=== PATIENT | female | born 1945 | race Caucasian/White ===

== ENCOUNTER → 2018-01-10 14:35 | Outpatient (CLI) | payer MEDICARE, OTHER, SELFPAY ==
--- NOTE | 2018-01-10 | DI.RAD.S_ITS ---
PROCEDURE: XR LUMBAR SPINE 2-3V INDICATIONS: RIGHT HIP PAIN/BACK PAIN TECHNIQUE: 3 views of the lumbar spine were acquired. COMPARISON: [facility], , L-SPINE 2-3 VIEWS, 10/08/2013, 9:57. FINDINGS: Bones: 5 [id number] vertebrae are present. There is normal bony alignment. No vertebral body compression fractures. No suspicious bony lesions. Degenerative disc disease and facet osteoarthritis is moderate at L1-2, and moderately severe at L5 S1. Partial lumbar transition anatomy of S1 is noted. Soft tissues: Overlying bowel gas pattern is normal. No suspicious soft tissue calcifications. IMPRESSION: No change from prior study from 2013 given the slight differences in technique with moderately severe degenerative disc disease and facet osteoarthritis at L5-S1 and moderate such degeneration at L1-L2. Dictated by: Geoff Kemp M.D. on 01/10/2018 at 15:22 Approved by: Geoff Kemp M.D. on 01/10/2018 at 15:24
--- NOTE | 2018-01-10 | DI.RAD.S_ITS ---
PROCEDURE: XR HIP W PEL IF DONE RT 2V INDICATIONS: RIGHT HIP PAIN/BACK PAIN - ONGOING TECHNIQUE: AP pelvis with lateral view(s) of the right hip. COMPARISON: [facility], CR, XR PELVIS W LATERAL HIP RT, 03/16/2015, 11:19. [facility], MR, L-SPINE WITHOUT CONTRAST, 11/13/2015, 12:04. [facility], CR, XR LUMBAR SPINE 2-3V, 01/10/2018, 14:30. FINDINGS: Bones: No fractures or dislocation, but there is mild left hip joint osteoarthritis and a right total hip arthroplasty showing no sign of disruption or loosening. s. Pelvic ring appears intact. No suspicious bony lesions. Soft tissues: The visualized bowel gas pattern is normal. No suspicious soft tissue calcifications. IMPRESSION: There is a stable appearing right total hip arthroplasty, without evidence of device loosening or disruption. The adjacent pelvic structures show no trauma. Mild left hip joint osteoarthritis is incidentally noted. Dictated by: Geoff Kemp M.D. on 01/10/2018 at 15:25 Approved by: Geoff Kemp M.D. on 01/10/2018 at 15:26
== END ==
PROVIDERS: PCP Physician Assistant; Visit Provider Physician Assistant
DX: M51.36 Other intervertebral disc degeneration, lumbar region (principal); M47.816 Spondylosis without myelopathy or radiculopathy, lumbar region; M47.817 Spondylosis without myelopathy or radiculopathy, lumbosacral region; Z96.641 Presence of right artificial hip joint; M25.551 Pain in right hip; M16.12 Unilateral primary osteoarthritis, left hip
CPT/HCPCS: 72100; 73502

== ENCOUNTER → 2018-01-30 14:06 | Outpatient (CLI) | payer MEDICARE, OTHER, SELFPAY ==
--- NOTE | 2018-01-30 | DI.MRI.S_ITS ---
PROCEDURE: MR LUMBAR SPINE WO CON INDICATIONS: LOW BACK PAIN. RIGHT HIP AND LEG PAIN TECHNIQUE: Noncontrast sagittal T1 spin echo and T2 fast echo, sagittal STIR, axial T1 and T2 fast spin echo through the lumbar spine. In cases with scoliosis, additional coronal T2 fast spin echo may be performed. COMPARISON: [facility], MR, L-SPINE WITHOUT CONTRAST, 11/13/2015, 12:04. [facility], MR, L-SPINE WITHOUT CONTRAST, 10/16/2013, 13:09. Loc[facility], CR, XR LUMBAR SPINE 2-3V, 01/10/2018, 14:30. FINDINGS: Image quality: Excellent. Alignment and Curvature: There is normal bony alignment. Bone Marrow: Marrow is of normal overall signal. No acute vertebral body compression fractures. Spinal Cord: Conus medullaris terminates at the L1-L2 level. Visualized cord demonstrates normal signal and size. Paraspinous Soft Tissues: No paravertebral masses. L1-L2: Hqic-mn-[id number] loss of disc height and disc desiccation. There is mild posterior disc bulge. The central canal is patent. No foraminal stenosis. Mild progression of disc degeneration compared with the last exam on 11/13/2015. L2-L3: Preserved disc height and mild disc desiccation. There is minimal posterior disc bulge. Mild bilateral facet arthropathy and moderate hypertrophy of ligament flavum. The central canal is patent. No foraminal stenosis. No significant change from the last exam on 11/13/2015. L3-L4: Preserved disc height and mild disc desiccation. There is mild posterior disc bulge. Mild bilateral facet arthropathy and moderate hypertrophy of ligament flavum. The central canal is patent. No foraminal stenosis. No significant change from the last exam on 11/13/2015. L4-L5: Preserved disc height and mild disc desiccation. There is mild posterior disc bulge. Moderate bilateral facet arthropathy and hypertrophy of ligament flavum. The central canal is mildly narrowed. Mild left foraminal stenosis. Patent right neuroforamen. No significant change from the last exam on 11/13/2015. L5-S1: Moderate loss of disc height and disc desiccation. There is mild posterior disc bulge. Mild bilateral facet arthropathy. The central canal is patent. Mild foraminal stenosis on the left. Patent right neuroforamen. No significant change from the last exam on 11/13/2015. IMPRESSION: 1. Multilevel degenerative disc disease and facet arthropathy as described. 2. Mild central canal stenosis at L4-L5, unchanged from the last exam. 3. Mild foraminal stenosis at L4-L5 and L5-S1 on the left, unchanged from the last exam. Dictated by: Evy Bolivar M.D. on 01/30/2018 at 15:01 Approved by: Evy Bolivar M.D. on 01/30/2018 at 15:31
== END ==
PROVIDERS: PCP Physician Assistant; Visit Provider Physician Assistant
DX: M51.16 Intervertebral disc disorders with radiculopathy, lumbar region (principal); M48.061 Spinal stenosis, lumbar region without neurogenic claudication; M54.5 Low back pain; M25.551 Pain in right hip; M79.604 Pain in right leg
CPT/HCPCS: 72148

== ENCOUNTER → 2018-02-22 10:23 | Outpatient (CLI) | payer MEDICARE, OTHER, SELFPAY ==
--- NOTE | 2018-02-22 | DI.RAD.S_ITS ---
PROCEDURE: XR HIP W PEL IF DONE RT 2V INDICATIONS: Pain in right hip TECHNIQUE: AP pelvis with lateral view(s) of the right hip(s). COMPARISON: [facility], , XR HIP W PEL IF DONE RT 2V, 01/10/2018, 14:30. FINDINGS: Bones: No fractures or dislocations. Pelvic ring appears intact. No suspicious bony lesions. Right hip arthroplasty hardware is seen. No findings of hardware failure or hardware loosening are seen. Soft tissues: The visualized bowel gas pattern is normal. No suspicious soft tissue calcifications. IMPRESSION: Normal postoperative examination. Dictated by: Terry Yang M.D. on 02/22/2018 at 9:56 Approved by: Terry Yang M.D. on 02/22/2018 at 9:57
== END ==
PROVIDERS: PCP Physician Assistant; Visit Provider Physician Assistant
DX: M25.551 Pain in right hip (principal)
CPT/HCPCS: 73502

== ENCOUNTER → 2018-05-18 08:16 | Outpatient (CLI) | payer MEDICARE, OTHER, SELFPAY ==
--- NOTE | 2018-05-18 | DI.MG.S_ITS ---
BILATERAL DIGITAL SCREENING MAMMOGRAM 3D/2D WITH CAD: 05/18/2018 CLINICAL: Routine screening. Family history of breast cancer. Comparison is made to exams dated: 05/17/2017 mammogram, 05/16/2016 mammogram, and 05/14/2015 mammogram - [facility]. The tissue of both breasts is heterogeneously dense. This may lower the sensitivity of mammography. Current study was also evaluated with a Computer Aided Detection (CAD) system. No significant masses, calcifications, or other findings are seen in either breast. There has been no significant interval change. IMPRESSION: NEGATIVE There is no mammographic evidence of malignancy. A 1 year screening mammogram is recommended. This exam was interpreted at Station ID: [id number]. NOTE: For mammograms, a report in lay terms will be sent to the patient. Approximately 15% of breast malignancies will not be visualized mammographically. In the management of a palpable breast mass, a negative mammogram must not discourage biopsy of a clinically suspicious lesion. Electronically Signed By: Nusrat castle/destinee:05/18/2018 09:53:40 letter sent: Normal Exam ACR BI-RADS Category 1: Negative [id number]
== END ==
PROVIDERS: PCP Physician Assistant; Visit Provider Physician Assistant
DX: Z12.31 Encounter for screening mammogram for malignant neoplasm of breast (principal); Z80.3 Family history of malignant neoplasm of breast
CPT/HCPCS: 77063; 77067

== ENCOUNTER → 2018-07-28 11:43 | Outpatient (CLI) | payer MEDICARE, OTHER, SELFPAY ==
[2018-07-28 12:18] LABS: Add Manual Diff / Slide Review NO; Basophils Absolute Auto 0 /uL (0-100); Basophils Percent Auto 0.7 % (0-2); Eosinophils Absolute Auto 100 /uL (0-450); Eosinophils Percent Auto 2.3 % (2-4); Hemoglobin 12.7 g/dL (12.0-16.0); Lymphocytes Absolute Auto 1700 /uL (1100-4500); Lymphocytes Percent Auto 26.9 % (25-40); Mean Corpuscular HGB Conc 33.3 % (30-36); Monocytes Absolute Auto 600 /uL (0-900); Monocytes Percent Auto 9.8 % (3-14); Neutrophils Absolute Auto 3800 /uL (1500-7000); Neutrophils Percent Auto 60.3 % (50-75); Platelet Count 196 X10^3/uL (150-400); Red Blood Cell Count 4.22 X10^6/uL (4.0-5.2); Red Cell Distribution Width 14.3 % (11.6-14.8); White Blood Cell Count 6.2 X10^3/uL (4.5-11.0)
[2018-07-28 12:27] LABS: Prothrombin Time 11.8 SECONDS (10.1-12.7)
[2018-07-28 12:33] LABS: Alanine Aminotransferase 28 IU/L (9-52); Albumin 4.1 g/dL (3.5-5.0); Albumin Globulin Ratio 1.7 (1.0-2.8); Alkaline Phosphatase 44 U/L (38-126); Aspartate Aminotransferase 23 IU/L (14-36); Bilirubin Total 0.3 mg/dL (0.2-1.3); Blood Urea Nitrogen 15 mg/dL (7-17); Calcium 8.8 mg/dL (8.4-10.2); Carbon Dioxide 29 mmol/L (22-32); Chloride 99 mmol/L (98-107); Cholesterol 115 mg/dL (140-199); Estimated Glomerular Filt Rate > 60.0 mL/min (>60); Globulin 2.4 g/dL (1.7-4.1); Glucose 81 mg/dL (80-110); HDL Cholesterol 47 mg/dL (40-60); HEMOLYSIS < 15 (0-50); LDL Cholesterol Calculated 48 mg/dL (<100); Potassium 4.4 mmol/L (3.4-5.1); Sodium 136 mmol/L (137-145); Total Protein 6.5 g/dL (6.3-8.2); Triglycerides 99 mg/dL (35-150)
== END ==
PROVIDERS: PCP Physician Assistant; Visit Provider Physician Assistant
DX: R04.0 Epistaxis (principal); E78.5 Hyperlipidemia, unspecified
CPT/HCPCS: 36415; 80053; 80061; 85025; 85610

== ENCOUNTER → 2019-01-04 08:30 | Outpatient (CLI) | payer MEDICARE, OTHER, SELFPAY ==
--- NOTE | 2019-01-04 | DI.MG.S_ITS ---
BILATERAL DIGITAL DIAGNOSTIC MAMMOGRAM 3D/2D: 01/04/2019 CLINICAL: Lump in the left breast. Comparison is made to exams dated: 05/18/2018 mammogram, 05/17/2017 mammogram, 05/16/2016 mammogram, 05/14/2015 mammogram, and 05/05/2014 mammogram - [facility]. The tissue of both breasts is heterogeneously dense. This may lower the sensitivity of mammography. No abnormality identified mammographicaly at the site of palpable abnormality in the left breast upper outer quadrant at middle depth. No other significant masses, calcifications, or other findings are seen in either breast. IMPRESSION: INCOMPLETE: NEEDS ADDITIONAL IMAGING EVALUATION No abnormality identified mammographicaly at the site of palpable abnormality in the left breast upper outer quadrant at middle depth. Targeted ultrasound evaluation is recommended and will be subsequently preformed. This exam was interpreted at Station ID: [id number]. NOTE: For mammograms, a report in lay terms will be sent to the patient. Approximately 15% of breast malignancies will not be visualized mammographically. In the management of a palpable breast mass, a negative mammogram must not discourage biopsy of a clinically suspicious lesion. Electronically Signed By: Watson Oneill M.D. slc/:01/04/2019 09:20:03 ACR BI-RADS Category 0: Incomplete 3340F
--- NOTE | 2019-01-04 | DI.US.S_ITS ---
LIMITED ULTRASOUND OF LEFT BREAST: 01/04/2019 CLINICAL: Palpable left breast lump. Comparison is made to exams dated: 01/04/2019 mammogram, 05/18/2018 mammogram, 05/17/2017 mammogram, 05/16/2016 mammogram, 05/14/2015 mammogram, and 05/05/2014 mammogram - [facility]. Color flow ultrasound of the left breast 2 o'clock region was performed. Tariq scale images of the real-time examination were reviewed. No abnormality in the left breast at 2 o'clock middle depth 8 cm from the nipple to correlate with the palpable abnormality. No abnormalities were seen sonographically in the left breast. IMPRESSION: NEGATIVE There is no sonographic evidence of malignancy. No ultrasound correlate to the palpable abnormality in the left breast 2:00 region. Recommend continued clinical survellance for change. Otherwise return to annual mammogram screening schedule is recommended. This exam was interpreted at Station ID: [id number]. Electronically Signed By: Watson Oneill M.D. slc/:01/04/2019 23:52:14 letter sent: Clinical Evaluation Ultrasound BI-RADS: 1 Negative
== END ==
PROVIDERS: PCP Physician Assistant; Visit Provider Physician Assistant
DX: R92.8 Other abnormal and inconclusive findings on diagnostic imaging of breast (principal); N63.20 Unspecified lump in the left breast, unspecified quadrant
CPT/HCPCS: 76642; 77066; G0279

== ENCOUNTER → 2019-04-04 13:06 | Outpatient (CLI) | payer MEDICARE, OTHER, SELFPAY | PROVIDERS: PCP Physician Assistant; Visit Provider Physician Assistant | DX: M85.832 Other specified disorders of bone density and structure, left forearm (principal); Z78.0 Asymptomatic menopausal state; Z87.891 Personal history of nicotine dependence; Z90.722 Acquired absence of ovaries, bilateral | CPT/HCPCS: 77080; 77081 ==

== ENCOUNTER → 2019-07-02 07:22 | Outpatient (CLI) | payer MEDICARE, OTHER, SELFPAY ==
[2019-07-02 08:22] LABS: Add Manual Diff / Slide Review NO; Basophils Absolute Auto 0 /uL (0-100); Basophils Percent Auto 0.6 % (0-2); Eosinophils Absolute Auto 200 /uL (0-450); Eosinophils Percent Auto 3.2 % (2-4); Hematocrit 39.1 % (36-46); Lymphocytes Absolute Auto 2200 /uL (1100-4500); Mean Corpuscular HGB Conc 33.3 % (30-36); Mean Corpuscular Volume 90.2 fL (80-100); Monocytes Absolute Auto 500 /uL (0-900); Monocytes Percent Auto 9.7 % (3-14); Neutrophils Absolute Auto 2700 /uL (1500-7000); Neutrophils Percent Auto 47.5 % (50-75); Platelet Count 183 X10^3/uL (150-400); Red Blood Cell Count 4.33 X10^6/uL (4.0-5.2); Red Cell Distribution Width 14.3 % (11.6-14.8); White Blood Cell Count 5.6 X10^3/uL (4.5-11.0)
[2019-07-02 08:38] LABS: Alanine Aminotransferase 19 IU/L (<35); Albumin 4.2 g/dL (3.5-5.0); Albumin Globulin Ratio 1.5 (1.0-2.8); Alkaline Phosphatase 48 U/L (38-126); Aspartate Aminotransferase 29 IU/L (14-36); BUN Creatinine Ratio 27.1 (6-22); Bilirubin Total 0.3 mg/dL (0.2-1.3); Blood Urea Nitrogen 19 mg/dL (7-17); Calcium 9.5 mg/dL (8.4-10.2); Carbon Dioxide 32 mmol/L (22-32); Chloride 100 mmol/L (98-107); Cholesterol 172 mg/dL (140-199); Estimated Glomerular Filt Rate > 60.0 mL/min (>60); Globulin 2.8 g/dL (1.7-4.1); Glucose 103 mg/dL (80-110); HDL Cholesterol 52 mg/dL (40-60); HEMOLYSIS < 15 (0-50); LDL Cholesterol Calculated 97 mg/dL (<100); Potassium 3.9 mmol/L (3.4-5.1); Sodium 140 mmol/L (137-145); Triglycerides 113 mg/dL (35-150)
[2019-07-02 09:32] LABS: Free T4, Direct Thyroxine 0.58 ng/dL (0.78-2.19)
== END ==
PROVIDERS: PCP Physician Assistant; Referring Provider Physician Assistant; Visit Provider Physician Assistant
DX: E78.5 Hyperlipidemia, unspecified (principal); E03.9 Hypothyroidism, unspecified
CPT/HCPCS: 36415; 80053; 80061; 84439; 84443; 85025

== ENCOUNTER 2019-08-12 20:40 | Emergency (ER) | payer MEDICARE, OTHER, SELFPAY ==
[2019-08-12 20:56] VITALS: BP 180/85; PULSE 84; RESP 18; TEMP 36.9; O2SAT 97; BMI 26.2
--- NOTE | 2019-08-12 21:02 | ED_ITS ---
HPI - General Adult General Chief complaint: Eye Problems Stated complaint: LITTLE PIECE OF PLASTIC ON RIGHT EYE Time Seen by Provider: 08/12/19 21:01 Source: patient Mode of arrival: Ambulatory Limitations: no limitations History of Present Illness HPI narrative: 74-year-old female here for evaluation of which she thinks is a foreign body in her right eye. Patient has had cataract surgery in the past but does not were contact lenses. She was using a 1 time use refresh tear bullet afterwards she had irritation of felt like there was something in her eye. She washed her eye profusely at home before arrival. States she still feels like there is something in her eye. When she looked at the refresh Tear container there was a small piece of plastic missing from it and she thinks that is in her eye. Related Data Home Medications Medication Instructions Recorded Confirmed HYDROCODONE/ACETAMINOPHEN ([place] 1 tab PO PRN #0 05/31/11 10-325 Tablet) [FISH OIL] 1,000 mg PO Q DAY #0 05/31/11 [VITAMIN D ] 2,000 iu PO QDAY #0 05/31/11 ASPIRIN (#ASPIRIN E.C.) 81 mg PO Q DAY #0 06/17/11 CA PANTOTHENATE/FOLIC ACID/VIT 1 tab PO QDAY #0 06/17/11 (MULTIVITAMIN) FOLIC ACID (#FOLIC ACID) 800 mcg PO Q DAY #0 06/17/11 Niacin (#NIACIN) 500 mg PO Q DAY #0 06/17/11 Previous Rx's Medication Instructions Recorded erythromycin 0.5 inch EYE-RIGHT TID 3 Days #3.5 08/12/19 gram Allergies Allergy/AdvReac Type Severity Reaction Status Date / Time adhesive Allergy Mild RASH; Verified 08/12/19 21:06 PAPER TAPE OK Cephalosporins Allergy Mild RASH Verified 08/12/19 21:06 erythromycin base Allergy Mild RASH Verified 08/12/19 21:06 tetracycline Allergy Mild RASH Verified 08/12/19 21:06 ciprofloxacin AdvReac Intermediate C DIFF Verified 08/12/19 21:06 ANTI INFLAMMATORY Allergy Mild GI BLEED Uncoded 08/12/19 21:06 Review of Systems Constitutional Constitutional: Denies fever(s) Eyes Comments: Right eye pain, foreign body sensation right eye, right eye irritation, left eye unremarkable ENT Ears, Nose, Mouth, and Throat: Denies vertigo Integumentary/Breasts Skin/Breast: Denies rash Neurologic Neurologic: Denies vertigo Hematologic/Lymphatic Hematologic/Lymphatic: Denies easy bleeding and Denies easy bruising Patient History Medical History Glaucoma (Acute) Social History Smoking Status: Never smoker Smoking Status: Never smoker alcohol intake frequency: 0-2 drinks per day Substance Use Type: does not use Exam Initial Vital Signs Initial Vital Signs: Vital Signs Temperature 98.5 F 08/12/19 20:56 Pulse Rate 84 08/12/19 20:56 Respiratory Rate 18 08/12/19 20:56 Blood Pressure 180/85 H 08/12/19 20:56 Pulse Oximetry 97 08/12/19 20:56 Const General: cooperative and comfortable Limitations: mental status not altered HENMT Face and sinus: normal facial exam Eyes Alignment and Position: alignment normal Periorbital: periorbital findings normal Eyelids: eyelids normal Conjunctivae: conjunctivae normal Sclera: sclerae normal Cornea: corneas abnormal on the right fluorescein used and abrasion linear and fluorescein used Pupils: PERRL EOM: EOM intact bilaterally Resp Effort & Inspection: normal respiratory effort Skin Lesions: no lesions Rashes: no rashes Neuro General: alert and awake Course Orders Ordered: Discontinued Medications Erythromycin (Erythromycin Ophth Oint) 1 applic EYE-RIGHT NOW ONE Stop: 08/12/19 21:16 Last Admin: 08/12/19 21:26 Dose: 1 applic Documented by: FLAKITO Fluorescein Sodium (Ful-Joceline) 1 mg EYE-BOTH NOW ONE Stop: 08/12/19 21:02 Last Admin: 08/12/19 21:07 Dose: 1 mg Documented by: FLAKITO Proparacaine HCl (Parcaine 0.5% Ophth Ailyn) 1 drops EYE-LEFT NOW ONE Stop: 08/12/19 21:02 Last Admin: 08/12/19 21:07 Dose: 1 drops Documented by: FLAKITO Vital Signs Vital signs: Vital Signs - 8 hr 08/12/19 20:56 08/12/19 21:48 08/12/19 22:00 Temperature 98.5 F Pulse Rate 84 73 69 Respiratory Rate 18 18 Blood Pressure 180/85 H Blood Pressure [Left Arm] 180/85 H 143/63 H Pulse Oximetry 97 94 96 Medical Decision Making MDM Narrative Medical decision making narrative: No foreign body noted with inversion of the upper and lower eyelid. Visual acuity noted from nursing notes. Physical exam is consistent with a corneal abrasion in the right eye. Patient was given erythromycin ointment. She does have a documented allergy to erythromycin however she stated that was many years ago and it was ?GI issues ?after she took erythromycin by mouth. After discussion with her regarding this we did opt to try erythromycin ointment. She was given that here in the emergency department without any adverse reaction. Will send home with a prescription for this. She was given return precautions and follow-up instructions. She expressed understanding and agreement. Discharge Plan Departure Patient Disposition: Home Clinical Impression: Corneal abrasion Qualifiers: Encounter type: initial encounter Laterality: right Qualified Code(s): S05.01XA - Injury of conjunctiva and corneal abrasion without foreign body, right eye, initial encounter Discharge Date/Time: 08/12/19 22:07 Instructions: DI for Corneal Abrasion Activity Restrictions/Additional Instructions: Use the antibiotic ointment like we discussed. Contact your primary provider for a follow-up. Return to the emergency department for any new or worsening symptoms Prescriptions: New erythromycin 5 mg/gram (0.5 %) ointment 0.5 inch EYE-RIGHT TID 3 Days Qty: 3.5 RF: 0 No Action HYDROCODONE/ACETAMINOPHEN ([place] 10-325 Tablet) 1 tab PO PRN Qty: 0 RF: 0 [VITAMIN D ] 2,000 iu PO QDAY Qty: 0 RF: 0 [FISH OIL] 1,000 mg PO Q DAY Qty: 0 RF: 0 CA PANTOTHENATE/FOLIC ACID/VIT (MULTIVITAMIN) 1 tab PO QDAY Qty: 0 RF: 0 Niacin (#NIACIN) 500 mg PO Q DAY Qty: 0 RF: 0 FOLIC ACID (#FOLIC ACID) 800 mcg PO Q DAY Qty: 0 RF: 0 ASPIRIN (#ASPIRIN E.C.) 81 mg PO Q DAY Qty: 0 RF: 0 Referrals: Deepika Felix PA-C [Primary Care Provider] -
[2019-08-12] MEDS: PROPARACAINE 0.5% OPHTH SOL 1 DROPS EYE-LEFT (21:07)
[2019-08-12] MEDS: FLUORESCEIN 1 MG STRIP EYE-BOTH (21:07)
[2019-08-12] MEDS: ERYTHROMYCIN OPHTH 1 GM OINT 1 APPLIC EYE-RIGHT (21:26)
[2019-08-12 21:48] VITALS: BP 180/85; PULSE 73; O2SAT 94
[2019-08-12 22:00] VITALS: BP 143/63; PULSE 69; RESP 18; O2SAT 96
== END 2019-08-12 22:07 | disposition home or self-care (01) ==
PROVIDERS: Emergency Provider Emergency Medicine; PCP Physician Assistant
DX: S05.01XA Injury of conjunctiva and corneal abrasion without foreign body, right eye, initial encounter (principal)
CPT/HCPCS: 99283

== ENCOUNTER → 2019-10-08 10:29 | Outpatient (CLI) | payer MEDICARE, OTHER, SELFPAY ==
[2019-10-08 13:20] LABS: Free T3, Triiodothyronine Free 2.83 pg/mL (2.77-5.27)
[2019-10-08 13:34] LABS: TSH w/ Reflex to FT4 2.48 uIU/mL (0.47-4.68)
== END ==
PROVIDERS: PCP Physician Assistant; Referring Provider Physician Assistant; Visit Provider Physician Assistant
DX: E03.9 Hypothyroidism, unspecified (principal)
CPT/HCPCS: 36415; 84443; 84481

== ENCOUNTER → 2019-11-18 19:42 | Outpatient (ROUT) | payer MEDICARE, OTHER, SELFPAY ==
[2019-11-18 19:52] LABS: Add Manual Diff / Slide Review NO; Basophils Absolute Auto 100 /uL (0-100); Basophils Percent Auto 0.7 % (0-2); Eosinophils Absolute Auto 200 /uL (0-450); Eosinophils Percent Auto 2.1 % (2-4); Hematocrit 37.5 % (36-46); Hemoglobin 12.4 g/dL (12.0-16.0); Lymphocytes Absolute Auto 1700 /uL (1100-4500); Lymphocytes Percent Auto 23.5 % (25-40); Mean Corpuscular HGB Conc 33.1 % (30-36); Mean Corpuscular Hemoglobin 30.1 PG (26-34); Mean Corpuscular Volume 90.9 fL (80-100); Monocytes Absolute Auto 700 /uL (0-900); Monocytes Percent Auto 10.1 % (3-14); Neutrophils Absolute Auto 4700 /uL (1500-7000); Neutrophils Percent Auto 63.6 % (50-75); Platelet Count 203 X10^3/uL (150-400); Red Blood Cell Count 4.12 X10^6/uL (4.0-5.2); Red Cell Distribution Width 14.5 % (11.6-14.8); White Blood Cell Count 7.4 X10^3/uL (4.5-11.0)
[2019-11-18 19:54] LABS: Alanine Aminotransferase 17 IU/L (<35); Albumin 3.8 g/dL (3.5-5.0); Albumin Globulin Ratio 1.7 (1.0-2.8); Alkaline Phosphatase 62 U/L (38-126); Aspartate Aminotransferase 29 IU/L (14-36); BUN Creatinine Ratio 34.5 (6-22); Bilirubin Total 0.3 mg/dL (0.2-1.3); Blood Urea Nitrogen 19 mg/dL (7-17); Calcium 9.3 mg/dL (8.4-10.2); Carbon Dioxide 30 mmol/L (22-32); Chloride 100 mmol/L (98-107); Estimated Glomerular Filt Rate > 60.0 mL/min (>60); Globulin 2.3 g/dL (1.7-4.1); Glucose 89 mg/dL (80-110); HEMOLYSIS < 15 (0-50); Potassium 4.1 mmol/L (3.4-5.1); Sodium 134 mmol/L (137-145); Total Protein 6.1 g/dL (6.3-8.2)
[2019-11-18 20:03] LABS: NT-proBNP (BNP-Adult 18+) 130 pg/mL (<125)
[2019-11-18 20:25] LABS: TSH w/ Reflex to FT4 1.52 uIU/mL (0.47-4.68)
== END ==
PROVIDERS: PCP Physician Assistant; Visit Provider Physician Assistant
DX: R06.00 Dyspnea, unspecified (principal)
CPT/HCPCS: 80053; 83880; 84443; 85025

== ENCOUNTER → 2019-11-21 10:17 | Outpatient (CLI) | payer MEDICARE, OTHER, SELFPAY ==
--- NOTE | 2019-11-21 10:22 | DI.RAD.S_ITS ---
PROCEDURE: XR CHEST 2V INDICATIONS: BRATHING ISSUE/CHEST PAIN TECHNIQUE: 2 views of the chest were acquired. COMPARISON: None. FINDINGS: Surgical changes and devices: None. Lungs and pleura: Lungs are clear. No pleural effusions or pneumothorax. Mediastinum: Mediastinal contours are normal. Heart size is normal. Bones and chest wall: No suspicious bony abnormalities. Soft tissues appear unremarkable. IMPRESSION: No acute cardiopulmonary findings. Dictated by: Nusrat Morrow M.D. on 11/21/2019 at 12:39 Approved by: Nusrat Morrow M.D. on 11/21/2019 at 12:40
== END ==
PROVIDERS: PCP Physician Assistant; Referring Provider Physician Assistant; Visit Provider Physician Assistant
DX: R06.00 Dyspnea, unspecified (principal); R07.9 Chest pain, unspecified
CPT/HCPCS: 71046

== ENCOUNTER → 2019-11-24 08:58 | Outpatient (CLI) | payer MEDICARE, OTHER, SELFPAY ==
[2019-11-25 08:46] LABS: COVID19 Sendout Not Detected (Not Detect)
== END ==
PROVIDERS: PCP Physician Assistant; Visit Provider Physician Assistant
DX: Z01.812 Encounter for preprocedural laboratory examination (principal)
CPT/HCPCS: 87635

== ENCOUNTER → 2019-11-27 07:39 | Outpatient (CLI) | payer MEDICARE, OTHER, SELFPAY ==
--- NOTE | 2019-11-27 18:54 | DI.NM.S_ITS ---
DATE OF SERVICE: 11/27/2019 PROCEDURE PERFORMED: Pharmacologic vasodilator stress and rest myocardial perfusion study with gating to assess ejection fraction and regional wall motion. Performed as a one-day study. ORDERING PROVIDER: Deepika Felix PA-C. INDICATIONS: The patient is a 74-year-old female with exertional dyspnea and chest tightness. CARDIAC STRESS: Per protocol, 0.4 mg of regadenoson was infused, augmented by low-level walking. With this, the patient had a normal hemodynamic response. She described some leg heaviness, but no chest discomfort. Her resting ECG shows sinus rhythm with fairly normal ST segments. The stress ECGs are somewhat corrupted by motion artifact, but there are some mild, nonspecific ST-segment changes, but nothing diagnostic for ischemia. She had rare PACs, but no complex ectopy. Per protocol, she was injected with 26.1 millicuries of technetium-99m Myoview and was imaged 20 minutes later using a gated SPECT acquisition protocol. Earlier in the day, while at rest, she was injected with 12.0 millicuries of technetium-99m Myoview and was imaged 30 minutes later, again using a gated SPECT acquisition protocol. FINDINGS: 1. Raw data: There is fairly good myocardial tracer uptake with mild breast shadows. Lung/heart ratio was normal at 0.26 with a normal TID ratio of 0.85. 2. Quantitated gated SPECT: Post-stress ejection fraction is estimated at 96%, likely an overestimate because of relatively small left ventricular volumes. Wall motion is normal. Resting ejection fraction is 95%, again likely an overestimate with a resting end-diastolic volume of 58 mL. 3. Myocardial perfusion imaging: Post-stress supine images show a normal myocardial perfusion pattern without any concerning perfusion defects, supported by normal perfusion imaging in the prone position. The resting images show an identical perfusion pattern without any clear areas of improvement. IMPRESSION: 1. Normal myocardial perfusion study. 2. No evidence of myocardial ischemia or previous myocardial infarction. 3. Normal left ventricular systolic function with relatively small left ventricular volumes. 4. No angina or significant ECG changes of ischemia with pharmacologic vasodilator stress. Jose ManuelAnn - Job doc#: [id number]/job#: [id number] dd: 11/27/2019 16:37:00 dt: 11/27/2019 17:01:00 DICTATING MD/COPIES TO: Crescencio Beltran MD; Crescencio Beltran MD; Deepika Felix PA-C COPIES MNE: MAURISIO; ;
== END ==
PROVIDERS: PCP Physician Assistant; Referring Provider Physician Assistant; Visit Provider Physician Assistant
DX: R06.00 Dyspnea, unspecified (principal); R07.89 Other chest pain
CPT/HCPCS: 78452; 93017; A9502; J2785

== ENCOUNTER → 2019-12-09 10:41 | Outpatient (CLI) | payer MEDICARE, OTHER, SELFPAY ==
[2019-12-10 09:51] LABS: COVID19 Sendout Not Detected (Not Detect)
== END ==
PROVIDERS: PCP Physician Assistant; Visit Provider Student in an Organized Health Care Education/Training Program
DX: Z01.812 Encounter for preprocedural laboratory examination (principal)
CPT/HCPCS: 87635

== ENCOUNTER → 2019-12-12 12:58 | Outpatient (CLI) | payer MEDICARE, OTHER, SELFPAY ==
--- NOTE | 2019-12-17 08:23 | PM.PFT.1 ---
Pulmonary Function Test Referral & Results Date Patient Seen: 12/12/19 Requesting provider: Deepika Felix Indication: Dyspnea Results: The spirometry demonstrates an FVC of 2.31 L which is 85% of predicted. The FEV1 was measured at 1.41 L which is 69% of predicted. The FEV1/FVC ratio was 61 which is 80% of predicted. Following the administration of bronchodilator there was no significant change. Lung volumes show an SVC of 2.30 L which is 86% of predicted. The diffusing capacity was measured at 14.08 which is 63% of predicted. No hemoglobin value was provided, so no correction for potential anemia could be made, if appropriate. The maximum voluntary ventilation was severely reduced Interpretation: This study demonstrates moderate obstructive lung disease based on reduction FEV1 and FEV1/FVC ratio without evidence of significant benefit following bronchodilator There is minimal reduction in lung volumes suggesting minimal restrictive lung disease There is a moderate reduction in diffusing capacity suggesting disease at the capillary alveolar level as well Clinical correlation suggested
== END ==
PROVIDERS: PCP Physician Assistant; Referring Provider Physician Assistant; Visit Provider Physician Assistant
DX: R06.02 Shortness of breath (principal); J98.8 Other specified respiratory disorders; Z87.891 Personal history of nicotine dependence
CPT/HCPCS: 94060; 94726; 94729

== ENCOUNTER → 2020-01-06 11:06 | Outpatient (CLI) | payer MEDICARE, OTHER, SELFPAY ==
--- NOTE | 2020-01-06 | DI.MG.S_ITS ---
BILATERAL DIGITAL SCREENING MAMMOGRAM 3D/2D WITH CAD: 01/06/2020 CLINICAL: Routine screening. Family history of breast cancer. Comparison is made to exams dated: 01/04/2019 mammogram, 05/18/2018 mammogram, 05/17/2017 mammogram, and 05/16/2016 mammogram - [facility]. The tissue of both breasts is heterogeneously dense. This may lower the sensitivity of mammography. Current study was also evaluated with a Computer Aided Detection (CAD) system. No significant masses, calcifications, or other findings are seen in either breast. There has been no significant interval change. IMPRESSION: NEGATIVE There is no mammographic evidence of malignancy. A 1 year screening mammogram is recommended. This exam was interpreted at Station ID: [id number]. NOTE: For mammograms, a report in lay terms will be sent to the patient. Approximately 15% of breast malignancies will not be visualized mammographically. In the management of a palpable breast mass, a negative mammogram must not discourage biopsy of a clinically suspicious lesion. Electronically Signed By: Jorge pratt/destinee:01/06/2020 14:06:55 letter sent: Normal Exam ACR BI-RADS Category 1: Negative [id number]
== END ==
PROVIDERS: PCP Physician Assistant; Referring Provider Physician Assistant; Visit Provider Physician Assistant
DX: Z12.31 Encounter for screening mammogram for malignant neoplasm of breast (principal); Z80.3 Family history of malignant neoplasm of breast
CPT/HCPCS: 77063; 77067

== ENCOUNTER → 2020-02-25 10:04 | Outpatient (CLI) | payer MEDICARE, OTHER, SELFPAY ==
--- NOTE | 2020-02-25 | DI.RAD.S_ITS ---
PROCEDURE: XR ELBOW RT 2V INDICATIONS: Right elbow pain. TECHNIQUE: 3 views of the elbow were acquired. COMPARISON: None. FINDINGS: Bones: Lucency in the medial epicondyle. There is a corticated ossicle adjacent to the medial epicondyle suggesting epicondylitis. No dislocations. No suspicious bony lesions. Soft tissues: No elbow joint effusion. No suspicious soft tissue calcifications. IMPRESSION: 1. Possible nondisplaced fracture in the medial epicondyle of uncertain chronicity. Please correlate with history of trauma. 2. There is a corticated ossicle adjacent to the medial epicondyle, suggesting epicondylitis. Dictated by: Evy Bolivar M.D. on 02/25/2020 at 13:25 Approved by: Evy Bolivar M.D. on 02/25/2020 at 13:30
== END ==
PROVIDERS: PCP Physician Assistant; Referring Provider Physician Assistant; Visit Provider Physician Assistant
DX: M25.521 Pain in right elbow (principal)
CPT/HCPCS: 73070

== ENCOUNTER → 2020-05-08 09:27 | Outpatient (CLI) | payer MEDICARE, OTHER, SELFPAY ==
[2020-05-08 10:51] LABS: COVID19 -Nasal RAPID Negative (Negative)
== END ==
PROVIDERS: PCP Physician Assistant; Visit Provider Surgery
DX: Z01.812 Encounter for preprocedural laboratory examination (principal); Z20.828 Contact with and (suspected) exposure to other viral communicable diseases
CPT/HCPCS: 87635; C9803

== ENCOUNTER 2020-05-11 07:25 | Day surgery (SDC) | payer MEDICARE, OTHER, SELFPAY ==
[2020-05-11 07:54] VITALS: BP 131/77; PULSE 76; RESP 16; TEMP 36.6; O2SAT 97; BMI 25.6
[2020-05-11] MEDS: LACTATED RINGERS 1,000 ML 200 ML IV (07:54)
--- NOTE | 2020-05-11 08:31 | P.HP_ITS ---
History of Present Illness History of Present Illness Date Patient Seen: 05/11/20 Time Patient Seen: 08:32 Chief complaint: SCREENING COLONOSCOPY Narrative: The patient presents for colorectal sreening. Have had multiple prior colonoscopy he has most recently 5 years ago notable for benign polyps. No personal or family history of colon cancer. On further history denies any recent gastrointestinal symptoms. No nausea, vomiting, abdominal pain, loss of appetite, unexplained weight loss, change in bowel habits, diarrhea, constipation, melena, hematochezia, or bright red blood per rectum. Patient History Medical History Diverticulosis GERD (gastroesophageal reflux disease) Glaucoma Hyperlipidemia Surgical History H/O colectomy Family & Social History Social History: household members spouse Tobacco & Substance use: Smoking Status Never smoker alcohol intake current alcohol intake frequency a few times a week Substance Use Type does not use Meds Home Medications and Allergies Home Medications Medication Instructions Recorded Confirmed Type HYDROCODONE/ACETAMINOPHEN ([place] 1 tab PO PRN #0 05/31/11 05/11/20 History 10-325 Tablet) ASPIRIN (#ASPIRIN E.C.) 81 mg PO Q DAY #0 06/17/11 05/11/20 History CA PANTOTHENATE/FOLIC ACID/VIT 1 tab PO QDAY #0 06/17/11 05/11/20 History (MULTIVITAMIN) bimatoprost [[place]] 1 drp EYE-BOTH BEDTIME 05/11/20 05/11/20 History cyclosporine [Restasis] 1 drp EYE-BOTH BID 05/11/20 05/11/20 History duloxetine 30 mg PO BID 05/11/20 05/11/20 History famotidine 40 mg PO BEDTIME 05/11/20 05/11/20 History gabapentin 200 mg PO BEDTIME 05/11/20 05/11/20 History levothyroxine 25 mcg PO DAILY 05/11/20 05/11/20 History olopatadine 1 drp EYE-BOTH BEDTIME 05/11/20 05/11/20 History pravastatin 20 mg PO BEDTIME 05/11/20 05/11/20 History Allergies Allergy/AdvReac Type Severity Reaction Status Date / Time adhesive Allergy Mild RASH; Verified 05/11/20 07:41 PAPER TAPE OK erythromycin base Allergy Mild RASH Verified 05/11/20 07:41 tetracycline Allergy Mild RASH Verified 05/11/20 07:41 ciprofloxacin AdvReac Intermediate C DIFF Verified 05/11/20 07:41 ANTI INFLAMMATORY Allergy Mild GI BLEED Uncoded 12/09/19 16:10 Review of Systems Review of Systems Narrative: A 10 point review of systems is negative except as noted in the HPI Exam Vital Signs (past 8 hours): - 05/11/20 07:54 Temperature 97.8 F Pulse Rate 76 Respiratory Rate 16 Blood Pressure 131/77 Pulse Oximetry 97 Oxygen Delivery Method Room Air Narrative Exam Narrative: General-no acute distress, well nourished adult woman HEENT-moist mucous membranes, no scleral icterus Neck-supple, no lymphadenopathy Chest- non labored respirations, clear to auscultation bilaterally Cardiac-regular rate no peripheral edema Abdomen-soft, nontender, non distended Extremities-warm, well perfused Neurological-alert and oriented, no focal deficits Assessment & Plan Assessment & Plan narrative: The patient requires colorectal screening and colonoscopy is recommended. Technical details were discussed. Risks, benefits, alternatives explained. Risks including but not limited to myocardial infarction, aspiration, bleeding, pain, missed lesion, incomplete examination, need for further radiographic studies, colonic perforation, and need for major abdominal surgery were discussed. All questions were answered to their satisfaction, and they are in agreement with this plan.
[2020-05-11] MEDS: MIDAZOLAM 5 MG/5 ML VIAL IV (08:45)
[2020-05-11] MEDS: fentaNYL 250 MCG/5 ML INJ IV (08:45)
--- NOTE | 2020-05-11 09:09 | PM.OP.ENDO ---
Operative Date/Time/Diagnoses Date of procedure: 05/11/20 Time of procedure: 09:09 Pre-op diagnosis: personal history of colonic polyps Post-op diagnosis: same Procedure & Clinicians Study performed: colonoscopy Same procedure as scheduled: Yes Indications: personal history of colonic polyps Surgeon: Killian Denny Procedure Notes Procedure in detail: Medications: Conscious sedation using 5mg IV midazolam and 150mcg IV of fentanyl The history and physical was performed/updated and the patient is ASA class is 2. The procedure was discussed in detail with the patient. Potential risks complications including infection, bleeding, missed diagnosis, perforation, need for surgery, and were explained. Their questions were answered and informed consent was obtained. Patient was brought to the procedure room and placed standard monitoring equipment. The patient's vital signs were monitored continuously throughout the entire procedure. Prior to starting time-out was performed. The patient was placed in the left lateral recumbent position. Procedural sedation was administered. Examination began with a thorough inspection of the perianal area there was no evidence of fissures, fistulae, external hemorrhoids or cutaneous malignancy. The colonoscopy scope was then placed into the anal canal and was advanced to the cecum, which was identified by the ileocecal valve, the appendiceal orifice and the confluence of the taenia. The scope was then slowly withdrawn examining colon thoroughly in all directions, irrigating it of any residual stool. No masses or polyps Sigmoid colectomy anastomosis observed without abnormality Spence diverticulosis Grade 1 internal hemorrhoids The patient tolerated the procedure well. They will be discharged once criteria are met. The prep was of good/excellent quality. The withdrawl time was 7 minutes. The sedation time was 28 minutes. Specimen(s): none sent Complications: none Impression: Diverticulosis Post-procedure Recommendations: Colonscopy in 10 years Disposition: same day surgery
[2020-05-11 09:11] VITALS: BP 126/56; PULSE 74; RESP 17; TEMP 36.2; O2SAT 98
[2020-05-11 09:16] VITALS: BP 133/67; PULSE 75; RESP 19; O2SAT 99
[2020-05-11 09:23] VITALS: BP 134/67; PULSE 68; RESP 16; O2SAT 100
[2020-05-11 09:28] VITALS: BP 124/99; PULSE 73; RESP 15; TEMP 36.5; O2SAT 99
--- NOTE | 2020-05-11 09:45 | SUR.PHASEII ---
Pt up and ambulating gait steady, dressed on her own and now out via wc in stable condition to curbside by Jenise tech
== END 2020-05-11 09:45 | disposition home or self-care (01) ==
PROVIDERS: PCP Physician Assistant; Referring Provider Physician Assistant; Visit Provider Surgery
PROC: 0DJD8ZZ Inspection of Lower Intestinal Tract, Via Natural or Artificial Opening Endoscopic (ICD-10-PCS; CPT 45378; principal; 2020-05-11 08:30)
DX: Z12.11 Encounter for screening for malignant neoplasm of colon (principal); Z86.010 Personal history of colon polyps; K21.9 Gastro-esophageal reflux disease without esophagitis; E78.5 Hyperlipidemia, unspecified; K57.30 Diverticulosis of large intestine without perforation or abscess without bleeding; K64.0 First degree hemorrhoids
CPT/HCPCS: G0105; 99152; 99153; J2250; J3010

== ENCOUNTER → 2021-01-02 07:51 | Outpatient (CLI) | payer MEDICARE, OTHER, SELFPAY ==
[2021-01-02 09:16] LABS: Add Manual Diff / Slide Review NO; Basophils Absolute Auto 0 /uL (0-100); Basophils Percent Auto 0.8 % (0-2); Eosinophils Absolute Auto 200 /uL (0-450); Hematocrit 39.3 % (36-46); Lymphocytes Absolute Auto 1700 /uL (1100-4500); Lymphocytes Percent Auto 31.4 % (25-40); Mean Corpuscular Hemoglobin 30.9 PG (26-34); Mean Corpuscular Volume 93.5 fL (80-100); Monocytes Absolute Auto 600 /uL (0-900); Monocytes Percent Auto 10.6 % (3-14); Neutrophils Absolute Auto 2900 /uL (1500-7000); Neutrophils Percent Auto 54.2 % (50-75); Platelet Count 211 X10^3/uL (150-400); Red Blood Cell Count 4.21 X10^6/uL (4.0-5.2); Red Cell Distribution Width 13.8 % (11.6-14.8); White Blood Cell Count 5.3 X10^3/uL (4.5-11.0)
[2021-01-02 09:27] LABS: Alanine Aminotransferase 15 IU/L (<35); Albumin 3.9 g/dL (3.5-5.0); Albumin Globulin Ratio 1.6 (1.0-2.8); Alkaline Phosphatase 51 U/L (38-126); Aspartate Aminotransferase 28 IU/L (14-36); BUN Creatinine Ratio 20.6 (6-22); Bilirubin Total 0.3 mg/dL (0.2-1.3); Blood Urea Nitrogen 13 mg/dL (7-17); Calcium 9.2 mg/dL (8.4-10.2); Carbon Dioxide 31 mmol/L (22-32); Chloride 101 mmol/L (98-107); Cholesterol 190 mg/dL (140-199); Estimated Glomerular Filt Rate > 60.0 mL/min (>60); Globulin 2.5 g/dL (1.7-4.1); Glucose 106 mg/dL (80-110); HDL Cholesterol 65 mg/dL (40-60); HEMOLYSIS < 15 (0-50); LDL Cholesterol Calculated 106 mg/dL (<100); Sodium 138 mmol/L (137-145); Total Protein 6.4 g/dL (6.3-8.2); Triglycerides 93 mg/dL (35-150)
[2021-01-02 10:51] LABS: Free T4, Direct Thyroxine 0.92 ng/dL (0.78-2.19)
== END ==
PROVIDERS: PCP Physician Assistant; Referring Provider Physician Assistant; Visit Provider Physician Assistant
DX: E03.9 Hypothyroidism, unspecified (principal); E78.2 Mixed hyperlipidemia
CPT/HCPCS: 36415; 80053; 80061; 84439; 84443; 85025

== ENCOUNTER → 2021-01-07 08:00 | Outpatient (CLI) | payer MEDICARE, OTHER, SELFPAY ==
--- NOTE | 2021-01-07 | DI.MG.S_ITS ---
BILATERAL DIGITAL SCREENING MAMMOGRAM 3D/2D WITH CAD: 01/07/2021 CLINICAL: Routine screening. Family history of breast cancer. Comparison is made to exams dated: 01/06/2020 mammogram, 01/04/2019 mammogram, and 05/18/2018 mammogram - [facility]. The tissue of both breasts is heterogeneously dense. This may lower the sensitivity of mammography. Current study was also evaluated with a Computer Aided Detection (CAD) system. No significant masses, calcifications, or other findings are seen in either breast. There has been no significant interval change. IMPRESSION: NEGATIVE There is no mammographic evidence of malignancy. A 1 year screening mammogram is recommended. This exam was interpreted at Station ID: [id number]. NOTE: For mammograms, a report in lay terms will be sent to the patient. Approximately 15% of breast malignancies will not be visualized mammographically. In the management of a palpable breast mass, a negative mammogram must not discourage biopsy of a clinically suspicious lesion. Electronically Signed By: Toma ahn/destinee:01/07/2021 10:00:57 letter sent: Normal Exam ACR BI-RADS Category 1: Negative [id number]
== END ==
PROVIDERS: PCP Physician Assistant; Referring Provider Physician Assistant; Visit Provider Physician Assistant
DX: Z12.31 Encounter for screening mammogram for malignant neoplasm of breast (principal); Z80.3 Family history of malignant neoplasm of breast
CPT/HCPCS: 77063; 77067

== ENCOUNTER → 2021-01-12 10:46 | Outpatient (CLI) | payer MEDICARE, OTHER, SELFPAY ==
--- NOTE | 2021-01-12 | DI.RAD.S_ITS ---
PROCEDURE: XR HAND LT MIN 3V INDICATIONS: Pain in right hand/Pain in left hand TECHNIQUE: 3 views of the hand(s) acquired. COMPARISON: None. FINDINGS: Bones: No fractures or dislocations. Carpal bones are normally aligned. No suspicious bony lesions. Generalized decrease in osseous mineralization noted. Mild 3rd through 5th distal interphalangeal joint space narrowing without marginal osteophytes. Soft tissues: No suspicious soft tissue calcifications. IMPRESSION: Mild 3rd through 5th distal DIP joint space narrowing Osteopenia Approved by: Abe Mendez M.D. on 01/12/2021 at 11:12
--- NOTE | 2021-01-12 | DI.RAD.S_ITS ---
PROCEDURE: XR HAND RT MIN 3V INDICATIONS: Pain in right hand/Pain in left hand TECHNIQUE: 3 views of the hand(s) acquired. COMPARISON: None. FINDINGS: Bones: No fractures or dislocations. Carpal bones are normally aligned. No suspicious bony lesions. Mild polyarticular joint space narrowing with periarticular osteophytosis. Juxta-articular lucencies involve the lunate, the 2nd MCP joint as well as multiple interphalangeal joints. Soft tissues: No suspicious soft tissue calcifications. IMPRESSION: Mild diffuse joint degeneration and multiple juxta-articular lucencies which may represent small erosions. Inflammatory arthropathy cannot be excluded. Dictated by: Nader Gutierrez [facility] Interpreted: Apolinar Rene MD on 01/12/2021 at 11:04 Transcribed by: RUBEN on 01/12/2021 at 11:05 Approved by: Geoff Kemp M.D. on 01/13/2021 at 13:35
== END ==
PROVIDERS: PCP Physician Assistant; Referring Provider Physician Assistant; Visit Provider Physician Assistant
DX: M79.641 Pain in right hand (principal); M79.642 Pain in left hand; M19.041 Primary osteoarthritis, right hand; M85.842 Other specified disorders of bone density and structure, left hand
CPT/HCPCS: 73130

== ENCOUNTER → 2021-01-15 08:03 | Outpatient (CLI) | payer MEDICARE, OTHER, SELFPAY ==
--- NOTE | 2021-01-15 | DI.CT.S_ITS ---
PROCEDURE: CT HEAD/BRAIN WO CON INDICATIONS: REPEATED FALLS; LOWER BACK PAIN TECHNIQUE: Noncontrast 4.5 mm thick angled axial sections acquired from the foramen magnum to the vertex, with coronal and sagittal reformats. For radiation dose reduction, the following was used: automated exposure control, adjustment of mA and/or kV according to patient size. COMPARISON: [facility], MR, MR LUMBAR SPINE WO CON, 01/15/2021, 8:22. FINDINGS: Image quality: Excellent. CSF spaces: Basal cisterns are patent. No extra-axial fluid collections. The ventricles are symmetric in size and shape. Brain: No intracranial bleeds or masses. There is cerebral volume loss for age, with resultant ventricular and sulcal prominence. There are periventricular and deep white matter chronic small vessel ischemic changes. There is intracranial internal carotid artery atherosclerosis. Skull and face: Calvarium and visualized facial bones appear intact, without suspicious lesions. Sinuses: Visualized sinuses and mastoids are clear. IMPRESSION: Unremarkable intracranial study for age, without findings of intracranial hemorrhage. No masses or mass effect can be seen to the limits of noncontrast head CT. Note is made of age-appropriate brain parenchymal volume loss and chronic small vessel ischemic changes. Dictated by: Terry Yang M.D. on 01/15/2021 at 9:08 Approved by: Terry Yang M.D. on 01/15/2021 at 9:09
--- NOTE | 2021-01-15 | DI.MRI.S_ITS ---
PROCEDURE: MR LUMBAR SPINE WO CON INDICATIONS: REPEATED FALLS; LOWER BACK PAIN TECHNIQUE: Noncontrast sagittal T1 spin echo and T2 fast echo, sagittal STIR, axial T1 and T2 fast spin echo through the lumbar spine. In cases with scoliosis, additional coronal T2 fast spin echo may be performed. COMPARISON: [facility], CR, XR LUMBAR SPINE 2-3V, 01/10/2018, 14:30. [facility], MR, L-SPINE WITHOUT CONTRAST, 11/13/2015, 12:04. [facility], MR, L-SPINE WITHOUT CONTRAST, 10/16/2013, 13:09. [facility], MR, MR LUMBAR SPINE WO CON, 01/30/2018, 14:19. [facility], CT, CT HEAD/BRAIN WO CON, 01/15/2021, 8:43. FINDINGS: Image quality: Diagnostic, with note made of motion artifact. Alignment and Curvature: There is minimal retrolisthesis again seen at L1-L2 and L5-S1. Mild levoconvex scoliotic curvature is noted. Bone Marrow: Marrow is of normal overall signal. No acute vertebral body compression fractures. Spinal Cord: Conus medullaris terminates at the L1 level. Visualized cord demonstrates normal signal and size. Paraspinous Soft Tissues: No paravertebral masses. T12-L1: Normal appearance. L1-L2: Moderate loss of disc height is seen. Loss of disc signal is seen. Partially bridging anterior osteophytes are seen. Mild generalized disc bulge is seen. No significant neural foraminal or central canal narrowing can be seen. Stable from the prior study. L2-L3: No significant abnormality is seen. L3-L4: The disc height is well-preserved. Loss of disc signal is seen at this level. Mild generalized disc bulge is seen. Mild to moderate facet hypertrophy is seen. Associated hypertrophy of the ligamentum flavum can be seen. There is mild left-sided and no right-sided neural foraminal narrowing seen. Mild central canal narrowing is seen. When comparison is made with the prior images, these findings are similar. L4-L5: The disc height is well-preserved. Loss of disc signal is seen at this level. Mild to moderate disc bulge is seen, which is eccentric to the right. Moderate to prominent facet hypertrophy is seen. Associated hypertrophy of the ligamentum flavum can be seen. Mild bilateral neural foraminal narrowing is seen. At least moderate central canal narrowing is seen at this level. Compared to 2018, these degenerative changes have progressed. L5-S1: Moderate loss of disc height is seen. Loss of disc signal is seen. Moderate disc bulge is seen, which is eccentric to the left. There is mild right-sided and [id number] left-sided facet hypertrophy seen. There is mild right-sided and at least moderate left-sided neural foraminal narrowing. Mild central canal narrowing is seen. When comparison is made with the prior images, these findings are similar. Incidental note is made of a presumed perineural cyst (Tarlov's cyst) at the S3 level. IMPRESSION: Multiple levels of lumbar spine degenerative change are seen, which are overall worst at the L5-S1 level. Compared to 2018, mild progression can be seen at the L4-L5 level. Dictated by: Terry Yang M.D. on 01/15/2021 at 8:58 Approved by: Terry Yang M.D. on 01/15/2021 at 9:04
== END ==
PROVIDERS: PCP Physician Assistant; Referring Provider Physician Assistant; Visit Provider Physician Assistant
DX: R29.6 Repeated falls (principal); M54.5 Low back pain; M47.817 Spondylosis without myelopathy or radiculopathy, lumbosacral region; M47.816 Spondylosis without myelopathy or radiculopathy, lumbar region
CPT/HCPCS: 70450; 72148

== ENCOUNTER → 2021-02-12 13:34 | Outpatient (CLI) | payer MEDICARE, OTHER, SELFPAY ==
--- NOTE | 2021-02-12 13:36 | DI.MRI.S_ITS ---
PROCEDURE: MR CERVICAL SPINE WO CON INDICATIONS: Spondylosis without myelopathy or radiculopathy TECHNIQUE: Noncontrast sagittal T1 spin echo and T2 fast spin echo, sagittal STIR, foraminal oblique sagittal T2 fast spin echo, and axial gradient echo or T2 fast spin echo through the cervical spine. COMPARISON: None. FINDINGS: Image quality: Excellent. Alignment and Curvature: There is straightening of the cervical spine. Bone Marrow: No abnormal marrow signal. Spinal Cord: Visualized spinal cord has normal size and signal. No cerebellar tonsillar herniation. Paraspinous Soft Tissues: No paravertebral masses. Prevertebral soft tissues are normal in thickness. C2-C3: No significant disc bulge. The foramina and central canal are patent. C3-C4: No significant disc bulge. The foramina and central canal are patent. C4-C5: The disc is desiccated with a diffuse bulge and disc osteophytes. Uncovertebral hypertrophy is present causing severe right and moderate left foraminal stenosis. The central canal has moderate stenosis. C5-C6: The disc is desiccated with a diffuse bulge and disc osteophytes. Uncovertebral hypertrophy is present causing severe bilateral foraminal stenosis. The central canal has severe stenosis. C6-C7: The disc is desiccated with a diffuse disc bulge and disc osteophytes. Uncovertebral hypertrophy is present causing severe bilateral foraminal stenosis. C7-T1: No significant disc bulge. The foramina and central canal are patent. IMPRESSION: 1. Degenerative disc disease at C4-5, C5-6, and C6-7 with diffuse disc bulges, disc osteophytes, and uncovertebral hypertrophy. 2. Multilevel severe foraminal stenosis as above. 3. Moderate central canal stenosis at C4-5 and severe central canal stenosis at C5-6. 4. No abnormal cord signal. Dictated by: Jb Rene M.D. on 02/12/2021 at 14:08 Approved by: Jb Rene M.D. on 02/12/2021 at 14:18
== END ==
PROVIDERS: PCP Physician Assistant; Referring Provider Physician Assistant; Visit Provider Physician Assistant
DX: M47.812 Spondylosis without myelopathy or radiculopathy, cervical region (principal); M50.020 Cervical disc disorder with myelopathy, mid-cervical region, unspecified level; M50.120 Mid-cervical disc disorder, unspecified level; M48.02 Spinal stenosis, cervical region
CPT/HCPCS: 72141

== ENCOUNTER → 2021-02-26 10:09 | Outpatient (CLI) | payer MEDICARE, OTHER, SELFPAY ==
--- NOTE | 2021-02-26 | DI.RAD.S_ITS ---
PROCEDURE: XR RIBS BI MIN 4V W CXR1V INDICATIONS: Repeated falls TECHNIQUE: 2 views of the bilateral ribs were acquired, along with a single view chest. COMPARISON: None. FINDINGS: Surgical changes and devices: None. Bones and chest wall: No fractures or dislocations. No suspicious bony lesions. Overlying soft tissues appear unremarkable. Lungs and pleura: No pleural effusions or pneumothorax. Lungs appear clear. Mediastinum: Mediastinal contours appear normal. Heart size is normal. IMPRESSION: No acute process. No acute fracture. No osseous lesion. If symptoms and/or clinical suspicion for pathology persist, further assessment with repeat, or advanced imaging (e.g., CT or bone scan) may be helpful for further assessment. Dictated by: Caty Parmar M.D. on 02/26/2021 at 11:49 Approved by: Caty Parmar M.D. on 02/26/2021 at 14:10
== END ==
PROVIDERS: PCP Physician Assistant; Referring Provider Physician Assistant; Visit Provider Physician Assistant
DX: R29.6 Repeated falls (principal)
CPT/HCPCS: 71111

== ENCOUNTER 2021-04-01 07:30 | Outpatient (RCR) | payer MEDICARE, OTHER, SELFPAY ==
--- NOTE | 2021-01-25 17:00 | PT.OIE ---
Current Diagnoses Muscle weakness (generalized) (01/25/21) Repeated falls (01/25/21) Dizziness and giddiness (01/25/21) Past Medical History (Last Reviewed 05/11/20 @ 08:33 by Killian Denny MD) Diverticulosis GERD (gastroesophageal reflux disease) Glaucoma H/O colectomy Hyperlipidemia Past Surgical History (Last Reviewed 05/11/20 @ 08:33 by Killian Denny MD) H/O colectomy Visit Care Team Role Provider Type Deepika Felix PA-C Attending Provider Non-Staff Primary Care Provider Referring Provider Specialty: Internal Medicine Address: [address] [place] [address] Email: [email or web address] Physical Therapy Initial Evaluation PT-OP-A Visit Information Start: 01/22/21 14:39 Freq: Status: Active Protocol: Document 01/25/21 09:07 LRN (Rec: 01/25/21 11:16 LRN [id number]) Out-Patient Physical Therapy Visit Information Visit Information Visit Type Initial Evaluation Visit Start Time 09:07 Visit Stop Time 09:56 Total Visit Minutes 49 Visit Number 1 Evaluation Information Evaluation Date 01/25/21 Precautions Precautions Falling (backwards and to side ) a couple times per month, neck & back pain (Neck pain since 1973 and LB for the past 30 yrs), thyroid disorder, R KVNG 04/01, L Partial knee replacement 02/03, R TKA 06/09. PT-OP-B Current Condition Start: 01/22/21 14:39 Freq: Status: Active Protocol: Document 01/25/21 09:07 LRN (Rec: 01/25/21 11:16 LRN [id number]) Current Condition History of Current Condition Onset Date 2.5 yrs ago. Current Complaints Frequent falls over last 2.5 yrs History of Current Condition Started falling occasionally, now is falling more frequent, a couple times a month. If looks up at any length of time she gets dizzy. Notices increased falls on uneven sidewalks due to catching of toes, and on garden incline, causing her to fall backward or onto her side. Other incidents of falling occur when stepping down curbs, stepping up on a step stool ( missing a step) and when ascending stairs (fell backwards, catching self on railing). Most times her falls are backwards or to the side. She reports her worst fall was backwards and her hearing a crack when her head hit, but denies LOC or nasusa. A more recent fall was in late October when she fell onto her L side, landing on her hip and side of face, with brusing on the entire L side. She states she was able to get up right away and continued on her way with no dysfunction noted. Prior Treatments and Tests CT scan 01/15/21: Unremarkable intracranial study for age, without finding of intracranial hemorrhage. MRI of low back showed multiple levels of lumbar spine degerative change, overall worse at L5-S1. 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 Future Testing and Treatments Planned Appt with neurologist in March if needed. Treatment Goals Patient/Caregiver Goals Pt goal is to step down curbs without losing balance, walk without having to look at feet , and be able to stand and look up without feeling dizzy. Prior Functional Status Baseline Function- ADL's Independent Baseline Function- Mobility Independent Baseline Function- Recreation/Hobbies Gardening, reading. Baseline Function- Other Neck pain for 47 yrs and LB for at least 30 yrs. Numb just below buttocks in an area spanning ~3 under gluteal line. Current Functional Impairments (Reported) Functional Limitations- ADL's Not able to look up without dizziness. Falls backwards when on uneven ground or inclines falls more frequently onto back or sides . Functional Limitations- Recreation/ Holding a book and reading >10 Hobbies minutes causes neck pain. Personal Factors Other Personal Factors That May Effect Wanting to continue to garden, Therapy/Recovery and is planning on painting the ceiling in a room of her house. PT-OP-C Subjective Start: 01/22/21 14:39 Freq: Status: Active Protocol: Document 01/25/21 09:07 LRN (Rec: 01/25/21 11:16 LRN [id number]) Patient Questionnaires Dizziness Handicap Inventory DHI Score 30 DHI Functional Impairment 20 to 39% Impaired (Score 20- 39) OP-PT Pain Assessment Pain Assessment Grid Paper Pain Assessment Grid Completed Yes Location Low back Pain Location Details Sacral level Intensity 4 Scale Used Numeric (0 - 10) Description Aching,Burning Description- Other Buttock is numb and sometimes catch pain Neck Pain Location Details Across base of cervical spine Intensity 4 Scale Used Numeric (0 - 10) Description Aching,Burning,Sharp Description- Other Sharp if turns too far. PT-OP-D Balance Start: 01/22/21 14:39 Freq: Status: Active Protocol: Document 01/25/21 09:07 LRN (Rec: 01/25/21 11:16 LRN [id number]) OP-PT Balance Assessment Sitting Balance Static Sitting Balance Ability Normal Dynamic Sitting Balance Ability Normal Balance Tests Carranza Balance Test Carranza Balance Test Score 50 Carranza Impairment Rating 1 to 19% Impaired (Score 45-55 ) Functional Reach Functional Reach Test 14 Functional Reach Impairment Rating 0% Impaired (Score 10) Single Limb Standing Single Limb- Right 3 secs Single Limb- Left 5 secs Tandem Tandem Standing R foot behind: 30+ secs. L foot behind: 16 secs. Castañeda Fall Scale Copyright Permission PT-OP-E Functional Tests Start: 01/22/21 14:39 Freq: Status: Active Protocol: Document 01/25/21 09:07 LRN (Rec: 01/25/21 11:16 LRN [id number]) Functional Tests Timed Up and Go (TUG) Score 13 TUG Impairment Rating 20 to <40% Impaired (Score 12- 13) PT-OP-K Range of Motion Start: 01/22/21 14:39 Freq: Status: Active Protocol: Document 01/25/21 09:07 LRN (Rec: 01/25/21 11:16 LRN [id number]) Cervical Spine Range of Motion Cervical Spine Active Degrees Testing Position Sitting Flexion 50 Extension 20 Rotation Left 50 Rotation Right 62 Lateral Flexion Left 15 Lateral Flexion Right 15 ROM Limitations Soft Tissue Tightness,Pain Comments Dizzy on return from extension PT-OP-Q Treatments Start: 01/22/21 14:39 Freq: Status: Active Protocol: Document 01/25/21 09:07 LRN (Rec: 01/25/21 11:16 LRN [id number]) Neuro Re-Education Treatment Balance Activities SLS Details SLS w/instructions to do standing @ sink or in corner Surface Level Self-Care/Home Management Treatment Education Other Education Educated and discussed result of evaluation. Discussed goals with extra time taken to determine functional goals, and discussed plan of care, including an assessment by a vestibular physical therapist specialist. Pt was agreeable to goals and plan of care. Activities Self-Care/Home Management Activities I/S pt in safe positioning for practice of SLS in front of something to hold or in corner . PT-OP-T Assessment and Plan Start: 01/22/21 14:39 Freq: Status: Active Protocol: Document 01/25/21 09:07 LRN (Rec: 01/25/21 11:16 LRN [id number]) Physical Therapy Assessment Rehab Potential Rehabilitation Potential Good Evaluation Complexity Number of Personal Factors/Comorbidities 3 or More Number of Body Systems Impaired 4 or More Clinical Presentation at Evaluation Evolving Impairments Impairments Balance,Coordination,Gait,Pain ,ROM Goals Four Impairment Dizziness onset when looking up or on return to neutral. Short Term Goal (STG) Pt will be able to stand and look up or return to neutral without feeling dizzy. STG Duration 03/15/21 Detention Goal (LTG) Improve Dizziness Questionnaire score to no more than 19 to demonstrate improved function. LTG Duration 04/25/21 Three Impairment Pt looks at feet/ground for safe ambulation. Short Term Goal (STG) Improve SLS without looking at feet to 10 secs biliaterally STG Duration 03/15/21 Detention Goal (LTG) Pt will be able to walk 20' without looking at her feet with minimal pathway sway and no loss of balance. LTG Duration 04/25/21 Two Impairment Decreased single leg standing balance Short Term Goal (STG) Improve ankle strength. STG Duration 03/15/21 Detention Goal (LTG) Pt will be able to step down curbs without losing balance or falling. LTG Duration 04/25/21 One Impairment Lacks appropriate self care HEP. Short Term Goal (STG) Pt will be educated in a home program of ex's to address general dizziness (neck mobility and eye ex's). STG Duration 02/05/21 Assurance Specialist Goal (LTG) Pt will be educated and independent with a self care HEP of balance and strengthening ex's. LTG Duration 04/25/21 Assessment Summary Assessment Pt presents with decreased single leg stance balance and probable vestibular dysfunction. Today she appeared to have trouble focusing her eyes on an object with darting of her eyes side to side. She became dizzy after looking up, occuring when she returned her head to neutral. The pt may benefit from a concussion assessment based on her extensive fall history. Further assessment is needed for her neck an back and gait for dysfunction. The pt will benefit from skilled physical therapy for a vestibular check, neck and back ROM, LE strengthening, and balance/coordination exercises. Treatment will focus on achieving the above stated goals. Physical Therapy Plan Frequency and Duration Frequency of Treatment 2x/Week Plan of Care Start Date 01/25/21 Plan of Care End Date 04/25/21 Therapeutic Interventions Therapeutic Interventions Balance Training,Gait Training ,Home Exercise Program, Neuromuscular Re-education, Patient/Caregiver Education, Self-Care/Home Management, Therapeutic Activities, Therapeutic Exercises Modalities Cold Pack/Ice Massage,Electric Stimulation,Hot Packs, Ultrasound Next Visit Focus/Plan Next Note Type Treatment Note Next Visit Plan Next 1-2 visits for vestibular assessment and likely VOR exercises and possibly canalith repositioning exercises; assess for gait dysfunction, start pt on self prison ex's and initiate when appropriate standing balance ex's and cervical ROM ex's. Ther ex for ankle strengthening, aerobic conditioning. Assess for LE mobility restrictions and address as needed. Assess L/S for gluteal numbness ( possible S3) and LE weakness. Modalities or exercise, as needed before mobilization of neck/back.
--- NOTE | 2021-01-25 17:10 | PT.OPPOC ---
Physical, Occupational & Speech Therapy At [facility] Current Diagnoses Muscle weakness (generalized) (01/25/21) Repeated falls (01/25/21) Dizziness and giddiness (01/25/21) Visit Care Team Role Provider Type Deepika Felix PA-C Attending Provider Non-Staff Primary Care Provider Referring Provider Specialty: Internal Medicine Address: [address] [place] [address], [facility] Email: [email or web address] Plan Of Care PT-OP-T Assessment and Plan Start: 01/22/21 14:39 Freq: Status: Active Protocol: Document 01/25/21 09:07 LRN (Rec: 01/25/21 11:16 LRN [id number]) Physical Therapy Assessment Rehab Potential Rehabilitation Potential Good Evaluation Complexity Number of Personal Factors/Comorbidities 3 or More Number of Body Systems Impaired 4 or More Clinical Presentation at Evaluation Evolving Impairments Impairments Balance,Coordination,Gait,Pain ,ROM Goals Four Impairment Dizziness onset when looking up or on return to neutral. Short Term Goal (STG) Pt will be able to stand and look up or return to neutral without feeling dizzy. 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 LTG Duration 04/25/21 Three Impairment Pt looks at feet/ground for safe ambulation. Short Term Goal (STG) Improve SLS without looking at feet to 10 secs biliaterally STG Duration 03/15/21 Group Home Goal (LTG) Pt will be able to walk 20' without looking at her feet with minimal pathway sway and no loss of balance. LTG Duration 04/25/21 Two Impairment Decreased single leg standing balance Short Term Goal (STG) Improve ankle strength. STG Duration 03/15/21 Cigarette Making Machine Operator Goal (LTG) Pt will be able to step down curbs without losing balance or falling. LTG Duration 04/25/21 One Impairment Lacks appropriate self care HEP. Short Term Goal (STG) Pt will be educated in a home program of ex's to address general dizziness (neck mobility and eye ex's). STG Duration 02/05/21 Group Home Goal (LTG) Pt will be educated and independent with a self care HEP of balance and strengthening ex's. LTG Duration 04/25/21 Assessment Summary Assessment Pt presents with decreased single leg stance balance and probable vestibular dysfunction. Today she appeared to have trouble focusing her eyes on an object with darting of her eyes side to side. She became dizzy after looking up, occuring when she returned her head to neutral. The pt may benefit from a concussion assessment based on her extensive fall history. Further assessment is needed for her neck an back and gait for dysfunction. The pt will benefit from skilled physical therapy for a vestibular check, neck and back ROM, LE strengthening, and balance/coordination exercises. Treatment will focus on achieving the above stated goals. Physical Therapy Plan Frequency and Duration Frequency of Treatment 2x/Week Plan of Care Start Date 01/25/21 Plan of Care End Date 04/25/21 Therapeutic Interventions Therapeutic Interventions Balance Training,Gait Training ,Home Exercise Program, Neuromuscular Re-education, Patient/Caregiver Education, Self-Care/Home Management, Therapeutic Activities, Therapeutic Exercises Modalities Cold Pack/Ice Massage,Electric Stimulation,Hot Packs, Ultrasound Next Visit Focus/Plan Next Note Type Treatment Note Next Visit Plan Next 1-2 visits for vestibular assessment and likely VOR exercises and possibly canalith repositioning exercises; assess for gait dysfunction, start pt on self jail ex's and initiate when appropriate standing balance ex's and cervical ROM ex's. Ther ex for ankle strengthening, aerobic conditioning. Assess for LE mobility restrictions and address as needed. Assess L/S for gluteal numbness ( possible S3) and LE weakness. Modalities or exercise, as needed before mobilization of neck/back. Plan of Care Dates Plan of Care Start Date 01/25/21 Plan of Care End Date 04/25/21 Electronically Signed by: Nusrat Winter, PT 01/26/211941 Please Sign and Return: I have reviewed this Plan of Care and certify that the skilled therapy services above are required to meet the patient?s needs. Physician Signature Date Printed Name and Credentials Clinical Instructor Signature Printed Name and Credentials
--- NOTE | 2021-01-25 17:10 | PT.OIE ---
Current Diagnoses Muscle weakness (generalized) (01/25/21) Repeated falls (01/25/21) Dizziness and giddiness (01/25/21) Past Medical History (Last Reviewed 05/11/20 @ 08:33 by Killian Denny MD) Diverticulosis GERD (gastroesophageal reflux disease) Glaucoma H/O colectomy Hyperlipidemia Past Surgical History (Last Reviewed 05/11/20 @ 08:33 by Killian Denny MD) H/O colectomy Visit Care Team Role Provider Type Deepika Felix PA-C Attending Provider Non-Staff Primary Care Provider Referring Provider Specialty: Internal Medicine Address: [address] [place] [address] Email: [email or web address] Initial Evaluation PT-OP-A Visit Information Start: 01/22/21 14:39 Freq: Status: Active Protocol: Document 01/25/21 09:07 LRN (Rec: 01/25/21 11:16 LRN [id number]) Out-Patient Physical Therapy Visit Information Visit Information Visit Type Initial Evaluation Visit Start Time 09:07 Visit Stop Time 09:56 Total Visit Minutes 49 Visit Number 1 Evaluation Information Evaluation Date 01/25/21 Precautions Precautions Falling (backwards and to side ) a couple times per month, neck & back pain (Neck pain since 1973 and LB for the past 30 yrs), thyroid disorder, R KVNG 04/01, L Partial knee replacement 02/03, R TKA 06/09. PT-OP-B Current Condition Start: 01/22/21 14:39 Freq: Status: Active Protocol: Document 01/25/21 09:07 LRN (Rec: 01/25/21 11:16 LRN [id number]) Current Condition History of Current Condition Onset Date 2.5 yrs ago. Current Complaints Frequent falls over last 2.5 yrs History of Current Condition Started falling occasionally, now is falling more frequent, a couple times a month. If looks up at any length of time she gets dizzy. Notices increased falls on uneven sidewalks due to catching of toes, and on garden incline, causing her to fall backward or onto her side. Other incidents of falling occur when stepping down curbs, stepping up on a step stool ( missing a step) and when ascending stairs (fell backwards, catching self on railing). Most times her falls are backwards or to the side. She reports her worst fall was backwards and her hearing a crack when her head hit, but denies LOC or nasusa. A more recent fall was in late October when she fell onto her L side, landing on her hip and side of face, with brusing on the entire L side. She states she was able to get up right away and continued on her way with no dysfunction noted. Prior Treatments and Tests CT scan 01/15/21: Unremarkable intracranial study for age, without finding of intracranial hemorrhage. MRI of low back showed multiple levels of lumbar spine degerative change, overall worse at L5-S1. 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 Future Testing and Treatments Planned Appt with neurologist in March if needed. Treatment Goals Patient/Caregiver Goals Pt goal is to step down curbs without losing balance, walk without having to look at feet , and be able to stand and look up without feeling dizzy. Prior Functional Status Baseline Function- ADL's Independent Baseline Function- Mobility Independent Baseline Function- Recreation/Hobbies Gardening, reading. Baseline Function- Other Neck pain for 47 yrs and LB for at least 30 yrs. Numb just below buttocks in an area spanning ~3 under gluteal line. Current Functional Impairments (Reported) Functional Limitations- ADL's Not able to look up without dizziness. Falls backwards when on uneven ground or inclines falls more frequently onto back or sides . Functional Limitations- Recreation/ Holding a book and reading >10 Hobbies minutes causes neck pain. Personal Factors Other Personal Factors That May Effect Wanting to continue to garden, Therapy/Recovery and is planning on painting the ceiling in a room of her house. PT-OP-C Subjective Start: 01/22/21 14:39 Freq: Status: Active Protocol: Document 01/25/21 09:07 LRN (Rec: 01/25/21 11:16 LRN [id number]) Patient Questionnaires ABC- Activity Specific Balance Confidence Scale ABC Score 67.5 ABC Functional Impairment 20 to <40% Impaired (Score 61- 80) Dizziness Handicap Inventory DHI Score 30 DHI Functional Impairment 20 to 39% Impaired (Score 20- 39) OP-PT Pain Assessment Pain Assessment Grid Paper Pain Assessment Grid Completed Yes Location Low back Pain Location Details Sacral level Intensity 4 Scale Used Numeric (0 - 10) Description Aching,Burning Description- Other Buttock is numb and sometimes catch pain Neck Pain Location Details Across base of cervical spine Intensity 4 Scale Used Numeric (0 - 10) Description Aching,Burning,Sharp Description- Other Sharp if turns too far. PT-OP-D Balance Start: 01/22/21 14:39 Freq: Status: Active Protocol: Document 01/25/21 09:07 LRN (Rec: 01/25/21 11:16 LRN [id number]) OP-PT Balance Assessment Sitting Balance Static Sitting Balance Ability Normal Dynamic Sitting Balance Ability Normal Balance Tests Carranza Balance Test Carranza Balance Test Score 50 Carranza Impairment Rating 1 to 19% Impaired (Score 45-55 ) Functional Reach Functional Reach Test 14 Functional Reach Impairment Rating 0% Impaired (Score 10) Single Limb Standing Single Limb- Right 3 secs Single Limb- Left 5 secs Tandem Tandem Standing R foot behind: 30+ secs. L foot behind: 16 secs. Castañeda Fall Scale Copyright Permission PT-OP-E Functional Tests Start: 01/22/21 14:39 Freq: Status: Active Protocol: Document 01/25/21 09:07 LRN (Rec: 01/25/21 11:16 LRN [id number]) Functional Tests Timed Up and Go (TUG) Score 13 TUG Impairment Rating 20 to <40% Impaired (Score 12- 13) PT-OP-K Range of Motion Start: 01/22/21 14:39 Freq: Status: Active Protocol: Document 01/25/21 09:07 LRN (Rec: 01/25/21 11:16 LRN [id number]) Cervical Spine Range of Motion Cervical Spine Active Degrees Testing Position Sitting Flexion 50 Extension 20 Rotation Left 50 Rotation Right 62 Lateral Flexion Left 15 Lateral Flexion Right 15 ROM Limitations Soft Tissue Tightness,Pain Comments Dizzy on return from extension PT-OP-Q Treatments Start: 01/22/21 14:39 Freq: Status: Active Protocol: Document 01/25/21 09:07 LRN (Rec: 01/25/21 11:16 LRN [id number]) Neuro Re-Education Treatment Balance Activities SLS Details SLS w/instructions to do standing @ sink or in corner Surface Level Self-Care/Home Management Treatment Education Other Education Educated and discussed result of evaluation. Discussed goals with extra time taken to determine functional goals, and discussed plan of care, including an assessment by a vestibular physical therapist specialist. Pt was agreeable to goals and plan of care. Activities Self-Care/Home Management Activities I/S pt in safe positioning for practice of SLS in front of something to hold or in corner . PT-OP-T Assessment and Plan Start: 01/22/21 14:39 Freq: Status: Active Protocol: Document 01/25/21 09:07 LRN (Rec: 01/25/21 11:16 LRN [id number]) Physical Therapy Assessment Rehab Potential Rehabilitation Potential Good Evaluation Complexity Number of Personal Factors/Comorbidities 3 or More Number of Body Systems Impaired 4 or More Clinical Presentation at Evaluation Evolving Impairments Impairments Balance,Coordination,Gait,Pain ,ROM Goals Four Impairment Dizziness onset when looking up or on return to neutral. Short Term Goal (STG) Pt will be able to stand and look up or return to neutral without feeling dizzy. STG Duration 03/15/21 Fdc Goal (LTG) Improve Dizziness Questionnaire score to no more than 19 to demonstrate improved function. LTG Duration 04/25/21 Three Impairment Pt looks at feet/ground for safe ambulation. Short Term Goal (STG) Improve SLS without looking at feet to 10 secs biliaterally STG Duration 03/15/21 Fdc Goal (LTG) Pt will be able to walk 20' without looking at her feet with minimal pathway sway and no loss of balance. LTG Duration 04/25/21 Two Impairment Decreased single leg standing balance Short Term Goal (STG) Improve ankle strength. STG Duration 03/15/21 Insole Buffer Goal (LTG) Pt will be able to step down curbs without losing balance or falling. LTG Duration 04/25/21 One Impairment Lacks appropriate self care HEP. Short Term Goal (STG) Pt will be educated in a home program of ex's to address general dizziness (neck mobility and eye ex's). STG Duration 02/05/21 Insole Buffer Goal (LTG) Pt will be educated and independent with a self care HEP of balance and strengthening ex's. LTG Duration 04/25/21 Assessment Summary Assessment Pt presents with decreased single leg stance balance and probable vestibular dysfunction. Today she appeared to have trouble focusing her eyes on an object with darting of her eyes side to side. She became dizzy after looking up, occuring when she returned her head to neutral. The pt may benefit from a concussion assessment based on her extensive fall history. Further assessment is needed for her neck an back and gait for dysfunction. The pt will benefit from skilled physical therapy for a vestibular check, neck and back ROM, LE strengthening, and balance/coordination exercises. Treatment will focus on achieving the above stated goals. Physical Therapy Plan Frequency and Duration Frequency of Treatment 2x/Week Plan of Care Start Date 01/25/21 Plan of Care End Date 04/25/21 Therapeutic Interventions Therapeutic Interventions Balance Training,Gait Training ,Home Exercise Program, Neuromuscular Re-education, Patient/Caregiver Education, Self-Care/Home Management, Therapeutic Activities, Therapeutic Exercises Modalities Cold Pack/Ice Massage,Electric Stimulation,Hot Packs, Ultrasound Next Visit Focus/Plan Next Note Type Treatment Note Next Visit Plan Next 1-2 visits for vestibular assessment and likely VOR exercises and possibly canalith repositioning exercises; assess for gait dysfunction, start pt on self snf ex's and initiate when appropriate standing balance ex's and cervical ROM ex's. Ther ex for ankle strengthening, aerobic conditioning. Assess for LE mobility restrictions and address as needed. Assess L/S for gluteal numbness ( possible S3) and LE weakness. Modalities or exercise, as needed before mobilization of neck/back.
--- NOTE | 2021-01-29 15:24 | PT.OPPOC ---
Physical, Occupational & Speech Therapy At [facility] Current Diagnoses Muscle weakness (generalized) (01/29/21) Repeated falls (01/29/21) Dizziness and giddiness (01/29/21) Visit Care Team Role Provider Type Deepika Felix PA-C Attending Provider Non-Staff Primary Care Provider Referring Provider Specialty: Internal Medicine Address: [address] [place] [address], [facility] Email: [email or web address] Plan Of Care PT-OP-T Assessment and Plan Start: 01/22/21 14:39 Freq: Status: Active Protocol: Document 01/29/21 13:44 MB (Rec: 01/29/21 14:29 MB [id number]) Physical Therapy Assessment Rehab Potential Rehabilitation Potential Good Evaluation Complexity Number of Personal Factors/Comorbidities 3 or More Number of Body Systems Impaired 4 or More Clinical Presentation at Evaluation Evolving Impairments Impairments Balance,Coordination,Gait,Pain ,ROM Other Concerns Fall Risk Yes Goals Four Journeyman Plumber Goal (LTG) Pt will perform WNLs on FGA to decrease fall risk by 03/31/21 . LTG Duration 03/31/21 Three Journeyman Plumber Goal (LTG) Pt will deny falls to decrease risk of further injury for 8 weeks by 03/31/21. LTG Duration 03/31/21 One Journeyman Plumber Goal (LTG) Pt will perform progressive HEP with I including VOR, balance, cervical, postural, strengthening and relaxation exercises to improve symptoms and balance by 03/31/21. LTG Duration 03/31/21 Assessment Summary Assessment Pt presents with a very stiff cervical spine with limited B rotation and flexion and extension with conversation, transfers and gait. She reports a long history of neck pain and headaches, neck and head injury and progressive imbalance and falls. PT is concerned about cervical change that can be a major contributor to falls and symptoms and recommend diagnostics given that she is going for a neurosurgery work- up. Orthostatic assessment is positive for orthostatic hypotension with BP and HR in LUE: supine 155/93, 72; standing 137/80, 82; standing 1': 143/93, 81. Pt is very symptomatic upon standing. PT provides extensive education about cervicogenic dizziness and orthostasis today and recommendations and that PT will send this note to Deepika Felix. She will benefit from ongoing PT for manual work, postural and balance ed, VOR testing and exercise if needed and ongoing education. Physical Therapy Plan Frequency and Duration Frequency of Treatment 2x/Week Duration of Treatment 8 weeks Plan of Care Start Date 01/29/21 Plan of Care End Date 03/31/21 Therapeutic Interventions Therapeutic Interventions Balance Training,Canalithic Repositioning,Gait Training, Home Exercise Program,Manual Therapy,Neuromuscular Re- education,Patient/Caregiver Education,Self-Care/Home Management,Soft Tissue Mobilization,Therapeutic Activities,Therapeutic Exercises,Vestibular Rehabilitation Modalities Cold Pack/Ice Massage,Hot Packs Other Referrals/Consults Referrals/Consults Recommended Recommend cervical MRI to be order by Deepika Felix before referral to Dr. Spence d/t pt' s cervical stiffness, history of fall and hitting head, and neck injury, imbalance. Next Visit Focus/Plan Next Note Type Treatment Note Next Visit Plan Manual assessment and treatment of cervical spine, racquet ball massage, check VOR as needed, FGA, postural exercise progression Plan of Care Dates Plan of Care Start Date 01/29/21 Plan of Care End Date 03/31/21 Electronically Signed by: Anna Carpenter PT 01/29/21 [id number] Please Sign and Return: I have reviewed this Plan of Care and certify that the skilled therapy services above are required to meet the patient?s needs. Physician Signature Date Printed Name and Credentials Clinical Instructor Signature Printed Name and Credentials
--- NOTE | 2021-01-29 15:24 | PT.OTN ---
Current Diagnoses Muscle weakness (generalized) (01/29/21) Repeated falls (01/29/21) Dizziness and giddiness (01/29/21) Physical Therapy Treatment Note PT-OP-A Visit Information Start: 01/22/21 14:39 Freq: Status: Active Protocol: Document 01/29/21 13:44 MB (Rec: 01/29/21 14:29 MB [id number]) Out-Patient Physical Therapy Visit Information Visit Information Visit Type Treatment Note Visit Note Medicare, 07/17 before KX Visit Start Time 13:44 Visit Stop Time 14:29 Total Visit Minutes 45 Visit Number 2 Precautions Precautions Falling (backwards and to side ) a couple times per month, neck & back pain (Neck pain since 1973 and LB for the past 30 yrs), thyroid disorder, R KVNG 04/01, L Partial knee replacement 02/03, R TKA 06/09. PT-OP-B Current Condition Start: 01/22/21 14:39 Freq: Status: Active Protocol: Document 01/25/21 09:07 LRN (Rec: 01/25/21 11:16 LRN [id number]) Current Condition History of Current Condition Onset Date 2.5 yrs ago. Current Complaints Frequent falls over last 2.5 yrs History of Current Condition Started falling occasionally, now is falling more frequent, a couple times a month. If looks up at any length of time she gets dizzy. Notices increased falls on uneven sidewalks due to catching of toes, and on garden incline, causing her to fall backward or onto her side. Other incidents of falling occur when stepping down curbs, stepping up on a step stool ( missing a step) and when ascending stairs (fell backwards, catching self on railing). Most times her falls are backwards or to the side. She reports her worst fall was backwards and her hearing a crack when her head hit, but denies LOC or nasusa. A more recent fall was in late October when she fell onto her L side, landing on her hip and side of face, with brusing on the entire L side. She states she was able to get up right away and continued on her way with no dysfunction noted. Prior Treatments and Tests CT scan 01/15/21: Unremarkable intracranial study for age, without finding of intracranial hemorrhage. MRI of low back showed multiple levels of lumbar spine degerative change, overall worse at L5-S1. 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 Future Testing and Treatments Planned Appt with neurologist in March if needed. Treatment Goals Patient/Caregiver Goals Pt goal is to step down curbs without losing balance, walk without having to look at feet , and be able to stand and look up without feeling dizzy. Prior Functional Status Baseline Function- ADL's Independent Baseline Function- Mobility Independent Baseline Function- Recreation/Hobbies Gardening, reading. Baseline Function- Other Neck pain for 48 yrs and LB for at least 30 yrs. Numb just below buttocks in an area spanning ~3 under gluteal line. Current Functional Impairments (Reported) Functional Limitations- ADL's Not able to look up without dizziness. Falls backwards when on uneven ground or inclines falls more frequently onto back or sides . Functional Limitations- Recreation/ Holding a book and reading >10 Hobbies minutes causes neck pain. Personal Factors Other Personal Factors That May Effect Wanting to continue to garden, Therapy/Recovery and is planning on painting the ceiling in a room of her house. PT-OP-C Subjective Start: 01/22/21 14:39 Freq: Status: Active Protocol: Document 01/29/21 13:44 MB (Rec: 01/29/21 14:29 MB [id number]) OP-PT Subjective Patient Comments Patient Comments Pt reports a fall and hit her head a year ago. A couple of months ago, she fell twice in the same area. Pt reports she feels dizziness when she is bent down and then goes to stand up. That doesn't happen all the time. Occ when she walks the dog, she gets dizzy when the dog spins around. Pt had a bad neck injury in the in 1973 where she could not move her legs. A surgeon in the past told her that she needed surgery on her neck d/t cord compression. Pt reports she gets a lot of headaches and that she can barely back up a car d/t neck limitations. She has had a lot of therapy on her neck and back. PT-OP-D Balance Start: 01/22/21 14:39 Freq: Status: Active Protocol: Document 01/25/21 09:07 LRN (Rec: 01/25/21 11:16 LRN [id number]) OP-PT Balance Assessment Sitting Balance Static Sitting Balance Ability Normal Dynamic Sitting Balance Ability Normal Balance Tests Carranza Balance Test Carranza Balance Test Score 50 Carranza Impairment Rating 1 to 19% Impaired (Score 45-55 ) Functional Reach Functional Reach Test 14 Functional Reach Impairment Rating 0% Impaired (Score 10) Single Limb Standing Single Limb- Right 3 secs Single Limb- Left 5 secs Tandem Tandem Standing R foot behind: 30+ secs. L foot behind: 16 secs. Castañeda Fall Scale Copyright Permission PT-OP-E Functional Tests Start: 01/22/21 14:39 Freq: Status: Active Protocol: Document 01/25/21 09:07 LRN (Rec: 01/25/21 11:16 LRN [id number]) Functional Tests Timed Up and Go (TUG) Score 13 TUG Impairment Rating 20 to <40% Impaired (Score 12- 13) PT-OP-K Range of Motion Start: 01/22/21 14:39 Freq: Status: Active Protocol: Document 01/25/21 09:07 LRN (Rec: 01/25/21 11:16 LRN [id number]) Cervical Spine Range of Motion Cervical Spine Active Degrees Testing Position Sitting Flexion 50 Extension 20 Rotation Left 50 Rotation Right 62 Lateral Flexion Left 15 Lateral Flexion Right 15 ROM Limitations Soft Tissue Tightness,Pain Comments Dizzy on return from extension PT-OP-Q Treatments Start: 01/22/21 14:39 Freq: Status: Active Protocol: Document 01/29/21 13:44 MB (Rec: 01/29/21 15:23 MB [id number]) Self-Care/Home Management Treatment Education Patient Education Fall Risk,Posture,Safety Other Education Answered pt questions about what head diagnostics would have shown in the past re: mild TBI/concussion. Ed pt and provided handouts about cervicogenic dizziness and components including neck pain and stiffness, imbalance, dizziness, headaches. Ed pt in proper sleeping positioning with towel roll support for neck. Ed pt in orthostatic hypotension and provided education handouts about what she can do to help herself, to cut back on many cups of caffeinated coffee a day and two cups of alcohol and to increase non-caffeinated fluid intake, to talk with provider or pharmacist about magnesium given neck tension and headaches and history of concussion, ed about PT favoring cervical spine as being a big reason for her falling and recommendation for cervical MRI and that PT will send this note to Deepika Felix PT-OP-T Assessment and Plan Start: 01/22/21 14:39 Freq: Status: Active Protocol: Document 01/29/21 13:44 MB (Rec: 01/29/21 14:29 MB [id number]) Physical Therapy Assessment Rehab Potential Rehabilitation Potential Good Evaluation Complexity Number of Personal Factors/Comorbidities 3 or More Number of Body Systems Impaired 4 or More Clinical Presentation at Evaluation Evolving Impairments Impairments Balance,Coordination,Gait,Pain ,ROM Other Concerns Fall Risk Yes Goals [employer] Developer Goal (LTG) Pt will perform WNLs on FGA to decrease fall risk by 03/31/21 . LTG Duration 03/31/21 Three Prison Goal (LTG) Pt will deny falls to decrease risk of further injury for 8 weeks by 03/31/21. LTG Duration 03/31/21 One [employer] Goal (LTG) Pt will perform progressive HEP with I including VOR, balance, cervical, postural, strengthening and relaxation exercises to improve symptoms and balance by 03/31/21. LTG Duration 03/31/21 Assessment Summary Assessment Pt presents with a very stiff cervical spine with limited B rotation and flexion and extension with conversation, transfers and gait. She reports a long history of neck pain and headaches, neck and head injury and progressive imbalance and falls. PT is concerned about cervical change that can be a major contributor to falls and symptoms and recommend diagnostics given that she is going for a neurosurgery work- up. Orthostatic assessment is positive for orthostatic hypotension with BP and HR in LUE: supine 155/93, 72; standing 137/80, 82; standing 1': 143/93, 81. Pt is very symptomatic upon standing. PT provides extensive education about cervicogenic dizziness and orthostasis today and recommendations and that PT will send this note to Deepika Felix. She will benefit from ongoing PT for manual work, postural and balance ed, VOR testing and exercise if needed and ongoing education. Physical Therapy Plan Frequency and Duration Frequency of Treatment 2x/Week Duration of Treatment 8 weeks Plan of Care Start Date 01/29/21 Plan of Care End Date 03/31/21 Therapeutic Interventions Therapeutic Interventions Balance Training,Canalithic Repositioning,Gait Training, Home Exercise Program,Manual Therapy,Neuromuscular Re- education,Patient/Caregiver Education,Self-Care/Home Management,Soft Tissue Mobilization,Therapeutic Activities,Therapeutic Exercises,Vestibular Rehabilitation Modalities Cold Pack/Ice Massage,Hot Packs Other Referrals/Consults Referrals/Consults Recommended Recommend cervical MRI to be order by Deepika Felix before referral to Dr. Spence d/t pt' s cervical stiffness, history of fall and hitting head, and neck injury, imbalance. Next Visit Focus/Plan Next Note Type Treatment Note Next Visit Plan Manual assessment and treatment of cervical spine, racquet ball massage, check VOR as needed, FGA, postural exercise progression
--- NOTE | 2021-02-03 10:31 | PT.OTN ---
Current Diagnoses Muscle weakness (generalized) (02/03/21) Repeated falls (02/03/21) Dizziness and giddiness (02/03/21) Physical Therapy Treatment Note PT-OP-A Visit Information Start: 01/22/21 14:39 Freq: Status: Active Protocol: Document 02/03/21 09:44 MB (Rec: 02/03/21 10:30 MB [id number]) Out-Patient Physical Therapy Visit Information Visit Information Visit Type Treatment Note Visit Note Medicare, 08/14 before KX Visit Start Time 09:44 Visit Stop Time 10:29 Total Visit Minutes 45 Visit Number 3 Precautions Precautions Falling (backwards and to side ) a couple times per month, neck & back pain (Neck pain since 1973 and LB for the past 30 yrs), thyroid disorder, R KVNG 04/01, L Partial knee replacement 02/03, R TKA 06/09. PT-OP-B Current Condition Start: 01/22/21 14:39 Freq: Status: Active Protocol: Document 01/25/21 09:07 LRN (Rec: 01/25/21 11:16 LRN [id number]) Current Condition History of Current Condition Onset Date 2.5 yrs ago. Current Complaints Frequent falls over last 2.5 yrs History of Current Condition Started falling occasionally, now is falling more frequent, a couple times a month. If looks up at any length of time she gets dizzy. Notices increased falls on uneven sidewalks due to catching of toes, and on garden incline, causing her to fall backward or onto her side. Other incidents of falling occur when stepping down curbs, stepping up on a step stool ( missing a step) and when ascending stairs (fell backwards, catching self on railing). Most times her falls are backwards or to the side. She reports her worst fall was backwards and her hearing a crack when her head hit, but denies LOC or nasusa. A more recent fall was in late October when she fell onto her L side, landing on her hip and side of face, with brusing on the entire L side. She states she was able to get up right away and continued on her way with no dysfunction noted. Prior Treatments and Tests CT scan 01/15/21: Unremarkable intracranial study for age, without finding of intracranial hemorrhage. MRI of low back showed multiple levels of lumbar spine degerative change, overall worse at L5-S1. 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 Future Testing and Treatments Planned Appt with neurologist in March if needed. Treatment Goals Patient/Caregiver Goals Pt goal is to step down curbs without losing balance, walk without having to look at feet , and be able to stand and look up without feeling dizzy. Prior Functional Status Baseline Function- ADL's Independent Baseline Function- Mobility Independent Baseline Function- Recreation/Hobbies Gardening, reading. Baseline Function- Other Neck pain for 47 yrs and LB for at least 30 yrs. Numb just below buttocks in an area spanning ~3 under gluteal line. Current Functional Impairments (Reported) Functional Limitations- ADL's Not able to look up without dizziness. Falls backwards when on uneven ground or inclines falls more frequently onto back or sides . Functional Limitations- Recreation/ Holding a book and reading >10 Hobbies minutes causes neck pain. Personal Factors Other Personal Factors That May Effect Wanting to continue to garden, Therapy/Recovery and is planning on painting the ceiling in a room of her house. PT-OP-C Subjective Start: 01/22/21 14:39 Freq: Status: Active Protocol: Document 02/03/21 09:44 MB (Rec: 02/03/21 10:30 MB [id number]) OP-PT Subjective Patient Comments Patient Comments Pt reports she had a cervical MRI 2014 and it showed C4, C5, C6 pressing against the spinal cord. She saw Dr. Spence who said that she had issues from the thoracic spine that needed to be treated with PT. PT-OP-D Balance Start: 01/22/21 14:39 Freq: Status: Active Protocol: Document 01/25/21 09:07 LRN (Rec: 01/25/21 11:16 LRN [id number]) OP-PT Balance Assessment Sitting Balance Static Sitting Balance Ability Normal Dynamic Sitting Balance Ability Normal Balance Tests Carranza Balance Test Carranza Balance Test Score 50 Carranza Impairment Rating 1 to 19% Impaired (Score 45-55 ) Functional Reach Functional Reach Test 14 Functional Reach Impairment Rating 0% Impaired (Score 10) Single Limb Standing Single Limb- Right 3 secs Single Limb- Left 5 secs Tandem Tandem Standing R foot behind: 30+ secs. L foot behind: 16 secs. Castañeda Fall Scale Copyright Permission PT-OP-E Functional Tests Start: 01/22/21 14:39 Freq: Status: Active Protocol: Document 01/25/21 09:07 LRN (Rec: 01/25/21 11:16 LRN [id number]) Functional Tests Timed Up and Go (TUG) Score 13 TUG Impairment Rating 20 to <40% Impaired (Score 12- 13) PT-OP-K Range of Motion Start: 01/22/21 14:39 Freq: Status: Active Protocol: Document 01/25/21 09:07 LRN (Rec: 01/25/21 11:16 LRN [id number]) Cervical Spine Range of Motion Cervical Spine Active Degrees Testing Position Sitting Flexion 50 Extension 20 Rotation Left 50 Rotation Right 62 Lateral Flexion Left 15 Lateral Flexion Right 15 ROM Limitations Soft Tissue Tightness,Pain Comments Dizzy on return from extension PT-OP-Q Treatments Start: 01/22/21 14:39 Freq: Status: Active Protocol: Document 02/03/21 09:44 MB (Rec: 02/03/21 10:30 MB [id number]) Manual Therapy Treatment Other Other Manual Treatments Pt agrees to Counterstrain to assess and treat fascial tension and she presents with tension in the following fasical systems: right trigeminal, facial and vagus nerve and spinal medullary vein. PT treats stacks in these systems and pt responds well. SCM is very tight, greater on the right and positional release. PT-OP-T Assessment and Plan Start: 01/22/21 14:39 Freq: Status: Active Protocol: Document 02/03/21 09:44 MB (Rec: 02/03/21 10:30 MB [id number]) Physical Therapy Assessment Rehab Potential Rehabilitation Potential Good Evaluation Complexity Number of Personal Factors/Comorbidities 3 or More Number of Body Systems Impaired 4 or More Clinical Presentation at Evaluation Evolving Impairments Impairments Balance,Coordination,Gait,Pain ,ROM Other Concerns Fall Risk Yes Goals [employer] Goal (LTG) Pt will perform WNLs on FGA to decrease fall risk by 03/31/21 . LTG Duration 03/31/21 Three Staff Developer Goal (LTG) Pt will deny falls to decrease risk of further injury for 8 weeks by 03/31/21. LTG Duration 03/31/21 One Retirement Goal (LTG) Pt will perform progressive HEP with I including VOR, balance, cervical, postural, strengthening and relaxation exercises to improve symptoms and balance by 03/31/21. LTG Duration 03/31/21 Assessment Summary Assessment Counterstrain today to assess and treat fascial tension and pt responds well to treatment. Her spine is very stiff and right greater than left SCM is very tight and this may contribute to dizziness as well as anatomical cervical changes. Con't per plan. Physical Therapy Plan Frequency and Duration Frequency of Treatment 2x/Week Duration of Treatment 8 weeks Plan of Care Start Date 01/29/21 Plan of Care End Date 03/31/21 Therapeutic Interventions Therapeutic Interventions Balance Training,Canalithic Repositioning,Gait Training, Home Exercise Program,Manual Therapy,Neuromuscular Re- education,Patient/Caregiver Education,Self-Care/Home Management,Soft Tissue Mobilization,Therapeutic Activities,Therapeutic Exercises,Vestibular Rehabilitation Modalities Cold Pack/Ice Massage,Hot Packs Other Referrals/Consults Referrals/Consults Recommended Recommend cervical MRI to be order by Deepika Felix before referral to Dr. Spence d/t pt' s cervical stiffness, history of fall and hitting head, and neck injury, imbalance. Next Visit Focus/Plan Next Note Type Treatment Note Next Visit Plan Counterstrain, racquet ball massage, check VOR as needed, FGA, postural exercise progression
--- NOTE | 2021-02-11 13:47 | PT.OTN ---
Current Diagnoses Muscle weakness (generalized) (02/11/21) Repeated falls (02/11/21) Dizziness and giddiness (02/11/21) Physical Therapy Treatment Note PT-OP-A Visit Information Start: 01/22/21 14:39 Freq: Status: Active Protocol: Document 02/11/21 13:01 MB (Rec: 02/11/21 13:45 MB [id number]) Out-Patient Physical Therapy Visit Information Visit Information Visit Type Treatment Note Visit Note Medicare, 09/14 before KX Visit Start Time 13:01 Visit Stop Time 13:45 Total Visit Minutes 44 Visit Number 4 Precautions Precautions Falling (backwards and to side ) a couple times per month, neck & back pain (Neck pain since 1973 and LB for the past 30 yrs), thyroid disorder, R KVNG 04/01, L Partial knee replacement 02/03, R TKA 06/09. PT-OP-B Current Condition Start: 01/22/21 14:39 Freq: Status: Active Protocol: Document 01/25/21 09:07 LRN (Rec: 01/25/21 11:16 LRN [id number]) Current Condition History of Current Condition Onset Date 2.5 yrs ago. Current Complaints Frequent falls over last 2.5 yrs History of Current Condition Started falling occasionally, now is falling more frequent, a couple times a month. If looks up at any length of time she gets dizzy. Notices increased falls on uneven sidewalks due to catching of toes, and on garden incline, causing her to fall backward or onto her side. Other incidents of falling occur when stepping down curbs, stepping up on a step stool ( missing a step) and when ascending stairs (fell backwards, catching self on railing). Most times her falls are backwards or to the side. She reports her worst fall was backwards and her hearing a crack when her head hit, but denies LOC or nasusa. A more recent fall was in late October when she fell onto her L side, landing on her hip and side of face, with brusing on the entire L side. She states she was able to get up right away and continued on her way with no dysfunction noted. Prior Treatments and Tests CT scan 01/15/21: Unremarkable intracranial study for age, without finding of intracranial hemorrhage. MRI of low back showed multiple levels of lumbar spine degerative change, overall worse at L5-S1. 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 Future Testing and Treatments Planned Appt with neurologist in March if needed. Treatment Goals Patient/Caregiver Goals Pt goal is to step down curbs without losing balance, walk without having to look at feet , and be able to stand and look up without feeling dizzy. Prior Functional Status Baseline Function- ADL's Independent Baseline Function- Mobility Independent Baseline Function- Recreation/Hobbies Gardening, reading. Baseline Function- Other Neck pain for 47 yrs and LB for at least 30 yrs. Numb just below buttocks in an area spanning ~3 under gluteal line. Current Functional Impairments (Reported) Functional Limitations- ADL's Not able to look up without dizziness. Falls backwards when on uneven ground or inclines falls more frequently onto back or sides . Functional Limitations- Recreation/ Holding a book and reading >10 Hobbies minutes causes neck pain. Personal Factors Other Personal Factors That May Effect Wanting to continue to garden, Therapy/Recovery and is planning on painting the ceiling in a room of her house. PT-OP-C Subjective Start: 01/22/21 14:39 Freq: Status: Active Protocol: Document 02/11/21 13:01 MB (Rec: 02/11/21 13:45 MB [id number]) OP-PT Subjective Patient Comments Patient Comments Pt brings in questions about vestibular problem after watching a video. She has a cervical MRI tomorrow. PT-OP-D Balance Start: 01/22/21 14:39 Freq: Status: Active Protocol: Document 01/25/21 09:07 LRN (Rec: 01/25/21 11:16 LRN [id number]) OP-PT Balance Assessment Sitting Balance Static Sitting Balance Ability Normal Dynamic Sitting Balance Ability Normal Balance Tests Carranza Balance Test Carranza Balance Test Score 50 Carranza Impairment Rating 1 to 19% Impaired (Score 45-55 ) Functional Reach Functional Reach Test 14 Functional Reach Impairment Rating 0% Impaired (Score 10) Single Limb Standing Single Limb- Right 3 secs Single Limb- Left 5 secs Tandem Tandem Standing R foot behind: 30+ secs. L foot behind: 16 secs. Castañeda Fall Scale Copyright Permission PT-OP-E Functional Tests Start: 01/22/21 14:39 Freq: Status: Active Protocol: Document 01/25/21 09:07 LRN (Rec: 01/25/21 11:16 LRN [id number]) Functional Tests Timed Up and Go (TUG) Score 13 TUG Impairment Rating 20 to <40% Impaired (Score 12- 13) PT-OP-K Range of Motion Start: 01/22/21 14:39 Freq: Status: Active Protocol: Document 01/25/21 09:07 LRN (Rec: 01/25/21 11:16 LRN [id number]) Cervical Spine Range of Motion Cervical Spine Active Degrees Testing Position Sitting Flexion 50 Extension 20 Rotation Left 50 Rotation Right 62 Lateral Flexion Left 15 Lateral Flexion Right 15 ROM Limitations Soft Tissue Tightness,Pain Comments Dizzy on return from extension PT-OP-Q Treatments Start: 01/22/21 14:39 Freq: Status: Active Protocol: Document 02/11/21 13:01 MB (Rec: 02/11/21 13:45 MB [id number]) Neuro Re-Education Treatment Vestibular Rehabilitation DVA testing and exercise Comments DVA testing with large eye chart in hallway: Pt cannot read E well on chart and stop at line 7 with head still . With vertical head turns, pt gently resists movement. With horizontal head turns, pt can read to line 5 Personal eye chart with sitting: pt does not tend to keep a constant speed with horizontal head turns and tends to stop. Tried metronome at 142 which was mildly helpful. Vertical head nods are more tricky and pt tends to nod her trunk and cues to stop and rest. Cues for keeping neck loose d/ t changes, headache and cervicogenic dizziness Performed with standing behind the chair PT-OP-T Assessment and Plan Start: 01/22/21 14:39 Freq: Status: Active Protocol: Document 02/11/21 13:01 MB (Rec: 02/11/21 13:45 MB [id number]) Physical Therapy Assessment Rehab Potential Rehabilitation Potential Good Evaluation Complexity Number of Personal Factors/Comorbidities 3 or More Number of Body Systems Impaired 4 or More Clinical Presentation at Evaluation Evolving Impairments Impairments Balance,Coordination,Gait,Pain ,ROM Other Concerns Fall Risk Yes Goals Four Forging Roll Operator Goal (LTG) Pt will perform WNLs on FGA to decrease fall risk by 03/31/21 . LTG Duration 03/31/21 Three Half-Way Goal (LTG) Pt will deny falls to decrease risk of further injury for 8 weeks by 03/31/21. LTG Duration 03/31/21 One Half-Way Goal (LTG) Pt will perform progressive HEP with I including VOR, balance, cervical, postural, strengthening and relaxation exercises to improve symptoms and balance by 03/31/21. LTG Duration 03/31/21 Assessment Summary Assessment Initiated VOR testing and exercise today and pt to perform standing with feet apart at home at this time. Will con't to benefit from progression and balance testing next treatment date. Physical Therapy Plan Frequency and Duration Frequency of Treatment 2x/Week Duration of Treatment 8 weeks Plan of Care Start Date 01/29/21 Plan of Care End Date 03/31/21 Therapeutic Interventions Therapeutic Interventions Balance Training,Canalithic Repositioning,Gait Training, Home Exercise Program,Manual Therapy,Neuromuscular Re- education,Patient/Caregiver Education,Self-Care/Home Management,Soft Tissue Mobilization,Therapeutic Activities,Therapeutic Exercises,Vestibular Rehabilitation Modalities Cold Pack/Ice Massage,Hot Packs Next Visit Focus/Plan Next Note Type Treatment Note Next Visit Plan FGA Counterstrain, racquet ball massage, postural exercise progression
--- NOTE | 2021-02-16 13:42 | PT.OTN ---
Current Diagnoses Muscle weakness (generalized) (02/16/21) Repeated falls (02/16/21) Dizziness and giddiness (02/16/21) Physical Therapy Treatment Note PT-OP-A Visit Information Start: 01/22/21 14:39 Freq: Status: Active Protocol: Document 02/16/21 12:59 MB (Rec: 02/16/21 13:42 MB [id number]) Out-Patient Physical Therapy Visit Information Visit Information Visit Type Treatment Note Visit Note Medicare, 10/14 before KX Visit Start Time 12:59 Visit Stop Time 13:44 Total Visit Minutes 45 Visit Number 5 Precautions Precautions Cervical MRI 02/12/21: IMPRESSION: 1. Degenerative disc disease at C4-5, C5-6, and C6-7 with diffuse disc bulges, disc osteophytes, and uncovertebral hypertrophy. 2. Multilevel severe foraminal stenosis as above. 3. Moderate central canal stenosis at C4-5 and severe central canal stenosis at C5-6 . 4. No abnormal cord signal. PT-OP-B Current Condition Start: 01/22/21 14:39 Freq: Status: Active Protocol: Document 01/25/21 09:07 LRN (Rec: 01/25/21 11:16 LRN [id number]) Current Condition History of Current Condition Onset Date 2.5 yrs ago. Current Complaints Frequent falls over last 2.5 yrs History of Current Condition Started falling occasionally, now is falling more frequent, a couple times a month. If looks up at any length of time she gets dizzy. Notices increased falls on uneven sidewalks due to catching of toes, and on garden incline, causing her to fall backward or onto her side. Other incidents of falling occur when stepping down curbs, stepping up on a step stool ( missing a step) and when ascending stairs (fell backwards, catching self on railing). Most times her falls are backwards or to the side. She reports her worst fall was backwards and her hearing a crack when her head hit, but denies LOC or nasusa. A more recent fall was in late October when she fell onto her L side, landing on her hip and side of face, with brusing on the entire L side. She states she was able to get up right away and continued on her way with no dysfunction noted. Prior Treatments and Tests CT scan 01/15/21: Unremarkable intracranial study for age, without finding of intracranial hemorrhage. MRI of low back showed multiple levels of lumbar spine degerative change, overall worse at L5-S1. 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 Future Testing and Treatments Planned Appt with neurologist in March if needed. Treatment Goals Patient/Caregiver Goals Pt goal is to step down curbs without losing balance, walk without having to look at feet , and be able to stand and look up without feeling dizzy. Prior Functional Status Baseline Function- ADL's Independent Baseline Function- Mobility Independent Baseline Function- Recreation/Hobbies Gardening, reading. Baseline Function- Other Neck pain for 47 yrs and LB for at least 30 yrs. Numb just below buttocks in an area spanning ~3 under gluteal line. Current Functional Impairments (Reported) Functional Limitations- ADL's Not able to look up without dizziness. Falls backwards when on uneven ground or inclines falls more frequently onto back or sides . Functional Limitations- Recreation/ Holding a book and reading >10 Hobbies minutes causes neck pain. Personal Factors Other Personal Factors That May Effect Wanting to continue to garden, Therapy/Recovery and is planning on painting the ceiling in a room of her house. PT-OP-C Subjective Start: 01/22/21 14:39 Freq: Status: Active Protocol: Document 02/16/21 12:59 MB (Rec: 02/16/21 13:42 MB [id number]) OP-PT Subjective Patient Comments Patient Comments Pt states that she had a another fall. She was playing nancy with her 18 month old grand-daughter in the house and landed first on her left arm that was tucked up towards her. She has pain in her shoulder blade and has trouble putting on her bra, etc. She had a bad headache after the VOR exercises and PT ed her to stop them. Pt states that she felt car sick when weaving through [employer] over the weekend. PT-OP-D Balance Start: 01/22/21 14:39 Freq: Status: Active Protocol: Document 01/25/21 09:07 LRN (Rec: 01/25/21 11:16 LRN [id number]) OP-PT Balance Assessment Sitting Balance Static Sitting Balance Ability Normal Dynamic Sitting Balance Ability Normal Balance Tests Carranza Balance Test Carranza Balance Test Score 50 Carranza Impairment Rating 1 to 19% Impaired (Score 45-55 ) Functional Reach Functional Reach Test 14 Functional Reach Impairment Rating 0% Impaired (Score 10) Single Limb Standing Single Limb- Right 3 secs Single Limb- Left 5 secs Tandem Tandem Standing R foot behind: 30+ secs. L foot behind: 16 secs. Castañeda Fall Scale Copyright Permission PT-OP-E Functional Tests Start: 01/22/21 14:39 Freq: Status: Active Protocol: Document 01/25/21 09:07 LRN (Rec: 01/25/21 11:16 LRN [id number]) Functional Tests Timed Up and Go (TUG) Score 13 TUG Impairment Rating 20 to <40% Impaired (Score 12- 13) PT-OP-K Range of Motion Start: 01/22/21 14:39 Freq: Status: Active Protocol: Document 01/25/21 09:07 LRN (Rec: 01/25/21 11:16 LRN [id number]) Cervical Spine Range of Motion Cervical Spine Active Degrees Testing Position Sitting Flexion 50 Extension 20 Rotation Left 50 Rotation Right 62 Lateral Flexion Left 15 Lateral Flexion Right 15 ROM Limitations Soft Tissue Tightness,Pain Comments Dizzy on return from extension PT-OP-Q Treatments Start: 01/22/21 14:39 Freq: Status: Active Protocol: Document 02/16/21 12:59 MB (Rec: 02/16/21 13:42 MB [id number]) Manual Therapy Treatment Other Other Manual Treatments Pt agrees to Counterstrain to assess and treat fascial tension. She presents with tension in the following fascial systems: dura, spinal medullary vein, ALL. PT treats stacks in these systems and pt responds well. PT-OP-T Assessment and Plan Start: 01/22/21 14:39 Freq: Status: Active Protocol: Document 02/16/21 12:59 MB (Rec: 02/16/21 13:42 MB [id number]) Physical Therapy Assessment Rehab Potential Rehabilitation Potential Good Evaluation Complexity Number of Personal Factors/Comorbidities 3 or More Number of Body Systems Impaired 4 or More Clinical Presentation at Evaluation Evolving Impairments Impairments Balance,Coordination,Gait,Pain ,ROM Other Concerns Fall Risk Yes Goals Four Manager Case Goal (LTG) Pt will perform WNLs on FGA to decrease fall risk by 03/31/21 . LTG Duration 03/31/21 Three Manager Case Goal (LTG) Pt will deny falls to decrease risk of further injury for 8 weeks by 03/31/21. LTG Duration 03/31/21 One Manager Case Goal (LTG) Pt will perform progressive HEP with I including VOR, balance, cervical, postural, strengthening and relaxation exercises to improve symptoms and balance by 03/31/21. LTG Duration 03/31/21 Assessment Summary Assessment PT screens pt after fall today . AROM in standing today: flexion right 150 deg, left 90 deg and pt reports pain at left shoulder blade; B abduction 150 deg, pt reports that left IR is painful and limits this. She cannot fasten a bra behind her back. PT encourages her to talk with MARLA Felix about this when she sees her at the end of the week. PT reviewed cervical MRI results from last week. Counterstrain today for gentle fascial release and PT will con't this as appropriate as pt responds well and cervical, shoulder and thoracic fascia moves better after treatment. Physical Therapy Plan Frequency and Duration Frequency of Treatment 2x/Week Duration of Treatment 8 weeks Plan of Care Start Date 01/29/21 Plan of Care End Date 03/31/21 Therapeutic Interventions Therapeutic Interventions Balance Training,Canalithic Repositioning,Gait Training, Home Exercise Program,Manual Therapy,Neuromuscular Re- education,Patient/Caregiver Education,Self-Care/Home Management,Soft Tissue Mobilization,Therapeutic Activities,Therapeutic Exercises,Vestibular Rehabilitation Modalities Cold Pack/Ice Massage,Hot Packs Next Visit Focus/Plan Next Note Type Treatment Note Next Visit Plan FGA Gentle thoracic, pect and breathing exercises in hook lying Counterstrain, racquet ball massage, postural exercise progression
--- NOTE | 2021-02-19 10:30 | PT.OTN ---
Current Diagnoses Muscle weakness (generalized) (02/19/21) Repeated falls (02/19/21) Dizziness and giddiness (02/19/21) Physical Therapy Treatment Note PT-OP-A Visit Information Start: 01/22/21 14:39 Freq: Status: Active Protocol: Document 02/19/21 09:47 MB (Rec: 02/19/21 10:30 MB [id number]) Out-Patient Physical Therapy Visit Information Visit Information Visit Type Treatment Note Visit Note Medicare, 11/14 before KX Visit Start Time 09:47 Visit Stop Time 10:27 Total Visit Minutes 40 Visit Number 6 Precautions Precautions Cervical MRI 02/12/21: IMPRESSION: 1. Degenerative disc disease at C4-5, C5-6, and C6-7 with diffuse disc bulges, disc osteophytes, and uncovertebral hypertrophy. 2. Multilevel severe foraminal stenosis as above. 3. Moderate central canal stenosis at C4-5 and severe central canal stenosis at C5-6 . 4. No abnormal cord signal. PT-OP-B Current Condition Start: 01/22/21 14:39 Freq: Status: Active Protocol: Document 01/25/21 09:07 LRN (Rec: 01/25/21 11:16 LRN [id number]) Current Condition History of Current Condition Onset Date 2.5 yrs ago. Current Complaints Frequent falls over last 2.5 yrs History of Current Condition Started falling occasionally, now is falling more frequent, a couple times a month. If looks up at any length of time she gets dizzy. Notices increased falls on uneven sidewalks due to catching of toes, and on garden incline, causing her to fall backward or onto her side. Other incidents of falling occur when stepping down curbs, stepping up on a step stool ( missing a step) and when ascending stairs (fell backwards, catching self on railing). Most times her falls are backwards or to the side. She reports her worst fall was backwards and her hearing a crack when her head hit, but denies LOC or nasusa. A more recent fall was in late October when she fell onto her L side, landing on her hip and side of face, with brusing on the entire L side. She states she was able to get up right away and continued on her way with no dysfunction noted. Prior Treatments and Tests CT scan 01/15/21: Unremarkable intracranial study for age, without finding of intracranial hemorrhage. MRI of low back showed multiple levels of lumbar spine degerative change, overall worse at L5-S1. 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 Future Testing and Treatments Planned Appt with neurologist in March if needed. Treatment Goals Patient/Caregiver Goals Pt goal is to step down curbs without losing balance, walk without having to look at feet , and be able to stand and look up without feeling dizzy. Prior Functional Status Baseline Function- ADL's Independent Baseline Function- Mobility Independent Baseline Function- Recreation/Hobbies Gardening, reading. Baseline Function- Other Neck pain for 47 yrs and LB for at least 30 yrs. Numb just below buttocks in an area spanning ~3 under gluteal line. Current Functional Impairments (Reported) Functional Limitations- ADL's Not able to look up without dizziness. Falls backwards when on uneven ground or inclines falls more frequently onto back or sides . Functional Limitations- Recreation/ Holding a book and reading >10 Hobbies minutes causes neck pain. Personal Factors Other Personal Factors That May Effect Wanting to continue to garden, Therapy/Recovery and is planning on painting the ceiling in a room of her house. PT-OP-C Subjective Start: 01/22/21 14:39 Freq: Status: Active Protocol: Document 02/19/21 09:47 MB (Rec: 02/19/21 10:30 MB [id number]) OP-PT Subjective Patient Comments Patient Comments Pt con't with left shoulder blade pain after the fall. When she coughs, she has to hold herself. Sneezing, coughing, hiccupping, lying down in bed and rolling over in the bed hurts her. She sees Eladia Felix today. PT-OP-D Balance Start: 01/22/21 14:39 Freq: Status: Active Protocol: Document 01/25/21 09:07 LRN (Rec: 01/25/21 11:16 LRN [id number]) OP-PT Balance Assessment Sitting Balance Static Sitting Balance Ability Normal Dynamic Sitting Balance Ability Normal Balance Tests Carranza Balance Test Carranza Balance Test Score 50 Carranza Impairment Rating 1 to 19% Impaired (Score 45-55 ) Functional Reach Functional Reach Test 14 Functional Reach Impairment Rating 0% Impaired (Score 10) Single Limb Standing Single Limb- Right 3 secs Single Limb- Left 5 secs Tandem Tandem Standing R foot behind: 30+ secs. L foot behind: 16 secs. Castañeda Fall Scale Copyright Permission PT-OP-E Functional Tests Start: 01/22/21 14:39 Freq: Status: Active Protocol: Document 01/25/21 09:07 LRN (Rec: 01/25/21 11:16 LRN [id number]) Functional Tests Timed Up and Go (TUG) Score 13 TUG Impairment Rating 20 to <40% Impaired (Score 12- 13) PT-OP-K Range of Motion Start: 01/22/21 14:39 Freq: Status: Active Protocol: Document 01/25/21 09:07 LRN (Rec: 01/25/21 11:16 LRN [id number]) Cervical Spine Range of Motion Cervical Spine Active Degrees Testing Position Sitting Flexion 50 Extension 20 Rotation Left 50 Rotation Right 62 Lateral Flexion Left 15 Lateral Flexion Right 15 ROM Limitations Soft Tissue Tightness,Pain Comments Dizzy on return from extension PT-OP-Q Treatments Start: 01/22/21 14:39 Freq: Status: Active Protocol: Document 02/19/21 09:47 MB (Rec: 02/19/21 10:30 MB [id number]) Therapeutic Exercises Supine Exercises Pect stretch Side bilateral Comments Head and neck supported, did unilateral first and then right arm Sidelying Exercises QL stretch Sidelying Exercise Name Pt lying on right side Side left Comments Ed for gentle breathing today- -arm overhead and top leg straight Standing Exercises Thoracic mobility over ball Equipment Used [employer] ball behind back Comments Thoracic mobility Manual Therapy Treatment Other Other Manual Treatments Counterstrain to decrease left rib tension and treated lymphatic venous for lateral rib tension and this does loosen up the area PT-OP-T Assessment and Plan Start: 01/22/21 14:39 Freq: Status: Active Protocol: Document 02/19/21 09:47 MB (Rec: 02/19/21 10:30 MB [id number]) Physical Therapy Assessment Rehab Potential Rehabilitation Potential Good Evaluation Complexity Number of Personal Factors/Comorbidities 3 or More Number of Body Systems Impaired 4 or More Clinical Presentation at Evaluation Evolving Impairments Impairments Balance,Coordination,Gait,Pain ,ROM Other Concerns Fall Risk Yes Goals [employer] Retirement Goal (LTG) Pt will perform WNLs on FGA to decrease fall risk by 03/31/21 . LTG Duration 03/31/21 Three [facility] Spiritual Care Coordinator Goal (LTG) Pt will deny falls to decrease risk of further injury for 8 weeks by 03/31/21. LTG Duration 03/31/21 One [facility] Spiritual Care Coordinator Goal (LTG) Pt will perform progressive HEP with I including VOR, balance, cervical, postural, strengthening and relaxation exercises to improve symptoms and balance by 03/31/21. LTG Duration 03/31/21 Assessment Summary Assessment Pt con't with very stiff movement and gait that is more pronounced after fall. She points to left pect and states she saw a little bruise show up. She had pain from anterior sternocostal area that goes back to the left shoulder blade. She will bring this up to WATSON Felix today. PT is limited d/t this injury and new pain. Pt is concerned about a rib/intercostal injury as well as pect injury. Three exercises were performed slowly and took time today to see if helpful for pt. Also ed pt to con't to work on breathing at home to help with rib movement. Physical Therapy Plan Frequency and Duration Frequency of Treatment 2x/Week Duration of Treatment 8 weeks Plan of Care Start Date 01/29/21 Plan of Care End Date 03/31/21 Therapeutic Interventions Therapeutic Interventions Balance Training,Canalithic Repositioning,Gait Training, Home Exercise Program,Manual Therapy,Neuromuscular Re- education,Patient/Caregiver Education,Self-Care/Home Management,Soft Tissue Mobilization,Therapeutic Activities,Therapeutic Exercises,Vestibular Rehabilitation Modalities Cold Pack/Ice Massage,Hot Packs Next Visit Focus/Plan Next Note Type Treatment Note Next Visit Plan FGA Sitting thoracic rotation and breathing, cervical rotation with end-range nods Counterstrain, racquet ball massage, postural exercise progression
--- NOTE | 2021-02-23 13:31 | PT.OTN ---
Current Diagnoses Muscle weakness (generalized) (02/23/21) Repeated falls (02/23/21) Dizziness and giddiness (02/23/21) Physical Therapy Treatment Note PT-OP-A Visit Information Start: 01/22/21 14:39 Freq: Status: Active Protocol: Document 02/23/21 13:00 MB (Rec: 02/23/21 13:31 MB [id number]) Out-Patient Physical Therapy Visit Information Visit Information Visit Type Treatment Note Visit Note Medicare, 12/14 before KX Visit Start Time 13:00 Visit Stop Time 13:23 Total Visit Minutes 23 Visit Number 7 Precautions Precautions Cervical MRI 02/12/21: IMPRESSION: 1. Degenerative disc disease at C4-5, C5-6, and C6-7 with diffuse disc bulges, disc osteophytes, and uncovertebral hypertrophy. 2. Multilevel severe foraminal stenosis as above. 3. Moderate central canal stenosis at C4-5 and severe central canal stenosis at C5-6 . 4. No abnormal cord signal. PT-OP-B Current Condition Start: 01/22/21 14:39 Freq: Status: Active Protocol: Document 01/25/21 09:07 LRN (Rec: 01/25/21 11:16 LRN [id number]) Current Condition History of Current Condition Onset Date 2.5 yrs ago. Current Complaints Frequent falls over last 2.5 yrs History of Current Condition Started falling occasionally, now is falling more frequent, a couple times a month. If looks up at any length of time she gets dizzy. Notices increased falls on uneven sidewalks due to catching of toes, and on garden incline, causing her to fall backward or onto her side. Other incidents of falling occur when stepping down curbs, stepping up on a step stool ( missing a step) and when ascending stairs (fell backwards, catching self on railing). Most times her falls are backwards or to the side. She reports her worst fall was backwards and her hearing a crack when her head hit, but denies LOC or nasusa. A more recent fall was in late October when she fell onto her L side, landing on her hip and side of face, with brusing on the entire L side. She states she was able to get up right away and continued on her way with no dysfunction noted. Prior Treatments and Tests CT scan 01/15/21: Unremarkable intracranial study for age, without finding of intracranial hemorrhage. MRI of low back showed multiple levels of lumbar spine degerative change, overall worse at L5-S1. 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 Future Testing and Treatments Planned Appt with neurologist in March if needed. Treatment Goals Patient/Caregiver Goals Pt goal is to step down curbs without losing balance, walk without having to look at feet , and be able to stand and look up without feeling dizzy. Prior Functional Status Baseline Function- ADL's Independent Baseline Function- Mobility Independent Baseline Function- Recreation/Hobbies Gardening, reading. Baseline Function- Other Neck pain for 47 yrs and LB for at least 30 yrs. Numb just below buttocks in an area spanning ~3 under gluteal line. Current Functional Impairments (Reported) Functional Limitations- ADL's Not able to look up without dizziness. Falls backwards when on uneven ground or inclines falls more frequently onto back or sides . Functional Limitations- Recreation/ Holding a book and reading >10 Hobbies minutes causes neck pain. Personal Factors Other Personal Factors That May Effect Wanting to continue to garden, Therapy/Recovery and is planning on painting the ceiling in a room of her house. PT-OP-C Subjective Start: 01/22/21 14:39 Freq: Status: Active Protocol: Document 02/23/21 13:00 MB (Rec: 02/23/21 13:31 MB [id number]) OP-PT Subjective Patient Comments Patient Comments Pt saw WATSON Felix who examined her and told her that she does not think that her ribs are fractured but are bruised. She offered a x-ray and pt declined since they would not do anything different. PT-OP-D Balance Start: 01/22/21 14:39 Freq: Status: Active Protocol: Document 01/25/21 09:07 LRN (Rec: 01/25/21 11:16 LRN [id number]) OP-PT Balance Assessment Sitting Balance Static Sitting Balance Ability Normal Dynamic Sitting Balance Ability Normal Balance Tests Carranza Balance Test Carranza Balance Test Score 50 Carranza Impairment Rating 1 to 19% Impaired (Score 45-55 ) Functional Reach Functional Reach Test 14 Functional Reach Impairment Rating 0% Impaired (Score 10) Single Limb Standing Single Limb- Right 3 secs Single Limb- Left 5 secs Tandem Tandem Standing R foot behind: 30+ secs. L foot behind: 16 secs. Castañeda Fall Scale Copyright Permission PT-OP-E Functional Tests Start: 01/22/21 14:39 Freq: Status: Active Protocol: Document 01/25/21 09:07 LRN (Rec: 01/25/21 11:16 LRN [id number]) Functional Tests Timed Up and Go (TUG) Score 13 TUG Impairment Rating 20 to <40% Impaired (Score 12- 13) PT-OP-K Range of Motion Start: 01/22/21 14:39 Freq: Status: Active Protocol: Document 01/25/21 09:07 LRN (Rec: 01/25/21 11:16 LRN [id number]) Cervical Spine Range of Motion Cervical Spine Active Degrees Testing Position Sitting Flexion 50 Extension 20 Rotation Left 50 Rotation Right 62 Lateral Flexion Left 15 Lateral Flexion Right 15 ROM Limitations Soft Tissue Tightness,Pain Comments Dizzy on return from extension PT-OP-Q Treatments Start: 01/22/21 14:39 Freq: Status: Active Protocol: Document 02/23/21 13:00 MB (Rec: 02/23/21 13:31 MB [id number]) Therapeutic Exercises Supine Exercises Pect stretch Comments Re-ed pt in this today, verbalization and demo Sidelying Exercises QL stretch Comments Re-ed pt in this today with verbalizations Sitting Exercises Cervical rotation with end-range head nods Comments Performed today both sides Thoracic rotation in sitting Comments Cues for gentle movements and end-range breathing Self-Care/Home Management Treatment Education Other Education Ed pt in importance of working on gentle and deep breathing given pain and trouble breathing Ed pt in how rib injury is limiting PT and how PT cannot really progress with rib treatment without knowing if she has a fracture and benefits of getting a x-ray and following up with doctor about this Ed pt in benefits of break from PT to see how she improves or does not improve, ed in importance of new gentle breathing exercises. PT-OP-T Assessment and Plan Start: 01/22/21 14:39 Freq: Status: Active Protocol: Document 02/23/21 13:00 MB (Rec: 02/23/21 13:31 MB [id number]) Physical Therapy Assessment Rehab Potential Rehabilitation Potential Good Evaluation Complexity Number of Personal Factors/Comorbidities 3 or More Number of Body Systems Impaired 4 or More Clinical Presentation at Evaluation Evolving Impairments Impairments Balance,Coordination,Gait,Pain ,ROM Other Concerns Fall Risk Yes Goals Four [facility]dc Goal (LTG) Pt will perform WNLs on FGA to decrease fall risk by 03/31/21 . LTG Duration 03/31/21 Three Fdc Goal (LTG) Pt will deny falls to decrease risk of further injury for 8 weeks by 03/31/21. LTG Duration 03/31/21 One Analog Device Designer Goal (LTG) Pt will perform progressive HEP with I including VOR, balance, cervical, postural, strengthening and relaxation exercises to improve symptoms and balance by 03/31/21. LTG Duration 03/31/21 Assessment Summary Assessment Pt reports a bruise appeared over her left breast after fall and PT sees small bruise today. PT has pain around ribs4-6 from anterior to posterior. She con't to report scapular pain. BP and HR in sittin/85, 81. O2 sats and HR pulse ox left 3rd digit : 82 BPM, 97%. PT teaches pt about gentle breathing exercises to perform. PT also ed pt that PT would like for pt to have a x-ray given the ongoing left scapular pain and pain with breathing that was bad over the weekend and that limits PT. PT can do gentle work on the ribs if she indeed does not have a fracture but if it is a fracture, pain and PT limitations will con't . PT cancels pt's next three PT appointments in hopes that pt will get x-ray, perform breathing exercises and feel better. Physical Therapy Plan Frequency and Duration Frequency of Treatment 2x/Week Duration of Treatment 8 weeks Plan of Care Start Date 01/29/21 Plan of Care End Date 03/31/21 Therapeutic Interventions Therapeutic Interventions Balance Training,Canalithic Repositioning,Gait Training, Home Exercise Program,Manual Therapy,Neuromuscular Re- education,Patient/Caregiver Education,Self-Care/Home Management,Soft Tissue Mobilization,Therapeutic Activities,Therapeutic Exercises,Vestibular Rehabilitation Modalities Cold Pack/Ice Massage,Hot Packs Next Visit Focus/Plan Next Note Type Treatment Note Next Visit Plan FGA Counterstrain, postural exercise progression
--- NOTE | 2021-02-26 15:23 | PT-OP ANOTE ---
Pt had rib x-ray and it was normal.
--- NOTE | 2021-03-09 08:14 | PT.OTN ---
Current Diagnoses Muscle weakness (generalized) (03/09/21) Repeated falls (03/09/21) Dizziness and giddiness (03/09/21) Physical Therapy Treatment Note PT-OP-A Visit Information Start: 01/22/21 14:39 Freq: Status: Active Protocol: Document 03/09/21 07:32 MB (Rec: 03/09/21 08:13 MB [id number]) Out-Patient Physical Therapy Visit Information Visit Information Visit Type Treatment Note Visit Note Medicare, 01/14 before KX Visit Start Time 07:32 Visit Stop Time 08:11 Total Visit Minutes 39 Visit Number 8 Precautions Precautions Cervical MRI 02/12/21: IMPRESSION: 1. Degenerative disc disease at C4-5, C5-6, and C6-7 with diffuse disc bulges, disc osteophytes, and uncovertebral hypertrophy. 2. Multilevel severe foraminal stenosis as above. 3. Moderate central canal stenosis at C4-5 and severe central canal stenosis at C5-6 . 4. No abnormal cord signal. 02/26/21: Rib and chest x-ray: negative PT-OP-B Current Condition Start: 01/22/21 14:39 Freq: Status: Active Protocol: Document 01/25/21 09:07 LRN (Rec: 01/25/21 11:16 LRN [id number]) Current Condition History of Current Condition Onset Date 2.5 yrs ago. Current Complaints Frequent falls over last 2.5 yrs History of Current Condition Started falling occasionally, now is falling more frequent, a couple times a month. If looks up at any length of time she gets dizzy. Notices increased falls on uneven sidewalks due to catching of toes, and on garden incline, causing her to fall backward or onto her side. Other incidents of falling occur when stepping down curbs, stepping up on a step stool ( missing a step) and when ascending stairs (fell backwards, catching self on railing). Most times her falls are backwards or to the side. She reports her worst fall was backwards and her hearing a crack when her head hit, but denies LOC or nasusa. A more recent fall was in late October when she fell onto her L side, landing on her hip and side of face, with brusing on the entire L side. She states she was able to get up right away and continued on her way with no dysfunction noted. Prior Treatments and Tests CT scan 01/15/21: Unremarkable intracranial study for age, without finding of intracranial hemorrhage. MRI of low back showed multiple levels of lumbar spine degerative change, overall worse at L5-S1. 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 Future Testing and Treatments Planned Appt with neurologist in March if needed. Treatment Goals Patient/Caregiver Goals Pt goal is to step down curbs without losing balance, walk without having to look at feet , and be able to stand and look up without feeling dizzy. Prior Functional Status Baseline Function- ADL's Independent Baseline Function- Mobility Independent Baseline Function- Recreation/Hobbies Gardening, reading. Baseline Function- Other Neck pain for 48 yrs and LB for at least 30 yrs. Numb just below buttocks in an area spanning ~3 under gluteal line. Current Functional Impairments (Reported) Functional Limitations- ADL's Not able to look up without dizziness. Falls backwards when on uneven ground or inclines falls more frequently onto back or sides . Functional Limitations- Recreation/ Holding a book and reading >10 Hobbies minutes causes neck pain. Personal Factors Other Personal Factors That May Effect Wanting to continue to garden, Therapy/Recovery and is planning on painting the ceiling in a room of her house. PT-OP-C Subjective Start: 01/22/21 14:39 Freq: Status: Active Protocol: Document 03/09/21 07:32 MB (Rec: 03/09/21 08:13 MB [id number]) OP-PT Subjective Patient Comments Patient Comments Pt states that her ribs and chest are feeling a lot better . There are still some tender spots, especially on her left scapula. [place] balm is helpful for her neck. PT-OP-D Balance Start: 01/22/21 14:39 Freq: Status: Active Protocol: Document 01/25/21 09:07 LRN (Rec: 01/25/21 11:16 LRN [id number]) OP-PT Balance Assessment Sitting Balance Static Sitting Balance Ability Normal Dynamic Sitting Balance Ability Normal Balance Tests Carranza Balance Test Carranza Balance Test Score 50 Carranza Impairment Rating 1 to 19% Impaired (Score 45-55 ) Functional Reach Functional Reach Test 14 Functional Reach Impairment Rating 0% Impaired (Score 10) Single Limb Standing Single Limb- Right 3 secs Single Limb- Left 5 secs Tandem Tandem Standing R foot behind: 30+ secs. L foot behind: 16 secs. Castañeda Fall Scale Copyright Permission PT-OP-E Functional Tests Start: 01/22/21 14:39 Freq: Status: Active Protocol: Document 01/25/21 09:07 LRN (Rec: 01/25/21 11:16 LRN [id number]) Functional Tests Timed Up and Go (TUG) Score 13 TUG Impairment Rating 20 to <40% Impaired (Score 12- 13) PT-OP-K Range of Motion Start: 01/22/21 14:39 Freq: Status: Active Protocol: Document 01/25/21 09:07 LRN (Rec: 01/25/21 11:16 LRN [id number]) Cervical Spine Range of Motion Cervical Spine Active Degrees Testing Position Sitting Flexion 50 Extension 20 Rotation Left 50 Rotation Right 62 Lateral Flexion Left 15 Lateral Flexion Right 15 ROM Limitations Soft Tissue Tightness,Pain Comments Dizzy on return from extension PT-OP-Q Treatments Start: 01/22/21 14:39 Freq: Status: Active Protocol: Document 03/09/21 07:32 MB (Rec: 03/09/21 08:13 MB [id number]) Cardio Equipment Upper Body Ergometer (UBE) Duration (Minutes) 10 Other 1' forward and 1' backward Manual Therapy Treatment Other Other Manual Treatments Pt agrees to Counterstrain to assess and treat fascial tension and pt presents with tension in the following fascial systems: costocartilage and neuro. PT treats stacks in cartilage, costocartilage and scan improves PT-OP-T Assessment and Plan Start: 01/22/21 14:39 Freq: Status: Active Protocol: Document 03/09/21 07:32 MB (Rec: 03/09/21 08:13 MB [id number]) Physical Therapy Assessment Rehab Potential Rehabilitation Potential Good Evaluation Complexity Number of Personal Factors/Comorbidities 3 or More Number of Body Systems Impaired 4 or More Clinical Presentation at Evaluation Evolving Impairments Impairments Balance,Coordination,Gait,Pain ,ROM Other Concerns Fall Risk Yes Goals Four Billet Shearer Goal (LTG) Pt will perform WNLs on FGA to decrease fall risk by 03/31/21 . LTG Duration 03/31/21 Three Billet Shearer Goal (LTG) Pt will deny falls to decrease risk of further injury for 8 weeks by 03/31/21. LTG Duration 03/31/21 One Billet Shearer Goal (LTG) Pt will perform progressive HEP with I including VOR, balance, cervical, postural, strengthening and relaxation exercises to improve symptoms and balance by 03/31/21. LTG Duration 03/31/21 Assessment Summary Assessment X-ray was clear and pt is feeling better. Initiated arm bike today and further Counterstrain and pt tolerates well. Physical Therapy Plan Frequency and Duration Frequency of Treatment 2x/Week Duration of Treatment 8 weeks Plan of Care Start Date 01/29/21 Plan of Care End Date 03/31/21 Therapeutic Interventions Therapeutic Interventions Balance Training,Canalithic Repositioning,Gait Training, Home Exercise Program,Manual Therapy,Neuromuscular Re- education,Patient/Caregiver Education,Self-Care/Home Management,Soft Tissue Mobilization,Therapeutic Activities,Therapeutic Exercises,Vestibular Rehabilitation Modalities Cold Pack/Ice Massage,Hot Packs Next Visit Focus/Plan Next Note Type Treatment Note Next Visit Plan Similar: FGA Counterstrain, postural exercise progression
--- NOTE | 2021-03-11 08:11 | PT.OTN ---
Current Diagnoses Muscle weakness (generalized) (03/11/21) Repeated falls (03/11/21) Dizziness and giddiness (03/11/21) Physical Therapy Treatment Note PT-OP-A Visit Information Start: 01/22/21 14:39 Freq: Status: Active Protocol: Document 03/11/21 07:30 MB (Rec: 03/11/21 08:10 MB [id number]) Out-Patient Physical Therapy Visit Information Visit Information Visit Type Treatment Note Visit Note Medicare, 02/14 before KX Visit Start Time 07:30 Visit Stop Time 08:09 Total Visit Minutes 39 Visit Number 9 Precautions Precautions Cervical MRI 02/12/21: IMPRESSION: 1. Degenerative disc disease at C4-5, C5-6, and C6-7 with diffuse disc bulges, disc osteophytes, and uncovertebral hypertrophy. 2. Multilevel severe foraminal stenosis as above. 3. Moderate central canal stenosis at C4-5 and severe central canal stenosis at C5-6 . 4. No abnormal cord signal. 02/26/21: Rib and chest x-ray: negative PT-OP-B Current Condition Start: 01/22/21 14:39 Freq: Status: Active Protocol: Document 01/25/21 09:07 LRN (Rec: 01/25/21 11:16 LRN [id number]) Current Condition History of Current Condition Onset Date 2.5 yrs ago. Current Complaints Frequent falls over last 2.5 yrs History of Current Condition Started falling occasionally, now is falling more frequent, a couple times a month. If looks up at any length of time she gets dizzy. Notices increased falls on uneven sidewalks due to catching of toes, and on garden incline, causing her to fall backward or onto her side. Other incidents of falling occur when stepping down curbs, stepping up on a step stool ( missing a step) and when ascending stairs (fell backwards, catching self on railing). Most times her falls are backwards or to the side. She reports her worst fall was backwards and her hearing a crack when her head hit, but denies LOC or nasusa. A more recent fall was in late October when she fell onto her L side, landing on her hip and side of face, with brusing on the entire L side. She states she was able to get up right away and continued on her way with no dysfunction noted. Prior Treatments and Tests CT scan 01/15/21: Unremarkable intracranial study for age, without finding of intracranial hemorrhage. MRI of low back showed multiple levels of lumbar spine degerative change, overall worse at L5-S1. 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 Future Testing and Treatments Planned Appt with neurologist in March if needed. Treatment Goals Patient/Caregiver Goals Pt goal is to step down curbs without losing balance, walk without having to look at feet , and be able to stand and look up without feeling dizzy. Prior Functional Status Baseline Function- ADL's Independent Baseline Function- Mobility Independent Baseline Function- Recreation/Hobbies Gardening, reading. Baseline Function- Other Neck pain for 47 yrs and LB for at least 30 yrs. Numb just below buttocks in an area spanning ~3 under gluteal line. Current Functional Impairments (Reported) Functional Limitations- ADL's Not able to look up without dizziness. Falls backwards when on uneven ground or inclines falls more frequently onto back or sides . Functional Limitations- Recreation/ Holding a book and reading >10 Hobbies minutes causes neck pain. Personal Factors Other Personal Factors That May Effect Wanting to continue to garden, Therapy/Recovery and is planning on painting the ceiling in a room of her house. PT-OP-C Subjective Start: 01/22/21 14:39 Freq: Status: Active Protocol: Document 03/11/21 07:30 MB (Rec: 03/11/21 08:10 MB [id number]) OP-PT Subjective Patient Comments Patient Comments Pt states that she likes the [employer] [place]. It is the only thing that has worked on her neck. She was bending over a lot yesterday and that bothered her thoracic spine. She put on a lumbar belt and that helped. Pt looked into stem cell therapy and there is a clinic in [place]. PT-OP-D Balance Start: 01/22/21 14:39 Freq: Status: Active Protocol: Document 01/25/21 09:07 LRN (Rec: 01/25/21 11:16 LRN [id number]) OP-PT Balance Assessment Sitting Balance Static Sitting Balance Ability Normal Dynamic Sitting Balance Ability Normal Balance Tests Carranza Balance Test Carranza Balance Test Score 50 Carranza Impairment Rating 1 to 19% Impaired (Score 45-55 ) Functional Reach Functional Reach Test 14 Functional Reach Impairment Rating 0% Impaired (Score 10) Single Limb Standing Single Limb- Right 3 secs Single Limb- Left 5 secs Tandem Tandem Standing R foot behind: 30+ secs. L foot behind: 16 secs. Castañeda Fall Scale Copyright Permission PT-OP-E Functional Tests Start: 01/22/21 14:39 Freq: Status: Active Protocol: Document 01/25/21 09:07 LRN (Rec: 01/25/21 11:16 LRN [id number]) Functional Tests Timed Up and Go (TUG) Score 13 TUG Impairment Rating 20 to <40% Impaired (Score 12- 13) PT-OP-K Range of Motion Start: 01/22/21 14:39 Freq: Status: Active Protocol: Document 01/25/21 09:07 LRN (Rec: 01/25/21 11:16 LRN [id number]) Cervical Spine Range of Motion Cervical Spine Active Degrees Testing Position Sitting Flexion 50 Extension 20 Rotation Left 50 Rotation Right 62 Lateral Flexion Left 15 Lateral Flexion Right 15 ROM Limitations Soft Tissue Tightness,Pain Comments Dizzy on return from extension PT-OP-Q Treatments Start: 01/22/21 14:39 Freq: Status: Active Protocol: Document 03/11/21 07:30 MB (Rec: 03/11/21 08:10 MB [id number]) Cardio Equipment Upper Body Ergometer (UBE) Duration (Minutes) 10 Other 1' forward and 1' backward Therapeutic Exercises Supine Exercises Pool noodle exercises Side bilateral Equipment Used Purple pool noodle Comments Ts, reciprocal flexion shoulders, pect stretch, half xs (10 reps AROM ex) Standing Exercises Reverse fly Side bilateral Resistance Level 2 band Comments Pt cannot perform this or scapular retraction well without shoulder elevati PT-OP-T Assessment and Plan Start: 01/22/21 14:39 Freq: Status: Active Protocol: Document 03/11/21 07:30 MB (Rec: 03/11/21 08:10 MB [id number]) Physical Therapy Assessment Rehab Potential Rehabilitation Potential Good Evaluation Complexity Number of Personal Factors/Comorbidities 3 or More Number of Body Systems Impaired 4 or More Clinical Presentation at Evaluation Evolving Impairments Impairments Balance,Coordination,Gait,Pain ,ROM Other Concerns Fall Risk Yes Goals Four Percussion Welding Machine Operator Goal (LTG) Pt will perform WNLs on FGA to decrease fall risk by 03/31/21 . LTG Duration 03/31/21 Three Percussion Welding Machine Operator Goal (LTG) Pt will deny falls to decrease risk of further injury for 8 weeks by 03/31/21. LTG Duration 03/31/21 One Percussion Welding Machine Operator Goal (LTG) Pt will perform progressive HEP with I including VOR, balance, cervical, postural, strengthening and relaxation exercises to improve symptoms and balance by 03/31/21. LTG Duration 03/31/21 Assessment Summary Assessment Pt responds well to pool noodle exercises today and will start progression of this if she does well at home. Progress note next treatment, eventually check balance. Physical Therapy Plan Frequency and Duration Frequency of Treatment 2x/Week Duration of Treatment 8 weeks Plan of Care Start Date 01/29/21 Plan of Care End Date 03/31/21 Therapeutic Interventions Therapeutic Interventions Balance Training,Canalithic Repositioning,Gait Training, Home Exercise Program,Manual Therapy,Neuromuscular Re- education,Patient/Caregiver Education,Self-Care/Home Management,Soft Tissue Mobilization,Therapeutic Activities,Therapeutic Exercises,Vestibular Rehabilitation Modalities Cold Pack/Ice Massage,Hot Packs Next Visit Focus/Plan Next Note Type Progress Note Next Visit Plan In future treatments, FGA and further exercise progression over pool noodle
--- NOTE | 2021-03-16 10:48 | PT.OTN ---
Current Diagnoses Muscle weakness (generalized) (03/16/21) Repeated falls (03/16/21) Dizziness and giddiness (03/16/21) Physical Therapy Treatment Note PT-OP-A Visit Information Start: 01/22/21 14:39 Freq: Status: Active Protocol: Document 03/16/21 07:32 MB (Rec: 03/16/21 08:16 MB [id number]) Out-Patient Physical Therapy Visit Information Visit Information Visit Type Treatment Note Visit Note Medicare, 03/16 before KX Visit Start Time 07:32 Visit Stop Time 08:15 Total Visit Minutes 43 Visit Number 10 Precautions Precautions Cervical MRI 02/12/21: IMPRESSION: 1. Degenerative disc disease at C4-5, C5-6, and C6-7 with diffuse disc bulges, disc osteophytes, and uncovertebral hypertrophy. 2. Multilevel severe foraminal stenosis as above. 3. Moderate central canal stenosis at C4-5 and severe central canal stenosis at C5-6 . 4. No abnormal cord signal. 02/26/21: Rib and chest x-ray: negative PT-OP-B Current Condition Start: 01/22/21 14:39 Freq: Status: Active Protocol: Document 01/25/21 09:07 LRN (Rec: 01/25/21 11:16 LRN [id number]) Current Condition History of Current Condition Onset Date 2.5 yrs ago. Current Complaints Frequent falls over last 2.5 yrs History of Current Condition Started falling occasionally, now is falling more frequent, a couple times a month. If looks up at any length of time she gets dizzy. Notices increased falls on uneven sidewalks due to catching of toes, and on garden incline, causing her to fall backward or onto her side. Other incidents of falling occur when stepping down curbs, stepping up on a step stool ( missing a step) and when ascending stairs (fell backwards, catching self on railing). Most times her falls are backwards or to the side. She reports her worst fall was backwards and her hearing a crack when her head hit, but denies LOC or nasusa. A more recent fall was in late October when she fell onto her L side, landing on her hip and side of face, with brusing on the entire L side. She states she was able to get up right away and continued on her way with no dysfunction noted. Prior Treatments and Tests CT scan 01/15/21: Unremarkable intracranial study for age, without finding of intracranial hemorrhage. MRI of low back showed multiple levels of lumbar spine degerative change, overall worse at L5-S1. 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 Future Testing and Treatments Planned Appt with neurologist in March if needed. Treatment Goals Patient/Caregiver Goals Pt goal is to step down curbs without losing balance, walk without having to look at feet , and be able to stand and look up without feeling dizzy. Prior Functional Status Baseline Function- ADL's Independent Baseline Function- Mobility Independent Baseline Function- Recreation/Hobbies Gardening, reading. Baseline Function- Other Neck pain for 47 yrs and LB for at least 30 yrs. Numb just below buttocks in an area spanning ~3 under gluteal line. Current Functional Impairments (Reported) Functional Limitations- ADL's Not able to look up without dizziness. Falls backwards when on uneven ground or inclines falls more frequently onto back or sides . Functional Limitations- Recreation/ Holding a book and reading >10 Hobbies minutes causes neck pain. Personal Factors Other Personal Factors That May Effect Wanting to continue to garden, Therapy/Recovery and is planning on painting the ceiling in a room of her house. PT-OP-C Subjective Start: 01/22/21 14:39 Freq: Status: Active Protocol: Document 03/16/21 07:32 MB (Rec: 03/16/21 08:16 MB [id number]) OP-PT Subjective Patient Comments Patient Comments Pt states that they packed four days of activities into two days. It was her 's birthday and her kids and grandkids came over and they drove to [place]. PT-OP-D Balance Start: 01/22/21 14:39 Freq: Status: Active Protocol: Document 01/25/21 09:07 LRN (Rec: 01/25/21 11:16 LRN [id number]) OP-PT Balance Assessment Sitting Balance Static Sitting Balance Ability Normal Dynamic Sitting Balance Ability Normal Balance Tests Carranza Balance Test Carranza Balance Test Score 50 Carranza Impairment Rating 1 to 19% Impaired (Score 45-55 ) Functional Reach Functional Reach Test 14 Functional Reach Impairment Rating 0% Impaired (Score 10) Single Limb Standing Single Limb- Right 3 secs Single Limb- Left 5 secs Tandem Tandem Standing R foot behind: 30+ secs. L foot behind: 16 secs. Castañeda Fall Scale Copyright Permission PT-OP-E Functional Tests Start: 01/22/21 14:39 Freq: Status: Active Protocol: Document 01/25/21 09:07 LRN (Rec: 01/25/21 11:16 LRN [id number]) Functional Tests Timed Up and Go (TUG) Score 13 TUG Impairment Rating 20 to <40% Impaired (Score 12- 13) PT-OP-K Range of Motion Start: 01/22/21 14:39 Freq: Status: Active Protocol: Document 01/25/21 09:07 LRN (Rec: 01/25/21 11:16 LRN [id number]) Cervical Spine Range of Motion Cervical Spine Active Degrees Testing Position Sitting Flexion 50 Extension 20 Rotation Left 50 Rotation Right 62 Lateral Flexion Left 15 Lateral Flexion Right 15 ROM Limitations Soft Tissue Tightness,Pain Comments Dizzy on return from extension PT-OP-Q Treatments Start: 01/22/21 14:39 Freq: Status: Active Protocol: Document 03/16/21 07:32 MB (Rec: 03/16/21 08:16 MB [id number]) Cardio Equipment Upper Body Ergometer (UBE) Duration (Minutes) 14 Other 1' forward and 1' backward Therapeutic Exercises Other Exercises HEP review Comments Verbally reviewed exercises during progress note Neuro Re-Education Treatment Balance Activities FGA and exercises Comments FGA score is 17/30 and pt is very cautious with all activities, especially head turns and gait with eyes closed Added FGA exercises for home exercises: finger slide along wall: quick walking, backward walking, eyes closed walking, vertical head nods, horizontal head turns and tandem, perform circuits PT-OP-T Assessment and Plan Start: 01/22/21 14:39 Freq: Status: Active Protocol: Document 03/16/21 07:32 MB (Rec: 03/16/21 08:16 MB [id number]) Physical Therapy Assessment Rehab Potential Rehabilitation Potential Good Evaluation Complexity Number of Personal Factors/Comorbidities 3 or More Number of Body Systems Impaired 4 or More Clinical Presentation at Evaluation Evolving Impairments Impairments Balance,Coordination,Gait,Pain ,ROM Other Concerns Fall Risk Yes Goals Four Senior Living Goal (LTG) Pt will perform WNLs on FGA to decrease fall risk by 04/01/21 . LTG Duration 04/01/21 Three Sales Lead Goal (LTG) Pt will deny falls to decrease risk of further injury for 8 weeks by 04/01/21. 03/16/21: Pt had the one fall about a month ago when chasing her grand-daughter and injured her left ribs. Her ribs are feeling better. Her neck and head are still painful. LTG Duration 04/01/21 One Sales Lead Goal (LTG) Pt will perform progressive HEP with I including VOR, balance, cervical, postural, strengthening and relaxation exercises to improve symptoms and balance by 04/01/21. 03/16/21: Pt is performing thoracic rotation in sitting, cervical rotation and nods, pect stretch. She stopped VOR exercises d/t increased headaches. LTG Duration 04/01/21 Assessment Summary Assessment Pt is performing progressive exercises and added balance exercise to HEP today. She has had a fall during PT course when chasing her grand- daughter in the house and injurying her left ribs with pain to intrascapular area. X- ray was negative and she is feeling better. Her neck and MANLEY pain have not really improved with PT and PT is working on posture, balance and pain management techniques . She will benefit from 3 more weeks of PT to fully meet goals and develop program. She has not yet gotten an appointment with surgeon. She cervical changes are a barrier to PT. Physical Therapy Plan Frequency and Duration Frequency of Treatment 2x/Week Duration of Treatment 3 weeks Plan of Care Start Date 03/16/21 Plan of Care End Date 04/01/21 Therapeutic Interventions Therapeutic Interventions Balance Training,Canalithic Repositioning,Gait Training, Home Exercise Program,Manual Therapy,Neuromuscular Re- education,Patient/Caregiver Education,Self-Care/Home Management,Soft Tissue Mobilization,Therapeutic Activities,Therapeutic Exercises,Vestibular Rehabilitation Modalities Cold Pack/Ice Massage,Hot Packs Next Visit Focus/Plan Next Note Type Treatment Note Next Visit Plan Further exercise progression over pool noodle, strengthening in standing, [place] breathing
--- NOTE | 2021-03-16 10:49 | PT.OPPOC ---
Physical, Occupational & Speech Therapy At [facility] Current Diagnoses Muscle weakness (generalized) (03/16/21) Repeated falls (03/16/21) Dizziness and giddiness (03/16/21) Visit Care Team Role Provider Type Deepika Felix PA-C Attending Provider Non-Staff Primary Care Provider Referring Provider Specialty: Internal Medicine Address: [address] [place] [address], [facility] Email: [email or web address] Your App Plan Of Care PT-OP-T Assessment and Plan Start: 01/22/21 14:39 Freq: Status: Active Protocol: Document 03/16/21 07:32 MB (Rec: 03/16/21 08:16 MB [id number]) Physical Therapy Assessment Rehab Potential Rehabilitation Potential Good Evaluation Complexity Number of Personal Factors/Comorbidities 3 or More Number of Body Systems Impaired 4 or More Clinical Presentation at Evaluation Evolving Impairments Impairments Balance,Coordination,Gait,Pain ,ROM Other Concerns Fall Risk Yes Goals Four Play Back Operator Goal (LTG) Pt will perform WNLs on FGA to decrease fall risk by 04/01/21 . LTG Duration 04/01/21 [facility] Goal (LTG) Pt will deny falls to decrease risk of further injury for 8 weeks by 04/01/21. 03/16/21: Pt had the one fall about a month ago when chasing her grand-daughter and injured her left ribs. Her ribs are feeling better. Her neck and head are still painful. LTG Duration 04/01/21 [facility] Goal (LTG) Pt will perform progressive HEP with I including VOR, balance, cervical, postural, strengthening and relaxation exercises to improve symptoms and balance by 04/01/21. 03/16/21: Pt is performing thoracic rotation in sitting, cervical rotation and nods, pect stretch. She stopped VOR exercises d/t increased headaches. LTG Duration 04/01/21 Assessment Summary Assessment Pt is performing progressive exercises and added balance exercise to HEP today. She has had a fall during PT course when chasing her grand- daughter in the house and injurying her left ribs with pain to intrascapular area. X- ray was negative and she is feeling better. Her neck and MANLEY pain have not really improved with PT and PT is working on posture, balance and pain management techniques . She will benefit from 3 more weeks of PT to fully meet goals and develop program. She has not yet gotten an appointment with surgeon. She cervical changes are a barrier to PT. Physical Therapy Plan Frequency and Duration Frequency of Treatment 2x/Week Duration of Treatment 3 weeks Plan of Care Start Date 03/16/21 Plan of Care End Date 04/01/21 Therapeutic Interventions Therapeutic Interventions Balance Training,Canalithic Repositioning,Gait Training, Home Exercise Program,Manual Therapy,Neuromuscular Re- education,Patient/Caregiver Education,Self-Care/Home Management,Soft Tissue Mobilization,Therapeutic Activities,Therapeutic Exercises,Vestibular Rehabilitation Modalities Cold Pack/Ice Massage,Hot Packs Next Visit Focus/Plan Next Note Type Treatment Note Next Visit Plan Further exercise progression over pool noodle, strengthening in standing, Buteyko breathing Plan of Care Dates Plan of Care Start Date 03/16/21 Plan of Care End Date 04/01/21 Electronically Signed by: Anna Carpenter, PT 03/16/21 [id number] Please Sign and Return: I have reviewed this Plan of Care and certify that the skilled therapy services above are required to meet the patient?s needs. Physician Signature Date Printed Name and Credentials Clinical Instructor Signature Printed Name and Credentials
--- NOTE | 2021-03-18 08:17 | PT.OTN ---
Current Diagnoses Muscle weakness (generalized) (03/18/21) Repeated falls (03/18/21) Dizziness and giddiness (03/18/21) Physical Therapy Treatment Note PT-OP-A Visit Information Start: 01/22/21 14:39 Freq: Status: Active Protocol: Document 03/18/21 07:30 MB (Rec: 03/18/21 08:17 MB [id number]) Out-Patient Physical Therapy Visit Information Visit Information Visit Type Treatment Note Visit Note Medicare, 04/16 before KX Visit Start Time 07:30 Visit Stop Time 08:40 Total Visit Minutes 40 Visit Number 11 Precautions Precautions Cervical MRI 02/12/21: IMPRESSION: 1. Degenerative disc disease at C4-5, C5-6, and C6-7 with diffuse disc bulges, disc osteophytes, and uncovertebral hypertrophy. 2. Multilevel severe foraminal stenosis as above. 3. Moderate central canal stenosis at C4-5 and severe central canal stenosis at C5-6 . 4. No abnormal cord signal. 02/26/21: Rib and chest x-ray: negative PT-OP-B Current Condition Start: 01/22/21 14:39 Freq: Status: Active Protocol: Document 01/25/21 09:07 LRN (Rec: 01/25/21 11:16 LRN [id number]) Current Condition History of Current Condition Onset Date 2.5 yrs ago. Current Complaints Frequent falls over last 2.5 yrs History of Current Condition Started falling occasionally, now is falling more frequent, a couple times a month. If looks up at any length of time she gets dizzy. Notices increased falls on uneven sidewalks due to catching of toes, and on garden incline, causing her to fall backward or onto her side. Other incidents of falling occur when stepping down curbs, stepping up on a step stool ( missing a step) and when ascending stairs (fell backwards, catching self on railing). Most times her falls are backwards or to the side. She reports her worst fall was backwards and her hearing a crack when her head hit, but denies LOC or nasusa. A more recent fall was in late October when she fell onto her L side, landing on her hip and side of face, with brusing on the entire L side. She states she was able to get up right away and continued on her way with no dysfunction noted. Prior Treatments and Tests CT scan 01/15/21: Unremarkable intracranial study for age, without finding of intracranial hemorrhage. MRI of low back showed multiple levels of lumbar spine degerative change, overall worse at L5-S1. 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 Future Testing and Treatments Planned Appt with neurologist in March if needed. Treatment Goals Patient/Caregiver Goals Pt goal is to step down curbs without losing balance, walk without having to look at feet , and be able to stand and look up without feeling dizzy. Prior Functional Status Baseline Function- ADL's Independent Baseline Function- Mobility Independent Baseline Function- Recreation/Hobbies Gardening, reading. Baseline Function- Other Neck pain for 48 yrs and LB for at least 30 yrs. Numb just below buttocks in an area spanning ~3 under gluteal line. Current Functional Impairments (Reported) Functional Limitations- ADL's Not able to look up without dizziness. Falls backwards when on uneven ground or inclines falls more frequently onto back or sides . Functional Limitations- Recreation/ Holding a book and reading >10 Hobbies minutes causes neck pain. Personal Factors Other Personal Factors That May Effect Wanting to continue to garden, Therapy/Recovery and is planning on painting the ceiling in a room of her house. PT-OP-C Subjective Start: 01/22/21 14:39 Freq: Status: Active Protocol: Document 03/18/21 07:30 MB (Rec: 03/18/21 08:17 MB [id number]) OP-PT Subjective Patient Comments Patient Comments Pt has a headache after cutting plants back yesterday. She was doing it inside at the counter. PT-OP-D Balance Start: 01/22/21 14:39 Freq: Status: Active Protocol: Document 01/25/21 09:07 LRN (Rec: 01/25/21 11:16 LRN [id number]) OP-PT Balance Assessment Sitting Balance Static Sitting Balance Ability Normal Dynamic Sitting Balance Ability Normal Balance Tests Carranza Balance Test Carranza Balance Test Score 50 Carranza Impairment Rating 1 to 19% Impaired (Score 45-55 ) Functional Reach Functional Reach Test 14 Functional Reach Impairment Rating 0% Impaired (Score 10) Single Limb Standing Single Limb- Right 3 secs Single Limb- Left 5 secs Tandem Tandem Standing R foot behind: 30+ secs. L foot behind: 16 secs. Castañeda Fall Scale Copyright Permission PT-OP-E Functional Tests Start: 01/22/21 14:39 Freq: Status: Active Protocol: Document 01/25/21 09:07 LRN (Rec: 01/25/21 11:16 LRN [id number]) Functional Tests Timed Up and Go (TUG) Score 13 TUG Impairment Rating 20 to <40% Impaired (Score 12- 13) PT-OP-K Range of Motion Start: 01/22/21 14:39 Freq: Status: Active Protocol: Document 01/25/21 09:07 LRN (Rec: 01/25/21 11:16 LRN [id number]) Cervical Spine Range of Motion Cervical Spine Active Degrees Testing Position Sitting Flexion 50 Extension 20 Rotation Left 50 Rotation Right 62 Lateral Flexion Left 15 Lateral Flexion Right 15 ROM Limitations Soft Tissue Tightness,Pain Comments Dizzy on return from extension PT-OP-Q Treatments Start: 01/22/21 14:39 Freq: Status: Active Protocol: Document 03/18/21 07:30 MB (Rec: 03/18/21 08:17 MB [id number]) Cardio Equipment Upper Body Ergometer (UBE) Duration (Minutes) 10 Other 1' forward and 1' backward Therapeutic Exercises Supine Exercises Buteyko breathing Supine Exercise Name Theory and initiated exercises today, see assessment for comments PT-OP-T Assessment and Plan Start: 01/22/21 14:39 Freq: Status: Active Protocol: Document 03/18/21 07:30 MB (Rec: 03/18/21 08:17 MB [id number]) Physical Therapy Assessment Rehab Potential Rehabilitation Potential Good Evaluation Complexity Number of Personal Factors/Comorbidities 3 or More Number of Body Systems Impaired 4 or More Clinical Presentation at Evaluation Evolving Impairments Impairments Balance,Coordination,Gait,Pain ,ROM Other Concerns Fall Risk Yes Goals [facility] Goal (LTG) Pt will perform WNLs on FGA to decrease fall risk by 04/01/21 . LTG Duration 04/01/21 [facility] Goal (LTG) Pt will deny falls to decrease risk of further injury for 8 weeks by 04/01/21. 03/16/21: Pt had the one fall about a month ago when chasing her grand-daughter and injured her left ribs. Her ribs are feeling better. Her neck and head are still painful. LTG Duration 04/01/21 One Transmission Repairer Goal (LTG) Pt will perform progressive HEP with I including VOR, balance, cervical, postural, strengthening and relaxation exercises to improve symptoms and balance by 04/01/21. 03/16/21: Pt is performing thoracic rotation in sitting, cervical rotation and nods, pect stretch. She stopped VOR exercises d/t increased headaches. LTG Duration 04/01/21 Assessment Summary Assessment Buteyko technique theory and practice today, exercise 1. HR and O2 sats left index finger before exercise, pt is supine with head and neck supported, legs up and paper tape on mouth: 69 BPM, 95-97%. 1st rep : CP is 17 sec and vitals stay similar; 2nd rep: sats similar and HR decreases to 65 BPM--pt has trouble moving diaphragm and tends to gasp in inhale; 3rd rep: PT cues to not breathe through chest and to gentle move diaphragm, PT counts 15 sec and then asks pt to inhale. She does con't with thoracic stiffness. HR increases to 77 BPM after several more minutes of nasal breathing without CP and sats are 96%. Before 4th rep, HR 67 -71 BPM. 4th rep: 13 sec and HR 8 BPM and sats 98%. HR is 64-65 BPM when resting between CP trials. 5th rep: 12 sec and HR 70 BPM and sats 98%. Physical Therapy Plan Frequency and Duration Frequency of Treatment 2x/Week Duration of Treatment 3 weeks Plan of Care Start Date 03/16/21 Plan of Care End Date 04/01/21 Therapeutic Interventions Therapeutic Interventions Balance Training,Canalithic Repositioning,Gait Training, Home Exercise Program,Manual Therapy,Neuromuscular Re- education,Patient/Caregiver Education,Self-Care/Home Management,Soft Tissue Mobilization,Therapeutic Activities,Therapeutic Exercises,Vestibular Rehabilitation Modalities Cold Pack/Ice Massage,Hot Packs Next Visit Focus/Plan Next Note Type Treatment Note Next Visit Plan Further exercise progression over pool noodle, Buteyko breathing
--- NOTE | 2021-03-23 07:31 | PT-OP ANOTE ---
Pt arrives to appointment and tells PT that she has intestinal distress and cannot sit through appointment. Will cancel PT appointment.
--- NOTE | 2021-03-25 08:13 | PT.OTN ---
Current Diagnoses Muscle weakness (generalized) (03/25/21) Repeated falls (03/25/21) Dizziness and giddiness (03/25/21) Physical Therapy Treatment Note PT-OP-A Visit Information Start: 01/22/21 14:39 Freq: Status: Active Protocol: Document 03/25/21 07:30 MB (Rec: 03/25/21 08:13 MB [id number]) Out-Patient Physical Therapy Visit Information Visit Information Visit Type Treatment Note Visit Note Medicare, 05/16 before KX Visit Start Time 07:30 Visit Stop Time 08:12 Total Visit Minutes 42 Visit Number 12 Precautions Precautions Cervical MRI 02/12/21: IMPRESSION: 1. Degenerative disc disease at C4-5, C5-6, and C6-7 with diffuse disc bulges, disc osteophytes, and uncovertebral hypertrophy. 2. Multilevel severe foraminal stenosis as above. 3. Moderate central canal stenosis at C4-5 and severe central canal stenosis at C5-6 . 4. No abnormal cord signal. 02/26/21: Rib and chest x-ray: negative PT-OP-B Current Condition Start: 01/22/21 14:39 Freq: Status: Active Protocol: Document 01/25/21 09:07 LRN (Rec: 01/25/21 11:16 LRN [id number]) Current Condition History of Current Condition Onset Date 2.5 yrs ago. Current Complaints Frequent falls over last 2.5 yrs History of Current Condition Started falling occasionally, now is falling more frequent, a couple times a month. If looks up at any length of time she gets dizzy. Notices increased falls on uneven sidewalks due to catching of toes, and on garden incline, causing her to fall backward or onto her side. Other incidents of falling occur when stepping down curbs, stepping up on a step stool ( missing a step) and when ascending stairs (fell backwards, catching self on railing). Most times her falls are backwards or to the side. She reports her worst fall was backwards and her hearing a crack when her head hit, but denies LOC or nasusa. A more recent fall was in late October when she fell onto her L side, landing on her hip and side of face, with brusing on the entire L side. She states she was able to get up right away and continued on her way with no dysfunction noted. Prior Treatments and Tests CT scan 01/15/21: Unremarkable intracranial study for age, without finding of intracranial hemorrhage. MRI of low back showed multiple levels of lumbar spine degerative change, overall worse at L5-S1. 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 Future Testing and Treatments Planned Appt with neurologist in March if needed. Treatment Goals Patient/Caregiver Goals Pt goal is to step down curbs without losing balance, walk without having to look at feet , and be able to stand and look up without feeling dizzy. Prior Functional Status Baseline Function- ADL's Independent Baseline Function- Mobility Independent Baseline Function- Recreation/Hobbies Gardening, reading. Baseline Function- Other Neck pain for 47 yrs and LB for at least 30 yrs. Numb just below buttocks in an area spanning ~3 under gluteal line. Current Functional Impairments (Reported) Functional Limitations- ADL's Not able to look up without dizziness. Falls backwards when on uneven ground or inclines falls more frequently onto back or sides . Functional Limitations- Recreation/ Holding a book and reading >10 Hobbies minutes causes neck pain. Personal Factors Other Personal Factors That May Effect Wanting to continue to garden, Therapy/Recovery and is planning on painting the ceiling in a room of her house. PT-OP-C Subjective Start: 01/22/21 14:39 Freq: Status: Active Protocol: Document 03/25/21 07:30 MB (Rec: 03/25/21 08:13 MB [id number]) OP-PT Subjective Patient Comments Patient Comments Pt states that she is feeling better. She had a bout of diarrhea. She does not yet have an appointment with neurosurgeon. Pt is performing Buteyko breathing at home and this is helping her fall asleep. PT-OP-D Balance Start: 01/22/21 14:39 Freq: Status: Active Protocol: Document 01/25/21 09:07 LRN (Rec: 01/25/21 11:16 LRN [id number]) OP-PT Balance Assessment Sitting Balance Static Sitting Balance Ability Normal Dynamic Sitting Balance Ability Normal Balance Tests Carranza Balance Test Carranza Balance Test Score 50 Carranza Impairment Rating 1 to 19% Impaired (Score 45-55 ) Functional Reach Functional Reach Test 14 Functional Reach Impairment Rating 0% Impaired (Score 10) Single Limb Standing Single Limb- Right 3 secs Single Limb- Left 5 secs Tandem Tandem Standing R foot behind: 30+ secs. L foot behind: 16 secs. Castañeda Fall Scale Copyright Permission PT-OP-E Functional Tests Start: 01/22/21 14:39 Freq: Status: Active Protocol: Document 01/25/21 09:07 LRN (Rec: 01/25/21 11:16 LRN [id number]) Functional Tests Timed Up and Go (TUG) Score 13 TUG Impairment Rating 20 to <40% Impaired (Score 12- 13) PT-OP-K Range of Motion Start: 01/22/21 14:39 Freq: Status: Active Protocol: Document 01/25/21 09:07 LRN (Rec: 01/25/21 11:16 LRN [id number]) Cervical Spine Range of Motion Cervical Spine Active Degrees Testing Position Sitting Flexion 50 Extension 20 Rotation Left 50 Rotation Right 62 Lateral Flexion Left 15 Lateral Flexion Right 15 ROM Limitations Soft Tissue Tightness,Pain Comments Dizzy on return from extension PT-OP-Q Treatments Start: 01/22/21 14:39 Freq: Status: Active Protocol: Document 03/25/21 07:30 MB (Rec: 03/25/21 08:13 MB [id number]) Cardio Equipment Upper Body Ergometer (UBE) Duration (Minutes) 10 Other 1' forward and 1' backward Therapeutic Exercises Standing Exercises Racquet ball massage Side bilateral Comments Intrascapular muscle STM and and infraspinatus Neuro Re-Education Treatment Balance Activities Balance in // bars Comments Pt standing on blue cushion: Romberg I, CGA with Romberg EC with LOB x2. LOB with tandem B on blue cushion Tandem on floor: at least 1' each foot behind and good ankle strategy, does reach for // bars PT-OP-T Assessment and Plan Start: 01/22/21 14:39 Freq: Status: Active Protocol: Document 03/25/21 07:30 MB (Rec: 03/25/21 08:13 MB [id number]) Physical Therapy Assessment Rehab Potential Rehabilitation Potential Good Evaluation Complexity Number of Personal Factors/Comorbidities 3 or More Number of Body Systems Impaired 4 or More Clinical Presentation at Evaluation Evolving Impairments Impairments Balance,Coordination,Gait,Pain ,ROM Other Concerns Fall Risk Yes Goals Four [employer] Host Goal (LTG) Pt will perform WNLs on FGA to decrease fall risk by 04/01/21 . LTG Duration 04/01/21 Three [employer] Host Goal (LTG) Pt will deny falls to decrease risk of further injury for 8 weeks by 04/01/21. 03/16/21: Pt had the one fall about a month ago when chasing her grand-daughter and injured her left ribs. Her ribs are feeling better. Her neck and head are still painful. LTG Duration 04/01/21 [facility] Goal (LTG) Pt will perform progressive HEP with I including VOR, balance, cervical, postural, strengthening and relaxation exercises to improve symptoms and balance by 04/01/21. 03/16/21: Pt is performing thoracic rotation in sitting, cervical rotation and nods, pect stretch. She stopped VOR exercises d/t increased headaches. LTG Duration 04/01/21 Assessment Summary Assessment Initiated static balance exercises today and self- racquet ball massage and pt responds well today. Cannot provide handouts d/t no power this date. Con't efforts. Physical Therapy Plan Frequency and Duration Frequency of Treatment 2x/Week Duration of Treatment 3 weeks Plan of Care Start Date 03/16/21 Plan of Care End Date 04/01/21 Therapeutic Interventions Therapeutic Interventions Balance Training,Canalithic Repositioning,Gait Training, Home Exercise Program,Manual Therapy,Neuromuscular Re- education,Patient/Caregiver Education,Self-Care/Home Management,Soft Tissue Mobilization,Therapeutic Activities,Therapeutic Exercises,Vestibular Rehabilitation Modalities Cold Pack/Ice Massage,Hot Packs Next Visit Focus/Plan Next Note Type Treatment Note Next Visit Plan Give pt picture of tandem, racquet ball massage Further exercise progression over pool noodle
--- NOTE | 2021-03-30 08:11 | PT.OTN ---
Current Diagnoses Muscle weakness (generalized) (03/30/21) Repeated falls (03/30/21) Dizziness and giddiness (03/30/21) Physical Therapy Treatment Note PT-OP-A Visit Information Start: 01/22/21 14:39 Freq: Status: Active Protocol: Document 03/30/21 07:29 MB (Rec: 03/30/21 08:10 MB [id number]) Out-Patient Physical Therapy Visit Information Visit Information Visit Type Treatment Note Visit Note Medicare, before KX Visit Start Time 07:29 Visit Stop Time 08:10 Total Visit Minutes 41 Visit Number 13 Precautions Precautions Cervical MRI 02/12/21: IMPRESSION: 1. Degenerative disc disease at C4-5, C5-6, and C6-7 with diffuse disc bulges, disc osteophytes, and uncovertebral hypertrophy. 2. Multilevel severe foraminal stenosis as above. 3. Moderate central canal stenosis at C4-5 and severe central canal stenosis at C5-6 . 4. No abnormal cord signal. 02/26/21: Rib and chest x-ray: negative PT-OP-B Current Condition Start: 01/22/21 14:39 Freq: Status: Active Protocol: Document 01/25/21 09:07 LRN (Rec: 01/25/21 11:16 LRN [id number]) Current Condition History of Current Condition Onset Date 2.5 yrs ago. Current Complaints Frequent falls over last 2.5 yrs History of Current Condition Started falling occasionally, now is falling more frequent, a couple times a month. If looks up at any length of time she gets dizzy. Notices increased falls on uneven sidewalks due to catching of toes, and on garden incline, causing her to fall backward or onto her side. Other incidents of falling occur when stepping down curbs, stepping up on a step stool ( missing a step) and when ascending stairs (fell backwards, catching self on railing). Most times her falls are backwards or to the side. She reports her worst fall was backwards and her hearing a crack when her head hit, but denies LOC or nasusa. A more recent fall was in late October when she fell onto her L side, landing on her hip and side of face, with brusing on the entire L side. She states she was able to get up right away and continued on her way with no dysfunction noted. Prior Treatments and Tests CT scan 01/15/21: Unremarkable intracranial study for age, without finding of intracranial hemorrhage. MRI of low back showed multiple levels of lumbar spine degerative change, overall worse at L5-S1. 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 Future Testing and Treatments Planned Appt with neurologist in March if needed. Treatment Goals Patient/Caregiver Goals Pt goal is to step down curbs without losing balance, walk without having to look at feet , and be able to stand and look up without feeling dizzy. Prior Functional Status Baseline Function- ADL's Independent Baseline Function- Mobility Independent Baseline Function- Recreation/Hobbies Gardening, reading. Baseline Function- Other Neck pain for 48 yrs and LB for at least 30 yrs. Numb just below buttocks in an area spanning ~3 under gluteal line. Current Functional Impairments (Reported) Functional Limitations- ADL's Not able to look up without dizziness. Falls backwards when on uneven ground or inclines falls more frequently onto back or sides . Functional Limitations- Recreation/ Holding a book and reading >10 Hobbies minutes causes neck pain. Personal Factors Other Personal Factors That May Effect Wanting to continue to garden, Therapy/Recovery and is planning on painting the ceiling in a room of her house. PT-OP-C Subjective Start: 01/22/21 14:39 Freq: Status: Active Protocol: Document 03/30/21 07:29 MB (Rec: 03/30/21 08:10 MB [id number]) OP-PT Subjective Patient Comments Patient Comments Pt states she is doing okay. No new changes. Pt is going to make an appointment with the stem cell doctor in [place]. PT-OP-D Balance Start: 01/22/21 14:39 Freq: Status: Active Protocol: Document 01/25/21 09:07 LRN (Rec: 01/25/21 11:16 LRN [id number]) OP-PT Balance Assessment Sitting Balance Static Sitting Balance Ability Normal Dynamic Sitting Balance Ability Normal Balance Tests Carranza Balance Test Carranza Balance Test Score 50 Carranza Impairment Rating 1 to 19% Impaired (Score 45-55 ) Functional Reach Functional Reach Test 14 Functional Reach Impairment Rating 0% Impaired (Score 10) Single Limb Standing Single Limb- Right 3 secs Single Limb- Left 5 secs Tandem Tandem Standing R foot behind: 30+ secs. L foot behind: 16 secs. Castañeda Fall Scale Copyright Permission PT-OP-E Functional Tests Start: 01/22/21 14:39 Freq: Status: Active Protocol: Document 01/25/21 09:07 LRN (Rec: 01/25/21 11:16 LRN [id number]) Functional Tests Timed Up and Go (TUG) Score 13 TUG Impairment Rating 20 to <40% Impaired (Score 12- 13) PT-OP-K Range of Motion Start: 01/22/21 14:39 Freq: Status: Active Protocol: Document 01/25/21 09:07 LRN (Rec: 01/25/21 11:16 LRN [id number]) Cervical Spine Range of Motion Cervical Spine Active Degrees Testing Position Sitting Flexion 50 Extension 20 Rotation Left 50 Rotation Right 62 Lateral Flexion Left 15 Lateral Flexion Right 15 ROM Limitations Soft Tissue Tightness,Pain Comments Dizzy on return from extension PT-OP-Q Treatments Start: 01/22/21 14:39 Freq: Status: Active Protocol: Document 03/30/21 07:29 MB (Rec: 03/30/21 08:10 MB [id number]) Cardio Equipment Upper Body Ergometer (UBE) Duration (Minutes) 10 Other 1' forward and 1' backward Therapeutic Exercises Supine Exercises Buteyko breathing Comments Pt verbalizes understanding and is performing at home Pool noodle exercises Supine Exercise Name Pect stretch, flexion, 1/2 xs, Ts Side bilateral Equipment Used Level 2 band Comments ER and Horizontal abduction with level 2 band Sidelying Exercises QL stretch Comments Pt is performing at home before bedtime Sitting Exercises Cervical rotation with end-range head nods Comments Pt is performing gently and not overdoing it Thoracic rotation in sitting Comments Pt is performing at home Standing Exercises Racquet ball massage Comments Reviewed today and provided handouts Thoracic mobility over ball Comments Pt is performing at home Other Exercises HEP review Comments Performed this today Neuro Re-Education Treatment Balance Activities Balance in // bars Comments Partial to full tandem and pt has trouble with full tandem both feet, multiple trials, ed to perform in corner at home PT-OP-T Assessment and Plan Start: 01/22/21 14:39 Freq: Status: Active Protocol: Document 03/30/21 07:29 MB (Rec: 03/30/21 08:10 MB [id number]) Physical Therapy Assessment Rehab Potential Rehabilitation Potential Good Evaluation Complexity Number of Personal Factors/Comorbidities 3 or More Number of Body Systems Impaired 4 or More Clinical Presentation at Evaluation Evolving Impairments Impairments Balance,Coordination,Gait,Pain ,ROM Other Concerns Fall Risk Yes Goals Four Clam Digger Goal (LTG) Pt will perform WNLs on FGA to decrease fall risk by 04/01/21 . LTG Duration 04/01/21 Three Longterm Goal (LTG) Pt will deny falls to decrease risk of further injury for 8 weeks by 04/01/21. 03/16/21: Pt had the one fall about a month ago when chasing her grand-daughter and injured her left ribs. Her ribs are feeling better. Her neck and head are still painful. LTG Duration 04/01/21 One Clam Digger Goal (LTG) Pt will perform progressive HEP with I including VOR, balance, cervical, postural, strengthening and relaxation exercises to improve symptoms and balance by 04/01/21. 03/16/21: Pt is performing thoracic rotation in sitting, cervical rotation and nods, pect stretch. She stopped VOR exercises d/t increased headaches. LTG Duration 04/01/21 Assessment Summary Assessment Progressed strengthening exercises today over pool noodle. Reviewed HEP and made some revisions. Anticipate d/c next treatment date. Physical Therapy Plan Frequency and Duration Frequency of Treatment 2x/Week Duration of Treatment 3 weeks Plan of Care Start Date 03/16/21 Plan of Care End Date 04/01/21 Therapeutic Interventions Therapeutic Interventions Balance Training,Canalithic Repositioning,Gait Training, Home Exercise Program,Manual Therapy,Neuromuscular Re- education,Patient/Caregiver Education,Self-Care/Home Management,Soft Tissue Mobilization,Therapeutic Activities,Therapeutic Exercises,Vestibular Rehabilitation Modalities Cold Pack/Ice Massage,Hot Packs Next Visit Focus/Plan Next Note Type Discharge Summary
--- NOTE | 2021-04-01 09:14 | PT.OTN ---
Current Diagnoses Muscle weakness (generalized) (04/01/21) Repeated falls (04/01/21) Dizziness and giddiness (04/01/21) Physical Therapy Treatment Note PT-OP-A Visit Information Start: 01/22/21 14:39 Freq: Status: Active Protocol: Document 04/01/21 07:30 MB (Rec: 04/01/21 08:11 MB [id number]) Out-Patient Physical Therapy Visit Information Visit Information Visit Type Treatment Note Visit Note Medicare, before KX Visit Start Time 07:30 Visit Stop Time 08:10 Total Visit Minutes 40 Visit Number 14 Precautions Precautions Cervical MRI 02/12/21: IMPRESSION: 1. Degenerative disc disease at C4-5, C5-6, and C6-7 with diffuse disc bulges, disc osteophytes, and uncovertebral hypertrophy. 2. Multilevel severe foraminal stenosis as above. 3. Moderate central canal stenosis at C4-5 and severe central canal stenosis at C5-6 . 4. No abnormal cord signal. 02/26/21: Rib and chest x-ray: negative PT-OP-B Current Condition Start: 01/22/21 14:39 Freq: Status: Active Protocol: Document 01/25/21 09:07 LRN (Rec: 01/25/21 11:16 LRN [id number]) Current Condition History of Current Condition Onset Date 2.5 yrs ago. Current Complaints Frequent falls over last 2.5 yrs History of Current Condition Started falling occasionally, now is falling more frequent, a couple times a month. If looks up at any length of time she gets dizzy. Notices increased falls on uneven sidewalks due to catching of toes, and on garden incline, causing her to fall backward or onto her side. Other incidents of falling occur when stepping down curbs, stepping up on a step stool ( missing a step) and when ascending stairs (fell backwards, catching self on railing). Most times her falls are backwards or to the side. She reports her worst fall was backwards and her hearing a crack when her head hit, but denies LOC or nasusa. A more recent fall was in late October when she fell onto her L side, landing on her hip and side of face, with brusing on the entire L side. She states she was able to get up right away and continued on her way with no dysfunction noted. Prior Treatments and Tests CT scan 01/15/21: Unremarkable intracranial study for age, without finding of intracranial hemorrhage. MRI of low back showed multiple levels of lumbar spine degerative change, overall worse at L5-S1. 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 Future Testing and Treatments Planned Appt with neurologist in March if needed. Treatment Goals Patient/Caregiver Goals Pt goal is to step down curbs without losing balance, walk without having to look at feet , and be able to stand and look up without feeling dizzy. Prior Functional Status Baseline Function- ADL's Independent Baseline Function- Mobility Independent Baseline Function- Recreation/Hobbies Gardening, reading. Baseline Function- Other Neck pain for 47 yrs and LB for at least 30 yrs. Numb just below buttocks in an area spanning ~3 under gluteal line. Current Functional Impairments (Reported) Functional Limitations- ADL's Not able to look up without dizziness. Falls backwards when on uneven ground or inclines falls more frequently onto back or sides . Functional Limitations- Recreation/ Holding a book and reading >10 Hobbies minutes causes neck pain. Personal Factors Other Personal Factors That May Effect Wanting to continue to garden, Therapy/Recovery and is planning on painting the ceiling in a room of her house. PT-OP-C Subjective Start: 01/22/21 14:39 Freq: Status: Active Protocol: Document 04/01/21 07:30 MB (Rec: 04/01/21 08:11 MB [id number]) OP-PT Subjective Patient Comments Patient Comments Pt states that she has more ROM in her neck since starting PT. The headaches are the same. PT-OP-D Balance Start: 01/22/21 14:39 Freq: Status: Active Protocol: Document 01/25/21 09:07 LRN (Rec: 01/25/21 11:16 LRN [id number]) OP-PT Balance Assessment Sitting Balance Static Sitting Balance Ability Normal Dynamic Sitting Balance Ability Normal Balance Tests Carranza Balance Test Carranza Balance Test Score 50 Carranza Impairment Rating 1 to 19% Impaired (Score 45-55 ) Functional Reach Functional Reach Test 14 Functional Reach Impairment Rating 0% Impaired (Score 10) Single Limb Standing Single Limb- Right 3 secs Single Limb- Left 5 secs Tandem Tandem Standing R foot behind: 30+ secs. L foot behind: 16 secs. Castañeda Fall Scale Copyright Permission PT-OP-E Functional Tests Start: 01/22/21 14:39 Freq: Status: Active Protocol: Document 01/25/21 09:07 LRN (Rec: 01/25/21 11:16 LRN [id number]) Functional Tests Timed Up and Go (TUG) Score 13 TUG Impairment Rating 20 to <40% Impaired (Score 12- 13) PT-OP-K Range of Motion Start: 01/22/21 14:39 Freq: Status: Active Protocol: Document 01/25/21 09:07 LRN (Rec: 01/25/21 11:16 LRN [id number]) Cervical Spine Range of Motion Cervical Spine Active Degrees Testing Position Sitting Flexion 50 Extension 20 Rotation Left 50 Rotation Right 62 Lateral Flexion Left 15 Lateral Flexion Right 15 ROM Limitations Soft Tissue Tightness,Pain Comments Dizzy on return from extension PT-OP-Q Treatments Start: 01/22/21 14:39 Freq: Status: Active Protocol: Document 04/01/21 07:30 MB (Rec: 04/01/21 08:11 MB [id number]) Cardio Equipment Upper Body Ergometer (UBE) Duration (Minutes) 12 Other 1' forward and 1' backward Neuro Re-Education Treatment Balance Activities FGA and exercises Comments FGA score is 21/30 and pt presents with most trouble with tandem walking, walking head turns, and she does use rail for steps Reviewed all her dynamic balance exercises Self-Care/Home Management Treatment Education Other Education Ed pt in proper sleeping hygiene and provided handout, also provided handout about headache care and provided handout and pt to talk with provider about magnesium PT-OP-T Assessment and Plan Start: 01/22/21 14:39 Freq: Status: Active Protocol: Document 04/01/21 07:30 MB (Rec: 04/01/21 08:11 MB [id number]) Physical Therapy Assessment Rehab Potential Rehabilitation Potential Good Evaluation Complexity Number of Personal Factors/Comorbidities 3 or More Number of Body Systems Impaired 4 or More Clinical Presentation at Evaluation Evolving Impairments Impairments Balance,Coordination,Gait,Pain ,ROM Other Concerns Fall Risk Yes Goals Four Custodial Goal (LTG) Pt will perform WNLs on FGA to decrease fall risk by 04/01/21 . 04/01/21: FGA score is 21/30 and pt has most trouble with head turns, tandem walking, and she has improvement with backwards and eyes closed walking LTG Duration Partially met Three Racking Machine Operator Goal (LTG) Pt will deny falls to decrease risk of further injury for 8 weeks by 04/01/21. 04/01/21: Pt has had no new falls 03/16/21: Pt had the one fall about a month ago when chasing her grand-daughter and injured her left ribs. Her ribs are feeling better. Her neck and head are still painful. LTG Duration Met One Racking Machine Operator Goal (LTG) Pt will perform progressive HEP with I including VOR, balance, cervical, postural, strengthening and relaxation exercises to improve symptoms and balance by 04/01/21. 04/01/21: Pt is doing balance exercises, Buteyko breathing, racquet ball massage. Pt is performing thoracic rotation in sitting, cervical rotation and nods, pect stretch. She stopped VOR exercises d/t increased headaches. LTG Duration Met Assessment Summary Assessment Pt has met no falls and HEP goals since starting PT. She progressed towards balance goal. Pt reports improvement in neck ROM and that headaches are the same. She has maximized OPPT potential at this time and is awaiting neurosurgeon and stem cell specialist consults. Will d/c PT and pt to con't with HEP. Physical Therapy Plan Frequency and Duration Frequency of Treatment 2x/Week Duration of Treatment 3 weeks Plan of Care Start Date 03/16/21 Plan of Care End Date 04/01/21 Therapeutic Interventions Therapeutic Interventions Balance Training,Canalithic Repositioning,Gait Training, Home Exercise Program,Manual Therapy,Neuromuscular Re- education,Patient/Caregiver Education,Self-Care/Home Management,Soft Tissue Mobilization,Therapeutic Activities,Therapeutic Exercises,Vestibular Rehabilitation Modalities Cold Pack/Ice Massage,Hot Packs
== END 2021-04-07 14:37 ==
LOC: PHYS 07:30
PROVIDERS: PCP Physician Assistant; Referring Provider Physician Assistant; Visit Provider Physician Assistant
DX: R29.6 Repeated falls (principal); M62.81 Muscle weakness (generalized); R42 Dizziness and giddiness
CPT/HCPCS: 97110; 97112; 97140; 97162; 97535

== ENCOUNTER → 2021-04-16 09:37 | Outpatient (CLI) | payer MEDICARE, OTHER, SELFPAY | PROVIDERS: PCP Physician Assistant; Referring Provider Physician Assistant; Visit Provider Physician Assistant | DX: M81.0 Age-related osteoporosis without current pathological fracture (principal); Z78.0 Asymptomatic menopausal state; E07.9 Disorder of thyroid, unspecified; Z90.722 Acquired absence of ovaries, bilateral; Z87.891 Personal history of nicotine dependence | CPT/HCPCS: 77080; 77081 ==

== ENCOUNTER → 2021-05-24 14:00 | Outpatient (CLI) | payer MEDICARE, OTHER, SELFPAY ==
--- NOTE | 2021-05-24 14:39 | DI.RAD.S_ITS ---
PROCEDURE: XR CHEST 2V INDICATIONS: fever, cough, hx of PNA TECHNIQUE: 2 views of the chest were acquired. COMPARISON: [facility], CR, XR CHEST 2V, 11/21/2019, 9:37. FINDINGS: Surgical changes and devices: None. Lungs and pleura: Lungs are clear. No pleural effusions or pneumothorax. Mediastinum: Mediastinal contours are normal. Heart size is normal. Bones and chest wall: No suspicious bony abnormalities. Soft tissues appear unremarkable. IMPRESSION: No acute cardiopulmonary disease process. Dictated by: Tamar Horton MD, PhD on 05/24/2021 at 15:05 Approved by: Tamar Horton MD, PhD on 05/24/2021 at 15:06
[2021-05-24 14:45] LABS: COVID19 -Nasal RAPID Negative (Negative)
== END ==
PROVIDERS: PCP Physician Assistant; Referring Provider Physician Assistant; Visit Provider Physician Assistant
DX: Z20.822 Contact with and (suspected) exposure to COVID-19 (principal); R50.9 Fever, unspecified
CPT/HCPCS: 71046; 87635

== ENCOUNTER → 2022-01-26 10:22 | Outpatient (CLI) | payer MEDICARE, OTHER, SELFPAY ==
--- NOTE | 2022-01-26 | DI.RAD.S_ITS ---
PROCEDURE: XR CHEST 2V INDICATIONS: EXCESSIVE SWEATING TECHNIQUE: 2 views of the chest were acquired. COMPARISON: [facility], , XR CHEST 2V, 05/24/2021, 15:49. [facility], CR, XR CHEST 2V, 11/21/2019, 9:37. FINDINGS: Surgical changes and devices: None. Lungs and pleura: Lungs are clear. No pleural effusions or pneumothorax. Mediastinum: Mediastinal contours are normal. Heart size is normal. Bones and chest wall: No suspicious bony abnormalities. Soft tissues appear unremarkable. IMPRESSION: No acute cardiopulmonary abnormality. Dictated by: Watson Oneill M.D. on 01/26/2022 at 11:20 Approved by: Watson Oneill M.D. on 01/26/2022 at 11:20
== END ==
PROVIDERS: PCP Physician Assistant; Referring Provider Physician Assistant; Visit Provider Physician Assistant
DX: R61 Generalized hyperhidrosis (principal)
CPT/HCPCS: 71046

== ENCOUNTER → 2022-02-02 08:34 | Outpatient (CLI) | payer MEDICARE, OTHER, SELFPAY ==
--- NOTE | 2022-02-02 08:36 | DI.MG.S_ITS ---
BILATERAL DIGITAL SCREENING MAMMOGRAM 3D/2D WITH CAD: 02/02/2022 CLINICAL: Routine screening. Comparison is made to exams dated: 01/07/2021 mammogram, 01/06/2020 mammogram, 01/04/2019 mammogram, 05/18/2018 mammogram, and 05/17/2017 mammogram - [facility]. Both breasts are heterogeneously dense, which may obscure small masses (category c / 51-75% glandular tissue). Current study was also evaluated with a Computer Aided Detection (CAD) system. No significant masses, calcifications, or other findings are seen in either breast. There has been no significant interval change. IMPRESSION: NEGATIVE There is no mammographic evidence of malignancy. A 1 year screening mammogram is recommended. Based on the Tyrer Cuzick model (a risk assessment model) the patient's lifetime risk is 13.2% and her 10 year risk is 13.2%. According to the ACR, ACS, and NCCN guidelines, an annual breast MRI exam along with mammogram is recommended if the patient's lifetime risk is 20% or greater. This exam was interpreted at Station ID: [id number]. NOTE: For mammograms, a report in lay terms will be sent to the patient. Approximately 15% of breast malignancies will not be visualized mammographically. In the management of a palpable breast mass, a negative mammogram must not discourage biopsy of a clinically suspicious lesion. Electronically Signed By: Watson del angel/destinee:02/02/2022 09:11:45 letter sent: Normal Exam ACR BI-RADS Category 1: Negative [id number]
== END ==
PROVIDERS: PCP Physician Assistant; Referring Provider Physician Assistant; Visit Provider Physician Assistant
DX: Z12.31 Encounter for screening mammogram for malignant neoplasm of breast (principal)
CPT/HCPCS: 77063; 77067

== ENCOUNTER → 2022-06-08 12:24 | Outpatient (CLI) | payer MEDICARE, OTHER, SELFPAY ==
--- NOTE | 2022-06-08 12:27 | DI.RAD.S_ITS ---
PROCEDURE: XR CHEST 2V INDICATIONS: COUGH TECHNIQUE: 2 views of the chest were acquired. COMPARISON: [facility], CR, XR CHEST 2V, 01/26/2022, 10:27. [facility], CR, XR CHEST 2V, 05/24/2021, 15:49. FINDINGS: Surgical changes and devices: None. Lungs and pleura: Lungs are clear. No pleural effusions or pneumothorax. Mediastinum: Mediastinal and hilar contours appear similar to before. Cardiac silhouette is at the upper limit of normal in size. Bones and chest wall: No suspicious bony abnormalities. Soft tissues appear unremarkable. IMPRESSION: No acute cardiopulmonary abnormality. Dictated by: Chaparro Coyle M.D. on 06/08/2022 at 17:08 Approved by: Chaparro Coyle M.D. on 06/08/2022 at 17:10
== END ==
PROVIDERS: PCP Physician Assistant; Referring Provider Physician Assistant; Visit Provider Physician Assistant
DX: R05.9 Cough, unspecified (principal)
CPT/HCPCS: 71046

== ENCOUNTER 2022-10-11 16:49 | Inpatient (IN) | payer MEDICARE, OTHER, SELFPAY ==
[2022-10-11] VITALS (19 sets, daily range): BP systolic 137–192; BP diastolic 61–88; PULSE 79–84; RESP 18–26; TEMP 36.6; O2SAT 91–98; BMI 25.2; BMI 27.1
[2022-10-11 17:36] LABS: Add Manual Diff / Slide Review NO; Basophils Absolute Auto 0 /uL (0-100); Basophils Percent Auto 0.4 % (0-2); Eosinophils Absolute Auto 100 /uL (0-450); Eosinophils Percent Auto 1.5 % (2-4); Hematocrit 34.3 % (36-46); Hemoglobin 11.7 g/dL (12.0-16.0); Lymphocytes Absolute Auto 1200 /uL (1100-4500); Lymphocytes Percent Auto 14.1 % (25-40); Mean Corpuscular Hemoglobin 30.2 PG (26-34); Mean Corpuscular Volume 88.8 fL (80-100); Monocytes Absolute Auto 1000 /uL (0-900); Monocytes Percent Auto 11.8 % (3-14); Neutrophils Absolute Auto 6100 /uL (1500-7000); Neutrophils Percent Auto 72.2 % (50-75); Platelet Count 241 X10^3/uL (150-400); Red Blood Cell Count 3.86 X10^6/uL (4.0-5.2); White Blood Cell Count 8.5 X10^3/uL (4.5-11.0)
[2022-10-11] MEDS: ONDANSETRON 4 MG/2 ML INJ IV (17:40)
[2022-10-11] MEDS: MORPHINE 4 MG/ML INJ IV (17:40)
[2022-10-11 17:49] LABS: Alanine Aminotransferase 17 IU/L (<35); Albumin 4.2 g/dL (3.5-5.0); Albumin Globulin Ratio 1.4 (1.0-2.8); Alkaline Phosphatase 68 U/L (38-126); Aspartate Aminotransferase 23 IU/L (14-36); Bilirubin Total 0.4 mg/dL (0.2-1.3); Blood Urea Nitrogen 17 mg/dL (7-17); Calcium 8.9 mg/dL (8.4-10.2); Carbon Dioxide 30 mmol/L (22-32); Chloride 93 mmol/L (98-107); Estimated Glomerular Filt Rate > 60 mL/min (>60); Glucose 95 mg/dL (80-110); HEMOLYSIS < 15 (0-50); Lipase 56 U/L (23-300); Potassium 3.9 mmol/L (3.4-5.1); Sodium 130 mmol/L (137-145); Total Protein 7.2 g/dL (6.3-8.2)
[2022-10-11 17:53] LABS: Bacteria Urine None Seen; RBC Urine 0-1/HPF (0-5/HPF); Squamous Epithelial Cell Urine 0-1 /HPF (0-5/HPF); WBC Urine 0-1/HPF (0-5/HPF)
[2022-10-11 17:54] LABS: Culture Indicated Urine Cult Not Indicated
--- NOTE | 2022-10-11 17:55 | DI.CT.S_ITS ---
PROCEDURE: CT ABDOMEN PELVIS W CON INDICATIONS: Concern for strangulated umbilical hernia versus bowel obstr TECHNIQUE: After the administration of oral and intravenous contrast, axial sections were acquired from the lung bases to the pubic symphysis. Coronal and sagittal reformats were performed. For radiation dose reduction, the following was used: automated exposure control, adjustment of mA and/or kV according to patient size. COMPARISON:[facility], CT, ABDOMEN/PELVIS WITH CONTRAST, 04/23/2010, 16:31. FINDINGS: Image quality: Excellent. Lung bases: Lung bases are clear. Heart size is normal. Solid organs: Liver: The liver has no mass or intrahepatic biliary ductal dilatation. The portal vein and hepatic veins are patent. Biliary: The gallbladder has no gallstones, pericholecystic fluid, gallbladder wall thickening, or surrounding inflammatory change. Pancreas: The pancreas has no mass or ductal dilatation. There is no surrounding inflammation. Spleen: Normal size. There are no masses. Adrenals: No hypertrophy or nodules. Kidneys: No obstructive calculus or hydronephrosis. No solid mass. No cystic mass. Peritoneum and bowel: The distal esophagus and stomach are normal. The small bowel has a normal caliber and appearance. The terminal ileum is normal. The large bowel has a normal caliber and appearance. The appendix is normal. No free fluid or air. Nodes and vessels: No retroperitoneal or mesenteric adenopathy by size criteria. The aorta has atherosclerosis with no aneurysmal dilatation. Miscellaneous: The anterior abdominal wall series 2, image 48 has a 3.0 x 1.2 x 3.7 cm abscess posterior to the level of the umbilicus. PELVIS: Genitourinary: The bladder has no wall thickening or mass. No bladder calcifications. Bones: No suspicious bony lesions. No vertebral body compression fractures. Degenerative disc disease at L4-5. IMPRESSION: 3.0 x 1.2 cm abscess within the abdominal wall posterior to the umbilicus likely related to prior incision. Please correlate with history. Dictated by: Jb Rene M.D. on 10/11/2022 at 18:23 Approved by: Jb Rene M.D. on 10/11/2022 at 18:29
[2022-10-11 18:42] LABS: Lactate (Lactic Acid) 0.6 mmol/L (0.7-2.1)
--- NOTE | 2022-10-11 19:48 | ED.GENADULT ---
HPI - General Adult General Chief complaint: Abdominal Pain Stated complaint: sent by PCP azeb. strangulated bowel Time Seen by Provider: 10/11/22 17:12 Source: patient Mode of arrival: Ambulatory History of Present Illness HPI narrative: 77-year-old female nonsmoker with history of GERD, hypothyroid, hyperlipidemia presents at the request of her primary care office for evaluation of abdominal pain and decreased bowel movements, there is reported concern of possible bowel obstruction. She is been nauseated but denies any vomiting. She does admit to feeling feverish, generally weak with poor appetite. She denies dysuria, frequency or urgency. She is still passing gas without issue. She states on Monday she woke up and there was tenderness around her belly button and she is developed overlying redness, warmth and tenderness of the skin. Her pain is worse when she moves and improves with rest. Her last abdominal surgery was over 10 years ago, she had an umbilical hernia repair that was followed by a revision with the use of mesh. She has been NPO since noon Related Data Home Medications Medication Instructions Recorded Confirmed HYDROCODONE/ACETAMINOPHEN (Purchase 1 tab PO PRN ##0 05/31/11 05/11/20 10-325 Tablet) ASPIRIN (#ASPIRIN E.C.) 81 mg PO Q DAY ##0 06/17/11 05/11/20 CA PANTOTHENATE/FOLIC ACID/VIT 1 tab PO QDAY ##0 06/17/11 05/11/20 (MULTIVITAMIN) bimatoprost 0.01 % eye drops 1 drp EYE-BOTH BEDTIME 05/11/20 05/11/20 (Lumigan) cyclosporine 0.05 % eye drops in a 1 drp EYE-BOTH BID 05/11/20 05/11/20 dropperette (Restasis) duloxetine 30 mg capsule,delayed 30 mg PO BID 05/11/20 05/11/20 release famotidine 40 mg tablet 40 mg PO BEDTIME 05/11/20 05/11/20 gabapentin 100 mg capsule 200 mg PO BEDTIME 05/11/20 05/11/20 levothyroxine 25 mcg tablet 25 mcg PO DAILY 05/11/20 05/11/20 olopatadine 0.1 % eye drops 1 drp EYE-BOTH BEDTIME 05/11/20 05/11/20 pravastatin 20 mg tablet 20 mg PO BEDTIME 05/11/20 05/11/20 Previous Rx's Medication Instructions Recorded azithromycin 250 mg tablet See Rx Instructions PO .COMPLEX #6 05/24/21 tabs Allergies Allergy/AdvReac Type Severity Reaction Status Date / Time adhesive Allergy Mild RASH; Verified 05/11/20 07:41 PAPER TAPE OK erythromycin base Allergy Mild RASH Verified 05/11/20 07:41 tetracycline Allergy Mild RASH Verified 05/11/20 07:41 ciprofloxacin AdvReac Intermediate C DIFF Verified 05/11/20 07:41 ANTI INFLAMMATORY Allergy Mild GI BLEED Uncoded 12/09/19 16:10 Review of Systems Review of Systems Narrative: GENERAL: See HPI HEENT: Denies sinus pain, ear pain, sore throat, difficulty swallowing, dizziness. RESPIRATORY: Denies dyspnea, cough, wheezing, hemoptysis, sputum. CARDIOVASCULAR: Denies chest pain, palpitations, orthopnea, edema, GASTROINTESTINAL: See HPI : Denies dysuria, frequency, incontinence, hematuria, urinary retention. MUSCULOSKELETAL: denies weakness, joint pain, or bony pain SKIN: See HPI NEUROLOGIC: Denies weakness, headache, numbness, change in speech, confusion, seizures, incoordination. PSYCHIATRIC: No concerning psychosocial issues. 12 point review of systems is negative except for those stated above Patient History Medical History Diverticulosis GERD (gastroesophageal reflux disease) Glaucoma Hyperlipidemia Surgical History H/O colectomy Social History household members: spouse Smoking Status: Never smoker alcohol intake: current Smoking Status: Never smoker alcohol intake frequency: 0-2 drinks per day Substance Use Type: does not use Exam Narrative Exam Narrative: GENERAL: [77] year old patient appears stated age. Well-developed patient, in mild distress. HEAD: Atraumatic. Normocephalic. EYES: Pupils equal round and reactive. Extraocular motions intact. No scleral icterus. No injection or drainage. ENT: Nose without bleeding, purulent drainage. Throat without erythema, tonsillar hypertrophy or exudate. Airway patent. NECK: Trachea midline. Non tender CARDIOVASCULAR: Regular rate and rhythm without murmurs, gallops, or rubs. RESPIRATORY: Clear to auscultation. Breath sounds equal bilaterally. No wheezes, rales, or rhonchi. GASTROINTESTINAL: Abdomen soft, periumbilical tenderness, erythema and warmth with what appears to be cellulitis extending 6-7 cm across, there is no induration or fluctuance though there is significant underlying tenderness. Bowel sounds are present though decreased EXTREMITIES: No edema or joint tenderness. BACK: Nontender without deformity or crepitance. No flank tenderness. NEURO: AOx3. SKIN: No rash or erythema of visible areas Initial Vital Signs Initial Vital Signs: Vital Signs Temperature 98 F 10/11/22 16:52 Pulse Rate 82 10/11/22 16:52 Respiratory Rate 18 10/11/22 16:52 Blood Pressure 192/88 H 10/11/22 16:52 Pulse Oximetry 98 10/11/22 16:52 Oxygen Delivery Method Room Air 10/11/22 16:52 Course Orders Ordered: ED Orders 10/11/22 17:00 Urine Microscopic Stat 10/11/22 17:26 Complete Blood Count AUTO DIFF Stat Comprehensive Metabolic Panel Stat Lactate (Lactic Acid) Stat Lipase Stat 10/11/22 17:55 CT abdomen pelvis w con Stat Ondansetron HCl (Ondansetron 4 Mg Odt) 4 mg PO NOW PRN PRN Reason: Nausea And Vomiting Ondansetron HCl (Ondansetron 4 Mg/2 Ml Inj) 4 mg IV NOW PRN PRN Reason: Nausea And Vomiting Last Admin: 10/11/22 17:40 Dose: 4 mg Documented By: ANA PAULA Discontinued Medications Piperacillin Sod/Tazobactam (Sod 4.5 gm/ Sodium Chloride) 100 mls @ 200 mls/hr IV NOW ONE Stop: 10/11/22 20:06 Morphine Sulfate (Morphine 4 Mg/Ml Inj) 4 mg IV NOW ONE Stop: 10/11/22 17:32 Last Admin: 10/11/22 17:40 Dose: 4 mg Documented By: ANA PAULA Consultations Consultation #1: Discussed with Dr. Lyn (general surgery). After discussion of history and physical, labs and imaging she recommends admission to the hospitalist service, antibiotic coverage with Zosyn, NPO after midnight. Consultation #2: hospitalist (Dr. Garza) happy to accept on his service. Vital Signs Vital signs: Vital Signs - 8 hr 10/11/22 16:52 10/11/22 17:27 10/11/22 17:28 Temperature 98 F Pulse Rate 82 80 80 Respiratory Rate 18 Blood Pressure 192/88 H Pulse Oximetry 98 91 97 Oxygen Delivery Method Room Air 10/11/22 17:28 10/11/22 17:30 10/11/22 17:30 Temperature Pulse Rate 82 Respiratory Rate Blood Pressure 189/87 H 182/86 H Pulse Oximetry 98 Oxygen Delivery Method 10/11/22 17:46 10/11/22 17:46 10/11/22 17:50 Temperature Pulse Rate 80 82 Respiratory Rate 25 H 25 H Blood Pressure 179/84 H Pulse Oximetry 97 97 Oxygen Delivery Method 10/11/22 17:50 10/11/22 17:55 10/11/22 17:55 Temperature Pulse Rate 83 Respiratory Rate 21 Blood Pressure 162/76 H 162/78 H Pulse Oximetry 96 Oxygen Delivery Method 10/11/22 18:11 10/11/22 18:30 10/11/22 19:16 Temperature Pulse Rate 84 80 Respiratory Rate 24 24 Blood Pressure Pulse Oximetry 94 94 Oxygen Delivery Method 10/11/22 19:18 10/11/22 19:18 Temperature Pulse Rate 81 Respiratory Rate 24 Blood Pressure 137/61 Pulse Oximetry 95 Oxygen Delivery Method Medical Decision Making Lab Data 10/11/22 17:26 10/11/22 17:26 Labs: Lab Results 10/11/22 10/11/22 10/11/22 Range/Units 17:00 17:26 17:26 WBC 8.5 (4.5-11.0) X10^3/uL RBC 3.86 L (4.0-5.2) X10^6/uL Hgb 11.7 L (12.0-16.0) g/dL Hct 34.3 L (36-46) % MCV 88.8 (80-100) fL MCH 30.2 (26-34) PG MCHC 34.0 (30-36) % RDW 14.0 (11.6-14.8) % Plt Count 241 (150-400) X10^3/uL Neut % (Auto) 72.2 (50-75) % Lymph % (Auto) 14.1 L (25-40) % [place] % (Auto) 11.8 (3-14) % Eos % (Auto) 1.5 L (2-4) % Baso % (Auto) 0.4 (0-2) % Neut # (Auto) 6100 (6674-9563) /uL Lymph # (Auto) 1200 (8482-6876) /uL [place] # (Auto) 1000 H (0-900) /uL Eos # (Auto) 100 (0-450) /uL Baso # (Auto) 0 (0-100) /uL Sodium 130 L (137-145) mmol/L Potassium 3.9 (3.4-5.1) mmol/L Chloride 93 L (98-107) mmol/L Carbon Dioxide 30 (22-32) mmol/L BUN 17 (7-17) mg/dL Creatinine 0.50 L (0.52-1.04) mg/dL Estimated GFR > 60 (>60) mL/min BUN/Creatinine Ratio 34.0 H (6-22) Glucose 95 (80-110) mg/dL Lactate (0.7-2.1) mmol/L Calcium 8.9 (8.4-10.2) mg/dL Total Bilirubin 0.4 (0.2-1.3) mg/dL AST 23 (14-36) IU/L ALT 17 (<35) IU/L Alkaline Phosphatase 68 (38-126) U/L Total Protein 7.2 (6.3-8.2) g/dL Albumin 4.2 (3.5-5.0) g/dL Globulin 3.0 (1.7-4.1) g/dL Albumin/Globulin Ratio 1.4 (1.0-2.8) Lipase 56 (23-300) U/L Urine RBC 0-1/hpf (0-5/HPF) Urine WBC 0-1/hpf (0-5/HPF) Ur Squamous Epith Cells 0-1 /hpf (0-5/HPF) Urine Bacteria None seen (None) Ur Culture Indicated? Cult not indicated 10/11/22 Range/Units 17:26 WBC (4.5-11.0) X10^3/uL RBC (4.0-5.2) X10^6/uL Hgb (12.0-16.0) g/dL Hct (36-46) % MCV (80-100) fL MCH (26-34) PG MCHC (30-36) % RDW (11.6-14.8) % Plt Count (150-400) X10^3/uL Neut % (Auto) (50-75) % Lymph % (Auto) (25-40) % [place] % (Auto) (3-14) % Eos % (Auto) (2-4) % Baso % (Auto) (0-2) % Neut # (Auto) (0518-9095) /uL Lymph # (Auto) (1302-5404) /uL [place] # (Auto) (0-900) /uL Eos # (Auto) (0-450) /uL Baso # (Auto) (0-100) /uL Sodium (137-145) mmol/L Potassium (3.4-5.1) mmol/L Chloride (98-107) mmol/L Carbon Dioxide (22-32) mmol/L BUN (7-17) mg/dL Creatinine (0.52-1.04) mg/dL Estimated GFR (>60) mL/min BUN/Creatinine Ratio (6-22) Glucose (80-110) mg/dL Lactate 0.6 L (0.7-2.1) mmol/L Calcium (8.4-10.2) mg/dL Total Bilirubin (0.2-1.3) mg/dL AST (14-36) IU/L ALT (<35) IU/L Alkaline Phosphatase (38-126) U/L Total Protein (6.3-8.2) g/dL Albumin (3.5-5.0) g/dL Globulin (1.7-4.1) g/dL Albumin/Globulin Ratio (1.0-2.8) Lipase (23-300) U/L Urine RBC (0-5/HPF) Urine WBC (0-5/HPF) Ur Squamous Epith Cells (0-5/HPF) Urine Bacteria (None) Ur Culture Indicated? Urine Dip Bedside Urine Glucose Negative Bedside Urine Bilirubin - Negative Bedside Urine Ketone - Negative Urine Specific [place] 1.010 Bedside Urine Occult Blood +++ Bedside Urine pH 6.0 Bedside Urine Protein - Negative Bedside Urine Urobilinogen - Negative Bedside Urine Nitrite - Negative Bedside Urine Leukocytes - Negative Esterase Point of care testing: Urine Dip Bedside Urine Glucose Negative Bedside Urine Bilirubin - Negative Bedside Urine Ketone - Negative Urine Specific [place] 1.010 Bedside Urine Occult Blood +++ Bedside Urine pH 6.0 Bedside Urine Protein - Negative Bedside Urine Urobilinogen - Negative Bedside Urine Nitrite - Negative Bedside Urine Leukocytes - Negative Esterase MDM Narrative Medical decision making narrative: [77] year old patient presents with abdominal pain, redness and tenderness of periumbilical skin Multiple etiologies for patient's symptoms considered including, but not limited to: [SBO vs. infectious process vs. other] Prior Charts reviewed in our EMR Primary Historian: patient Labs reviewed and interpreted by myself: Imaging reviewed: CT of abdomen and pelvis with IV contrast demonstrates 3 cm abscess adjacent to the incision, no evidence of obstruction Consultations: Dr. Lyn and Dr. Garza, see details above Patient with a few days of abdominal pain and overlying skin redness, warmth and tenderness has imaging demonstrating 3 cm abscess adjacent to prior incision. Patient requires hospitalization for treatment and further evaluation. Patient and both understand and agree with the diagnosis and plan Discharge Plan Departure Patient Disposition: Admitted As Inpatient Clinical Impression: Abdominal abscess, Abdominal wall cellulitis Admit Date/Time: 10/11/22 20:11 Admit Provider: Juanjose Garza
[2022-10-11] MEDS: PIPERACILLIN/TAZO 4.5 GM in SODIUM CHLORIDE 0.9% 100 ML IV (20:20)
--- NOTE | 2022-10-11 20:47 | P.HP_ITS ---
History of Present Illness History of Present Illness Date Patient Seen: 10/11/22 Time Patient Seen: 20:30 Chief complaint: sent by PCP azeb. strangulated bowel Narrative: Ms. Richard is a 77W with PMH hypothyroidism who presents to the hospital with abdominal pain. She notes she for the past few months notes some discomfort from her pants in her abdomen. On monday she noted noted redness and discomfort on her abdomen. She felt some nausea. Her pain worsened over the next few days. She has noted not having a bowel movement over the last couple days. She had abdominal hernia repair with mesh done many years ago. No vomiting, no diarrhea. No measured fevers. In the ED workup was done, vitals notable for afebrile, heart rate 80s, respiratory rate 18, blood pressure 190s/80s, sats 98% room air. Labs reviewed and notable for WBC 8.5, hgb 11.7, plts 241. Na 130, co2 30, creatinine 0.50. LFTs normal. UA negative. Lactate 0.6. CT abdomen reviewed and notable for 3cm fluid collection in abdominal wall. General surgery was consulted by the ED and recommend antibiotics and NPO at midnight. She was admitted for further treatment. [facility] Medical History Diverticulosis GERD (gastroesophageal reflux disease) Glaucoma Hyperlipidemia Surgical History H/O colectomy Social History household members: spouse Smoking Status: Never smoker alcohol intake: current Meds Home Medications and Allergies Home Medications Medication Instructions Recorded Confirmed Type HYDROCODONE/ACETAMINOPHEN ([place] 1 tab PO PRN ##0 05/31/11 05/11/20 History 10-325 Tablet) ASPIRIN (#ASPIRIN E.C.) 81 mg PO Q DAY ##0 06/17/11 05/11/20 History CA PANTOTHENATE/FOLIC ACID/VIT 1 tab PO QDAY ##0 06/17/11 05/11/20 History (MULTIVITAMIN) bimatoprost 0.01 % eye drops 1 drp EYE-BOTH BEDTIME 05/11/20 05/11/20 History (Lumigan) cyclosporine 0.05 % eye drops in a 1 drp EYE-BOTH BID 05/11/20 05/11/20 History dropperette (Restasis) duloxetine 30 mg capsule,delayed 30 mg PO BID 05/11/20 05/11/20 History release famotidine 40 mg tablet 40 mg PO BEDTIME 05/11/20 05/11/20 History gabapentin 100 mg capsule 200 mg PO BEDTIME 05/11/20 05/11/20 History levothyroxine 25 mcg tablet 25 mcg PO DAILY 05/11/20 05/11/20 History olopatadine 0.1 % eye drops 1 drp EYE-BOTH BEDTIME 05/11/20 05/11/20 History pravastatin 20 mg tablet 20 mg PO BEDTIME 05/11/20 05/11/20 History azithromycin 250 mg tablet See Rx Instructions PO .COMPLEX #6 05/24/21 05/24/21 Rx tabs Allergies Allergy/AdvReac Type Severity Reaction Status Date / Time adhesive Allergy Mild RASH; Verified 05/11/20 07:41 PAPER TAPE OK erythromycin base Allergy Mild RASH Verified 05/11/20 07:41 tetracycline Allergy Mild RASH Verified 05/11/20 07:41 ciprofloxacin AdvReac Intermediate C DIFF Verified 05/11/20 07:41 ANTI INFLAMMATORY Allergy Mild GI BLEED Uncoded 12/09/19 16:10 Review of Systems Review of Systems Narrative: 14 systems reviewed and negative aside from what is noted in HPI Exam Vital Signs (past 8 hours): - 10/11/22 16:52 10/11/22 17:27 10/11/22 17:28 Temperature 98 F Pulse Rate 82 80 80 Respiratory Rate 18 Blood Pressure 192/88 H Pulse Oximetry 98 91 97 Oxygen Delivery Method Room Air 10/11/22 17:28 10/11/22 17:30 10/11/22 17:30 Temperature Pulse Rate 82 Respiratory Rate Blood Pressure 189/87 H 182/86 H Pulse Oximetry 98 Oxygen Delivery Method 10/11/22 17:46 10/11/22 17:46 10/11/22 17:50 Temperature Pulse Rate 80 82 Respiratory Rate 25 H 25 H Blood Pressure 179/84 H Pulse Oximetry 97 97 Oxygen Delivery Method 10/11/22 17:50 10/11/22 17:55 10/11/22 17:55 Temperature Pulse Rate 83 Respiratory Rate 21 Blood Pressure 162/76 H 162/78 H Pulse Oximetry 96 Oxygen Delivery Method 10/11/22 18:11 10/11/22 18:30 10/11/22 19:16 Temperature Pulse Rate 84 80 Respiratory Rate 24 24 Blood Pressure Pulse Oximetry 94 94 Oxygen Delivery Method 10/11/22 19:18 10/11/22 19:18 Temperature Pulse Rate 81 Respiratory Rate 24 Blood Pressure 137/61 Pulse Oximetry 95 Oxygen Delivery Method Oxygen Delivery Method Room Air Narrative Exam Narrative: GEN: no acute distress HEENT: moist mucous membranes, PERRL NECK: trachea midline, no JVD PULM: clear bilaterally, no wheezes, rhonchi, rales CV: regular rate and rhythm, no murmurs ABD: soft, slightly distended, vertical incision noted, erythema surrounding umbilicus extending 10cm, tender to palpation normal bowel sounds, no rebound or guarding EXT: warm and well perfused, with no edema NEURO: awake, alert, oriented, with no focal deficits Objective Labs 10/11/22 17:26 10/11/22 17:26 Labs: Laboratory Results - last 24 hr 10/11/22 10/11/22 10/11/22 17:00 17:26 17:26 WBC 8.5 RBC 3.86 L Hgb 11.7 L Hct 34.3 L MCV 88.8 MCH 30.2 MCHC 34.0 RDW 14.0 Plt Count 241 Neut % (Auto) 72.2 Lymph % (Auto) 14.1 L [place] % (Auto) 11.8 Eos % (Auto) 1.5 L Baso % (Auto) 0.4 Neut # (Auto) 6100 Lymph # (Auto) 1200 [place] # (Auto) 1000 H Eos # (Auto) 100 Baso # (Auto) 0 Sodium 130 L Potassium 3.9 Chloride 93 L Carbon Dioxide 30 BUN 17 Creatinine 0.50 L Estimated GFR > 60 BUN/Creatinine Ratio 34.0 H Glucose 95 Lactate Calcium 8.9 Total Bilirubin 0.4 AST 23 ALT 17 Alkaline Phosphatase 68 Total Protein 7.2 Albumin 4.2 Globulin 3.0 Albumin/Globulin Ratio 1.4 Lipase 56 Urine RBC 0-1/hpf Urine WBC 0-1/hpf Ur Squamous Epith Cells 0-1 /hpf Urine Bacteria None seen Ur Culture Indicated? Cult not indicated 10/11/22 17:26 WBC RBC Hgb Hct MCV MCH MCHC RDW Plt Count Neut % (Auto) Lymph % (Auto) [place] % (Auto) Eos % (Auto) Baso % (Auto) Neut # (Auto) Lymph # (Auto) [place] # (Auto) Eos # (Auto) Baso # (Auto) Sodium Potassium Chloride Carbon Dioxide BUN Creatinine Estimated GFR BUN/Creatinine Ratio Glucose Lactate 0.6 L Calcium Total Bilirubin AST ALT Alkaline Phosphatase Total Protein Albumin Globulin Albumin/Globulin Ratio Lipase Urine RBC Urine WBC Ur Squamous Epith Cells Urine Bacteria Ur Culture Indicated? Assessment & Plan Assessment & Plan narrative: 1. Abdominal cellulitis and probable abscess -noted to have erythema on abdomen with CT showing 3.7cm abdominal wall fluid collection concerning for abscess -ordered for blood cultures, but already received zosyn -ordered vancomycin, zosyn for now -ordered for oral and IV pain medications -NPO at midnight -consult general surgery 2. Hypothyroidism -continue synthroid I have discussed plan and obtained history from patient and family at bedside. I have discussed plan of care with ED physician and bedside nurse. I have reviewed labs, imaging, and previous medical records [facility] - Meds 'Current medications' to include all prescriptions, [id number] products, herbals, cannabis/cannabidiol products, and vitamin/mineral/dietary (nutritional) supplements. I have utilized all available resources to obtain, update, or review the patie nt?s current medications. [If Yes, STOP here]: Yes
[2022-10-11 21:24] LABS: COVID19 -Nasal RAPID Negative (Negative)
[2022-10-11] MEDS: OXYCODONE IR 5 MG TABLET PO (22:14)
[2022-10-11] MEDS: ACETAMINOPHEN 325 MG TABLET 650 MG PO (22:15)
[2022-10-11] MEDS: SODIUM CHLORIDE 0.9% 1,000 ML 100 ML IV (22:15)
[2022-10-11] MEDS: VANCOMYCIN 1,250 MG/250 ML PIGGYBACK 250 MG IV (22:16)
[2022-10-12] VITALS (8 sets, daily range): BP systolic 108–161; BP diastolic 43–67; PULSE 78–82; RESP 16–18; TEMP 36.7–37.2; O2SAT 91–97
[2022-10-12] MEDS: OXYCODONE IR 5 MG TABLET PO ×2 (01:52→07:50)
[2022-10-12] MEDS: PIPERACILLIN/TAZO 3.375 GM in SODIUM CHLORIDE 0.9% 100 ML IV ×3 (04:05→21:30)
[2022-10-12 05:32] LABS: Add Manual Diff / Slide Review NO; Basophils Absolute Auto 0 /uL (0-100); Basophils Percent Auto 0.4 % (0-2); Eosinophils Absolute Auto 200 /uL (0-450); Eosinophils Percent Auto 2.5 % (2-4); Hematocrit 31.7 % (36-46); Hemoglobin 10.6 g/dL (12.0-16.0); Lymphocytes Absolute Auto 1100 /uL (1100-4500); Lymphocytes Percent Auto 16.5 % (25-40); Mean Corpuscular HGB Conc 33.4 % (30-36); Mean Corpuscular Hemoglobin 30.2 PG (26-34); Mean Corpuscular Volume 90.3 fL (80-100); Monocytes Absolute Auto 900 /uL (0-900); Monocytes Percent Auto 12.7 % (3-14); Neutrophils Absolute Auto 4700 /uL (1500-7000); Neutrophils Percent Auto 67.9 % (50-75); Platelet Count 220 X10^3/uL (150-400); Red Blood Cell Count 3.51 X10^6/uL (4.0-5.2); Red Cell Distribution Width 14.2 % (11.6-14.8)
[2022-10-12 05:43] LABS: BUN Creatinine Ratio 27.3 (6-22); Blood Urea Nitrogen 15 mg/dL (7-17); Calcium 8.2 mg/dL (8.4-10.2); Carbon Dioxide 34 mmol/L (22-32); Chloride 100 mmol/L (98-107); Estimated Glomerular Filt Rate > 60 mL/min (>60); Glucose 83 mg/dL (80-110); HEMOLYSIS < 15 (0-50); Potassium 3.8 mmol/L (3.4-5.1); Sodium 135 mmol/L (137-145)
--- NOTE | 2022-10-12 07:29 | P.PN_ITS ---
Subjective Subjective Interval history: Patient having pain in lower belly over site of cellulitis. Gen surg evaluated and recommended continuing IV abx alone and no need for surgery at this time. Exam Vital Signs (past 8 hours): - 10/12/22 00:00 10/12/22 01:59 10/12/22 06:00 Temperature 98.2 F 98.9 F Pulse Rate 78 78 Respiratory Rate 16 16 Blood Pressure 108/47 L 138/60 Pulse Oximetry 91 96 97 Oxygen Flow Rate 0 0 0 Oxygen Delivery Method Room Air Oxygen Flow Rate 0 Narrative Exam Narrative: GEN: no acute distress HEENT: moist mucous membranes, PERRL NECK: trachea midline, no JVD PULM: clear bilaterally, no wheezes, rhonchi, rales CV: regular rate and rhythm, no murmurs ABD: soft, slightly distended, vertical incision noted, erythema surrounding umbilicus extending 10cm to upper pelvis, tender to palpation normal bowel sounds, no rebound or guarding EXT: warm and well perfused, with no edema NEURO: awake, alert, oriented, with no focal deficits Objective Labs 10/12/22 05:00 10/12/22 05:00 Labs: Laboratory Results - last 24 hr 10/11/22 10/11/22 10/11/22 17:00 17:26 17:26 WBC 8.5 RBC 3.86 L Hgb 11.7 L Hct 34.3 L MCV 88.8 MCH 30.2 MCHC 34.0 RDW 14.0 Plt Count 241 Neut % (Auto) 72.2 Lymph % (Auto) 14.1 L [place] % (Auto) 11.8 Eos % (Auto) 1.5 L Baso % (Auto) 0.4 Neut # (Auto) 6100 Lymph # (Auto) 1200 [place] # (Auto) 1000 H Eos # (Auto) 100 Baso # (Auto) 0 Sodium 130 L Potassium 3.9 Chloride 93 L Carbon Dioxide 30 BUN 17 Creatinine 0.50 L Estimated GFR > 60 BUN/Creatinine Ratio 34.0 H Glucose 95 Lactate Calcium 8.9 Total Bilirubin 0.4 AST 23 ALT 17 Alkaline Phosphatase 68 Total Protein 7.2 Albumin 4.2 Globulin 3.0 Albumin/Globulin Ratio 1.4 Lipase 56 Urine RBC 0-1/hpf Urine WBC 0-1/hpf Ur Squamous Epith Cells 0-1 /hpf Urine Bacteria None seen Ur Culture Indicated? Cult not indicated SARS-CoV-2 (PCR) 10/11/22 10/11/22 10/12/22 17:26 20:51 05:00 WBC 7.0 RBC 3.51 L Hgb 10.6 L Hct 31.7 L MCV 90.3 MCH 30.2 MCHC 33.4 RDW 14.2 Plt Count 220 Neut % (Auto) 67.9 Lymph % (Auto) 16.5 L [place] % (Auto) 12.7 Eos % (Auto) 2.5 Baso % (Auto) 0.4 Neut # (Auto) 4700 Lymph # (Auto) 1100 [place] # (Auto) 900 Eos # (Auto) 200 Baso # (Auto) 0 Sodium Potassium Chloride Carbon Dioxide BUN Creatinine Estimated GFR BUN/Creatinine Ratio Glucose Lactate 0.6 L Calcium Total Bilirubin AST ALT Alkaline Phosphatase Total Protein Albumin Globulin Albumin/Globulin Ratio Lipase Urine RBC Urine WBC Ur Squamous Epith Cells Urine Bacteria Ur Culture Indicated? SARS-CoV-2 (PCR) Negative 10/12/22 05:00 WBC RBC Hgb Hct MCV MCH MCHC RDW Plt Count Neut % (Auto) Lymph % (Auto) [place] % (Auto) Eos % (Auto) Baso % (Auto) Neut # (Auto) Lymph # (Auto) [place] # (Auto) Eos # (Auto) Baso # (Auto) Sodium 135 L Potassium 3.8 Chloride 100 Carbon Dioxide 34 H BUN 15 Creatinine 0.55 Estimated GFR > 60 BUN/Creatinine Ratio 27.3 H Glucose 83 Lactate Calcium 8.2 L Total Bilirubin AST ALT Alkaline Phosphatase Total Protein Albumin Globulin Albumin/Globulin Ratio Lipase Urine RBC Urine WBC Ur Squamous Epith Cells Urine Bacteria Ur Culture Indicated? SARS-CoV-2 (PCR) [facility] Medical History Diverticulosis GERD (gastroesophageal reflux disease) Glaucoma Hyperlipidemia Surgical History H/O colectomy Social History household members: spouse Smoking Status: Never smoker alcohol intake: current Assessment & Plan Assessment & Plan narrative: 1. Abdominal cellulitis and probable abscess -noted to have erythema on abdomen with CT showing 3.7cm abdominal wall fluid collection concerning for abscess, pt has history of hernia repair with mesh below site of infection -blood cultures pending, but already received zosyn -continue vancomycin, zosyn -ordered for oral and IV pain medications -Dr. Lyn, gen surg met with patient and recommends holding off on I&D and continuing IV abx, as may need revision of mesh if surgery needed -NPO at midnight in case surg needed 2. Hypothyroidism -continue synthroid Code status is full code. COVID negative. DVT prophylaxis with SCDs. Proxy is Ricardo. Dispo: Pending improvement in cellulitis. Quality VTE Deep Vein Thrombosis/Pulmonary Embolism Present on Admission: No
--- NOTE | 2022-10-12 08:27 | CM.DANOTE ---
DCP: Case received, EMR reviewed and met with patient. Introduces self and role. Was able to obtain information to complete DCP assessment. DCP assessment completed with information currently available. Patient is a 77 year old female who admitted yesterday evening to the care of the hospitalist team. PCP: Dr. Ross Payer: confirmed: Medicare/[employer]. Patient came to the hospital via private vehicle secondary to having abdominal pain, and decreased bowel movements. Notes indicated, concerns for possible bowel obstruction. Patient was complaining of nausea, no vomiting. Patient was also complaining of tenderness around her belly button. Patient's last abdominal surgery was about 10 years ago. Patient was diagnosed with abdominal cellulitis and probable abscess. Patient had noted some erythema on her abdomen. Blood cultures have been ordered, she is currently on IV ABO. Patient will be having a surgery consult. Met with patient in her room. She was laying in bed on her left side. She is alert and oriented, not feeling well, still some abdominal discomfort. Confirmed that patient resides here in [place] with spouse, Ricardo. She is independent at her baseline. P: DCP to continue to follow. Plan is home when deemed medically stable. Vianca Stephenson RN/Drawbridge Operator Discharge Planning/Care Management CM Discharge Assessment Start: 10/12/22 08:24 Freq: Status: Active Protocol: Document 10/12/22 08:24 (Rec: 10/12/22 08:26 [id number]) Discharge Planning Assessment Assigned [employer]er Vianca Stephenson RN/Drawbridge Operator Advance Directives? Yes Advance Directives on File No History Provided By Patient,Medical Record Prior Living Arrangements House Household Members spouse Type of transporation used prior to Drives own vehicle admit Independent with ADL's Yes Is patient alert and oriented? Yes Caregiver for Another No Barriers to Discharge No Discharge Plan Home Referrals Initiated None needed Whiteboard Updated in Patient Room with Yes name and ext. # of Wheel Of [employer] Dealer Review Status In Process Next Review Type Continued Stay Review
[2022-10-12] MEDS: VANCOMYCIN 1,000 MG/200 ML PIGGYBACK 200 MG IV (10:02)
[2022-10-12] MEDS: SODIUM CHLORIDE 0.9% 1,000 ML 100 ML IV (10:11)
--- NOTE | 2022-10-12 10:38 | P.CONS_ITS ---
History of Present Illness Consult details Date Patient Seen: 10/12/22 Time Patient Seen: 10:38 Chief complaint: sent by PCP poss. strangulated bowel Reason for consult: abdominal wall infection Requesting provider: Anuel Rader Narrative: Admitted via ED for abdominal wall infection over an area for previous (>10 yrs) hernia repair with mesh. Symptom of something irritating for >2 days. No trauma or injury. yesterday started with pain in the mid abdominal wall, sharp and with motion. No fever, no leuokocytosis. CT scan of abdomen confirms a thing (3cm greatest length) fluid collection c/w abscess, no mesh visualized. Bowel abutting posterior aspect of fluid but w/o contrast in the area, no evidence of communication to my read. Meds Home Medications and Allergies Home Medications Medication Instructions Recorded Confirmed Type ASPIRIN (#ASPIRIN E.C.) 81 mg PO Q DAY ##0 06/17/11 10/12/22 History bimatoprost 0.01 % eye drops 1 drp EYE-BOTH BEDTIME 05/11/20 10/12/22 History (Lumigan) cyclosporine 0.05 % eye drops in a 1 drp EYE-BOTH BID 05/11/20 10/12/22 History dropperette (Restasis) duloxetine 30 mg capsule,delayed 30 mg PO BID 05/11/20 10/12/22 History release levothyroxine 25 mcg tablet 25 mcg PO DAILY 05/11/20 10/12/22 History olopatadine 0.1 % eye drops 1 drp EYE-BOTH BEDTIME 05/11/20 10/12/22 History pravastatin 20 mg tablet 20 mg PO BEDTIME 05/11/20 10/12/22 History Allergies Allergy/AdvReac Type Severity Reaction Status Date / Time adhesive Allergy Mild RASH; Verified 05/11/20 07:41 PAPER TAPE OK erythromycin base Allergy Mild RASH Verified 05/11/20 07:41 tetracycline Allergy Mild RASH Verified 05/11/20 07:41 ciprofloxacin AdvReac Intermediate C DIFF Verified 05/11/20 07:41 ANTI INFLAMMATORY Allergy Mild GI BLEED Uncoded 12/09/19 16:10 Review of Systems Review of Systems ROS: Yes All systems reviewed with the patient and are negative except as otherwise documented Exam Vital Signs (past 8 hours): - 10/12/22 06:00 10/12/22 08:41 Temperature 98.9 F 99.0 F Pulse Rate 78 79 Respiratory Rate 16 17 Blood Pressure 138/60 117/43 L Pulse Oximetry 97 96 Oxygen Flow Rate 0 0 Oxygen Delivery Method Room Air Oxygen Flow Rate 0 Const General: cooperative and in distress Nutritional Appearance: average body habitus [facility] Head: normocephalic and atraumatic Ears: hearing grossly normal bilaterally Face and sinus: normal facial exam Eyes General: appearance normal, both eyes and all related structures Neck Neck: trachea midline Resp Effort & Inspection: normal respiratory effort and able to speak in complete sentences Cardio Rate: tachycardic Rhythm: regular rhythm GI Other: abdominal wall tenderness with receding erythema. no fluctuant area for dr hawkins. O/w normal bowel function Skin General: turgor normal Neuro General: patient alert, patient awake and patient oriented x3 Cognition: normal cognition Psych Mental Status: mental status grossly normal Judgment: judgment good Objective Labs 10/12/22 05:00 10/12/22 05:00 Labs: Laboratory Results - last 24 hr 10/11/22 10/11/22 10/11/22 17:00 17:26 17:26 WBC 8.5 RBC 3.86 L Hgb 11.7 L Hct 34.3 L MCV 88.8 MCH 30.2 MCHC 34.0 RDW 14.0 Plt Count 241 Neut % (Auto) 72.2 Lymph % (Auto) 14.1 L Morrill % (Auto) 11.8 Eos % (Auto) 1.5 L Baso % (Auto) 0.4 Neut # (Auto) 6100 Lymph # (Auto) 1200 Morrill # (Auto) 1000 H Eos # (Auto) 100 Baso # (Auto) 0 Sodium 130 L Potassium 3.9 Chloride 93 L Carbon Dioxide 30 BUN 17 Creatinine 0.50 L Estimated GFR > 60 BUN/Creatinine Ratio 34.0 H Glucose 95 Lactate Calcium 8.9 Total Bilirubin 0.4 AST 23 ALT 17 Alkaline Phosphatase 68 Total Protein 7.2 Albumin 4.2 Globulin 3.0 Albumin/Globulin Ratio 1.4 Lipase 56 Urine RBC 0-1/hpf Urine WBC 0-1/hpf Ur Squamous Epith Cells 0-1 /hpf Urine Bacteria None seen Ur Culture Indicated? Cult not indicated SARS-CoV-2 (PCR) 10/11/22 10/11/22 10/12/22 17:26 20:51 05:00 WBC 7.0 RBC 3.51 L Hgb 10.6 L Hct 31.7 L MCV 90.3 MCH 30.2 MCHC 33.4 RDW 14.2 Plt Count 220 Neut % (Auto) 67.9 Lymph % (Auto) 16.5 L Morrill % (Auto) 12.7 Eos % (Auto) 2.5 Baso % (Auto) 0.4 Neut # (Auto) 4700 Lymph # (Auto) 1100 Morrill # (Auto) 900 Eos # (Auto) 200 Baso # (Auto) 0 Sodium Potassium Chloride Carbon Dioxide BUN Creatinine Estimated GFR BUN/Creatinine Ratio Glucose Lactate 0.6 L Calcium Total Bilirubin AST ALT Alkaline Phosphatase Total Protein Albumin Globulin Albumin/Globulin Ratio Lipase Urine RBC Urine WBC Ur Squamous Epith Cells Urine Bacteria Ur Culture Indicated? SARS-CoV-2 (PCR) Negative 10/12/22 05:00 WBC RBC Hgb Hct MCV MCH MCHC RDW Plt Count Neut % (Auto) Lymph % (Auto) Morrill % (Auto) Eos % (Auto) Baso % (Auto) Neut # (Auto) Lymph # (Auto) Morrill # (Auto) Eos # (Auto) Baso # (Auto) Sodium 135 L Potassium 3.8 Chloride 100 Carbon Dioxide 34 H BUN 15 Creatinine 0.55 Estimated GFR > 60 BUN/Creatinine Ratio 27.3 H Glucose 83 Lactate Calcium 8.2 L Total Bilirubin AST ALT Alkaline Phosphatase Total Protein Albumin Globulin Albumin/Globulin Ratio Lipase Urine RBC Urine WBC Ur Squamous Epith Cells Urine Bacteria Ur Culture Indicated? SARS-CoV-2 (PCR) PFSH Medical History Diverticulosis GERD (gastroesophageal reflux disease) Glaucoma Hyperlipidemia Surgical History H/O colectomy Social History household members: spouse Tobacco & Substance Use Smoking Status: Never smoker alcohol intake: current Assessment & Plan Assessment & Plan narrative: abdominal wall infection over a site of old hernia repair with mesh. Should respond to antibiotics. Discussed with the patient that the presence of mesh is problematic in that if it fails to respond or recurs then she needs removal of mesh. Also mentioned the possibility that the infection is a harolding event of a bowel fistula forming. She understands. The goal is (since no fever of leukocytosis) that the pain improves and she can be released on po antibiotics with follow up. COVID-19 COVID-19 status: Negative Time Spent With Patient Time with patient: 30 to 49 minutes with 50% spent counseling/coordinating care
[2022-10-12] MEDS: OXYCODONE IR 10 MG TABLET PO ×3 (12:36→21:29)
[2022-10-12] MEDS: ACETAMINOPHEN 325 MG TABLET 650 MG PO (21:28)
[2022-10-13] VITALS (8 sets, daily range): BP systolic 137–182; BP diastolic 46–80; PULSE 60–88; RESP 16–20; TEMP 35.4–36.3; O2SAT 94–97
[2022-10-13] MEDS: VANCOMYCIN 1,000 MG/200 ML PIGGYBACK 200 MG IV (02:03)
[2022-10-13] MEDS: OXYCODONE IR 10 MG TABLET PO ×4 (03:32→21:16)
[2022-10-13] MEDS: ACETAMINOPHEN 325 MG TABLET 650 MG PO ×4 (03:32→21:15)
[2022-10-13] MEDS: PIPERACILLIN/TAZO 3.375 GM in SODIUM CHLORIDE 0.9% 100 ML IV ×3 (03:33→23:34)
[2022-10-13] MEDS: polyethylene glycoL 3350 17 GM POWD.PACK PO (08:17)
[2022-10-13] MEDS: SODIUM CHLORIDE 0.9% 1,000 ML 100 ML IV (08:19)
[2022-10-13 09:40] LABS: Hematocrit 33.6 % (36-46); Hemoglobin 11.2 g/dL (12.0-16.0); Mean Corpuscular HGB Conc 33.3 % (30-36); Mean Corpuscular Volume 90.2 fL (80-100); Platelet Count 270 X10^3/uL (150-400); Red Blood Cell Count 3.73 X10^6/uL (4.0-5.2); Red Cell Distribution Width 13.9 % (11.6-14.8); White Blood Cell Count 8.3 X10^3/uL (4.5-11.0)
[2022-10-13 09:51] LABS: BUN Creatinine Ratio 18.5 (6-22); Blood Urea Nitrogen 10 mg/dL (7-17); Calcium 8.6 mg/dL (8.4-10.2); Carbon Dioxide 32 mmol/L (22-32); Chloride 99 mmol/L (98-107); Estimated Glomerular Filt Rate > 60 mL/min (>60); Glucose 108 mg/dL (80-110); HEMOLYSIS < 15 (0-50); Potassium 3.4 mmol/L (3.4-5.1); Sodium 138 mmol/L (137-145)
[2022-10-13 09:58] LABS: Vancomycin Trough 9.6 ug/mL (10-20)
--- NOTE | 2022-10-13 11:12 | CM.DPC ---
DCP Cont: Discussed patient during team rounds. Patient is continuing on ABO. Patient could potentially discharge tomorrow on oral antibiotics. P: DCP to continue to follow for any needs. Plan is home when deemed medically, as long as she can tolerate oral ABO. Vianca Stephenson RN/Solutions Architect
--- NOTE | 2022-10-13 12:54 | PM.PN.1 ---
Subjective Subjective Interval history: Gen surgery recommending repeat imaging tomorrow. Cellulitis slowly improving but concern for continued abscess. Patient feels slightly improved, pain medications take the edge off. Exam Vital Signs (past 8 hours): - 10/13/22 08:46 10/13/22 07:00 10/13/22 07:00 Temperature 96.8 F L Pulse Rate 79 Respiratory Rate 18 Blood Pressure 153/68 H Pulse Oximetry 96 96 Oxygen Delivery Method Room Air Room Air Oxygen Flow Rate 0 0 10/13/22 12:00 Temperature 96.9 F L Pulse Rate 60 Respiratory Rate 19 Blood Pressure 162/70 H Pulse Oximetry 96 Oxygen Delivery Method Oxygen Flow Rate 0 Oxygen Delivery Method Room Air Oxygen Flow Rate 0 Narrative Exam Narrative: GEN: no acute distress HEENT: moist mucous membranes, PERRL NECK: trachea midline, no JVD PULM: clear bilaterally, no wheezes, rhonchi, rales CV: regular rate and rhythm, no murmurs ABD: soft, nondistended, vertical incision infraumbilical area, erythema surrounding but improved today EXT: warm and well perfused, with no edema NEURO: awake, alert, oriented, with no focal deficits Objective Labs 10/13/22 09:29 10/13/22 09:29 Labs: Laboratory Results - last 24 hr 10/13/22 10/13/22 10/13/22 09:29 09:29 09:29 WBC 8.3 RBC 3.73 L Hgb 11.2 L Hct 33.6 L MCV 90.2 MCH 30.0 MCHC 33.3 RDW 13.9 Plt Count 270 Sodium 138 Potassium 3.4 Chloride 99 Carbon Dioxide 32 BUN 10 Creatinine 0.54 Estimated GFR > 60 BUN/Creatinine Ratio 18.5 Glucose 108 Calcium 8.6 Vancomycin Trough 9.6 L PFSH Medical History Diverticulosis GERD (gastroesophageal reflux disease) Glaucoma Hyperlipidemia Surgical History H/O colectomy Social History household members: spouse Smoking Status: Never smoker alcohol intake: current Assessment & Plan Assessment & Plan narrative: 1. Abdominal cellulitis and probable abscess -noted to have erythema on abdomen with CT showing 3.7cm abdominal wall fluid collection concerning for abscess, pt has history of hernia repair with mesh below site of infection -blood cultures pending, but already received zosyn. WBC normal today but will continue to follow for worsening. -continue vancomycin, zosyn -ordered for oral and IV pain medications -Dr. Lyn, gen surg met with patient and recommends holding off on I&D and continuing IV abx, as may need revision of mesh if surgery needed -repeat imaging recommended tomorrow after discussion with surgery today. 2. Hypothyroidism -continue synthroid Code status is full code. COVID negative. DVT prophylaxis with SCDs. Proxy is Ricardo. Dispo: Pending improvement in abscess, will depend on imaging tomorrow.. Quality VTE Deep Vein Thrombosis/Pulmonary Embolism Present on Admission: No
--- NOTE | 2022-10-13 13:21 | PM.PN.1 ---
Subjective Subjective Date Patient Seen: 10/13/22 Time Patient Seen: 13:21 Interval history: No major events. Abdominal wall abscess decreasing in size. No fever no drainage. Exam Vital Signs (past 8 hours): - 10/13/22 08:46 10/13/22 07:00 10/13/22 07:00 Temperature 96.8 F L Pulse Rate 79 Respiratory Rate 18 Blood Pressure 153/68 H Pulse Oximetry 96 96 Oxygen Delivery Method Room Air Room Air Oxygen Flow Rate 0 0 10/13/22 12:00 Temperature 96.9 F L Pulse Rate 60 Respiratory Rate 19 Blood Pressure 162/70 H Pulse Oximetry 96 Oxygen Delivery Method Oxygen Flow Rate 0 Oxygen Delivery Method Room Air Oxygen Flow Rate 0 Narrative Exam Narrative: Gen-Adult woman alert and oriented Abdomen-Erythema retreating from marked outline, tender at midline. Objective Labs 10/13/22 09:29 10/13/22 09:29 Labs: Laboratory Results - last 24 hr 10/13/22 10/13/22 10/13/22 09:29 09:29 09:29 WBC 8.3 RBC 3.73 L Hgb 11.2 L Hct 33.6 L MCV 90.2 MCH 30.0 MCHC 33.3 RDW 13.9 Plt Count 270 Sodium 138 Potassium 3.4 Chloride 99 Carbon Dioxide 32 BUN 10 Creatinine 0.54 Estimated GFR > 60 BUN/Creatinine Ratio 18.5 Glucose 108 Calcium 8.6 Vancomycin Trough 9.6 L PFSH Medical History Diverticulosis GERD (gastroesophageal reflux disease) Glaucoma Hyperlipidemia Surgical History H/O colectomy Social History household members: spouse Smoking Status: Never smoker alcohol intake: current Assessment & Plan Assessment and plan (1) Abdominal abscess: Status: Acute Assessment & Plan narrative: 77F with cellulitis/abscess of abdominal wall over a prior ventral hernia with mesh. Infection responding to antibiotics, continue. -Reimage CT A/P with PO contrast tomorrow for re evaluation of fluid collection - Quality VTE Deep Vein Thrombosis/Pulmonary Embolism Present on Admission: No
[2022-10-13] MEDS: POTASSIUM CHLORIDE 20 MEQ TAB 40 MEQ PO (14:17)
[2022-10-13] MEDS: VANCOMYCIN 1,250 MG/250 ML PIGGYBACK 200 MG IV ×2 (14:27→21:31)
[2022-10-13] MEDS: DULOXETINE 30 MG CAPSULE PO ×2 (15:34→21:15)
[2022-10-13] MEDS: LEVOTHYROXINE 25 MCG TABLET PO (15:34)
[2022-10-13] MEDS: PRAVASTATIN 20 MG TABLET PO (21:16)
[2022-10-14] VITALS (8 sets, daily range): BP systolic 131–175; BP diastolic 53–84; PULSE 70–88; RESP 17–20; TEMP 35.8–37.1; O2SAT 94–97
[2022-10-14] MEDS: OXYCODONE IR 10 MG TABLET PO ×4 (00:51→20:30)
[2022-10-14] MEDS: VANCOMYCIN 1,250 MG/250 ML PIGGYBACK 200 MG IV ×3 (06:21→22:28)
[2022-10-14] MEDS: LEVOTHYROXINE 25 MCG TABLET PO (06:21)
[2022-10-14] MEDS: ACETAMINOPHEN 325 MG TABLET 650 MG PO (07:40)
[2022-10-14] MEDS: OXYCODONE IR 5 MG TABLET PO ×2 (07:40→12:00)
[2022-10-14] MEDS: DULOXETINE 30 MG CAPSULE PO ×2 (08:13→20:29)
[2022-10-14] MEDS: polyethylene glycoL 3350 17 GM POWD.PACK PO (08:14)
[2022-10-14] MEDS: PIPERACILLIN/TAZO 3.375 GM in SODIUM CHLORIDE 0.9% 100 ML IV ×2 (08:15→16:34)
--- NOTE | 2022-10-14 09:01 | DI.CT.S_ITS ---
PROCEDURE: CT ABDOMEN PELVIS W CON INDICATIONS: reassess abscess after antibiotics, ? fistula TECHNIQUE: After the administration of oral and intravenous contrast, axial sections were acquired from the lung bases to the pubic symphysis. Coronal and sagittal reformats were performed. For radiation dose reduction, the following was used: automated exposure control, adjustment of mA and/or kV according to patient size. COMPARISON:[facility], CT, CT ABDOMEN PELVIS W CON, 10/11/2022, 17:58. FINDINGS: Image quality: Excellent. Lung bases: Unremarkable. Heart: No significant findings. ABDOMEN: Liver: Unremarkable. Gallbladder: Gallbladder hydrops, without radiopaque stones. Biliary ducts: Intrahepatic and extrahepatic biliary tree, slightly increased from prior. The common bile duct measures 1.6 cm, previously 0.8 cm. There is a probable filling defect within the distal common bile duct (series 3, image 31). Pancreas: Unremarkable. Spleen: Unremarkable. Adrenal Glands: Unremarkable. Kidneys and Ureters: Unremarkable. Stomach and Bowel: There is moderate distension of the small bowel, with a transition point in the anterior mid abdomen. The previously described abscess has appearance of an incarcerated hernia on today's examination, probably the cause of bowel obstruction (series 2, image 46). Associated bowel wall edema with enhancement of the affected bowel loop. Peritoneum: No abnormal intraperitoneal fluid. No free air. Ventral Wall: No hernia. Abdominal Nodes: No retroperitoneal or mesenteric adenopathy by size criteria. Vessels: Aorta and inferior vena cava are normal in size. PELVIS: Pelvic Organs: Unremarkable. Bladder: Unremarkable. Pelvic Nodes: No enlarged lymph nodes. Miscellaneous: Right inguinal hernia containing a loop of nonobstructed small bowel. Bones: Unremarkable. IMPRESSION: There is moderate distension of the small bowel, with a transition point in the anterior mid abdomen. The previously described abscess has appearance of an incarcerated hernia on today's examination, probably the cause of bowel obstruction (series 2, image 46). Associated bowel wall edema with enhancement. Suspect choledocholithiasis, given increased intrahepatic and extrahepatic biliary dilation and probable filling defect within distal common bile duct. Correlate with bilirubin and consider MRCP. An attempt was made to call the ordering provider but the answering service did not pickling drum operator. Dictated by: Flaco Casillas M.D. on 10/14/2022 at 10:22 Approved by: Flaco Casillas M.D. on 10/14/2022 at 10:29
[2022-10-14 15:50] LABS: Vancomycin Trough 14.6 ug/mL (10-20)
--- NOTE | 2022-10-14 17:06 | PM.PN.1 ---
Subjective Subjective Interval history: Repeat CT today showed possible new bowel obstruction, patient last BM was yesterday and she denies nausea or vomiting. Surgery to aspirate to see what fluid is this evening. Do not suspect acute obstruction clinically. Exam Vital Signs (past 8 hours): - 10/14/22 12:00 Temperature 97.3 F L Pulse Rate 70 Respiratory Rate 18 Blood Pressure 131/72 Pulse Oximetry 97 Oxygen Flow Rate 0 Oxygen Delivery Method Room Air Oxygen Flow Rate 0 Narrative Exam Narrative: GEN: no acute distress HEENT: moist mucous membranes, PERRL NECK: trachea midline, no JVD PULM: clear bilaterally, no wheezes, rhonchi, rales CV: regular rate and rhythm, no murmurs ABD: soft, nondistended, vertical incision infraumbilical area, erythema surrounding but improved today EXT: warm and well perfused, with no edema NEURO: awake, alert, oriented, with no focal deficits Objective Labs 10/13/22 09:29 10/13/22 09:29 Labs: Laboratory Results - last 24 hr 10/14/22 14:45 Vancomycin Trough 14.6 PFSH Medical History Diverticulosis GERD (gastroesophageal reflux disease) Glaucoma Hyperlipidemia Surgical History H/O colectomy Social History household members: spouse Smoking Status: Never smoker alcohol intake: current Assessment & Plan Assessment & Plan narrative: 1. Abdominal cellulitis and probable abscess, possible bowel obstruction due to incarcerated hernia -noted to have erythema on abdomen with CT showing 3.7cm abdominal wall fluid collection concerning for abscess, pt has history of hernia repair with mesh below site of infection. Repeat CT today showed possible incarcerated hernia, though clinically she has no signs or symptoms of obstruction, other than continued pain. Suspect worsening of her infection. -blood cultures pending, but already received zosyn. WBC normal today. -continue vancomycin, zosyn -ordered for oral and IV pain medications -Gen surgery to aspirate liquid, may need surgery depending on what aspirate appears like. 2. Hypothyroidism -continue synthroid Code status is full code. COVID negative. DVT prophylaxis with SCDs. Proxy is Ricardo. Dispo: unclear, based on continued need for antibiotics or if surgical intervention needed. COVID-19 COVID-19 status: Negative Quality VTE Deep Vein Thrombosis/Pulmonary Embolism Present on Admission: No
[2022-10-14] MEDS: LIDOCAINE 2% W/EPI INJ 20 ML INJ (17:20)
--- NOTE | 2022-10-14 18:29 | PM.PN.1 ---
Subjective Subjective Date Patient Seen: 10/14/22 Time Patient Seen: 16:30 Interval history: Ms. Arthur says she is hungry and she denies nausea, she is passing gas, and she still has pain on her abdomen. The area is reddened but it is more deeper red and has decreased in the area. Overall she just wants to know what the plan is and how long she will have to stay here. Exam Vital Signs (past 8 hours): - 10/14/22 12:00 Temperature 97.3 F L Pulse Rate 70 Respiratory Rate 18 Blood Pressure 131/72 Pulse Oximetry 97 Oxygen Flow Rate 0 Oxygen Delivery Method Room Air Oxygen Flow Rate 0 Narrative Exam Narrative: She is awake alert oriented and appropriate She is of an average body habitus and is nondistended. There is erythema around the umbilicus and some areas that feel a little bit fluctuant just below it. The erythema is deeper pink color and has consolidated into a smaller area from what was marked previously. She is appropriately tender around that area. There is no drainage Objective Labs 10/13/22 09:29 10/13/22 09:29 Labs: Laboratory Results - last 24 hr 10/14/22 14:45 Vancomycin Trough 14.6 PFSH Medical History Diverticulosis GERD (gastroesophageal reflux disease) Glaucoma Hyperlipidemia Surgical History H/O colectomy Social History household members: spouse Smoking Status: Never smoker alcohol intake: current Assessment & Plan Assessment and plan (1) Abdominal abscess: Status: Acute (2) Abdominal wall cellulitis: Status: Acute Assessment & Plan narrative: I spoke with the patient about different options regarding the fluid collection that has consolidated a bit since the last CT scan. And she decided that we could proceed with an aspiration. I did this at the bedside and and used sterile gloves and used alcohol skin prep as well as a sterile needle and some 2% lidocaine with epinephrine. She tolerated the aspiration very well however an of very scant amount of fluid was aspirated. This was sent for culture. I think based on my exam and the patient's subjective reports there is not sign of bowel obstruction really and I think she can advance to clears and advance as tolerated. Given that very little fluid was aspirated I think maybe we just continue to give this more time and let antibiotics work. I will continue to follow along please do not hesitate to contact me with any concerns or questions Quality VTE Deep Vein Thrombosis/Pulmonary Embolism Present on Admission: No
[2022-10-14] MEDS: SODIUM CHLORIDE 0.9% 1,000 ML 100 ML IV (20:04)
[2022-10-14] MEDS: PRAVASTATIN 20 MG TABLET PO (20:30)
[2022-10-15] MEDS: PIPERACILLIN/TAZO 3.375 GM in SODIUM CHLORIDE 0.9% 100 ML IV ×3 (00:05→15:35)
[2022-10-15] MEDS: VANCOMYCIN 1,250 MG/250 ML PIGGYBACK 200 MG IV ×3 (06:01→23:25)
[2022-10-15] MEDS: LEVOTHYROXINE 25 MCG TABLET PO (06:01)
[2022-10-15 07:00] VITALS: O2SAT 96
[2022-10-15 08:00] VITALS: BP 172/60; PULSE 82; RESP 16; TEMP 36.3; O2SAT 96
[2022-10-15] MEDS: polyethylene glycoL 3350 17 GM POWD.PACK PO (08:38)
[2022-10-15] MEDS: OXYCODONE IR 5 MG TABLET PO (08:38)
[2022-10-15] MEDS: DULOXETINE 30 MG CAPSULE PO ×2 (08:40→21:38)
--- NOTE | 2022-10-15 12:35 | PC.NURSE ---
Pt alert and oriented, conversant, accurately describes needs and asks appropriately for pain meds. Family attentive at bedside.
[2022-10-15] MEDS: OXYCODONE IR 10 MG TABLET PO ×2 (14:41→20:13)
--- NOTE | 2022-10-15 15:37 | P.PN_ITS ---
Subjective Subjective Date Patient Seen: 10/15/22 Time Patient Seen: 15:37 Interval history: Ms. Richard states that she is overall doing fine. She is dismayed that this process is taking so long. She overall is feeling very hungry and would like to have some food. She had some liquid diarrhea today and is passing gas. She says that overall since the beginning the pain and tenderness around her belly button has significantly improved. Overnight she notes no particular change. Exam Vital Signs (past 8 hours): - 10/15/22 08:00 Temperature 97.3 F L Pulse Rate 82 Respiratory Rate 16 Blood Pressure 172/60 H Pulse Oximetry 96 Oxygen Delivery Method Room Air Oxygen Flow Rate 0 Narrative Exam Narrative: She is awake alert oriented and in no acute distress she is independently ambulatory around the room. Her abdomen is soft nondistended and tender only around the reddened sort of indurated area around her umbilicus. Objective Labs 10/13/22 09:29 10/13/22 09:29 Labs: Laboratory Results - last 24 hr 10/14/22 14:45 Vancomycin Trough 14.6 PFSH Medical History Diverticulosis GERD (gastroesophageal reflux disease) Glaucoma Hyperlipidemia Surgical History H/O colectomy Social History household members: spouse Smoking Status: Never smoker alcohol intake: current Assessment & Plan Assessment and plan (1) Abdominal wall cellulitis: Status: Acute (2) Abdominal abscess: Status: Acute Assessment & Plan narrative: In spite of CT scan findings with some air-fluid levels yesterday I think clinically she is not suffering any signs of a bowel obstruction and I would allow her to eat as tolerated. She may have a regular diet. Regarding the infection around her umbilicus, it is not clear whether the mesh is involved in the infection or not however I suspect that it is. It is also not entirely cl ear if an enterocutaneous fistula is developing as there is bowel abutting the mesh on the abdominal side. This is the point of semi transition seen on the CT scan from yesterday however as noted I think clinically she is not obstructed and so overall I suspect that the bowel is not at this time involved in this infective process however I can not be 100% sure. I attempted yesterday to obtain some fluid for culture however the Gram stain shows no organisms at this time. The amount of fluid that was aspirated was pretty scant. I do recommend an Infectious Disease consult to start planning f or possible PICC line and outpatient course of antibiotic treatment for what is probably an infection that involves the mesh. It would be nice to be able to narrow down her antibiotic regimen. I do suspect a skin source rather than a bowel source overall especially given the history of her cleaning her belly button frequently with Q-tips. I discussed with the patient today that it certainly is possible from a technical standpoint to obtain a better specimen for the sake of culture but there is no guarantee that anything will grow especially since she is been on broad-spectrum antibiotics for some time and that tends to make the possibility of organism growth from the culture less likely. But I could use an 11 blade scalpel and slightly open the skin in order that I place a culture swab deeper into the wound or even obtain tissue culture from within the wound I created with the intent to obtain some idea of the organism and its resistance profile as well. I am happy to attempt this if the infectious disease physician indicates that this might be extremely helpful. I think I may ask for anesthesiology assistance for the sake of the patient's comfort if we decide to go this route. For now I think we are doing well to continue IV antibiotics and I think that that is the mainstay of treatment at this time. Quality VTE Deep Vein Thrombosis/Pulmonary Embolism Present on Admission: No
[2022-10-15 16:40] VITALS: BP 143/61; PULSE 70; RESP 16; TEMP 35.8; O2SAT 92
--- NOTE | 2022-10-15 17:58 | PM.PN.1 ---
Subjective Subjective Interval history: Overall improved, but no significant change since yesterday with her pain. She is having some diarrhea and passing gas. No nausea or vomiting. I advanced her diet this afternoon. Discussed with surgery today, Exam Vital Signs (past 8 hours): - 10/15/22 16:40 Temperature 96.5 F L Pulse Rate 70 Respiratory Rate 16 Blood Pressure 143/61 H Pulse Oximetry 92 Oxygen Delivery Method Room Air Oxygen Flow Rate 0 Narrative Exam Narrative: GEN: no acute distress HEENT: moist mucous membranes, PERRL NECK: trachea midline, no JVD PULM: clear bilaterally, no wheezes, rhonchi, rales CV: regular rate and rhythm, no murmurs ABD: soft, nondistended, vertical incision infraumbilical area, erythema surrounding but improved today EXT: warm and well perfused, with no edema NEURO: awake, alert, oriented, with no focal deficits Objective Labs 10/13/22 09:29 10/13/22 09:29 [facility] Medical History Diverticulosis GERD (gastroesophageal reflux disease) Glaucoma Hyperlipidemia Surgical History H/O colectomy Social History household members: spouse Smoking Status: Never smoker alcohol intake: current Assessment & Plan Assessment and plan (1) Abdominal wall cellulitis: Status: Acute (2) Abdominal abscess: Status: Acute Assessment & Plan narrative: 1. Abdominal cellulitis and probable abscess, possible bowel obstruction due to incarcerated hernia -noted to have erythema on abdomen with CT showing 3.7cm abdominal wall fluid collection concerning for abscess, pt has history of hernia repair with mesh below site of infection. Repeat CT showed possible incarcerated hernia, though clinically she has no signs or symptoms of obstruction, other than continued pain. Clinically she is improving. -blood cultures pending, but already received zosyn. WBC normal today. -continue vancomycin, zosyn -ordered for oral and IV pain medications -Possible incision and drainage with surgery, though please note extensive discussion with patient on today's note, appreciate general surgery involvement. 2. Hypothyroidism -continue synthroid Code status is full code. COVID negative. DVT prophylaxis with SCDs. Proxy is Ricardo. Dispo: will go home, timing unclear based on continued need for antibiotics or if surgical intervention needed. May be tomorrow if no I&D vs COVID-19 COVID-19 status: Negative Quality VTE Deep Vein Thrombosis/Pulmonary Embolism Present on Admission: No
[2022-10-15 18:00] VITALS: BP 148/56; PULSE 79; RESP 22; TEMP 37.5; O2SAT 98
[2022-10-15] MEDS: PRAVASTATIN 20 MG TABLET PO (21:38)
[2022-10-15 22:00] VITALS: O2SAT 95
[2022-10-16] MEDS: PIPERACILLIN/TAZO 3.375 GM in SODIUM CHLORIDE 0.9% 100 ML IV ×3 (00:59→18:22)
[2022-10-16 01:00] VITALS: BP 162/68; PULSE 80; RESP 18; TEMP 36.6; O2SAT 95
[2022-10-16] MEDS: OXYCODONE IR 10 MG TABLET PO ×3 (01:18→15:50)
[2022-10-16] MEDS: ACETAMINOPHEN 325 MG TABLET 650 MG PO ×2 (05:11→15:51)
[2022-10-16 06:00] VITALS: BP 145/73; PULSE 71; RESP 18; TEMP 36.8; O2SAT 92
[2022-10-16] MEDS: VANCOMYCIN 1,250 MG/250 ML PIGGYBACK 200 MG IV ×2 (06:26→15:45)
[2022-10-16] MEDS: LEVOTHYROXINE 25 MCG TABLET PO (06:26)
[2022-10-16 07:00] VITALS: O2SAT 96
[2022-10-16 08:03] VITALS: BP 130/69; PULSE 74; RESP 19; TEMP 37.1; O2SAT 96
[2022-10-16] MEDS: DULOXETINE 30 MG CAPSULE PO ×2 (09:01→22:10)
[2022-10-16] MEDS: LORazepam 2 MG/ML INJ 1 MG IV (09:19)
--- NOTE | 2022-10-16 10:59 | PM.PN.1 ---
Subjective Subjective Date Patient Seen: 10/16/22 Time Patient Seen: 10:59 Interval history: Doing well overall. Pain improved. She is having a neck spasm which is severe but she is had these before for years and years. Exam Vital Signs (past 8 hours): - 10/16/22 06:00 10/16/22 08:03 10/16/22 07:00 Temperature 98.2 F 98.7 F Pulse Rate 71 74 Respiratory Rate 18 19 Blood Pressure 145/73 H 130/69 Pulse Oximetry 92 96 96 Oxygen Delivery Method Room Air Oxygen Flow Rate 0 10/16/22 08:30 Temperature Pulse Rate Respiratory Rate Blood Pressure Pulse Oximetry Oxygen Delivery Method Room Air Oxygen Flow Rate Oxygen Delivery Method Room Air Oxygen Flow Rate 0 Narrative Exam Narrative: Patient is awake alert oriented and in no acute distress Her abdomen appears the same it is still has erythema and is appropriately tender. Objective Labs 10/13/22 09:29 10/13/22 09:29 [facility] Medical History Diverticulosis GERD (gastroesophageal reflux disease) Glaucoma Hyperlipidemia Surgical History H/O colectomy Social History household members: spouse Smoking Status: Never smoker alcohol intake: current Assessment & Plan Assessment and plan (1) Abdominal abscess: Status: Acute (2) Abdominal wall cellulitis: Status: Acute Plan The aspiration gram stain has shown no organisms. After primary team has with Infectious Disease further culture material is requested. Therefore I discussed with Ms. Richard a small bedside incision and drainage in the hope of getting into that abscess cavity and obtaining better culture material. I discussed with her that during this procedure I will try to palpate the cavity and determine if there is mesh involved in the infection. Also I discussed the worse case scenario that bowel may be involved as well. If I have any indication of either of these 2 things we may need to plan a larger incision and take a better look in the operating room. I also offered her the opportunity to simply wait until Monday and proceed to the operating room. I do think there is a chance that a smaller incision and drainage will be sufficient and so she decided to give me permission to move ahead with that today. The skin was prepped with chlorhexidine and draped with sterile drapes. I used sterile gloves and a sterile gown for the procedure. I set up a sterile field that had a 11 blade scalpel and syringes and gauze. I used 2% lidocaine with epinephrine and infused it in the skin and subcutaneous tissue overlying the maximal erythema and correlating on the CT scan with the fluid collection below. She tolerated the injection very well and an 11 blade scalpel was used to create a 2-3 cm incision in the wound. Finger was used to explore the cavity. The 11 blade scalpel was used to open some of the deeper tissues and with blunt dissection I felt that I entered into the infected cavity and though there was not a lot of purulent material there was a definite palpable cavity. As the finger was removed there was definite mesh seen in the wound and possibly bowel. The skin wound was very small and visualization was difficult but, at this point no further exploration was performed, and the wound was packed with sterile gauze and covered with more gauze and tape placed over it. I then discussed with her , Ricardo, who was at the bedside during the procedure, that I definitely some mesh and will need to plan larger procedure to take a closer look and examined this wound. If there is bowel involved in the wound it is better to know now rather than find out down the road if leaking should begin to occur. There is no sign of this at this time but the safest thing would be to explore and assure that everything within this infected area now underlying a skin wound looks okay and if not is addressed. At the time of procedure tomorrow I will plan to assess the state of the mesh and make a decision of whether an attempt at saving it should be made. I did explain to Ricardo that if it looks like it is infected and I am concerned that it will not heal the best option at that time will probably be to explant the mesh. If this is performed the chances are very good that she will have a hernia that recurs in the area. When that happens another operative repair can be attempted after the infection is cleared out. Ricardo expressed understanding of all of this. Ms. Arthur had been given 1 mg of Dilaudid before the incision and drainage and was a little bit confused, though awake and alert and nonlabored in her breathing, and so Ricardo will explain it to her a bit later and I will plan to speak with her tomorrow as well. She will be placed on monitors for the period of time during her recovery. I have encouraged Ricardo as well as the bedside nurse to call me immediately with any questions or concerns this evening, overnight, or tomorrow morning. This event and plan was also discussed with Dr. Soto. Quality VTE Deep Vein Thrombosis/Pulmonary Embolism Present on Admission: No
[2022-10-16] MEDS: CYCLOBENZAPRINE 10 MG TABLET 5 MG PO (11:33)
[2022-10-16 11:35] VITALS: BP 128/71; PULSE 80; RESP 16; TEMP 36.6; O2SAT 97
[2022-10-16] MEDS: HYDROMORPHONE 1 MG INJ IV (12:23)
[2022-10-16] MEDS: LIDOCAINE 2% W/EPI INJ 20 ML INJ (12:30)
--- NOTE | 2022-10-16 14:17 | PM.PN.1 ---
Subjective Subjective Interval history: Patient without complaints this morning. Surgery performed bedside I&D, with much deeper infection than expected. Will continue antibiotics today and go to OR tomorrow for I&D, possible mesh removal. Exam Vital Signs (past 8 hours): - 10/16/22 08:03 10/16/22 07:00 10/16/22 08:30 Temperature 98.7 F Pulse Rate 74 Respiratory Rate 19 Blood Pressure 130/69 Pulse Oximetry 96 96 Oxygen Delivery Method Room Air Room Air Oxygen Flow Rate 0 10/16/22 11:35 Temperature 98 F Pulse Rate 80 Respiratory Rate 16 Blood Pressure 128/71 Pulse Oximetry 97 Oxygen Delivery Method Oxygen Flow Rate 0 Oxygen Delivery Method Room Air Oxygen Flow Rate 0 Narrative Exam Narrative: GEN: no acute distress HEENT: moist mucous membranes, PERRL NECK: trachea midline, no JVD PULM: clear bilaterally, no wheezes, rhonchi, rales CV: regular rate and rhythm, no murmurs ABD: soft, nondistended, vertical incision infraumbilical area, erythema surrounding but improved today EXT: warm and well perfused, with no edema NEURO: awake, alert, oriented, with no focal deficits Objective Labs 10/13/22 09:29 10/13/22 09:29 PFSH Medical History Diverticulosis GERD (gastroesophageal reflux disease) Glaucoma Hyperlipidemia Surgical History H/O colectomy Social History household members: spouse Smoking Status: Never smoker alcohol intake: current Assessment & Plan Assessment and plan (1) Abdominal wall cellulitis: Status: Acute (2) Abdominal abscess: Status: Acute Assessment & Plan narrative: 1. Abdominal cellulitis and abscess, possible bowel obstruction due to incarcerated hernia -noted to have erythema on abdomen with CT showing 3.7cm abdominal wall fluid collection concerning for abscess, pt has history of hernia repair with mesh below site of infection. Repeat CT showed possible incarcerated hernia, though clinically she has no signs or symptoms of obstruction, other than continued pain. Clinically she was improving. 10/16 patient with bedside I&D with deeper infection than inticipated, surgery to take to the OR tomorrow for I&D, possible mesh removal. -blood cultures pending, but already received zosyn. WBC normal today. -continue vancomycin, zosyn -ordered for oral and IV pain medications -NPO @ [place] 2. Hypothyroidism -continue synthroid Code status is full code. COVID negative. DVT prophylaxis with SCDs. Proxy is Ricardo. Dispo: will go home, timing unclear based on operative findings tomorrow. COVID-19 COVID-19 status: Negative Quality VTE Deep Vein Thrombosis/Pulmonary Embolism Present on Admission: No
[2022-10-16 14:26] VITALS: BP 152/78; PULSE 87; RESP 17; TEMP 36.6; O2SAT 100
[2022-10-16 15:51] LABS: Vancomycin Trough 19.2 ug/mL (10-20)
--- NOTE | 2022-10-16 18:43 | PC.NURSE ---
Patient is groggy from pain medications given throughout the day. She is answering questions appropriately. in room and visiting. Son here earlier. Patient will have surgery tomorrow.
[2022-10-16] MEDS: PRAVASTATIN 20 MG TABLET PO (22:10)
[2022-10-16] MEDS: OXYCODONE IR 5 MG TABLET PO (23:49)
[2022-10-17] VITALS (26 sets, daily range): BP systolic 79–204; BP diastolic 32–115; PULSE 76–95; RESP 14–21; TEMP 35.8–36.6; O2SAT 90–890; BMI 27.1
--- NOTE | 2022-10-17 | PATH_ITS ---
[facility] Accession Number: [id number] No. of containers..01 Tissue . 01 Material submitted: . small bowel - SMALL BOWEL . 01 Diagnosis: Small Bowel, Segmental Resection: Active enteritis with embedded mesh eroding into submucosa. Serositis. Fibrous adhesions. Negative for dysplasia or malignancy. MR 10/19/2022 1610 Local . 01 Electronically signed: . Terri Price MD, Pathologist NPI- [id number] . 01 Gross description: . The specimen is received in formalin labeled with the patient's name, , and small bowel, and consists of a presumed loop of bowel with one staple line identified and a small black suture is seen at that staple line with no designation per the requisition. The serosa is jefferson and significant for a large roughened possibly disrupted area measuring 6.1 x 4.0 cm. The remaining serosa is jefferson, smooth, and intact with a moderate amount of adipose extending out to 2.6 cm. The staple line with the suture is inked blue, the mesenteric margin is inked green, and the roughened area is inked orange (no second staple line is grossly identified and photographs are taken). Opening the specimen reveals the staple line to be located at both ends of the loop of bowel. An area of perforation to the orange inked roughened serosa is identified measuring 0.2 cm in diameter and measures 3.4 cm from the nearest margin. The lumen contains a small amount of clear mucoid material with no lesions grossly identified. The mucosa is jefferson to pink and velvety with normal-appearing folds and no polyps identified. The orange-inked roughened area is significant for multiple fragments of surgical filaments possibly consistent with a healed fragment of mesh grossly connecting the loop of bowel. No lesions are identified and the ferguson average 0.3 cm thick with no hemorrhage or necrotic areas grossly identified. No lymph node candidates are identified upon palpation. Clinical Documentation Manager sections are submitted as follows: A1-A2: Clinical Documentation Manager bowel. A3: Tissue adjacent to perforated area. . Case discussed with Dr. Price. ([id number]) /WESLEY 10/18/2022 0957 Local . 01 Pathologist provided ICD-10: T83.718S . 01 CPT . 344629 Specimen Comment: A courtesy copy of this report has been sent to [facility] Pathology Performed at: 01 [facility] [address] [place] [address] [address] [facility], [place], [place] [id number] MD Tommy Vo MD Phone: [phone]
[2022-10-17] MEDS: PIPERACILLIN/TAZO 3.375 GM in SODIUM CHLORIDE 0.9% 100 ML IV ×3 (00:03→18:12)
[2022-10-17] MEDS: VANCOMYCIN 1,500 MG/300 ML PIGGYBACK 200 MG IV ×2 (04:17→22:42)
[2022-10-17] MEDS: OXYCODONE IR 10 MG TABLET PO ×2 (05:20→23:06)
[2022-10-17] MEDS: LEVOTHYROXINE 25 MCG TABLET PO (05:26)
[2022-10-17 05:58] LABS: Add Manual Diff / Slide Review NO; Basophils Absolute Auto 0 /uL (0-100); Basophils Percent Auto 0.5 % (0-2); Eosinophils Absolute Auto 300 /uL (0-450); Eosinophils Percent Auto 4.4 % (2-4); Hematocrit 28.8 % (36-46); Hemoglobin 9.6 g/dL (12.0-16.0); Lymphocytes Absolute Auto 1000 /uL (1100-4500); Lymphocytes Percent Auto 15.1 % (25-40); Mean Corpuscular HGB Conc 33.5 % (30-36); Mean Corpuscular Hemoglobin 29.6 PG (26-34); Mean Corpuscular Volume 88.2 fL (80-100); Monocytes Absolute Auto 900 /uL (0-900); Monocytes Percent Auto 13.4 % (3-14); Neutrophils Absolute Auto 4400 /uL (1500-7000); Neutrophils Percent Auto 66.6 % (50-75); Platelet Count 271 X10^3/uL (150-400); Red Blood Cell Count 3.26 X10^6/uL (4.0-5.2); Red Cell Distribution Width 13.6 % (11.6-14.8); White Blood Cell Count 6.6 X10^3/uL (4.5-11.0)
[2022-10-17 06:02] LABS: INR 1.2 (0.9-1.3); Prothrombin Time 13.2 SECONDS (10.1-12.7)
[2022-10-17 06:04] LABS: PTT Partial Thromboplastin Tim 29 SECONDS (26-36)
[2022-10-17 06:10] LABS: Alanine Aminotransferase 21 IU/L (<35); Albumin 3.5 g/dL (3.5-5.0); Albumin Globulin Ratio 1.3 (1.0-2.8); Alkaline Phosphatase 49 U/L (38-126); Aspartate Aminotransferase 26 IU/L (14-36); BUN Creatinine Ratio 16.3 (6-22); Bilirubin Total 0.3 mg/dL (0.2-1.3); Blood Urea Nitrogen 8 mg/dL (7-17); Calcium 8.4 mg/dL (8.4-10.2); Carbon Dioxide 30 mmol/L (22-32); Chloride 96 mmol/L (98-107); Estimated Glomerular Filt Rate > 60 mL/min (>60); Globulin 2.7 g/dL (1.7-4.1); Glucose 98 mg/dL (80-110); HEMOLYSIS < 15 (0-50); Magnesium 1.7 mg/dL (1.6-2.3); Sodium 135 mmol/L (137-145); Total Protein 6.2 g/dL (6.3-8.2)
--- NOTE | 2022-10-17 06:58 | PC.NURSE ---
Pt has had a fairly uneventful shift; she was medicated for MANLEY at 0520 w/ 2 oxy with good relief
--- NOTE | 2022-10-17 07:54 | CM.DPC ---
DCP Cont: It is noted that patient may be having an I&D for possible mesh removal. At this time, is uncertain as to the length that patient will be on IV ABO, but will need to follow closely. Patient is independent at baseline, should not have home needs unless she needs prolonged IV ABO. P: DCP to continue to follow. Patient should be able to go home when deemed medically stable. Vianca Stephenson RN/Beam Warper
--- NOTE | 2022-10-17 08:16 | P.PN_ITS ---
Subjective Subjective Interval history: Undergoing surgery today. No complaints. Exam Vital Signs (past 8 hours): - 10/17/22 06:00 10/17/22 08:00 Temperature 96.4 F L Pulse Rate 85 Respiratory Rate 17 Blood Pressure 187/72 H Pulse Oximetry 94 97 Oxygen Delivery Method Room Air Oxygen Flow Rate 0 0 Oxygen Delivery Method Room Air Oxygen Flow Rate 0 Narrative Exam Narrative: GEN: no acute distress HEENT: moist mucous membranes, PERRL NECK: trachea midline, no JVD PULM: clear bilaterally, no wheezes, rhonchi, rales CV: regular rate and rhythm, no murmurs ABD: soft, nondistended, vertical incision infraumbilical area, erythema surrounding but improved today EXT: warm and well perfused, with no edema NEURO: awake, alert, oriented, with no focal deficits Objective Labs 10/17/22 05:17 10/17/22 05:17 Labs: Laboratory Results - last 24 hr 10/16/22 10/17/22 10/17/22 14:55 05:17 05:17 WBC 6.6 RBC 3.26 L Hgb 9.6 L Hct 28.8 L MCV 88.2 MCH 29.6 MCHC 33.5 RDW 13.6 Plt Count 271 Neut % (Auto) 66.6 Lymph % (Auto) 15.1 L Barron % (Auto) 13.4 Eos % (Auto) 4.4 H Baso % (Auto) 0.5 Neut # (Auto) 4400 Lymph # (Auto) 1000 L Barron # (Auto) 900 Eos # (Auto) 300 Baso # (Auto) 0 PT 13.2 H INR 1.2 APTT 29 Sodium Potassium Chloride Carbon Dioxide BUN Creatinine Estimated GFR BUN/Creatinine Ratio Glucose Calcium Magnesium Total Bilirubin AST ALT Alkaline Phosphatase Total Protein Albumin Globulin Albumin/Globulin Ratio Vancomycin Trough 19.2 10/17/22 05:17 WBC RBC Hgb Hct MCV MCH MCHC RDW Plt Count Neut % (Auto) Lymph % (Auto) Barron % (Auto) Eos % (Auto) Baso % (Auto) Neut # (Auto) Lymph # (Auto) Barron # (Auto) Eos # (Auto) Baso # (Auto) PT INR APTT Sodium 135 L Potassium 3.0 L Chloride 96 L Carbon Dioxide 30 BUN 8 Creatinine 0.49 L Estimated GFR > 60 BUN/Creatinine Ratio 16.3 Glucose 98 Calcium 8.4 Magnesium 1.7 Total Bilirubin 0.3 AST 26 ALT 21 Alkaline Phosphatase 49 Total Protein 6.2 L Albumin 3.5 Globulin 2.7 Albumin/Globulin Ratio 1.3 Vancomycin Trough PFS Medical History Diverticulosis GERD (gastroesophageal reflux disease) Glaucoma Hyperlipidemia Surgical History H/O colectomy Social History household members: spouse Smoking Status: Never smoker alcohol intake: current Assessment & Plan Assessment & Plan narrative: 1. Abdominal cellulitis and abscess, possible bowel obstruction due to incar cerated hernia -noted to have erythema on abdomen with CT showing 3.7cm abdominal wall fluid collection concerning for abscess, pt has history of hernia repair with mesh below site of infection. Repeat CT showed possible incarcerated hernia, though clinically she has no signs or symptoms of obstruction, other than continued pain. Clinically she was improving. 10/16 patient with bedside I&D with deeper infection than inticipated, surgery to take to the OR tomorrow for I&D, possible mesh removal. -blood cultures pending, but already received zosyn. WBC normal today. -continue vancomycin, zosyn -ordered for oral and IV pain medications -NPO for mesh removal 10/17 -f/u I&D culture 2. Hypothyroidism -continue synthroid Code status is full code. COVID negative. DVT prophylaxis with SCDs. Proxy is Ricardo. Dispo: Home in 1-2 days pending surgery and I&D culture results. COVID-19 COVID-19 status: Negative Quality VTE Deep Vein Thrombosis/Pulmonary Embolism Present on Admission: No
[2022-10-17] MEDS: LABETALOL 20 MG/4 ML SYRINGE 5 MG IV (09:14)
--- NOTE | 2022-10-17 11:34 | PC.NURSE ---
patient's blood pressure was 200/80's- Dr. Rader notified- prescribed one dose of IV Labetalol and BP dropped to 160/80s- placed on tele no arrhythmias noted. pt normal sinus rhythm and taken off tele.
[2022-10-17] MEDS: LACTATED RINGERS 1,000 ML 42 ML IV ×2 (11:37→14:37)
--- NOTE | 2022-10-17 11:40 | PC.NURSE ---
Patient down to surgery around 11:00 am.
--- NOTE | 2022-10-17 12:15 | PM.PREOP ---
Pre-operative Note Interval Note History & Physical reviewed/Exam performed by Physician: Yes Changes to H&P: No
[2022-10-17] MEDS: CEFAZOLIN 2 GM/100 ML PREMIX 100 ML IV (13:00)
[2022-10-17] MEDS: BUPIVACAINE 0.25% (PF) VIAL 30 ML INJ (13:22)
--- NOTE | 2022-10-17 13:25 | SUR.OPER ---
Supine on padded OR bed, head on pillow, arms secured on padded arm boards at <90 degrees abduction, legs uncrossed, safety belt at thigh, tape over blanket over lower legs. Gel pad under bilateral heels. Patient lower denture removed by Anesthesia and placed into green denture cup with patient label and brought with patient to PACU.
--- NOTE | 2022-10-17 15:54 | PM.OP.1 ---
Operative Date/Time/Diagnoses Date of procedure: 10/17/22 Time of procedure: 15:54 Pre-op diagnosis: Mesh infection Post-op diagnosis: same Procedure & Clinicians Procedure: Exploratory laparotomy, small-bowel resection and anastomosis, removal of foreign body mesh Same procedure as scheduled: Yes Indications: There was a an infection of the abdomen abutting mesh. An I&D was done and the mesh was clearly involved at that point further exploration was planned and intraoperatively the decision was made to remove the mesh totally, since it was clearly infected and involved in this infection. In addition there was small bowel loops adhered to the mesh posteriorly which required small bowel resection in order to get the mesh out. Surgeon: Berta Weber Service Order Dispatcher: Juan Mccann Anesthesia Type: General Operative Notes Specimen(s): other (Small-bowel resection sent for pathology, and mesh was sent for culture) Estimated Blood Loss (mL): 50 Procedure in detail: Patient was taken to the operating room and placed supine on the operating room table. Antibiotics had been given. Bilateral SCDs in place. A time-out was performed. General endotracheal anesthesia was induced. The abdomen was prepped using an iodine prep since there was an open wound from the incision and drainage on the abdomen. The abdomen was draped in the usual fashion. Next an incision was made along the previous scar to elongate the previous incision and drainage incision. This incision was carried carefully through the subcutaneous tissues. The cavity which was entered on the previous incision and drainage was encountered in the subcutaneous tissue. There was a black round lesion that at 1st glance of appeared to be ischemic loop of small bowel, for this reason the attention was turned to the more superior portion of the wound in an attempt to enter the abdomen away from it and carefully reduced this bowel in a way that would allow resection if needed. The superior portion of the wound was entered and the abdomen was entered. There were some adhesed bowel loops to the right side of the incision but the left side of the incision was fairly clear there was a small margin of mesh on the left side of the incision but the majority of the mesh was to the right. The incision was then extended inferiorly through the mesh carefully to avoid multiple adhesions underlying. I changed my position to stand on the right side of the patient and address the left side of the wound. This side was more open and there were less adhesions and little bit of adhesiolysis was done with the Metzenbaum scissors to clear the fascia on this side. I switched back to the right side to further evaluate that apparent loop of bowel and as I worked towards it, it became apparent that it was actually just a sherically shaped hematoma. The mesh underlying this however was extremely infected and there was gross purulent tissue around it. The cavity was entered and the pus flowed out at that point. A wound culture was obtained from this pus at that time. I continued to work through the adhesions, but at this time it was apparent that the mesh was really quite an involved in the infection and needed to be removed. I called at that time to update the family and continued to work doing adhesiolysis to remove the mesh. I was able to separate the loops of small bowel that were adhesed to the mesh from the mesh itself but the internal layer of mesh remained adhesed to the bowel and held that loop in a tangled not that I was not able to cut apart. I left that loop to be evaluated and turned my attention to simply removing the entirety of the mesh from the abdominal wall at this time. I was able to using electrocautery release the mesh and made attempts to preserve as much fascia as possible. The mesh had contracted to the size of about 8 cm by 5 cm. There were blue Ethibond sutures apparent around the edges and these were removed with the mesh. I removed the small margin of mesh on the left side of the abdomen as well and sent those pieces together to the microbiology lab for culture. During the process of adhesiolysis a recurrent area of hernia was noted laterally to where the mesh was placed. This was filled with omental tissue and probably represents an incidental finding. At this point the bowel was examined and I could tell after the adhesiolysis of most of the small bowel around it that the part of small bowel that was adhered to the mesh represented 1 loop there was an incoming and out coming loop and the bowel in the interim was simply the portion in between those 2. Therefore at this point I used silk stay suture to tack the location of the anastomosis and made an enterotomy using electrocautery at each of the 2 sides of bowel loop. I placed an Endo-DYLAN stapler into the enterotomy and created an anastomosis. A 2nd load was used to come across the enterotomies as well as the bowel loops leading into the loops adhered to mesh. Therefore the specimen was removed and the enterotomies were closed with 1 staple line using a 2nd load for the Endo-DYLAN stapler. The anastomosis looked good it was patent and hemostatic. The specimen was sent for pathology. I then irrigated the abdomen removing some small blood clots and proceeded to close the fascia primarily with an 0 PDS suture. I took small 1 cm bites of the fascia and kept the suture from pulling too tight. I used a running fashion which started on each end of the fascia and joined in the middle. I took care to grab good fascia as much as possible and I closed the small hernia defect with this running stitch as well. I then closed the skin with beulah. The EBL was maybe 50-100 cc and there were no complications. The patient tolerated the procedure well and went in good condition to postoperative care unit.
[2022-10-17] MEDS: fentaNYL 100 MCG/2 ML INJ IV ×2 (16:17→16:26)
--- NOTE | 2022-10-17 17:52 | PC.NURSE ---
Report received from OR nurse Nat- stated pt was in AFIB (heart rate in the 80's) and her pressure went from 210 to 86 systolic(symptomatic) and then back up to 160's with no interventions. received pt and she was A&O got up to BSC with nursing staff and stated she was dizzy BP was 79/32. put pt back to bed in trendelenberg and rechecked and was 170's. Dr Rader notified and told to run liter bolus- BP was 204/84. stopped bolus. Patient is alert and oriented but groggy. She is answering questions appropriately. is at bedside.
[2022-10-17] MEDS: MORPHINE 4 MG/ML INJ 3 MG IV (20:44)
[2022-10-17] MEDS: CYCLOBENZAPRINE 10 MG TABLET 5 MG PO (23:06)
[2022-10-18] VITALS (10 sets, daily range): BP systolic 134–188; BP diastolic 63–85; PULSE 79–97; RESP 16–18; TEMP 36–37.6; O2SAT 90–94
[2022-10-18] MEDS: PIPERACILLIN/TAZO 3.375 GM in SODIUM CHLORIDE 0.9% 100 ML IV ×3 (01:05→17:11)
[2022-10-18] MEDS: MORPHINE 4 MG/ML INJ 3 MG IV (05:45)
[2022-10-18] MEDS: LEVOTHYROXINE 25 MCG TABLET PO (05:46)
[2022-10-18 06:44] LABS: Add Manual Diff / Slide Review NO; Basophils Absolute Auto 0 /uL (0-100); Basophils Percent Auto 0.1 % (0-2); Eosinophils Absolute Auto 100 /uL (0-450); Eosinophils Percent Auto 1.4 % (2-4); Hematocrit 30.9 % (36-46); Hemoglobin 10.4 g/dL (12.0-16.0); Lymphocytes Absolute Auto 900 /uL (1100-4500); Lymphocytes Percent Auto 8.3 % (25-40); Mean Corpuscular HGB Conc 33.7 % (30-36); Mean Corpuscular Hemoglobin 29.5 PG (26-34); Mean Corpuscular Volume 87.6 fL (80-100); Monocytes Absolute Auto 1300 /uL (0-900); Monocytes Percent Auto 12.2 % (3-14); Neutrophils Absolute Auto 8100 /uL (1500-7000); Platelet Count 294 X10^3/uL (150-400); Red Blood Cell Count 3.53 X10^6/uL (4.0-5.2); Red Cell Distribution Width 13.6 % (11.6-14.8); White Blood Cell Count 10.4 X10^3/uL (4.5-11.0)
[2022-10-18 07:00] LABS: Alanine Aminotransferase 22 IU/L (<35); Albumin 3.2 g/dL (3.5-5.0); Albumin Globulin Ratio 1.1 (1.0-2.8); Alkaline Phosphatase 39 U/L (38-126); Aspartate Aminotransferase 28 IU/L (14-36); Bilirubin Total 0.6 mg/dL (0.2-1.3); Blood Urea Nitrogen 9 mg/dL (7-17); Carbon Dioxide 33 mmol/L (22-32); Chloride 95 mmol/L (98-107); Estimated Glomerular Filt Rate > 60 mL/min (>60); Globulin 2.9 g/dL (1.7-4.1); Glucose 112 mg/dL (80-110); HEMOLYSIS 34 (0-50); Magnesium 1.5 mg/dL (1.6-2.3); Sodium 132 mmol/L (137-145); Total Protein 6.1 g/dL (6.3-8.2)
[2022-10-18 07:07] LABS: Potassium 2.7 mmol/L (3.4-5.1)
--- NOTE | 2022-10-18 07:24 | PM.PN.1 ---
Subjective Subjective Interval history: Patient having pain from her surgery today. Says pain meds don't last long enough. Doesn't have much appetite as well. I&D and OR mesh cultures still pending. Exam Vital Signs (past 8 hours): - 10/18/22 02:02 10/18/22 05:16 Temperature 98.5 F 98.1 F Pulse Rate 84 85 Respiratory Rate 18 16 Blood Pressure 145/77 H 173/85 H Pulse Oximetry 91 93 Oxygen Flow Rate 0 0 Oxygen Delivery Method Room Air Oxygen Flow Rate 0 Narrative Exam Narrative: GEN: no acute distress HEENT: moist mucous membranes, PERRL NECK: trachea midline, no JVD PULM: clear bilaterally, no wheezes, rhonchi, rales CV: regular rate and rhythm, no murmurs ABD: soft, nondistended, incision in lower abdomen s/p surgery with no erythema EXT: warm and well perfused, with no edema NEURO: awake, alert, oriented, with no focal deficits Objective Labs 10/18/22 06:28 10/18/22 06:28 Labs: Laboratory Results - last 24 hr 10/18/22 10/18/22 06:28 06:28 WBC 10.4 D RBC 3.53 L Hgb 10.4 L Hct 30.9 L MCV 87.6 MCH 29.5 MCHC 33.7 RDW 13.6 Plt Count 294 Neut % (Auto) 78.0 H Lymph % (Auto) 8.3 L [place] % (Auto) 12.2 Eos % (Auto) 1.4 L Baso % (Auto) 0.1 Neut # (Auto) 8100 H Lymph # (Auto) 900 L [place] # (Auto) 1300 H Eos # (Auto) 100 Baso # (Auto) 0 Sodium 132 L Potassium 2.7 L* Chloride 95 L Carbon Dioxide 33 H BUN 9 Creatinine 0.41 L Estimated GFR > 60 BUN/Creatinine Ratio 22.0 Glucose 112 H Calcium 8.0 L Magnesium 1.5 L Total Bilirubin 0.6 AST 28 ALT 22 Alkaline Phosphatase 39 Total Protein 6.1 L Albumin 3.2 L Globulin 2.9 Albumin/Globulin Ratio 1.1 PFSH Medical History Diverticulosis GERD (gastroesophageal reflux disease) Glaucoma Hyperlipidemia Surgical History H/O colectomy Social History household members: spouse Smoking Status: Never smoker alcohol intake: current Assessment & Plan Assessment & Plan narrative: 1. Abdominal cellulitis and abscess, possible bowel obstruction due to incarcerated hernia s/p mesh removal -noted to have erythema on abdomen with CT showing 3.7cm abdominal wall fluid collection concerning for abscess, pt has history of hernia repair with mesh below site of infection. Repeat CT showed possible incarcerated hernia, though clinically she has no signs or symptoms of obstruction, other than continued pain. Clinically she was improving. 10/16 patient with bedside I&D with deeper infection than inticipated, surgery to take to the OR tomorrow for I&D, possible mesh removal. -blood cultures pending, but already received zosyn. WBC normal today. -continue vancomycin, zosyn -ordered for oral and IV pain medications -underwent mesh removal on 10/17 -f/u I&D and mesh cultures 2. Hypothyroidism -continue synthroid -check TSH Code status is full code. COVID negative. DVT prophylaxis with HSQ. Proxy is Ricardo. Dispo: Home in 1-2 days pending I&D and mesh culture results. COVID-19 COVID-19 status: Negative Quality VTE Deep Vein Thrombosis/Pulmonary Embolism Present on Admission: No
[2022-10-18] MEDS: OXYCODONE IR 10 MG TABLET PO ×4 (08:24→21:30)
[2022-10-18] MEDS: CYCLOBENZAPRINE 10 MG TABLET 5 MG PO ×2 (08:25→16:11)
[2022-10-18] MEDS: ACETAMINOPHEN 325 MG TABLET 650 MG PO ×2 (08:26→16:11)
[2022-10-18] MEDS: VANCOMYCIN 1,500 MG/300 ML PIGGYBACK 200 MG IV ×2 (08:26→21:32)
[2022-10-18] MEDS: polyethylene glycoL 3350 17 GM POWD.PACK PO (08:26)
[2022-10-18] MEDS: DULOXETINE 30 MG CAPSULE PO ×2 (08:26→21:30)
[2022-10-18] MEDS: POTASSIUM CHLORIDE 20 MEQ TAB 40 MEQ PO ×3 (08:26→16:11)
[2022-10-18] MEDS: MAGNESIUM SULFATE 4 GM/100 ML PIGGYBACK IV (15:03)
[2022-10-18 16:16] LABS: Vancomycin Trough 19.1 ug/mL (10-20)
--- NOTE | 2022-10-18 19:17 | P.PN_ITS ---
Subjective Subjective Date Patient Seen: 10/18/22 Time Patient Seen: 19:17 Interval history: Doing well today. Not feeling very hungry and is eating a few bites of food here and there. She is passing gas from below. And her pain is controlled. Exam Vital Signs (past 8 hours): - 10/18/22 12:28 10/18/22 16:33 Temperature 98.5 F 98.3 F Pulse Rate 79 81 Respiratory Rate 18 18 Blood Pressure 149/63 H 156/76 H Pulse Oximetry 92 93 Oxygen Flow Rate 0 0 Oxygen Delivery Method Room Air Oxygen Flow Rate 0 Narrative Exam Narrative: She is awake alert oriented and in no acute distress seated in her bedside chair The wound is clean dry and intact it is still dressed with a sterile surgical dressings. There is an abdominal binder in place. Objective Labs 10/18/22 06:28 10/18/22 06:28 Labs: Laboratory Results - last 24 hr 10/18/22 10/18/22 10/18/22 06:28 06:28 15:35 WBC 10.4 D RBC 3.53 L Hgb 10.4 L Hct 30.9 L MCV 87.6 MCH 29.5 MCHC 33.7 RDW 13.6 Plt Count 294 Neut % (Auto) 78.0 H Lymph % (Auto) 8.3 L [place] % (Auto) 12.2 Eos % (Auto) 1.4 L Baso % (Auto) 0.1 Neut # (Auto) 8100 H Lymph # (Auto) 900 L [place] # (Auto) 1300 H Eos # (Auto) 100 Baso # (Auto) 0 Sodium 132 L Potassium 2.7 L* Chloride 95 L Carbon Dioxide 33 H BUN 9 Creatinine 0.41 L Estimated GFR > 60 BUN/Creatinine Ratio 22.0 Glucose 112 H Calcium 8.0 L Magnesium 1.5 L Total Bilirubin 0.6 AST 28 ALT 22 Alkaline Phosphatase 39 Total Protein 6.1 L Albumin 3.2 L Globulin 2.9 Albumin/Globulin Ratio 1.1 Vancomycin Trough 19.1 PFSH Medical History Diverticulosis GERD (gastroesophageal reflux disease) Glaucoma Hyperlipidemia Surgical History H/O colectomy Social History household members: spouse Smoking Status: Never smoker alcohol intake: current Assessment & Plan Assessment and plan (1) Infected hernioplasty mesh: Status: Acute Plan Postoperative day 1 status post small bowel resection and mesh explantation Doing well. Okay to start DVT prophylaxis or other blood thinners. Advance diet as tolerated slowly and I encouraged her just to eat a very small amount if that is all she wants. I also encouraged her to ambulate in the halls and tomorrow I will take down the dressing and she can shower and pat dry the wound. I will arrange follow-up for staple removal in my office in 7-10 days. Please do not hesitate to call me if there is any questions or concerns but overall I think she is doing very well. Quality VTE Deep Vein Thrombosis/Pulmonary Embolism Present on Admission: No
[2022-10-18] MEDS: HEPARIN 5,000 UNIT/ML VIAL 5000 UNIT SUBCUT (21:29)
[2022-10-18] MEDS: PRAVASTATIN 20 MG TABLET PO (21:30)
[2022-10-19] VITALS (7 sets, daily range): BP systolic 158–178; BP diastolic 58–94; PULSE 74–91; RESP 15–18; TEMP 36.1–37; O2SAT 91–94
[2022-10-19] MEDS: MORPHINE 4 MG/ML INJ 3 MG IV (00:17)
[2022-10-19] MEDS: CYCLOBENZAPRINE 10 MG TABLET 5 MG PO (00:18)
[2022-10-19] MEDS: PIPERACILLIN/TAZO 3.375 GM in SODIUM CHLORIDE 0.9% 100 ML IV ×3 (00:19→19:03)
[2022-10-19] MEDS: LEVOTHYROXINE 25 MCG TABLET PO (05:44)
[2022-10-19 06:35] LABS: Add Manual Diff / Slide Review NO; Basophils Absolute Auto 0 /uL (0-100); Basophils Percent Auto 0.4 % (0-2); Eosinophils Absolute Auto 300 /uL (0-450); Eosinophils Percent Auto 3.2 % (2-4); Hematocrit 33.6 % (36-46); Hemoglobin 11.2 g/dL (12.0-16.0); Lymphocytes Absolute Auto 1400 /uL (1100-4500); Lymphocytes Percent Auto 13.6 % (25-40); Mean Corpuscular HGB Conc 33.2 % (30-36); Mean Corpuscular Hemoglobin 29.6 PG (26-34); Mean Corpuscular Volume 88.9 fL (80-100); Monocytes Absolute Auto 1100 /uL (0-900); Monocytes Percent Auto 10.5 % (3-14); Neutrophils Absolute Auto 7300 /uL (1500-7000); Neutrophils Percent Auto 72.3 % (50-75); Platelet Count 366 X10^3/uL (150-400); Red Blood Cell Count 3.78 X10^6/uL (4.0-5.2); Red Cell Distribution Width 13.7 % (11.6-14.8); White Blood Cell Count 10.1 X10^3/uL (4.5-11.0)
[2022-10-19 06:40] LABS: Alanine Aminotransferase 23 IU/L (<35); Albumin 3.7 g/dL (3.5-5.0); Albumin Globulin Ratio 1.2 (1.0-2.8); Alkaline Phosphatase 55 U/L (38-126); Aspartate Aminotransferase 30 IU/L (14-36); BUN Creatinine Ratio 23.4 (6-22); Bilirubin Total 0.5 mg/dL (0.2-1.3); Blood Urea Nitrogen 11 mg/dL (7-17); Calcium 8.3 mg/dL (8.4-10.2); Carbon Dioxide 30 mmol/L (22-32); Chloride 97 mmol/L (98-107); Estimated Glomerular Filt Rate > 60 mL/min (>60); Globulin 3.1 g/dL (1.7-4.1); Glucose 104 mg/dL (80-110); HEMOLYSIS 35 (0-50); Magnesium 2.3 mg/dL (1.6-2.3); Potassium 3.4 mmol/L (3.4-5.1); Sodium 133 mmol/L (137-145); Total Protein 6.8 g/dL (6.3-8.2)
[2022-10-19 07:43] LABS: TSH w/ Reflex to FT4 2.66 uIU/mL (0.47-4.68)
[2022-10-19] MEDS: OXYCODONE IR 10 MG TABLET PO ×2 (08:38→20:31)
[2022-10-19] MEDS: HEPARIN 5,000 UNIT/ML VIAL 5000 UNIT SUBCUT ×2 (08:38→20:31)
[2022-10-19] MEDS: DULOXETINE 30 MG CAPSULE PO ×2 (08:39→20:32)
[2022-10-19 08:50] LABS: Vancomycin Trough 14.4 ug/mL (10-20)
[2022-10-19] MEDS: VANCOMYCIN TROUGH 1 REQUEST MISC (09:51)
[2022-10-19] MEDS: POTASSIUM CHLORIDE 20 MEQ TAB 40 MEQ PO (09:51)
--- NOTE | 2022-10-19 11:07 | P.PN_ITS ---
Subjective Subjective Date Patient Seen: 10/19/22 Time Patient Seen: 11:07 Interval history: Doing fine. Ate just a little bit yesterday. Tolerating clears. Passing flatus. Pain relatively controlled on PO medication. Exam Vital Signs (past 8 hours): - 10/19/22 03:40 10/19/22 08:15 Temperature 97.0 F L 98.0 F Pulse Rate 91 H 77 Respiratory Rate 15 17 Blood Pressure 159/70 H 162/94 H Pulse Oximetry 91 94 Oxygen Flow Rate 0 0 Oxygen Delivery Method Room Air Oxygen Flow Rate 0 Narrative Exam Narrative: Wound is clean, dry, beulah in place. Abdomen is tender but appropriate around incision. There is some mild distention. Const General: cooperative, comfortable and No acute distress Objective Labs 10/19/22 05:58 10/19/22 05:58 Labs: Laboratory Results - last 24 hr 10/18/22 10/19/22 10/19/22 15:35 05:58 05:58 WBC 10.1 RBC 3.78 L Hgb 11.2 L Hct 33.6 L MCV 88.9 MCH 29.6 MCHC 33.2 RDW 13.7 Plt Count 366 Neut % (Auto) 72.3 Lymph % (Auto) 13.6 L [place] % (Auto) 10.5 Eos % (Auto) 3.2 Baso % (Auto) 0.4 Neut # (Auto) 7300 H Lymph # (Auto) 1400 [place] # (Auto) 1100 H Eos # (Auto) 300 Baso # (Auto) 0 Sodium 133 L Potassium 3.4 Chloride 97 L Carbon Dioxide 30 BUN 11 Creatinine 0.47 L Estimated GFR > 60 BUN/Creatinine Ratio 23.4 H Glucose 104 Calcium 8.3 L Magnesium 2.3 Total Bilirubin 0.5 AST 30 ALT 23 Alkaline Phosphatase 55 Total Protein 6.8 Albumin 3.7 Globulin 3.1 Albumin/Globulin Ratio 1.2 TSH Vancomycin Trough 19.1 10/19/22 10/19/22 05:58 08:08 WBC RBC Hgb Hct MCV MCH MCHC RDW Plt Count Neut % (Auto) Lymph % (Auto) [place] % (Auto) Eos % (Auto) Baso % (Auto) Neut # (Auto) Lymph # (Auto) [place] # (Auto) Eos # (Auto) Baso # (Auto) Sodium Potassium Chloride Carbon Dioxide BUN Creatinine Estimated GFR BUN/Creatinine Ratio Glucose Calcium Magnesium Total Bilirubin AST ALT Alkaline Phosphatase Total Protein Albumin Globulin Albumin/Globulin Ratio TSH 2.66 Vancomycin Trough 14.4 PFSH Medical History Diverticulosis GERD (gastroesophageal reflux disease) Glaucoma Hyperlipidemia Surgical History H/O colectomy Social History household members: spouse Smoking Status: Never smoker alcohol intake: current Assessment & Plan Assessment and plan (1) Infected hernioplasty mesh: Status: Acute Plan advance slowly. waiting ROBF dvt ppx prelim cx is staph aureus. wait for sensitivites for abtx plan. Denisha/da to follow in next few days, but contact my cell anytime as needed. Will ask office to arrange f/u on 11/01 for staple removal. Quality VTE Deep Vein Thrombosis/Pulmonary Embolism Present on Admission: No
[2022-10-19] MEDS: OXYCODONE IR 5 MG TABLET PO (12:19)
--- NOTE | 2022-10-19 13:32 | CM.DPC ---
Addendum entered by Vianca Stephenson R.N. 10/19/22 14:41: Met with patient in her room. Asked her if she would be interested in home health services, patient indicated, she would. Went over the home health agencies, star ratings, patient would like the 5 star agency if possible, which is [facility]. Patient resides here in [place]. She plans to have her spouse and son move her bed downstairs so it will be easier for her. Will plan on ordering RN, P.T, and O.T. Alison, CLARIBEL baking assistant, is sending referral to [facility]. Will work on face to face and orders. Original Note: DCP Cont: Discussed patient during team rounds. Surgeon will be seeing patient. P.T. was ordered for patient to see how she mobilizes, will see how she does. It is also noted that final cultures and sensitivities are pending to determine which antibiotic that she will be on. P: DCP to continue to follow closely, and to determine which antibiotic that she will be on. Will see how she does with P.T, to see if patient may need home health services. Vianca Stephenson RN/Air Transportation Provider
--- NOTE | 2022-10-19 14:09 | PT.IIE ---
Current Diagnoses Cellulitis of abdominal wall (10/11/22) Infection and inflammatory reaction due to other internal prosthetic devices, implants and grafts, initial encounter (10/11/22) Surgery Performed Operation Date: 10/17/22 11:00 Actual Procedures p Exploratory Laparotomy with removal of Mesh Implant(Not Applicable) - Berta Weber MD s Small Bowel Resection (Not Applicable) - Berta Weber MD Surgical History (Last Reviewed 10/12/22 @ 10:43 by Leila Lyn MD) H/O colectomy Medical History (Last Reviewed 10/12/22 @ 10:43 by Leila Lyn MD) Diverticulosis GERD (gastroesophageal reflux disease) Glaucoma Hyperlipidemia Physical Therapy Inpatient Evaluation/Re-Eval M1 PT/OT-IP Prior Functional Status Start: 10/19/22 09:09 Freq: NEEDED Status: Active Protocol: Document 10/19/22 13:43 ES (Rec: 10/19/22 14:09 ES [id number]) Medical Review Prior Functional Status Medical History Reviewed Yes Diet/Fluid Consistency Regular Communication Indep Mobility and Gait Indep without AD Activities of Daily Living and IADL's Indep Social History Household Members spouse Living Arrangements House Number of Floors (Floors) 3 or More Floors Number of Stairs To Enter/Railing? 2 steps without rail to enter. Bedroom is on upper level but plans to have a bed on the main entry level electrician temporarily. Home Environment High Toilet,Walk in Shower Home Equipment Front Wheel Walker,Four Wheel Walker,Shower Seat without Backrest,Cribbing Setter Additional Social History Comment is at home and able to assist. M2 PT-IP Current Condition Start: 10/19/22 09:09 Freq: NEEDED Status: Active Protocol: Document 10/19/22 13:43 ES (Rec: 10/19/22 14:09 ES [id number]) Physical Therapy Current Condition Current Condition Evaluation Date 10/19/22 Treatment Diagnosis S/p small bowel resection and mesh explantation, weakness Onset Date 10/18/22 M3 PT-IP Subjective Start: 10/19/22 09:09 Freq: NEEDED Status: Active Protocol: Document 10/19/22 13:43 ES (Rec: 10/19/22 14:09 ES [id number]) Subjective Physical Therapy Visit Type Type Initial Evaluation Visit Start Time 09:21 Visit Stop Time 11:15 Total Visit Minutes 62 Notes Split visit Physical Therapy Visit Comments Patient Comments Initially saw patient to obtain history, but pain was too high (8/10) to mobilize. Returned later and patient reported her pain was improved (5/10) and was agreeable to mobilize with PT. Patient Goals To go home when ready Therapy Pain Assessment Pain When Pain Assessed During Mobility Pain Present Pain Present Pain Reported Location Abdomen Intensity 5 Scale Used Numeric (0 - 10) Pain Management Techniques Timing of Activity with Medications M4 PT-IP Mobility and Gait Start: 10/19/22 09:09 Freq: NEEDED Status: Active Protocol: Document 10/19/22 13:43 ES (Rec: 10/19/22 14:09 ES [id number]) PT-Bed Mobility Assessment Rolling Type of Rolling Log Rolling,Roll to Right,Roll to Left Level of Assist Moderate Assistance,1 Person Assistance Supine to Sit Supine to Sit Moderate Assistance,1 Person Assistance Sit to Supine Sit to Supine Minimal Assistance,1 Person Assistance Scooting Scooting to Edge of Bed Minimal Assistance PT-Transfer Assessment Sit to and From Stand Sit to and from Stand Contact Guard Assistance,Use of Upper Extremities Equipment Transfer Assistive Device Gait Belt,Front Wheeled Walker Transfers Transfer Destination Chair,Toilet Transfer Technique Ambulation Transfer Ability Level of Assist Contact Guard Assistance,Use of Upper Extremities Comments Mobility Comments Instructed patient in log roll technique for supine to/from sit to reduce strain on abdomen. Became lightheaded with initial sitting which then improved. BP stable. Gait Assessment Gait Gait Assistance Required: Contact Guard Assist Distance (Feet) 110 Assistive Devices Assistive Device Gait Belt,4 Wheeled Walker Gait Deviations General Gait Pattern Decreased Stride Length,Flexed Trunk Factors Limiting Gait Function Factors Limiting Gait Function Decreased Strength,Pain Comments Gait Comments Ambulated with 4WW so that she had a place to sit as needed, as no w/c were available at the time. Instructed patient in appropriate use of brakes. Ambulated slowly, no LOB. Stair Climbing Assessment Evaluation Level of Assist On Stairs Contact Guard Assistance Devices Stair Climbing Assistive Devices Left Railing,Right Railing Technique/Endurance Stair Climbing Direction Ascend and Descend Stair Climbing Technique Step to Step Number of Steps Climbed 3 Query Text: Stair Climbing Set # Repetitions (reps) 1 PT-Balance Assessment Sitting Balance and Reactions Static Sitting Balance Ability Good Dynamic Sitting Balance Ability Good Standing Balance and Reactions Static Standing Balance Ability Good Dynamic Standing Balance Ability Fair Device Used FWW/4WW M5 PT-IP Objective Assessments Start: 10/19/22 09:09 Freq: NEEDED Status: Active Protocol: Document 10/19/22 13:43 ES (Rec: 10/19/22 14:09 ES [id number]) Orientation Orientation/Cognition Level of Alertness Alert Orientation Name,Age,Birthday,Year,Place, Situation Language Function Ability No Deficits Noted Safety Awareness Understands Safety Issues Memory Description No Deficits Noted Gross Range of Motion Upper Extremity ROM Assessment Within Functional Limits Lower Extremity ROM Assessment Within Functional Limits Strength Upper Extremity Strength Assessment Within Functional Limits Lower Extremity Strength Assessment Within Functional Limits Coordination Assessment Gross Coordination Gross Coordination WNL M6 PT-IP Treatment Start: 10/19/22 09:09 Freq: NEEDED Status: Active Protocol: Document 10/19/22 13:43 ES (Rec: 10/19/22 14:09 ES [id number]) Physical Therapy Treatment Education Education Provided Safety M7 PT-IP Assessment and Plan Start: 10/19/22 09:09 Freq: NEEDED Status: Active Protocol: Document 10/19/22 13:43 ES (Rec: 10/19/22 14:09 ES [id number]) PT Summary Assessment and Plan Potential Rehabilitation Potential Good Status of Condition at Evaluation Stable Summary Impairments Pain,Strength,Balance,Bed Mobility,Transfers,Gait, Activity Tolerance Assessment Summary Patient is a 77 year old female POD 1 s/p small bowel resection and mesh explantation who presents below her baseline function due to pain, general weakness and deconditioning. She was lightheaded and fatigued by end of session and requested to return to bed. She required increased assistance with bed mobility with use of log roll due to pain and trunk weakness. She will benefit from further skilled therapy to increase strength and activity tolerance to be able to return home safely with 's assistance. Recommend HH to address safety in the home and to assist patient back to baseline function. Goals Bed Mobility Goal Minimal Assistance Transfer Goal Standby Assistance,Front Wheeled Walker Gait Goal Standby Assistance,Front Wheel Walker Gait Distance 100 Other Goals Patient will be able to ascend /descend 2 stairs with single rail and CGA. Days to Meet Goals 7 Frequency of Treatment Frequency Of Treatment Twice a Day Treatment Plan Physical Therapy Treatment Plan Bed Mobility Training,Transfer Training,Gait Training, Discharge Planning Precautions Abdominal Surgery Precautions Log Roll,Lifting Restrictions, Gait Belt above Incisional Area Recommendations To Nursing Amount of Assist Needed 1 Person Assist Discharge Recommendations PT Discharge Recommendations Home with / Assist Available,Home Health Transportation Needs at Discharge Private Vehicle
[2022-10-19] MEDS: VANCOMYCIN 1,500 MG/300 ML PIGGYBACK 200 MG IV (14:30)
--- NOTE | 2022-10-19 15:32 | PT.IPTN ---
Current Diagnoses Cellulitis of abdominal wall (10/11/22) Infection and inflammatory reaction due to other internal prosthetic devices, implants and grafts, initial encounter (10/11/22) Surgery Performed Operation Date: 10/17/22 11:00 Actual Procedures p Exploratory Laparotomy with removal of Mesh Implant(Not Applicable) - Berta Weber MD s Small Bowel Resection (Not Applicable) - Berta Weber MD Physical Therapy Treatment Note M2 PT-IP Current Condition Start: 10/19/22 09:09 Freq: NEEDED Status: Active Protocol: Document 10/19/22 13:43 ES (Rec: 10/19/22 14:09 ES [id number]) Physical Therapy Current Condition Current Condition Evaluation Date 10/19/22 Treatment Diagnosis S/p small bowel resection and mesh explantation, weakness Onset Date 10/18/22 M3 PT-IP Subjective Start: 10/19/22 09:09 Freq: NEEDED Status: Active Protocol: Document 10/19/22 15:56 TS (Rec: 10/19/22 16:15 TS [id number]) Subjective Physical Therapy Visit Type Type Treatment Note Visit Start Time 15:32 Visit Stop Time 15:54 Total Visit Minutes 22 Number of INDUSTRIAL RELATIONS OFFICER Visits 1 Physical Therapy Visit Comments Patient Comments Pt found resting in bed, reports feeling tired and having some heart burn, agreeable to PT. Patient Goals To go home when ready Therapy Pain Assessment Pain When Pain Assessed During Mobility Pain Present Pain Present Pain Reported Location Abdomen Intensity 5 Scale Used Numeric (0 - 10) Pain Management Techniques Timing of Activity with Medications M4 PT-IP Mobility and Gait Start: 10/19/22 09:09 Freq: NEEDED Status: Active Protocol: Document 10/19/22 15:56 TS (Rec: 10/19/22 16:15 TS [id number]) PT-Bed Mobility Assessment Rolling Type of Rolling Log Rolling,Roll to Right,Roll to Left Level of Assist Contact Guard Assistance Supine to Sit Supine to Sit Moderate Assistance,1 Person Assistance Sit to Supine Sit to Supine Standby Assistance,1 Person Assistance Scooting Scooting to Edge of Bed Standby Assistance Scooting Up and Down in Bed Standby Assistance PT-Transfer Assessment Sit to and From Stand Sit to and from Stand Standby Assistance,Use of Upper Extremities Equipment Transfer Assistive Device Gait Belt,Front Wheeled Walker Comments Mobility Comments Pt found resting in bed, agreeable to PT. Logroll SBA with handraill assist. Supine to sit ModA for uprighting trunk, provided cues for RUe pushing from bed and swinging LEs off EOB. She scooted to EOB SBA holding onto 4WW for support. Sit to stand SBA with 4WW and BUE support pushing from bed. She ambulated in [facility] ~300' SBA with step thru gait, slgihtly flexed posture, no buckling or LOB but some fatigue after ~150'. Sit to supine SBA, provided cues for logroll. PT was left in bed with call light nearby, nursing notified. Gait Assessment Gait Gait Assistance Required: Standby Assistance Distance (Feet) 300 Assistive Devices Assistive Device Gait Belt,4 Wheeled Walker Gait Deviations General Gait Pattern Decreased Stride Length,Flexed Trunk Factors Limiting Gait Function Factors Limiting Gait Function Decreased Strength,Pain Comments Gait Comments See mobility comments. Stair Climbing Assessment Comments Stair Climbing Comments Did not assess this session. PT-Balance Assessment Sitting Balance and Reactions Static Sitting Balance Ability Good Dynamic Sitting Balance Ability Good Standing Balance and Reactions Static Standing Balance Ability Good Dynamic Standing Balance Ability Fair Device Used FWW/4WW M5 PT-IP Objective Assessments Start: 10/19/22 09:09 Freq: NEEDED Status: Active Protocol: Document 10/19/22 13:43 ES (Rec: 10/19/22 14:09 ES [id number]) Orientation Orientation/Cognition Level of Alertness Alert Orientation Name,Age,Birthday,Year,Place, Situation Language Function Ability No Deficits Noted Safety Awareness Understands Safety Issues Memory Description No Deficits Noted Gross Range of Motion Upper Extremity ROM Assessment Within Functional Limits Lower Extremity ROM Assessment Within Functional Limits Strength Upper Extremity Strength Assessment Within Functional Limits Lower Extremity Strength Assessment Within Functional Limits Coordination Assessment Gross Coordination Gross Coordination WNL M6 PT-IP Treatment Start: 10/19/22 09:09 Freq: NEEDED Status: Active Protocol: Document 10/19/22 15:56 TS (Rec: 10/19/22 16:15 TS [id number]) Physical Therapy Treatment Education Education Provided Safety M7 PT-IP Assessment and Plan Start: 10/19/22 09:09 Freq: NEEDED Status: Active Protocol: Document 10/19/22 15:56 TS (Rec: 10/19/22 16:15 TS [id number]) PT Summary Assessment and Plan Potential Rehabilitation Potential Good Summary Impairments Pain,Strength,Balance,Bed Mobility,Transfers,Gait, Activity Tolerance Progress Towards Goals Progressing Toward Goals Assessment Summary Pt continues to require ModA for uprighting trunk for sitting EOB. She progressed her ambulation to ~300 SBA, no buckling or LOB noted, also performed gait with no AD ~5' in room. She demonstrates good carryover of logroll sequencing and recalled 3/3 precautions prior to session. PT recommends pt return home with assist and HHPT for return to baseline function. Goals Bed Mobility Goal Minimal Assistance Transfer Goal Standby Assistance,Front Wheeled Walker Gait Goal Standby Assistance,Front Wheel Walker Gait Distance 100 Other Goals Patient will be able to ascend /descend 2 stairs with single rail and CGA. Days to Meet Goals 7 Frequency of Treatment Frequency Of Treatment Twice a Day Treatment Plan Physical Therapy Treatment Plan Bed Mobility Training,Transfer Training,Gait Training, Discharge Planning Precautions Abdominal Surgery Precautions Log Roll,Lifting Restrictions, Gait Belt above Incisional Area Recommendations To Nursing Amount of Assist Needed 1 Person Assist Discharge Recommendations PT Discharge Recommendations Home with 19/12 Assist Available,Home Health Transportation Needs at Discharge Private Vehicle
--- NOTE | 2022-10-19 18:31 | PM.PN.1 ---
Subjective Subjective Interval history: Patient doing better. Will try to eat more today but appetite has been lacking. I&D culture is growing staph aureus with sensitivities pending. Exam Vital Signs (past 8 hours): - 10/19/22 12:00 10/19/22 16:00 Temperature 97.9 F 98.6 F Pulse Rate 85 74 Respiratory Rate 16 18 Blood Pressure 178/70 H 158/58 H Pulse Oximetry 94 93 Oxygen Flow Rate 0 0 Oxygen Delivery Method Room Air Oxygen Flow Rate 0 Narrative Exam Narrative: GEN: no acute distress HEENT: moist mucous membranes, PERRL NECK: trachea midline, no JVD PULM: clear bilaterally, no wheezes, rhonchi, rales CV: regular rate and rhythm, no murmurs ABD: soft, nondistended, incision in lower abdomen s/p surgery with no erythema EXT: warm and well perfused, with no edema NEURO: awake, alert, oriented, with no focal deficits Objective Labs 10/19/22 05:58 10/19/22 05:58 Labs: Laboratory Results - last 24 hr 10/19/22 10/19/22 10/19/22 05:58 05:58 05:58 WBC 10.1 RBC 3.78 L Hgb 11.2 L Hct 33.6 L MCV 88.9 MCH 29.6 MCHC 33.2 RDW 13.7 Plt Count 366 Neut % (Auto) 72.3 Lymph % (Auto) 13.6 L [place] % (Auto) 10.5 Eos % (Auto) 3.2 Baso % (Auto) 0.4 Neut # (Auto) 7300 H Lymph # (Auto) 1400 [place] # (Auto) 1100 H Eos # (Auto) 300 Baso # (Auto) 0 Sodium 133 L Potassium 3.4 Chloride 97 L Carbon Dioxide 30 BUN 11 Creatinine 0.47 L Estimated GFR > 60 BUN/Creatinine Ratio 23.4 H Glucose 104 Calcium 8.3 L Magnesium 2.3 Total Bilirubin 0.5 AST 30 ALT 23 Alkaline Phosphatase 55 Total Protein 6.8 Albumin 3.7 Globulin 3.1 Albumin/Globulin Ratio 1.2 TSH 2.66 Vancomycin Trough 10/19/22 08:08 WBC RBC Hgb Hct MCV MCH MCHC RDW Plt Count Neut % (Auto) Lymph % (Auto) [place] % (Auto) Eos % (Auto) Baso % (Auto) Neut # (Auto) Lymph # (Auto) [place] # (Auto) Eos # (Auto) Baso # (Auto) Sodium Potassium Chloride Carbon Dioxide BUN Creatinine Estimated GFR BUN/Creatinine Ratio Glucose Calcium Magnesium Total Bilirubin AST ALT Alkaline Phosphatase Total Protein Albumin Globulin Albumin/Globulin Ratio TSH Vancomycin Trough 14.4 PFSH Medical History Diverticulosis GERD (gastroesophageal reflux disease) Glaucoma Hyperlipidemia Surgical History H/O colectomy Social History household members: spouse Smoking Status: Never smoker alcohol intake: current Assessment & Plan Assessment & Plan narrative: 1. Abdominal cellulitis and abscess, possible bowel obstruction due to incarcerated hernia s/p mesh removal -noted to have erythema on abdomen with CT showing 3.7cm abdominal wall fluid collection concerning for abscess, pt has history of hernia repair with mesh below site of infection. Repeat CT showed possible incarcerated hernia, though clinically she has no signs or symptoms of obstruction, other than continued pain. Clinically she was improving. 10/16 patient with bedside I&D with deeper infection than inticipated, surgery to take to the OR tomorrow for I&D, possible mesh removal. -blood cultures with NG, but already received zosyn. WBC normal today. -continue vancomycin, zosyn -ordered for oral and IV pain medications -underwent mesh removal on 10/17 -I&D culture growing staph aureas, sensitivities pending -advance diet per gen surg 2. Hypothyroidism -continue synthroid -TSH normal at 2.66 Code status is full code. COVID negative. DVT prophylaxis with HSQ. Proxy is Ricardo. Dispo: Home on 10/20 pending staph aureas sensitivities. COVID-19 COVID-19 status: Negative Quality VTE Deep Vein Thrombosis/Pulmonary Embolism Present on Admission: No
[2022-10-19] MEDS: PRAVASTATIN 20 MG TABLET PO (20:32)
[2022-10-20] MEDS: FAMOTIDINE 20 MG TABLET PO ×2 (00:55→09:13)
[2022-10-20] MEDS: VANCOMYCIN 1,500 MG/300 ML PIGGYBACK 200 MG IV (02:00)
[2022-10-20] MEDS: OXYCODONE IR 5 MG TABLET PO ×2 (04:03→09:14)
[2022-10-20] MEDS: PIPERACILLIN/TAZO 3.375 GM in SODIUM CHLORIDE 0.9% 100 ML IV (04:16)
[2022-10-20 04:33] VITALS: BP 196/93; PULSE 97; RESP 17; TEMP 36.2; O2SAT 93
[2022-10-20 04:41] VITALS: BP 188/78
[2022-10-20] MEDS: LEVOTHYROXINE 25 MCG TABLET PO (05:35)
[2022-10-20] MEDS: MAG HYDROX/ALUMINUM/SIMETH SUS 20 ML, LIDOCAINE VISCOUS 2% 15 ML PO (05:38)
[2022-10-20 07:00] VITALS: O2SAT 93
[2022-10-20 07:35] LABS: Blood Urea Nitrogen 9 mg/dL (7-17); Calcium 8.3 mg/dL (8.4-10.2); Carbon Dioxide 32 mmol/L (22-32); Chloride 92 mmol/L (98-107); Estimated Glomerular Filt Rate > 60 mL/min (>60); Glucose 126 mg/dL (80-110); HEMOLYSIS < 15 (0-50); Potassium 3.6 mmol/L (3.4-5.1); Sodium 129 mmol/L (137-145)
[2022-10-20 07:38] VITALS: BP 176/88; PULSE 91; RESP 18; TEMP 36.3; O2SAT 93
[2022-10-20] MEDS: ONDANSETRON 4 MG/2 ML INJ IV (07:41)
--- NOTE | 2022-10-20 08:21 | P.DS_ITS ---
History of Present Illness History of Present Illness Date Patient Seen: 10/11/22 Time Patient Seen: 20:30 Chief complaint: sent by PCP poss. strangulated bowel Narrative: Ms. Richard is a 77W with PMH hypothyroidism who presents to the hospital with abdominal pain. She notes she for the past few months notes some discomfort from her pants in her abdomen. On monday she noted noted redness and discomfort on her abdomen. She felt some nausea. Her pain worsened over the next few days. She has noted not having a bowel movement over the last couple days. She had abdominal hernia repair with mesh done many years ago. No vomiting, no diarrhea. No measured fevers. In the ED workup was done, vitals notable for afebrile, heart rate 80s, respiratory rate 18, blood pressure 190s/80s, sats 98% room air. Labs reviewed and notable for WBC 8.5, hgb 11.7, plts 241. Na 130, co2 30, creatinine 0.50. LFTs normal. UA negative. Lactate 0.6. CT abdomen reviewed and notable for 3cm fluid collection in abdominal wall. General surgery was consulted by the ED and recommend antibiotics and NPO at midnight. She was admitted for further treatment. Discharge Providers Provider Date of admission: 10/11/22 20:11 Discharge Date: 10/20/22 Primary care physician: Melissa Ross PA-C Consults: 10/11/22 21:34 Consult to General Surgery Routine Comment: Consulting Provider: Leila Lyn Reason for consultation: abdominal wall abscess Has provider been notified: Yes 10/18/22 19:19 Consult to Physical Therapy Evaluate & Treat Comment: No restrictions Physician Instructions: Evaluate and Treat 10/19/22 15:28 Consult to Home Health Routine Comment: Reason For Exam: Home Health RN, P.T, O.T. Discharge provider: Anuel Rader DO Summary Hospital Course Discharge Diagnosis: 1. Abdominal cellulitis and abscess, possible bowel obstruction due to incarcerated hernia s/p mesh removal -noted to have erythema on abdomen with CT showing 3.7cm abdominal wall fluid collection concerning for abscess, pt has history of hernia repair with mesh below site of infection. Repeat CT showed possible incarcerated hernia, though clinically she has no signs or symptoms of obstruction, other than continued pain. Clinically she was improving. 5/21 patient with bedside I&D with deeper infection than inticipated, surgery to take to the OR tomorrow for I&D, possible mesh removal. -blood cultures with NG, but already received zosyn. WBC normal today. -continue vancomycin, zosyn. Finished 10 days of IV abx. -ordered for oral and IV pain medications -underwent mesh removal on 10/17 -I&D culture growing MSSA -advanced diet per gen surg -will f/u in surg clinic for staple removal 2. Hypothyroidism -continue synthroid -TSH normal at 2.66 Hospital Course: See above problem list. Time Spent with Patient Time spent: Greater than 30 minutes Exam Vital Signs (past 8 hours): - 10/20/22 04:33 10/20/22 04:41 10/20/22 07:38 Temperature 97.2 F L 97.3 F L Pulse Rate 97 H 91 H Respiratory Rate 17 18 Blood Pressure 196/93 H 188/78 H 176/88 H Pulse Oximetry 93 93 Oxygen Flow Rate 0 0 Oxygen Delivery Method Room Air Oxygen Flow Rate 0 Narrative Exam Narrative: GEN: no acute distress HEENT: moist mucous membranes, PERRL NECK: trachea midline, no JVD PULM: clear bilaterally, no wheezes, rhonchi, rales CV: regular rate and rhythm, no murmurs ABD: soft, nondistended, incision in lower abdomen s/p surgery with no erythema EXT: warm and well perfused, with no edema NEURO: awake, alert, oriented, with no focal deficits Objective Labs 10/19/22 05:58 10/20/22 06:21 Labs: Laboratory Results - last 24 hr 10/19/22 10/20/22 08:08 06:21 Sodium 129 L Potassium 3.6 Chloride 92 L Carbon Dioxide 32 BUN 9 Creatinine 0.50 L Estimated GFR > 60 BUN/Creatinine Ratio 18.0 Glucose 126 H Calcium 8.3 L Vancomycin Trough 14.4 PFSH Medical History Diverticulosis GERD (gastroesophageal reflux disease) Glaucoma Hyperlipidemia Surgical History H/O colectomy Social History household members: spouse Smoking Status: Never smoker alcohol intake: current Discharge Plan Discharge Plan Patient Disposition: Home Provider Discharge Comment: You were admitted for a skin infection in your belly over your prior mesh and hernia site. This mesh was removed and you received a course of antibiotics which you finished. I've sent some pain meds to your pharmacy for you. Discharge orders & Medications Prescriptions: New oxycodone-acetaminophen [Percocet] 5-325 mg tablet 1 tab PO Q4-6H PRN (Reason: pain) Qty: 20 0RF Continued ASPIRIN (#ASPIRIN E.C.) 81 mg PO Q DAY Qty: 0 levothyroxine 25 mcg tablet 25 mcg PO DAILY Rx Instructions: pt takes it Monday through Monday and on Monday she takes 1 1/2 tab olopatadine 0.1 % drops 1 drp EYE-BOTH BEDTIME pravastatin 20 mg tablet 20 mg PO BEDTIME cyclosporine [Restasis] 0.05 % dropperette 1 drp EYE-BOTH BID duloxetine 30 mg capsule,delayed release(DR/EC) 30 mg PO BID Lumigan 0.01 % drops 1 drp EYE-BOTH BEDTIME Follow up/Referrals: Berta Weber MD [Physician] - (staple removal in 7-10 days. Please call the office 19/12 with any questions or concerns. After hours or on the weekends there is a surgeon on-call who is happy to answer any questions. Please stay on the line and send a message through the answering service. ) Melissa Ross PA-C [Primary Care Provider] - 2 Weeks Diet/Activity/Treatments Activity: No lifting greater than 30 lb for 4 weeks after surgery. Do not do any strenuous activity. Normal activity such as walking outside and climbing stairs, is ok. If you notice pain, stop. You may drive when you no longer are taking Narcotic pain medication. Skin/Wound/Dressing Care Other wound treatment: Ok to shower, let water run over it, don't scrub. No ointments. Pat dry afterwards. No tub baths, and don't soak underwater, for 2 weeks. There are skin beulah closing the skin wound but also stitches under the skin which will dissolve. The beulah will need to be removed in 7-10 days after surgery. Visit Report/Discharge Packet Instructions: [facility]: Wound Care Stand Alone Forms: Patient Portal/API, Stroke Signs & Symptoms, Surgery Di scharge Discharge Data Primary Care Provider: Melissa Ross Discharges patient from system. Discharge Date/Time: 10/20/22 13:15 Quality VTE Deep Vein Thrombosis/Pulmonary Embolism Present on Admission: No
--- NOTE | 2022-10-20 08:39 | CM.DPC ---
DCP Cont: Patient has discharge orders, had ordered [facility] yesterday. Called over at [facility], spoke to Eugenia, Gagan is out on vacation, and let her know that this was sent yesterday. She was not sure she received it, but gave her name and update on patient. They may have availabilities by the weekend. Faxed over the face sheet, face to face, orders, H&P, P.T. notes, and DC Summary. Will give patient a pamphlet. Ordering RN, P.T, O.T. P: Patient is discharging home today with [facility]. Vianca Stephenson RN/Work Force Advisor
[2022-10-20] MEDS: HEPARIN 5,000 UNIT/ML VIAL 5000 UNIT SUBCUT (09:13)
[2022-10-20] MEDS: DULOXETINE 30 MG CAPSULE PO (09:14)
--- NOTE | 2022-10-20 09:57 | PT.IPTN ---
Current Diagnoses Cellulitis of abdominal wall (10/11/22) Infection and inflammatory reaction due to other internal prosthetic devices, implants and grafts, initial encounter (10/11/22) Surgery Performed Operation Date: 10/17/22 11:00 Actual Procedures p Exploratory Laparotomy with removal of Mesh Implant(Not Applicable) - Berta Weber MD s Small Bowel Resection (Not Applicable) - Berta Weber MD Physical Therapy Treatment Note M2 PT-IP Current Condition Start: 10/19/22 09:09 Freq: NEEDED Status: Active Protocol: Document 10/19/22 13:43 ES (Rec: 10/19/22 14:09 ES [id number]) Physical Therapy Current Condition Current Condition Evaluation Date 10/19/22 Treatment Diagnosis S/p small bowel resection and mesh explantation, weakness Onset Date 10/18/22 M3 PT-IP Subjective Start: 10/19/22 09:09 Freq: NEEDED Status: Active Protocol: Document 10/20/22 09:57 DLM (Rec: 10/20/22 10:17 DLM [id number]) Subjective Physical Therapy Visit Type Type Treatment Note Visit Start Time 09:30 Visit Stop Time 09:57 Total Visit Minutes 27 Number of SPARE PARTS CLERK Visits 0 Physical Therapy Visit Comments Patient Comments She complains of feeling light -headed/dizzy this morning. She is worried about her dog jumping on her at home. Patient Goals Discharge home Therapy Pain Assessment Pain When Pain Assessed During Mobility Pain Present Pain Present Pain Reported Location Abdomen Intensity 5 Scale Used Numeric (0 - 10) Description Tender Pain Behaviors Guarding Pain Management Techniques Modification of Treatment,Re- positioning M4 PT-IP Mobility and Gait Start: 10/19/22 09:09 Freq: NEEDED Status: Active Protocol: Document 10/20/22 09:57 DLM (Rec: 10/20/22 10:17 DLM [id number]) PT-Bed Mobility Assessment Rolling Type of Rolling Log Rolling,Roll to Right Level of Assist Independent Sit to Supine Sit to Supine Independent Scooting Scooting to Edge of Bed Independent PT-Transfer Assessment Sit to and From Stand Sit to and from Stand Standby Assistance,Use of Upper Extremities Equipment Transfer Assistive Device Gait Belt,Front Wheeled Walker Transfers Transfer Destination Bed,Chair,Bedside Commode Transfer Technique Stand Step Pivot Transfer Ability Level of Assist Standby Assistance,Use of Upper Extremities Comments Mobility Comments Pt sitting up in recliner this visit with feet elevated. She needs assist to put the footrest down. She describes feeling dizzy in sitting and when up moving. She feels like she needs to use the toilet. Use the bedside commode since pt is dizzy. She was incontinent of a small amount of stool when sitting in chair . Gait Assessment Gait Gait Assistance Required: Standby Assistance Distance (Feet) 3 Assistive Devices Assistive Device Gait Belt,Front Wheeled Walker Gait Deviations General Gait Pattern Decreased Stride Length,Flexed Trunk Factors Limiting Gait Function Factors Limiting Gait Function Decreased Strength,Pain Comments Gait Comments Abdominal binder in place, pt requested to use FWW instead of 4WW today. Pt declined to ambulate beyond back to bed due to dizziness and fatigue today. Pt left resting in bed at the end of this visit with call light close. Stair Climbing Assessment Comments Stair Climbing Comments pt declined stairs today due to fatigue, she feels confident she can do them at home PT-Balance Assessment Sitting Balance and Reactions Static Sitting Balance Ability Good Dynamic Sitting Balance Ability Good Standing Balance and Reactions Static Standing Balance Ability Good Dynamic Standing Balance Ability Fair Device Used FWW M5 PT-IP Objective Assessments Start: 10/19/22 09:09 Freq: NEEDED Status: Active Protocol: Document 10/19/22 13:43 ES (Rec: 10/19/22 14:09 ES [id number]) Orientation Orientation/Cognition Level of Alertness Alert Orientation Name,Age,Birthday,Year,Place, Situation Language Function Ability No Deficits Noted Safety Awareness Understands Safety Issues Memory Description No Deficits Noted Gross Range of Motion Upper Extremity ROM Assessment Within Functional Limits Lower Extremity ROM Assessment Within Functional Limits Strength Upper Extremity Strength Assessment Within Functional Limits Lower Extremity Strength Assessment Within Functional Limits Coordination Assessment Gross Coordination Gross Coordination WNL M6 PT-IP Treatment Start: 10/19/22 09:09 Freq: NEEDED Status: Active Protocol: Document 10/20/22 09:57 DLM (Rec: 10/20/22 10:17 DLM [id number]) Physical Therapy Treatment Education Education Provided Precautions,Safety Other Treatments Other Treatment Performed discussed safety issues with regarding her dog at home, made safety recommendations to decrease her fall risk. M7 PT-IP Assessment and Plan Start: 10/19/22 09:09 Freq: NEEDED Status: Active Protocol: Document 10/20/22 09:57 DLM (Rec: 10/20/22 10:17 [facility] [id number]) PT Summary Assessment and Plan Summary Impairments Pain,Strength,Balance,Bed Mobility,Transfers,Gait, Activity Tolerance Progress Towards Goals Slow Progress due to Activity Tolerance Assessment Summary Over-all pt has been progressing during this admission. She is fatigued and dizzy this visit which limits her activity tolerance this visit. She demonstrates good functional strength with transfers and getting back to bed this visit. Pt continue to report she feels safe to discharge home with support of her Spouse. BP 144/58 with HR 92 this visit. Her dizziness showed no significant change with changes in position other than she feels better in supine resting. Will continue to plan for discharge home when she is medically stable. Goals Bed Mobility Goal Minimal Assistance Transfer Goal Standby Assistance,Front Wheeled Walker Gait Goal Standby Assistance,Front Wheel Walker Gait Distance 100 Other Goals Patient will be able to ascend /descend 2 stairs with single rail and CGA. Days to Meet Goals 7 Frequency of Treatment Frequency Of Treatment Twice a Day Treatment Plan Physical Therapy Treatment Plan Bed Mobility Training,Transfer Training,Gait Training, Discharge Planning Precautions Abdominal Surgery Precautions Log Roll,Lifting Restrictions, Gait Belt above Incisional Area Recommendations To Nursing Amount of Assist Needed 1 Person Assist Discharge Recommendations PT Discharge Recommendations Home with Assistance,Home Health Other Discharge Recommendations Spouse to assist her Transportation Needs at Discharge Private Vehicle
[2022-10-20 11:45] VITALS: BP 142/80; PULSE 91; TEMP 36.4; O2SAT 90
[2022-10-20 11:47] VITALS: RESP 18
== END 2022-10-20 13:15 | disposition home or self-care (01) | DRG 982 ==
LOC: ED 20:11 → AC 20:11
PROVIDERS: Emergency Medicine; Internal Medicine; Student in an Organized Health Care Education/Training Program; Surgery; Admitting Provider Internal Medicine; Emergency Provider Emergency Medicine; PCP Physician Assistant; Referring Provider Emergency Medicine; Visit Provider Internal Medicine
PROC: 0WPF0JZ Removal of Synthetic Substitute from Abdominal Wall, Open Approach (ICD-10-PCS; CPT 49000; principal; 2022-10-17 11:00)
PROC: 0WPF0JZ Removal of Synthetic Substitute from Abdominal Wall, Open Approach (ICD-10-PCS; CPT 44140; 2022-10-17 11:00)
DX: L03.311 Cellulitis of abdominal wall (principal); K56.609 Unspecified intestinal obstruction, unspecified as to partial versus complete obstruction; T85.79XA Infection and inflammatory reaction due to other internal prosthetic devices, implants and grafts, initial encounter; L02.211 Cutaneous abscess of abdominal wall; E03.9 Hypothyroidism, unspecified; Z20.822 Contact with and (suspected) exposure to COVID-19; B95.61 Methicillin susceptible Staphylococcus aureus infection as the cause of diseases classified elsewhere; E78.5 Hyperlipidemia, unspecified; R03.0 Elevated blood-pressure reading, without diagnosis of hypertension
CPT/HCPCS: 36415; 44120; 49623; 74177; 80048; 80053; 80202; 81003; 81015; 83605; 83690; 83735; 84443; 85025; 85027; 85610; 85730; 87040; 87070; 87075; 87077; 87147; 87176; 87186; 87205; 87635; 93005; 93010; 96365; 96375; 97116; 97161; 97530; 99231; 99232; 99284; C9803; A9270; J0690; J1170; J1642; J1644; J2060; J2270; J2405; J2543; J2704; J3010; J3475; J3490

== ENCOUNTER 2022-10-26 20:41 | Inpatient (IN) | payer MEDICARE, OTHER, SELFPAY ==
[2022-10-11 21:38] VITALS: BMI 27.1
[2022-10-26 20:50] VITALS: BP 123/68; PULSE 95; RESP 18; TEMP 36.6; O2SAT 97; BMI 25.9
--- NOTE | 2022-10-26 21:33 | ED_ITS ---
HPI - General Adult General Chief complaint: Abdominal Pain Stated complaint: nausea, vomiting s/p surgery 6 days ago Time Seen by Provider: 10/26/22 20:55 Source: patient Mode of arrival: Wheelchair History of Present Illness HPI narrative: Patient is a 77-year-old female who approximately 1 week ago underwent abdominal surgery for an inguinal hernia and removal of old mesh. She states that things have been going well at home until earlier today when she started have some abdominal discomfort. Also having some nausea. No change in bowel habits. No urinary symptoms. No fevers. Does have discomfort around the incision site. Is not scheduled to follow-up with orthopedics until next week. She did not take pain medication today because she did not feel like that she needed it until this afternoon. Related Data Home Medications Medication Instructions Recorded Confirmed ASPIRIN (#ASPIRIN E.C.) 81 mg PO Q DAY ##0 06/17/11 10/27/22 bimatoprost 0.01 % eye drops 1 drp EYE-BOTH BEDTIME 05/11/20 10/27/22 (Lumigan) cyclosporine 0.05 % eye drops in a 1 drp EYE-BOTH BID 05/11/20 10/27/22 dropperette (Restasis) duloxetine 30 mg capsule,delayed 30 mg PO BID 05/11/20 10/27/22 release levothyroxine 25 mcg tablet 25 mcg PO DAILY 05/11/20 10/27/22 olopatadine 0.1 % eye drops 1 drp EYE-BOTH BEDTIME 05/11/20 10/27/22 pravastatin 20 mg tablet 20 mg PO BEDTIME 05/11/20 10/27/22 Previous Rx's Medication Instructions Recorded docusate sodium 100 mg capsule 100 mg PO BID #30 caps 10/26/22 (Colace) oxycodone-acetaminophen 5 mg-325 1 tab PO Q4-6H PRN pain #20 tabs 10/26/22 mg tablet (Percocet) Allergies Allergy/AdvReac Type Severity Reaction Status Date / Time adhesive Allergy Mild RASH; Verified 10/17/22 11:16 PAPER TAPE OK erythromycin base Allergy Mild RASH Verified 10/17/22 11:16 tetracycline Allergy Mild RASH Verified 10/17/22 11:16 ciprofloxacin AdvReac Intermediate C DIFF Verified 10/17/22 11:16 ANTI INFLAMMATORY Allergy Mild GI BLEED Uncoded 10/17/22 11:16 Review of Systems Review of Systems ROS Unobtainable: All systems reviewed & are unremarkable except as noted in HPI and below Patient History Medical History Diverticulosis GERD (gastroesophageal reflux disease) Glaucoma Hyperlipidemia Surgical History H/O colectomy Social History household members: spouse Smoking Status: Former smoker alcohol intake: current Smoking Status: Never smoker alcohol intake frequency: a few times a week Substance Use Type: does not use Exam Initial Vital Signs Initial Vital Signs: Vital Signs Temperature 97.8 F 10/26/22 20:50 Pulse Rate 95 H 10/26/22 20:50 Respiratory Rate 18 10/26/22 20:50 Blood Pressure 123/68 10/26/22 20:50 Pulse Oximetry 97 10/26/22 20:50 Oxygen Delivery Method Room Air 10/26/22 20:50 Const General: cooperative, comfortable and No ill appearing HENNH Head: normal to inspection and normocephalic Resp Effort & Inspection: normal respiratory effort Auscultation: clear to auscultation bilaterally Cardio Rate: regular rate Rhythm: regular rhythm GI Inspection: normal to inspection and non-distended Palpation: soft, firm and tender Skin Other: Midline surgical incision looks well beulah in place. No surrounding erythema. Neuro General: patient alert, patient awake and moves all extremities Extrem General: normal to inspection and capillary refill normal Course Orders Ordered: ED Orders 10/26/22 21:00 Complete Blood Count AUTO DIFF Stat Comprehensive Metabolic Panel Stat Lipase Stat 10/26/22 21:34 CT abdomen pelvis w con Stat Morphine Sulfate (Morphine 2 Mg/Ml Inj) 4 mg IV Q4HR PRN PRN Reason: Pain, Moderate (4-6) Ondansetron HCl (Ondansetron 4 Mg/2 Ml Inj) 4 mg IV Q4HR PRN PRN Reason: Nausea And Vomiting Discontinued Medications Sodium Chloride (Normal Saline 0.9%) 1,000 mls @ 500 mls/hr IV BOLUS ONE Stop: 10/26/22 23:32 Last Admin: 10/26/22 21:39 Dose: 500 mls/hr Documented By: ZOE Morphine Sulfate (Morphine 4 Mg/Ml Inj) 4 mg IV NOW ONE Stop: 10/26/22 22:58 Last Admin: 10/26/22 23:17 Dose: 4 mg Documented By: ZOE Ondansetron HCl (Ondansetron 4 Mg/2 Ml Inj) 4 mg IV NOW ONE Stop: 10/26/22 22:58 Last Admin: 10/26/22 23:16 Dose: 4 mg Documented By: ZOE Vital Signs Vital signs: Vital Signs - 8 hr 10/26/22 20:50 10/26/22 22:13 10/26/22 22:16 Temperature 97.8 F Pulse Rate 95 H 36 L Respiratory Rate 18 Blood Pressure 123/68 185/97 H Pulse Oximetry 97 83 L Oxygen Delivery Method Room Air 10/26/22 22:16 10/26/22 22:30 Temperature Pulse Rate 88 85 Respiratory Rate Blood Pressure Pulse Oximetry 94 95 Oxygen Delivery Method Medical Decision Making Medical Records Medical records reviewed: Yes I reviewed the patient's medical records. Lab Data Lab results reviewed: Yes I reviewed the patient's lab results. 10/26/22 21:00 10/26/22 21:00 Labs: Lab Results 10/26/22 10/26/22 Range/Units 21:00 21:00 WBC 15.5 H (4.5-11.0) X10^3/uL RBC 4.09 (4.0-5.2) X10^6/uL Hgb 11.9 L (12.0-16.0) g/dL Hct 35.4 L (36-46) % MCV 86.7 (80-100) fL MCH 29.1 (26-34) PG MCHC 33.6 (30-36) % RDW 14.0 (11.6-14.8) % Plt Count 718 H (150-400) X10^3/uL Neut % (Auto) 79.6 H (50-75) % Lymph % (Auto) 10.7 L (25-40) % [place] % (Auto) 7.0 (3-14) % Eos % (Auto) 1.5 L (2-4) % Baso % (Auto) 1.2 (0-2) % Neut # (Auto) 25154 H (0408-3350) /uL Lymph # (Auto) 1700 (1905-7890) /uL [place] # (Auto) 1100 H (0-900) /uL Eos # (Auto) 200 (0-450) /uL Baso # (Auto) 200 H (0-100) /uL Sodium 133 L (137-145) mmol/L Potassium 3.4 (3.4-5.1) mmol/L Chloride 90 L (98-107) mmol/L Carbon Dioxide 34 H (22-32) mmol/L BUN 17 (7-17) mg/dL Creatinine 0.81 (0.52-1.04) mg/dL Estimated GFR > 60 (>60) mL/min BUN/Creatinine Ratio 21.0 (6-22) Glucose 150 H (80-110) mg/dL Calcium 10.1 (8.4-10.2) mg/dL Total Bilirubin 0.4 (0.2-1.3) mg/dL AST 29 (14-36) IU/L ALT 25 (<35) IU/L Alkaline Phosphatase 62 (38-126) U/L Total Protein 7.8 (6.3-8.2) g/dL Albumin 4.4 (3.5-5.0) g/dL Globulin 3.4 (1.7-4.1) g/dL Albumin/Globulin Ratio 1.3 (1.0-2.8) Lipase 196 (23-300) U/L Imaging Data CT scan - abdomen/pelvis: Radiologist's Impression: PROCEDURE:? CT ABDOMEN PELVIS W CON ? INDICATIONS:? Recent umbilical hernia surgery with mesh removal ? TECHNIQUE:? After the administration of IV contrast, axial sections were acquired from the lung bases to the pubic symphysis.? Coronal and sagittal reformats were performed.? For radiation dose reduction, the following was used:? automated exposure control, adjustment of mA and/or kV according to patient size. ? COMPARISON:? [facility], CT, CT ABDOMEN PELVIS W CON, 10/14/2022, 10:10. ? FINDINGS:? Image quality:? There is metallic streak artifact from patient's right hip prosthesis limiting evaluation.? ? Lung bases:? There is mild dependent atelectasis.? ? Heart:? Heart is normal in size. ? ? ABDOMEN: Liver:? No mass lesion. Gallbladder:? Within normal limits without calcified gallstones.? ? Biliary ducts:? There is intra and extrahepatic biliary ductal dilatation redemonstrated with the common bile duct measuring up to approximately 1.1 cm.? No calcified ob structing stone or discrete obstructing mass visualized.? Pancreas:? There is mild pancreatic duct dilatation measuring up to approximately 0.3 cm extending to the ampulla.? No discrete pancreatic mass identified.? ? Spleen:? Normal in size.? ? Adrenal Glands:? No adrenal nodules.? ? Kidneys and Ureters:? No hydronephrosis.? ? ? Stomach and Bowel:? There is distention of the stomach and small bowel, with small bowel loops measuring up to approximately 3.5 cm with associated with air-fluid levels .? There is a transition point in the right hemipelvis as seen on axial series 2, image 63 and coronal series 4, image 22 adjacent to patient's surgical anastomosis.? Associated small bowel fecalization demonstrated.? The distal ileum is nondistended distal to this transition point.? The findings are consistent with a small-bowel obstruction.? Peritoneum:? There is a small amount of intraperitoneal free fluid.? No free air.? ? Ventral Wall: ? Postsurgical changes are demonstrated within the ventral abdominal wall with a few small indistinct loculated fluid collections along the incision site, measuring up to 1.8 x 1 point 4 cm on series 2, image 44. Abdominal Nodes:? No retroperitoneal or mesenteric adenopathy by size criteria.? Vessels:? Aorta and inferior vena cava are normal in size.? ? PELVIS: Pelvic Organs:? Unremarkable.? ? Bladder:? Unremarkable.? ? Pelvic Nodes: No enlarged lymph nodes.? Miscellaneous: No inguinal hernias are seen. ? ? ? Bones:? Visualized osseous structures demonstrate no suspicious focal lesions. ? IMPRESSION:? ? 1. Findings consistent with a small-bowel obstruction, likely high-grade, with a transition point in the right hemipelvis as described.? Findings discussed with Dr. Le on 10/26/2022 at 10:27 p.m.. ? 2. Small amount of intraperitoneal free fluid is nonspecific and may be reactive or reflect sequelae of prior surgery. ? 3. Mild biliary and pancreatic duct dilatation redemonstrated without a calcified obstructing stone or discrete obstructing mass visualized.? Recommend correlation clinically including with laboratory values for possible biliary obstruction.? If indicated, further evaluation may be obtained with MRCP. ? 4. Small loculated fluid collections along patient's midline surgical incision are nonspecific and may represent seromas or small abscess collections. MDM Narrative Medical decision making narrative: CT scan shows small bowel obstruction. Did discuss the case with Dr. Denny on- call for General surgery. We will admit to the general surgery service. I did discuss case with the patient. Who will admit for further evaluation and treatment. Discharge Plan Departure Patient Disposition: Admitted As Inpatient Clinical Impression: Small bowel obstruction Admit Date/Time: 10/26/22 22:51 Admit Provider: Killian Denny
--- NOTE | 2022-10-26 21:34 | DI.CT.S_ITS ---
PROCEDURE: CT ABDOMEN PELVIS W CON INDICATIONS: Recent umbilical hernia surgery with mesh removal TECHNIQUE: After the administration of IV contrast, axial sections were acquired from the lung bases to the pubic symphysis. Coronal and sagittal reformats were performed. For radiation dose reduction, the following was used: automated exposure control, adjustment of mA and/or kV according to patient size. COMPARISON: [facility], CT, CT ABDOMEN PELVIS W CON, 10/14/2022, 10:10. FINDINGS: Image quality: There is metallic streak artifact from patient's right hip prosthesis limiting evaluation. Lung bases: There is mild dependent atelectasis. Heart: Heart is normal in size. ABDOMEN: Liver: No mass lesion. Gallbladder: Within normal limits without calcified gallstones. Biliary ducts: There is intra and extrahepatic biliary ductal dilatation redemonstrated with the common bile duct measuring up to approximately 1.1 cm. No calcified obstructing stone or discrete obstructing mass visualized. Pancreas: There is mild pancreatic duct dilatation measuring up to approximately 0.3 cm extending to the ampulla. No discrete pancreatic mass identified. Spleen: Normal in size. Adrenal Glands: No adrenal nodules. Kidneys and Ureters: No hydronephrosis. Stomach and Bowel: There is distention of the stomach and small bowel, with small bowel loops measuring up to approximately 3.5 cm with associated with air-fluid levels. There is a transition point in the right hemipelvis as seen on axial series 2, image 63 and coronal series 4, image 22 adjacent to patient's surgical anastomosis. Associated small bowel fecalization demonstrated. The distal ileum is nondistended distal to this transition point. The findings are consistent with a small-bowel obstruction. Peritoneum: There is a small amount of intraperitoneal free fluid. No free air. Ventral Wall: Postsurgical changes are demonstrated within the ventral abdominal wall with a few small indistinct loculated fluid collections along the incision site, measuring up to 1.8 x 1 point 4 cm on series 2, image 44. Abdominal Nodes: No retroperitoneal or mesenteric adenopathy by size criteria. Vessels: Aorta and inferior vena cava are normal in size. PELVIS: Pelvic Organs: Unremarkable. Bladder: Unremarkable. Pelvic Nodes: No enlarged lymph nodes. Miscellaneous: No inguinal hernias are seen. Bones: Visualized osseous structures demonstrate no suspicious focal lesions. IMPRESSION: 1. Findings consistent with a small-bowel obstruction, likely high-grade, with a transition point in the right hemipelvis as described. Findings discussed with Dr. Le on 10/26/2022 at 10:27 p.m.. 2. Small amount of intraperitoneal free fluid is nonspecific and may be reactive or reflect sequelae of prior surgery. 3. Mild biliary and pancreatic duct dilatation redemonstrated without a calcified obstructing stone or discrete obstructing mass visualized. Recommend correlation clinically including with laboratory values for possible biliary obstruction. If indicated, further evaluation may be obtained with MRCP. 4. Small loculated fluid collections along patient's midline surgical incision are nonspecific and may represent seromas or small abscess collections. Dictated by: Tommy Rebolledo M.D. on 10/26/2022 at 22:22 Approved by: Tommy Rebolledo M.D. on 10/26/2022 at 22:35
[2022-10-26] MEDS: SODIUM CHLORIDE 0.9% 1,000 ML 500 ML IV (21:39)
[2022-10-26 21:50] LABS: Add Manual Diff / Slide Review NO; Basophils Absolute Auto 200 /uL (0-100); Basophils Percent Auto 1.2 % (0-2); Eosinophils Absolute Auto 200 /uL (0-450); Eosinophils Percent Auto 1.5 % (2-4); Hematocrit 35.4 % (36-46); Hemoglobin 11.9 g/dL (12.0-16.0); Lymphocytes Absolute Auto 1700 /uL (1100-4500); Lymphocytes Percent Auto 10.7 % (25-40); Mean Corpuscular HGB Conc 33.6 % (30-36); Mean Corpuscular Hemoglobin 29.1 PG (26-34); Mean Corpuscular Volume 86.7 fL (80-100); Monocytes Absolute Auto 1100 /uL (0-900); Neutrophils Absolute Auto 12300 /uL (1500-7000); Neutrophils Percent Auto 79.6 % (50-75); Platelet Count 718 X10^3/uL (150-400); Red Blood Cell Count 4.09 X10^6/uL (4.0-5.2); White Blood Cell Count 15.5 X10^3/uL (4.5-11.0)
[2022-10-26 21:55] LABS: Alanine Aminotransferase 25 IU/L (<35); Albumin 4.4 g/dL (3.5-5.0); Albumin Globulin Ratio 1.3 (1.0-2.8); Alkaline Phosphatase 62 U/L (38-126); Aspartate Aminotransferase 29 IU/L (14-36); Bilirubin Total 0.4 mg/dL (0.2-1.3); Blood Urea Nitrogen 17 mg/dL (7-17); Calcium 10.1 mg/dL (8.4-10.2); Carbon Dioxide 34 mmol/L (22-32); Chloride 90 mmol/L (98-107); Estimated Glomerular Filt Rate > 60 mL/min (>60); Globulin 3.4 g/dL (1.7-4.1); Glucose 150 mg/dL (80-110); HEMOLYSIS < 15 (0-50); Lipase 196 U/L (23-300); Potassium 3.4 mmol/L (3.4-5.1); Sodium 133 mmol/L (137-145); Total Protein 7.8 g/dL (6.3-8.2)
[2022-10-26 22:13] VITALS: PULSE 36; O2SAT 83
[2022-10-26 22:16] VITALS: BP 185/97; PULSE 88; O2SAT 94
[2022-10-26 22:30] VITALS: PULSE 85; O2SAT 95
[2022-10-26 23:00] VITALS: PULSE 94; O2SAT 95
[2022-10-26] MEDS: ONDANSETRON 4 MG/2 ML INJ IV (23:16)
[2022-10-26] MEDS: MORPHINE 4 MG/ML INJ IV (23:17)
[2022-10-27] VITALS: BP 143/83; PULSE 89; RESP 18; TEMP 35.7; O2SAT 93
--- NOTE | 2022-10-27 | DI.RAD.S_ITS ---
PROCEDURE: XR GASTROGRAFIN CHALLENGE COMPARISON: None. INDICATIONS: sbo FINDINGS: 4 hours following administration of oral Gastrografin, contrast is seen within the distended small bowel and also large bowel. IMPRESSION: Interval passage of contrast into the large bowel 4 hours after administration. Dictated by: Flaco Casillas M.D. on 10/27/2022 at 12:55 Approved by: Flaco Casillas M.D. on 10/27/2022 at 12:55
[2022-10-27 00:12] VITALS: BMI 25.9
[2022-10-27] MEDS: ONDANSETRON 4 MG/2 ML INJ IV ×2 (02:11→09:59)
[2022-10-27] MEDS: MORPHINE 2 MG/ML INJ 4 MG IV ×2 (02:44→08:27)
[2022-10-27 04:00] VITALS: BP 131/59; PULSE 86; RESP 17; TEMP 35.9; O2SAT 93
[2022-10-27] MEDS: LACTATED RINGERS 1,000 ML 100 ML IV (08:06)
[2022-10-27] MEDS: ENOXAPARIN 40 MG/0.4 ML SYRINGE SUBCUT (08:10)
[2022-10-27 09:13] VITALS: BP 108/49; PULSE 74; RESP 17; TEMP 36.2; O2SAT 91
[2022-10-27] MEDS: HYDROMORPHONE 0.5 MG INJ IV ×2 (12:26→20:16)
[2022-10-27 13:00] VITALS: BP 123/62; PULSE 82; RESP 17; TEMP 36.3; O2SAT 90
--- NOTE | 2022-10-27 14:02 | P.HP_ITS ---
History of Present Illness History of Present Illness Date Patient Seen: 10/27/22 Time Patient Seen: 19:42 Chief complaint: nausea, vomiting s/p surgery 6 days ago Narrative: 77-year-old woman admitted to the hospital with a small-bowel obstruction. Last week she underwent an exploratory laparotomy with removal of ventral mesh and a small-bowel resection. She had a remote ventral hernia repair and and the mesh eroded into the small bowel. She did well following her operation was discharged home shortly thereafter. She reports having done well at home for several days tolerating a diet having normal bowel function and then yesterday she developed abdominal pain distention and nausea. When she presented to the emergency department her vital signs were within normal limits and a CT abdomen pelvis was obtained which demonstrates a dilated loops of small bowel with a possible transition point no free air or free fluid. [facility] Medical History Diverticulosis GERD (gastroesophageal reflux disease) Glaucoma Hyperlipidemia Surgical History H/O colectomy Social History household members: spouse Smoking Status: Former smoker alcohol intake: current Meds Home Medications and Allergies Home Medications Medication Instructions Recorded Confirmed Type ASPIRIN (#ASPIRIN E.C.) 81 mg PO Q DAY ##0 06/17/11 10/27/22 History bimatoprost 0.01 % eye drops 1 drp EYE-BOTH BEDTIME 05/11/20 10/27/22 History (Lumigan) cyclosporine 0.05 % eye drops in a 1 drp EYE-BOTH BID 05/11/20 10/27/22 History dropperette (Restasis) duloxetine 30 mg capsule,delayed 30 mg PO BID 05/11/20 10/27/22 History release levothyroxine 25 mcg tablet 25 mcg PO DAILY 05/11/20 10/27/22 History olopatadine 0.1 % eye drops 1 drp EYE-BOTH BEDTIME 05/11/20 10/27/22 History pravastatin 20 mg tablet 20 mg PO BEDTIME 05/11/20 10/27/22 History docusate sodium 100 mg capsule 100 mg PO BID #30 caps 10/26/22 10/27/22 Rx (Colace) oxycodone-acetaminophen 5 mg-325 1 tab PO Q4-6H PRN pain #20 tabs 10/26/22 10/27/22 Rx mg tablet (Percocet) Allergies Allergy/AdvReac Type Severity Reaction Status Date / Time adhesive Allergy Mild RASH; Verified 10/17/22 11:16 PAPER TAPE OK erythromycin base Allergy Mild RASH Verified 10/17/22 11:16 tetracycline Allergy Mild RASH Verified 10/17/22 11:16 ciprofloxacin AdvReac Intermediate C DIFF Verified 10/17/22 11:16 ANTI INFLAMMATORY Allergy Mild GI BLEED Uncoded 10/17/22 11:16 Exam Vital Signs (past 8 hours): - 10/27/22 09:13 10/27/22 13:00 Temperature 97.1 F L 97.3 F L Pulse Rate 74 82 Respiratory Rate 17 17 Blood Pressure 108/49 L 123/62 Pulse Oximetry 91 90 L Oxygen Flow Rate 0 0 Oxygen Delivery Method Room Air Oxygen Flow Rate 0 Narrative Exam Narrative: General adult woman alert oriented no acute distress Chest nonlabored respiration Heart regular rate and rhythm Abdomen soft minimally distended. No peritonitis Extremities warm well perfused Objective Labs 10/26/22 21:00 10/26/22 21:00 Labs: Laboratory Results - last 24 hr 10/26/22 10/26/22 21:00 21:00 WBC 15.5 H RBC 4.09 Hgb 11.9 L Hct 35.4 L MCV 86.7 MCH 29.1 MCHC 33.6 RDW 14.0 Plt Count 718 H Neut % (Auto) 79.6 H Lymph % (Auto) 10.7 L [place] % (Auto) 7.0 Eos % (Auto) 1.5 L Baso % (Auto) 1.2 Neut # (Auto) 82343 H Lymph # (Auto) 1700 [place] # (Auto) 1100 H Eos # (Auto) 200 Baso # (Auto) 200 H Sodium 133 L Potassium 3.4 Chloride 90 L Carbon Dioxide 34 H BUN 17 Creatinine 0.81 Estimated GFR > 60 BUN/Creatinine Ratio 21.0 Glucose 150 H Calcium 10.1 Total Bilirubin 0.4 AST 29 ALT 25 Alkaline Phosphatase 62 Total Protein 7.8 Albumin 4.4 Globulin 3.4 Albumin/Globulin Ratio 1.3 Lipase 196 Assessment & Plan Assessment and plan (1) Small bowel obstruction: Status: Acute Assessment & Plan narrative: 77-year-old woman 1 week after a exploratory laparotomy and small-bowel resection for infected ventral mesh here with a small-bowel obstruction. CT abdomen pelvis personally reviewed demonstrates dilated loops of small bowel and possible transition point no free air. A Gastrografin challenge was performed today and following administration she had numerous bowel movements and feels significantly better. We will start her on clear liquid diet and advance as tolerated. I anticipate that she will discharge home tomorrow.
--- NOTE | 2022-10-27 15:37 | CM.DANOTE ---
DCP: Brief Assessment. Patient is a 77 yo F who approximately 1 week ago underwent abdominal surgery for an inguinal hernia and removal of old mesh. She states that things have been going well at home until earlier today when she started have some abdominal discomfort. (ER report, 10-26-22). Payer: Medicare and [facility] PCP: Melissa Ross CM team unable to meet with patient at this time due to surgery schedule. Primary information from this report comes from previous d/c assessment and plan when patient was here a week prior. Patient is reported to have been independent at baseline, drives own vehicle, and lives at home in [place] with spouse, Ricardo ([phone]). Plan at this time is currently pending patient prognosis post surgery today. CM team will continue to follow. Plan: home when medically stable. CM team will need to inquire if patient would like to resume [facility] upon d/c. CM team will reach out to [facility] to determine patient status. CM team will continue to follow closely. SHEILA Cloud Discharge Planning/Care Management CM Discharge Assessment Start: 10/27/22 15:33 Freq: Status: Active Protocol: Document 10/27/22 15:34 (Rec: 10/27/22 15:36 [id number]) Discharge Planning Assessment Assigned Manager Of Organizational Development SHEILA Cloud DPOA/Assigned Designee Name Ricardo Richard (spouse) Contact Information [phone] Advance Directives? Yes Advance Directives on File No History Provided By Medical Record Has Patient been admitted in last 30 Yes days? Comment Here 10/11/22 Prior Living Arrangements House Household Members spouse Type of transporation used prior to Drives own vehicle admit Independent with ADL's Yes Is patient alert and oriented? Yes Caregiver for Another No Barriers to Discharge No Discharge Plan Home Referrals Initiated None needed SNF/HH Preference Recently worked with [facility] . Whiteboard Updated in Patient Room with No name and ext. # of Manager Of Organizational Development Review Status In Process Next Review Type Continued Stay Review
[2022-10-27 17:00] VITALS: BP 162/63; PULSE 86; RESP 17; TEMP 36.3; O2SAT 94
[2022-10-27 19:55] VITALS: BP 150/73; PULSE 88; RESP 18; TEMP 36.2; O2SAT 94
[2022-10-28 01:00] VITALS: BP 134/61; PULSE 81; RESP 18; TEMP 36.5; O2SAT 94
--- NOTE | 2022-10-28 03:40 | PC.NURSE ---
Pt received 0.5mg Dilaudid IV PRN at start of shift for 8/10 abd pain. Pt resting comfortably for rest of the night. Up independently with steady gait to bathroom for x2 small loose stool. Tolerating clears. Alert and oriented x4. states he will be back in the am.
[2022-10-28 04:03] VITALS: BP 150/68; PULSE 82; RESP 18; TEMP 36.5; O2SAT 97
[2022-10-28 08:00] VITALS: BP 145/64; PULSE 77; RESP 16; TEMP 35.7; O2SAT 96
[2022-10-28] MEDS: ENOXAPARIN 40 MG/0.4 ML SYRINGE SUBCUT (08:30)
[2022-10-28] MEDS: HYDROMORPHONE 0.5 MG INJ IV (09:34)
--- NOTE | 2022-10-28 11:17 | CM.DPC ---
Addendum entered by SHEILA Cloud 10/28/22 11:36: ICU TECH provided FREDDIE Rosas with face to face. FREDDIE Rosas will send over orders and d/c to [place] when ready. DESIRAE Original Note: DCP Continued: ICU TECH entered room and introduced self and role. Patient was A/Ox4 and was sitting up in bed eating breakfast. Patient reported that with her last d/c she started servies with [facility]. She said she really liked working with them and would like to resume services upon her d/c here. Patient says her , Ricardo ([phone]) will transport her home in POV. ICU TECH called [facility] and spoke with Eugenia. Informed Eugenia that patient was here and would d/c today. Eugenia stated she would need the d/c summary and new HH orders to resume services. ICU TECH placed new verbal read back orders for [facility]. Plan: Patient will d/c home today with in POV. ICU TECH will fax over d/c summary and new orders to [facility] when available. team will continue to follow with needs. SHEILA Cloud
[2022-10-28 12:03] VITALS: BP 152/55; PULSE 86; RESP 18; TEMP 36.4; O2SAT 94
== END 2022-10-28 13:48 | disposition home health service (06) | DRG 390 ==
LOC: ED 22:47 → AC 22:52
PROVIDERS: Admitting Provider Surgery; Emergency Provider Emergency Medicine; PCP Physician Assistant; Referring Provider Emergency Medicine; Visit Provider Surgery
DX: K56.609 Unspecified intestinal obstruction, unspecified as to partial versus complete obstruction (principal); Z87.891 Personal history of nicotine dependence; Z20.822 Contact with and (suspected) exposure to COVID-19
CPT/HCPCS: 36415; 74018; 74177; 80053; 83690; 85025; 96374; 96375; 99284; J1170; J1650; J2270; J2405; Q9967

== ENCOUNTER → 2023-02-23 10:54 | Outpatient (CLI) | payer MEDICARE, OTHER, SELFPAY ==
--- NOTE | 2023-02-23 10:55 | DI.MG.S_ITS ---
BILATERAL DIGITAL SCREENING MAMMOGRAM 3D/2D WITH CAD: 02/23/2023 CLINICAL: Routine screening. Family history of breast cancer. Comparison is made to exams dated: 02/02/2022 mammogram, 01/07/2021 mammogram, 01/06/2020 mammogram, 05/18/2018 mammogram, and 01/04/2019 mammogram - [facility]. Both breasts are heterogeneously dense, which may obscure small masses (category c / 51-75% glandular tissue). Current study was also evaluated with a Computer Aided Detection (CAD) system. No significant masses, calcifications, or other findings are seen in either breast. There has been no significant interval change. IMPRESSION: NEGATIVE There is no mammographic evidence of malignancy. A 1 year screening mammogram is recommended. Based on the Tyrer Cuzick model (a risk assessment model) the patient's lifetime risk is 11.0% and her 10 year risk is 0.0%. According to the ACR, ACS, and NCCN guidelines, an annual breast MRI exam along with mammogram is recommended if the patient's lifetime risk is 20% or greater. This exam was interpreted at Station ID: [id number]. NOTE: For mammograms, a report in lay terms will be sent to the patient. Approximately 15% of breast malignancies will not be visualized mammographically. In the management of a palpable breast mass, a negative mammogram must not discourage biopsy of a clinically suspicious lesion. Electronically Signed By: Watson del angel/destinee:02/23/2023 11:56:06 letter sent: Normal Exam ACR BI-RADS Category 1: Negative [id number]
== END ==
PROVIDERS: PCP Physician Assistant; Referring Provider Physician Assistant; Visit Provider Physician Assistant
DX: Z12.31 Encounter for screening mammogram for malignant neoplasm of breast (principal); Z80.3 Family history of malignant neoplasm of breast
CPT/HCPCS: 77063; 77067

== ENCOUNTER → 2023-03-16 15:47 | Outpatient (CLI) | payer MEDICARE, OTHER, SELFPAY ==
[2023-03-16 17:03] LABS: Alanine Aminotransferase 15 IU/L (<35); Albumin 4.2 g/dL (3.5-5.0); Albumin Globulin Ratio 1.7 (1.0-2.8); Alkaline Phosphatase 59 U/L (38-126); Aspartate Aminotransferase 25 IU/L (14-36); BUN Creatinine Ratio 29.6 (6-22); Bilirubin Total 0.3 mg/dL (0.2-1.3); Blood Urea Nitrogen 21 mg/dL (7-17); Calcium 9.3 mg/dL (8.4-10.2); Carbon Dioxide 29 mmol/L (22-32); Chloride 99 mmol/L (98-107); Estimated Glomerular Filt Rate > 60 mL/min (>60); Globulin 2.5 g/dL (1.7-4.1); Glucose 91 mg/dL (80-110); HEMOLYSIS < 15 (0-50); Potassium 3.9 mmol/L (3.4-5.1); Sodium 135 mmol/L (137-145); Total Protein 6.7 g/dL (6.3-8.2)
== END ==
PROVIDERS: PCP Physician Assistant; Referring Provider Physician Assistant; Visit Provider Physician Assistant
DX: E78.2 Mixed hyperlipidemia (principal)
CPT/HCPCS: 36415; 80053

== ENCOUNTER → 2023-03-19 12:28 | Outpatient (CLI) | payer MEDICARE, OTHER, SELFPAY ==
--- NOTE | 2023-03-19 12:29 | DI.CT.S_ITS ---
PROCEDURE: CT ABDOMEN PELVIS W CON INDICATIONS: Ventral hernia TECHNIQUE: After the administration of oral and IV contrast, axial sections were acquired from the lung bases to the pubic symphysis. Coronal and sagittal reformats were performed. For radiation dose reduction, the following was used: automated exposure control, adjustment of mA and/or kV according to patient size. COMPARISON: [facility], CT, CT ABDOMEN PELVIS W CON, 10/26/2022, 21:43. FINDINGS: Image quality: Portions of the lower pelvis are suboptimally evaluated secondary to metallic streak artifact from hip arthroplasty. Lung bases: Unremarkable. Heart: No significant findings. ABDOMEN: Liver: Hepatic steatosis is present. Gallbladder: No wall thickening or stones. Biliary ducts: Mild prominence of the common bile duct is present measuring 1.2 cm, unchanged. Pancreas: Slight pancreatic ductal prominence ranging from 2-3 mm. Spleen: Unremarkable. Adrenal Glands: Unremarkable. Kidneys and Ureters: Unremarkable. Stomach and Bowel: Stomach, small bowel loops, and colon are unremarkable. Peritoneum: No abnormal intraperitoneal fluid. No free air. Ventral Wall: Ventral hernia containing and bowel is present with diastasis measuring 7 cm. This is increased from a containing ventral hernia with diastasis of 2.5 cm. There is no evidence of incarceration or strangulation. Abdominal Nodes: No retroperitoneal or mesenteric adenopathy by size criteria. Vessels: Aorta and inferior vena cava are normal in size. PELVIS: Pelvic Organs: Unremarkable. Bladder: Unremarkable. Pelvic Nodes: No enlarged lymph nodes. Miscellaneous: There is a focus bowel containing right inguinal hernia and fat containing left hernia. Bones: Unremarkable. IMPRESSION: Enlarged fat and bowel containing ventral hernia without incarceration or strangulation. Persistence of pancreatic and biliary ductal dilation without visualized mass or source of obstruction. Recommend correlation clinically with laboratory values and if indicated further evaluation with MRCP. Dictated by: Akua Lanza M.D. on 03/19/2023 at 17:33 Approved by: Akua Lanza M.D. on 03/19/2023 at 17:37
== END ==
PROVIDERS: PCP Physician Assistant; Referring Provider Physician Assistant; Visit Provider Physician Assistant
DX: K43.9 Ventral hernia without obstruction or gangrene (principal); Z98.890 Other specified postprocedural states; Z87.19 Personal history of other diseases of the digestive system; Z87.898 Personal history of other specified conditions; K43.2 Incisional hernia without obstruction or gangrene
CPT/HCPCS: 74177; Q9967

== ENCOUNTER → 2023-04-17 10:43 | Outpatient (CLI) | payer MEDICARE, OTHER, SELFPAY ==
--- NOTE | 2023-04-17 | DI.RAD.S_ITS ---
Bone Density Report Name: AUBREE UNDERWOOD Age: 78 Sex: Female Ethnicity: White Date of : 1945 Indication: postmenopausal; screening for osteoporosis; Referring Provider: JULIUS VALLES Study: Bone densitometry was performed. Exam Date: April 17, 2023 Accession number: [id number] Bone Density: Region BMD T-score Z-score Classification AP Spine(L1-L4) 1.105 0.5 3.1 Normal Femoral Neck (Left) 0.718 -1.2 1.0 Osteopenia Total Hip (Left) 0.803 -1.1 0.8 Osteopenia Total Forearm (Left) 0.528 -1.0 1.7 Normal 1/3 Forearm (Left) 0.624 -1.2 1.6 Osteopenia UD Forearm (Left) 0.416 -0.5 1.5 Normal World Health Organization criteria for BMD impression classify patients as: Normal (T-score at or above -1.0), Osteopenia (T-score between -1.0 and -2.5), or Osteoporosis (T-score at or below -2.5). 10-year Fracture Risk(1): Major Osteoporotic Fracture 11% Hip Fracture 2.2% Reported Risk Factors: [place] (), Neck BMD=0.718, BMI=25.6 (1) FRAX(R) Version 3.08. Fracture probability calculated for an untreated patient. Fracture probability may be lower if the patient has received treatment. Previous Exams: -- Region Exam Age BMD T-score BMD Change BMD Change Date g/cm2 vs Baseline vs Previous -- AP Spine (L1-L4) 04/17/2023 78 1.105 0.5 -0.030 (-2.6%)# -0.030 (-2.6%)# 04/16/2021 76 1.135 0.8 Total Hip(Left) 04/17/2023 78 0.803 -1.1 -0.032 (-3.9%)# -0.032 (-3.9%)# 04/16/2021 76 0.835 -0.9 -- *Denotes significance at 95% confidence level, LSC for AP Spine = 0.022 g/cm2, LSC for Total Hip = 0.027 g/cm2 # Denotes dissimilar scan types or analysis methods Impression: The patient has low bone mass, based on the Left Femoral Neck T-score. The patient has an estimated ten-year risk of hip fracture of 2.2% and an estimated ten-year risk of major fracture of 11%, based on the WHO FRAX algorithm. No significant bone loss was observed. Discussion: BONE DENSITY IS LOW AT ONE OR MORE SKELETAL SITES. This patient's lowest T-score is low at one or more skeletal sites. It meets the World Health Organization's (WHO) criteria for low bone mass (T-score between -1.0 and -2.5). The patient's 10-year risk of fracture as calculated by FRAX is less than the threshold where pharmacological therapy is recommended by the National Osteoporosis Foundation (NOF). However, all treatment decisions require clinical judgment and consideration of individual patient factors, including patient preferences, comorbidities, previous drug use, risk factors not captured in the FRAX model (e.g., frailty, falls, vitamin D deficiency, increased bone turnover, interval significant decline in bone density) and possible under or overestimation of fracture risk by FRAX. The patient should follow a healthful lifestyle (good nutrition with adequate calcium and vitamin D, and appropriate weight-bearing exercise). Follow-Up: Consider repeating this study in 2 to 3 years to reassess this patient's status, or sooner if there is some new clinical indication. Reported by: WERNER CLARK M.D. on 04/17/2023 11:14:00 AM.
== END ==
PROVIDERS: PCP Physician Assistant; Referring Provider Physician Assistant; Visit Provider Physician Assistant
DX: Z78.0 Asymptomatic menopausal state (principal); M85.852 Other specified disorders of bone density and structure, left thigh
CPT/HCPCS: 77080

== ENCOUNTER → 2023-05-04 11:29 | Outpatient (CLI) | payer MEDICARE, OTHER, SELFPAY ==
[2023-05-04 12:59] LABS: Alanine Aminotransferase 15 IU/L (<35); Albumin Globulin Ratio 1.5 (1.0-2.8); Alkaline Phosphatase 53 U/L (38-126); Aspartate Aminotransferase 25 IU/L (14-36); Bilirubin Total 0.4 mg/dL (0.2-1.3); Bilirubin Unconjugated 0.2 mg/dL (0.0-1.1); Globulin 2.7 g/dL (1.7-4.1); HEMOLYSIS < 15 (0-50); Lipase 124 U/L (23-300); Total Protein 6.7 g/dL (6.3-8.2)
== END ==
PROVIDERS: PCP Physician Assistant; Referring Provider Internal Medicine Gastroenterology; Visit Provider Internal Medicine Gastroenterology
DX: Z86.010 Personal history of colon polyps (principal); R93.5 Abnormal findings on diagnostic imaging of other abdominal regions, including retroperitoneum; K83.9 Disease of biliary tract, unspecified
CPT/HCPCS: 36415; 80076; 83690

== ENCOUNTER → 2023-05-15 09:26 | Outpatient (CLI) | payer MEDICARE, OTHER, SELFPAY ==
--- NOTE | 2023-05-15 10:19 | DI.MRI.S_ITS ---
PROCEDURE: MR AB PANCREATIC/MRCP PROTOCOL INDICATIONS: DILATED BILE DUCT / ABNORMAL ABD IMAGING TECHNIQUE: Coronal HASTE through the abdomen, axial 2-D FLASH in- and fmx-wn-[id number], and breath-hold T2 FSE with fat saturation through the biliary system and pancreas. Oblique coronal and axial thin-slice HASTE, radial thick-slab HASTE centered on the extrahepatic bile ducts. Intravenous secretin: Not requested. COMPARISON: [facility], CT, CT ABDOMEN PELVIS W CON, 03/19/2023, 13:46. FINDINGS: Image quality: Diagnostic Pancreas and biliary system: Central intrahepatic biliary dilatation. The common hepatic duct measures 1.2 cm and main right and left bile ducts are also dilated. No ductal irregularity or visible strictures. Trace peripheral biliary dilatation. The gallbladder is present, partially decompressed, and demonstrates a normal wall thickness. The cystic duct is mildly patulous. No visible filling defects. The common duct proximally is 8 mm. This tapers to the pancreatic head. The distal end is not seen, however no filling defects could be identified. No suspicious biliary duct wall enhancement. The pancreatic duct is nondilated, smooth, and demonstrates classic ductal anatomy. Normal pancreatic morphology without mass. Other solid organs: Liver is normal in size. Spleen is normal in size. No adrenal nodules. Both kidneys are normal in size, without hydronephrosis. Nodes and vessels: No retroperitoneal or mesenteric adenopathy by size criteria. Aorta and inferior vena cava are normal in size. Bowel and peritoneum: Unenhanced bowel loops are normal in caliber. No free fluid. Lung bases: No basal pleural effusions. Heart size is normal. Bones and soft tissues: Wide necked, nonobstructing, transverse colon containing ventral hernia. Bone marrow is of normal overall signal. IMPRESSION: 1. Intrahepatic biliary dilatation without suspicious wall enhancement, visible stone, or ductal structures. 2. The common duct is normal caliber for the patient's age. The distal end is not well seen, thus tiny filling defects are not entirely excluded. There is no suspicious enhancing mass identified postcontrast. 3. No cholelithiasis. 4. Colon-containing ventral hernia without obstruction. Dictated by: Toma Magallanes M.D. on 05/15/2023 at 13:02 Approved by: Toma Magallanes M.D. on 05/15/2023 at 13:14
== END ==
PROVIDERS: PCP Physician Assistant; Referring Provider Internal Medicine Gastroenterology; Visit Provider Internal Medicine Gastroenterology
DX: K83.8 Other specified diseases of biliary tract (principal); R93.5 Abnormal findings on diagnostic imaging of other abdominal regions, including retroperitoneum; K43.9 Ventral hernia without obstruction or gangrene
CPT/HCPCS: 74183; A9579

== ENCOUNTER → 2023-08-28 11:16 | Outpatient (CLI) | payer MEDICARE, OTHER, SELFPAY ==
[2023-08-28 12:57] LABS: Appearance Urine UA CLEAR; Bilirubin Urine UA NEGATIVE (NEGATIVE); Color Urine UA YELLOW; Glucose Urine UA NEGATIVE (Negative); Ketones Urine UA NEGATIVE (NEGATIVE); Leukocyte Esterase Urine UA NEGATIVE (NEGATIVE); Nitrite Urine UA NEGATIVE (Negative); Occult Blood Urine UA TRACE-INTACT (Negative); Protein Urine UA NEGATIVE (Negative); Urobilinogen Urine UA 0.2 E.U./dL (0.2)
[2023-08-28 13:09] LABS: Bacteria Urine Occasional (0-1); Culture Indicated Urine Cult Not Indicated; RBC Urine None Seen (0-5/HPF); Squamous Epithelial Cell Urine 0-1 /HPF (0-5/HPF); Urine Volume Low Vol <10mL (spun); WBC Urine None Seen (0-5/HPF)
== END ==
PROVIDERS: PCP Physician Assistant; Referring Provider Surgery; Visit Provider Surgery
DX: R35.0 Frequency of micturition (principal)
CPT/HCPCS: 81001; 87086

== ENCOUNTER → 2023-12-21 14:50 | Outpatient (CLI) | payer MEDICARE, OTHER, SELFPAY ==
--- NOTE | 2023-12-21 | DI.RAD.S_ITS ---
PROCEDURE: XR RIBS LT MIN 3V W CXR1V INDICATIONS: syncope and collapse, left lateral rib pain post fall TECHNIQUE: 2 views of the ribs were acquired, along with a single view chest. COMPARISON: None. FINDINGS: Surgical changes and devices: None. Bones and chest wall: No fractures or dislocations. No suspicious bony lesions. Overlying soft tissues appear unremarkable. Lungs and pleura: No pleural effusions or pneumothorax. Lungs appear clear. Mediastinum: Mediastinal contours appear normal. Heart size is normal. IMPRESSION: No displaced rib fracture or pneumothorax. No acute cardiopulmonary disease. Dictated by: Solo Unger M.D. on 12/21/2023 at 16:00 Approved by: Solo Unger M.D. on 12/21/2023 at 16:02
--- NOTE | 2023-12-21 | DI.RAD.S_ITS ---
PROCEDURE: XR ELBOW RT MIN 3V INDICATIONS: syncope and collapse, right elbow pain post fall TECHNIQUE: 3 views of the elbow were acquired. COMPARISON: None. FINDINGS: Bones: No fractures or dislocations. No suspicious bony lesions. Soft tissues: No elbow joint effusion. No suspicious soft tissue calcifications. IMPRESSION: No acute bony abnormality or significant joint effusion. Dictated by: Solo Unger M.D. on 12/21/2023 at 15:58 Approved by: Solo Unger M.D. on 12/21/2023 at 16:00
== END ==
PROVIDERS: PCP Physician Assistant; Referring Provider Physician Assistant; Visit Provider Physician Assistant
DX: M25.521 Pain in right elbow (principal); R55 Syncope and collapse; R07.81 Pleurodynia
CPT/HCPCS: 71101; 73080

== ENCOUNTER → 2024-01-02 06:54 | Outpatient (CLI) | payer MEDICARE, OTHER, SELFPAY ==
--- NOTE | 2024-01-02 06:57 | DI.RAD.S_ITS ---
PROCEDURE: XR HIP W PEL IF DONE LT 2V INDICATIONS: HIP PAIN TECHNIQUE: AP pelvis with lateral view(s) of the left hip(s). COMPARISON: None. FINDINGS: Bones: There is prior right total hip arthroplasty. Right hip alignment is anatomic. No gross hardware loosening or failure. Uhbp-zu-clzsecma left hip joint osteoarthritic changes are seen with superior joint space narrowing, subchondral sclerosis and tiny marginal osteophyte formation. No evidence of avascular necrosis of femoral head. No fractures or dislocations. Pelvic ring appears intact. No suspicious bony lesions. Soft tissues: The visualized bowel gas pattern is normal. No suspicious soft tissue calcifications. IMPRESSION: 1. Cqfe-gh-ihiwewzn left hip joint osteoarthritis. No fracture or dislocation. No evidence of avascular necrosis. 2. Prior right total hip arthroplasty with anatomic right hip alignment. No gross hardware loosening or failure. Dictated by: Rony Barber M.D. on 01/02/2024 at 14:43 Approved by: Rony Barber M.D. on 01/02/2024 at 14:44
== END ==
PROVIDERS: PCP Physician Assistant; Referring Provider Physician Assistant; Visit Provider Physician Assistant
DX: M16.12 Unilateral primary osteoarthritis, left hip (principal); M25.552 Pain in left hip; Z96.641 Presence of right artificial hip joint
CPT/HCPCS: 73502

== ENCOUNTER → 2024-01-03 06:50 | Outpatient (CLI) | payer MEDICARE, OTHER, SELFPAY ==
--- NOTE | 2024-01-03 06:51 | DI.US.S_ITS ---
PROCEDURE: US CAROTID DOPPLER BI INDICATIONS: SYNCOPE TECHNIQUE: Color and pulse Doppler interrogation was performed of both carotid systems, with image documentation and velocity measurements. COMPARISON: None. FINDINGS: Stenosis calculations are based on SRU (Society of Radiologists in Ultrasound) criteria. Right side: Brachial blood pressure: 120/72 mm Hg. Common carotid artery peak systolic velocity: 78 cm/sec. Internal carotid artery peak systolic velocity: 105 cm/sec. Internal carotid artery end diastolic velocity: 27 cm/sec. External carotid artery peak systolic velocity: 93 cm/sec. ICA/CCA peak systolic ratio: 1.3 . Tariq scale imaging description: Cpem-og-oaotlbdg calcific and soft plaque Percent internal carotid artery stenosis: Less than 50% stenosis. Vertebral artery: Flow direction is antegrade. Left side: Brachial blood pressure: 131/78 mm Hg. Common carotid artery peak systolic velocity: 66 cm/sec. Internal carotid artery peak systolic velocity: 83 cm/sec. Internal carotid artery end diastolic velocity: 26 cm/sec. External carotid artery peak systolic velocity: 90 cm/sec. ICA/CCA peak systolic ratio: 1.3 . Tariq scale imaging description: Odll-eu-ksslisfm calcific and soft plaque Percent internal carotid artery stenosis: Less than 50% stenosis . Vertebral artery: Flow direction is antegrade. IMPRESSION: Less than 50% stenosis within the common and internal carotid arteries visualized, bilaterally. Dictated by: Geoff Kemp M.D. on 01/03/2024 at 10:25 Approved by: Geoff Kemp M.D. on 01/03/2024 at 10:40
--- NOTE | 2024-01-03 06:52 | DI.MRI.S_ITS ---
PROCEDURE: MR HEAD/BRAIN WO CON INDICATIONS: SYNCOPE TECHNIQUE: Non-contrast axial T1 spin echo, axial T2 fast spin echo, sagittal and axial FLAIR, coronal T2 fast spin echo, axial gradient echo, axial diffusion and ADC through the brain. COMPARISON: None. FINDINGS: Image quality: Excellent. CSF spaces: Ventricles appear symmetric in size and shape. Basal cisterns are patent. No extra-axial fluid collections. Brain: No intracranial bleeds or mass effects. There is cerebral volume loss for age. There are periventricular and deep white matter chronic small vessel ischemic changes. Brainstem appears normal. Diffusion-weighted images show no acute infarct. No chronic ischemic insults. Normal intravascular flow voids are present. Skull and face: Calvarial bone marrow is normal in signal. Bilateral lens replacements. Otherwise, the orbits are unremarkable. Sinuses: Paranasal sinuses are clear. Trace left mastoid fluid. IMPRESSION: No cause for patient's symptoms is identified. No acute or subacute infarct. No acute intracranial abnormalities. Age-related global volume loss and chronic microvascular ischemic changes. Dictated by: Devan Gonzalez M.D. on 01/03/2024 at 15:23 Approved by: Devan Gonzalez M.D. on 01/03/2024 at 15:25
== END ==
PROVIDERS: PCP Physician Assistant; Referring Provider Physician Assistant; Visit Provider Physician Assistant
DX: R55 Syncope and collapse (principal); I65.23 Occlusion and stenosis of bilateral carotid arteries
CPT/HCPCS: 70551; 93880

== ENCOUNTER → 2024-01-06 13:52 | Outpatient (CLI) | payer MEDICARE, OTHER, SELFPAY ==
--- NOTE | 2024-01-06 | DI.MRI.S_ITS ---
PROCEDURE: MR HIP LT WO CON INDICATIONS: PAIN IN LEFT HIP TECHNIQUE: Noncontrast coronal T1 spin echo and STIR through the bony pelvis. Coronal and axial T2 fast spin echo with fat saturation, sagittal T1 spin echo, and oblique axial T2 fast spin echo with fat saturation through the hip. COMPARISON: [facility], CR, XR HIP W PEL IF DONE LT 2V, 01/02/2024, 7:40. FINDINGS: Image quality: Limited evaluation given patient motion.. Bones and joints: Marrow signal of the visualized lower lumbar spine is unremarkable. The sacrum is intact. The right and the left sacroiliac joints are unremarkable. Lumbar sacral segmentation anomaly. Status post right total hip arthroplasty, creating artifacts and limits evaluation. The left hip is well aligned. No acute fracture or dislocation of the left hip. Moderate left hip effusion. No avascular necrosis of the left femoral head. Tendons and ligaments: The left iliopsoas tendon is unremarkable. Mild muscle edema of the left adductor muscle, likely representing mild muscle strain. The left hamstring tendon and the left gluteal minimus is unremarkable. Mild peritendinitis of the left gluteus medius. Labrum and cartilage: Tear of the anterior superior labrum. Diffuse high-grade chondral thinning in the femoral head and the acetabulum. Soft tissues: The uterus is not visualized and may be surgically absent. IMPRESSION: 1. Diffuse high-grade chondral thinning in the left femoral head and the acetabulum. Moderate left hip effusion. 2. Labral tear. 3. Mild muscle strain of the left adductor muscle. 4. Mild peritendinitis of the left gluteal medius. Dictated by: Annmarie Nuno M.D. on 01/08/2024 at 15:38 Approved by: Annmarie Nuno M.D. on 01/08/2024 at 15:48
== END ==
LOC: MRI 13:54
PROVIDERS: PCP Physician Assistant; Referring Provider Physician Assistant; Visit Provider Physician Assistant
DX: S76.012A Strain of muscle, fascia and tendon of left hip, initial encounter (principal); S73.192A Other sprain of left hip, initial encounter; M76.02 Gluteal tendinitis, left hip; M25.552 Pain in left hip; M25.452 Effusion, left hip; Z96.641 Presence of right artificial hip joint
CPT/HCPCS: 73721

== ENCOUNTER → 2024-02-26 07:58 | Outpatient (CLI) | payer MEDICARE, OTHER, SELFPAY ==
--- NOTE | 2024-02-26 | DI.MG.S_ITS ---
BILATERAL DIGITAL SCREENING MAMMOGRAM 3D/2D WITH CAD: 02/26/2024 CLINICAL: Routine screening. Family history of breast cancer. Comparison is made to exams dated: 02/23/2023 mammogram, 02/02/2022 mammogram, 01/07/2021 mammogram, 01/06/2020 mammogram, 01/04/2019 ultrasound, and 01/04/2019 mammogram - [facility]. There are scattered areas of fibroglandular density (category b / 25%-50% glandular tissue). Current study was also evaluated with a Computer Aided Detection (CAD) system. No significant masses, calcifications, or other findings are seen in either breast. There has been no significant interval change. IMPRESSION: NEGATIVE There is no mammographic evidence of malignancy. A 1 year screening mammogram is recommended. Based on the Tyrer Cuzick model (a risk assessment model) the patient's lifetime risk is 6.5% and her 10 year risk is 0.0%. According to the ACR, ACS, and NCCN guidelines, an annual breast MRI exam along with mammogram is recommended if the patient's lifetime risk is 20% or greater. This exam was interpreted at Station ID: [id number]. NOTE: For mammograms, a report in lay terms will be sent to the patient. Approximately 15% of breast malignancies will not be visualized mammographically. In the management of a palpable breast mass, a negative mammogram must not discourage biopsy of a clinically suspicious lesion. Electronically Signed By: Adeline Santos M.D., Ph.D. lida/destinee:02/27/2024 00:46:58 letter sent: Normal Exam ACR BI-RADS Category 1: Negative
== END ==
PROVIDERS: PCP Physician Assistant; Referring Provider Physician Assistant; Visit Provider Physician Assistant
DX: Z12.31 Encounter for screening mammogram for malignant neoplasm of breast (principal); Z80.3 Family history of malignant neoplasm of breast
CPT/HCPCS: 77063; 77067

== ENCOUNTER → 2024-05-01 12:06 | Outpatient (CLI) | payer MEDICARE, OTHER, SELFPAY ==
--- NOTE | 2024-05-01 12:35 | EKG_ITS ---
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
[2024-05-01 12:54] LABS: Appearance Urine UA CLEAR; Bilirubin Urine UA NEGATIVE (NEGATIVE); Color Urine UA YELLOW; Glucose Urine UA NEGATIVE (Negative); Ketones Urine UA NEGATIVE (NEGATIVE); Leukocyte Esterase Urine UA NEGATIVE (NEGATIVE); Nitrite Urine UA NEGATIVE (Negative); Occult Blood Urine UA TRACE-INTACT (Negative); Protein Urine UA NEGATIVE (Negative); Urobilinogen Urine UA 0.2 E.U./dL (0.2)
[2024-05-01 13:01] LABS: Urine Volume 10mL (spun)
[2024-05-01 13:03] LABS: Bacteria Urine None Seen; Culture Indicated Urine Cult Not Indicated; RBC Urine 0-1/HPF (0-5/HPF); Squamous Epithelial Cell Urine None Seen (0-5/HPF); WBC Urine None Seen (0-5/HPF)
[2024-05-01 13:07] LABS: Add Manual Diff / Slide Review NO; Basophils Absolute Auto 0 /uL (0-100); Basophils Percent Auto 0.8 % (0-2); Eosinophils Absolute Auto 100 /uL (0-450); Hematocrit 36.6 % (36-46); Hemoglobin 12.1 g/dL (12.0-16.0); Lymphocytes Absolute Auto 1500 /uL (1100-4500); Lymphocytes Percent Auto 26.8 % (25-40); Mean Corpuscular Hemoglobin 30.4 PG (26-34); Mean Corpuscular Volume 92.1 fL (80-100); Monocytes Absolute Auto 600 /uL (0-900); Monocytes Percent Auto 10.4 % (3-14); Neutrophils Absolute Auto 3400 /uL (1500-7000); Platelet Count 224 X10^3/uL (150-400); Red Blood Cell Count 3.97 X10^6/uL (4.0-5.2); Red Cell Distribution Width 13.9 % (11.6-14.8); White Blood Cell Count 5.6 X10^3/uL (4.5-11.0)
[2024-05-01 13:13] LABS: Hemoglobin A1C% w Est Avg Glu 5.6 % (4.0-6.0)
[2024-05-01 13:28] LABS: BUN Creatinine Ratio 23.5 (6-22); Blood Urea Nitrogen 16 mg/dL (7-17); Calcium 9.4 mg/dL (8.4-10.2); Carbon Dioxide 31 mmol/L (22-32); Chloride 99 mmol/L (98-107); Estimated Glomerular Filt Rate > 60 mL/min (>60); Glucose 115 mg/dL (80-110); HEMOLYSIS < 15 (0-50); Potassium 4.1 mmol/L (3.4-5.1); Sodium 136 mmol/L (137-145)
== END ==
PROVIDERS: PCP Physician Assistant; Referring Provider Orthopaedic Surgery; Visit Provider Orthopaedic Surgery
DX: Z01.818 Encounter for other preprocedural examination (principal); R73.9 Hyperglycemia, unspecified; Z01.812 Encounter for preprocedural laboratory examination; N39.0 Urinary tract infection, site not specified
CPT/HCPCS: 36415; 80048; 81001; 83036; 85025; 93005; 93010

== ENCOUNTER 2024-06-13 06:17 | Day surgery (SDC) | payer MEDICARE, OTHER, SELFPAY ==
[2024-06-06 07:22] VITALS: BMI 25.4
[2024-06-13] VITALS (13 sets, daily range): BP systolic 106–164; BP diastolic 63–84; PULSE 78–93; RESP 13–18; TEMP 36.1–36.8; O2SAT 90–96; BMI 26.4; BMI 28.3
--- NOTE | 2024-06-13 | DI.RAD.S_ITS ---
PROCEDURE: [id number] W PEL IF PERFORMED INDICATIONS: INTRA OP TOTAL LEFT HIP TECHNIQUE: 4 intraoperative fluoroscopic images of left hip were obtained. COMPARISON: [facility], CR, XR HIP W PEL IF DONE LT 2V, 01/02/2024, 7:40. FINDINGS: Intraoperative fluoroscopic images shows left total hip arthroplasty in progress. IMPRESSION: Fluoro guidance was provided intraoperatively for left total hip arthroplasty performed by ordering physician. Dictated by: Rony Barber M.D. on 06/13/2024 at 11:29 Approved by: Rony Braber M.D. on 06/13/2024 at 11:35
--- NOTE | 2024-06-13 06:00 | DI.RAD.S_ITS ---
PROCEDURE: XR HIP W PEL IF DONE LT 2V INDICATIONS: omkar TECHNIQUE: AP pelvis and lateral view of the hip acquired. COMPARISON: [facility], CR, XR PELVIS WITH LATERAL HIP LEFT, 01/26/2024, 17:46. [facility], CR, [id number] W PEL IF PERFORMED, 06/13/2024, 9:04. FINDINGS: Bones: Patient is status post left hip arthroplasty, with hardware components in expected positions. The hip joint appears congruent. The visualized bony structures appear intact. Stable appearance of previous right hip arthroplasty. Soft tissues: Overlying postoperative changes are noted. No suspicious soft tissue densities. IMPRESSION: Expected post-operative appearance of a hip arthroplasty. Dictated by: Akua Lanza M.D. on 06/13/2024 at 11:07 Approved by: Akua Lanza M.D. on 06/13/2024 at 11:08
[2024-06-13] MEDS: ACETAMINOPHEN 325 MG TABLET 975 MG PO (06:46)
[2024-06-13] MEDS: LACTATED RINGERS 1,000 ML 42 ML IV ×2 (06:47→08:54)
[2024-06-13] MEDS: CELECOXIB 200 MG CAPSULE PO (06:47)
--- NOTE | 2024-06-13 07:42 | P.OP_ITS ---
Operative Date/Time/Diagnoses Date of procedure: 06/13/24 Time of procedure: 08:00 Pre-op diagnosis: Severe left hip OA Post-op diagnosis: same Procedure & Clinicians Procedure: Left total hip arthroplasty anterior approach Same procedure as scheduled: Yes Indications: The patient has had progressively worsening left hip pain with radiographic changes consistent with arthritis. Non-operative management has failed and the patient has requested total hip replacement. The risks, benefits and alternatives to surgery were discussed with the patient prior to proceeding. Risks discussed included, but were not limited to, failure to relieve pain, leg length discrepancy, dislocation, stiffness, infection, nerve damage, deep venous thrombosis, pulmonary embolism, stroke, coma, heart attack, permanent paralysis and , as well as the potential need for eventual revision of the prosthetic. Surgeon: Ashley Baxter Director Biostatistics: Amanda Lanza Anesthesia Type: General and Spinal Operative Notes Findings: Severe left hip OA, soft bone, adequate stability Closure Type: primary Specimen(s): none sent Prosthetic devices, grafts, tissues, transplants, or devices: Baxter and nephew R3 size 50 mm cup, neutral poly liner,one 6.5 mm screw, polar stem standard offset size 0, 36 x +0 femoral head cobalt chrome Estimated Blood Loss (mL): 250 Blood products transfused: none Procedure in detail: The patient was brought to the operating room. Patient was carefully positioned in the supine position. Time-out was performed and antibiotics were given. Anesthesia was induced. She was positioned in the on the table in order to allow hyperextension of the hip. The left lower extremity was prepped and draped in a standard sterile fashion. An anterior left hip incision was made 1 fingerbreadth lateral to the anterior superior iliac spine and extended distally towards the greater trochanter. Dissection was carried out through skin and subcutaneous tissues. Superficial hemostasis was achieved. The fascia over the tensor fascia pamela was defined and incised with a knife. Two Allis clamps were used to grasp the fascia. Tensor fascia pamela was retracted laterally. A gelpi retractor was placed. Dissection was carried out down along the neck. The circumflex vessels were carefully identified and cauterized with the Aqua Mantis. A PA was used during the procedure and was essential for intraoperative retr action and safe implantation of the components. There was good visualization of the femoral neck. A Cobra was placed superior to the neck and the gluteus fibers were carefully stripped from that superior aspect of the capsule. A 2nd retractor was placed along the inferior aspect of the neck. The rectus insertion along the capsule was partially released. A 3rd retractor that was then gently placed over the rim of the acetabulum under the rectus. Capsule was carefully incised and released from the intertrochanteric line circumferentially superior to the mid sagittal line and inferiorly to the mid sagittal line until the lesser trochanter was palpable. A tag stitch was placed both in the superior and inferior limb of the capsular insertion. Along the acetabulum capsule was also released up to the mid sagittal 12:00 position. A portion of the labrum was resected. A saw was used to perform an osteotomy at the level of the intertrochanteric line and the junction of the superior femoral neck leaving approximately 1 finger breath of residual inferior neck above the lesser trochanter. A 2nd cut was made along the femoral neck at the base of the head and a napkin ring of neck was removed. Corkscrew was placed in the femoral head and the head was removed without difficulty. Retractors were then repositioned around the acetabulum. Residual labrum was resected and additional osteophytes were removed. A reamer that was 4 mm below the templated size was placed by hand in the acetabulum and it was reamed to centralize the acetabulum. It was then reamed up to 2 under the templated size and fluoroscopy was brought in to confirm the position of the reaming and depth of reaming. I reamed 1 under the anticipated size. A trial cup was placed and noted that it was appropriately sized and fluoroscopy confirmed position and depth. The component was open and inserted without difficulty fluoroscopic imaging was used to confirm that the cup had been adequately seated and was well positioned. Neutral poly liner was placed. It was further stabilized with a single screw. The cup was tested and noted to be stable. Attention was then directed to the femur. The femur was gently hyperextended additional capsular release was performed as needed in order to allow adequate visualization of the proximal femur with elevation of the femur. Patient was placed in a hyperextended slightly adducted position with maximum external rotation. Box osteotome was used to check for any residual neck as well as sclerotic bone along the trochanter. [place] pepper was placed in the femur. Additional broaching was performed. Canal finder was used to determine the alignment of the canal and position. Size 1 broach was placed. The canal was then appropriately broached up to the templated size as long as there was adequate stability of the broach and serial advancement of the broach without excessive impingement. Specific attention was directed at avoiding varus attempting to direct the distal aspect of the broach more anteriorly and avoiding excessive anteversion. Trial reduction showed acceptable range of motion, good stability, no posterior impingement, buddhist of leg length and appropriate lateral shuck. I also hyperflexed the hip and checked that there was no impingement anteriorly and there was good stability with flexion, adduction and internal rotation. Marcaine and Exparel were injected. The stem was placed without difficulty. Repeat trial reduction and x-ray showed acceptable overall position, length, and no evidence of the femoral fracture. Final head was placed. Wound was meticulously irrigated with normal saline. The hip was reduced and additional Exparel and Marcaine were injected. The capsule was closed with interrupted nonabsorbable sutures. The fascia of the tensor was closed with interrupted and running Vicryl. No drain was placed. Any tensor fascia pamela muscle that appeared to be contused or injured which was a minimal amount was carefully resected. Capsule around the tensor was injected with Exparel and Marcaine. The skin was closed with barbed stitches for the subcutaneous tissue and skin. We also used surgical glue. The wound was dressed sterilely. Brief Betadine soak was also used and was meticulously irrigated with normal saline. Patient was transferred to recovery room in satisfactory condition. Complications: none Post-operative Condition: stable Disposition: Acute Care Plan for aftercare: The patient will be maintained on a standard total hip replacement protocol with weight bearing as tolerated and anterior hip precautions. The patient will receive Aspirin and sequential compression devices for DVT prophylaxis. The patient will be discharged home when safe for the home environment.
--- NOTE | 2024-06-13 07:42 | PM.PREOP ---
Pre-operative Note Interval Note History & Physical reviewed/Exam performed by Physician: Yes Changes to H&P: No
[2024-06-13] MEDS: CEFAZOLIN 2 GM/100 ML PREMIX 100 ML IV ×3 (08:16→23:47)
[2024-06-13] MEDS: TRANEXAMIC ACID 1,000 MG VIAL 2000 MG INJ ×2 (08:19→10:02)
--- NOTE | 2024-06-13 08:27 | SUR.OPER ---
Patient supine on padded Round Top table, one arm on padded arm board at <90, other arm padded and secured with tape across patient's chest, both legs secured in padded traction boots and positioned per surgeon, padded post at patient's groin, pressure points checked and padded.
[2024-06-13] MEDS: BUPIVACAINE LIPOSOME 266 MG/20 ML VIAL INJ (08:31)
[2024-06-13] MEDS: BUPIVACAINE 0.25% W/ EPI 30 ML VIAL 60 ML INJ (08:32)
--- NOTE | 2024-06-13 11:46 | PC.NURSE ---
Postop Note Patient arrived to room 206 at 1120. Pt is alert and oriented x3. Aquacel dressing to left hip C/D/I. Palpable pulses to BLEs, reports numbness still from spinal but able to wiggle toes. SpO2 90-94% RA. Taking in fluids without issue. All belongings with pt including clothing and own FWW. Oriented to bed/TV/call light controls. Call light within reach. is at bedside. Denies pain.
[2024-06-13] MEDS: LACTATED RINGERS 1,000 ML 100 ML IV (11:57)
--- NOTE | 2024-06-13 12:14 | PT-IP ANOTE ---
Pt arrived to floor and PT consult received. PT reviewed chart and checked in on pt. Nsg reports they just tried to stand and spinal may still be a little active d/t B knee buckling. Pt on bed rodriguez. Will check back later this afternoon to initiate PT eval.
[2024-06-13] MEDS: OXYCODONE IR 5 MG TABLET PO ×3 (13:26→23:46)
--- NOTE | 2024-06-13 13:27 | PT.IIE ---
Current Diagnoses Unilateral primary osteoarthritis, left hip (06/13/24) Surgery Performed Operation Date: 06/13/24 07:45 Actual Procedures p Total Hip Arthroplasty/Anterior Approach(Left) - Ashley Baxter MD Surgical History (Last Reviewed 06/13/24 @ 06:40 by Vika Braga, RN) H/O cataract extraction H/O section H/O colectomy H/O inguinal hernia repair H/O umbilical hernia repair History of hysterectomy History of total right hip replacement (2003) History of total right knee replacement Hx of appendectomy Hx of tonsillectomy S/P left unicompartmental knee replacement S/P small bowel resection (10/17/22) Medical History (Last Reviewed 06/13/24 @ 06:40 by Vika Braga, RN) Abdominal wall cellulitis Diverticulosis GERD (gastroesophageal reflux disease) Glaucoma Hyperlipidemia Hypothyroid Infected hernioplasty mesh Small bowel obstruction Physical Therapy Inpatient Evaluation/Re-Eval M1 PT/OT-IP Prior Functional Status Start: 06/13/24 12:09 Freq: NEEDED Status: Active Protocol: Document 06/13/24 12:56 MB (Rec: 06/13/24 13:26 MB [id number]) Medical Review Prior Functional Status Medical History Reviewed Yes Diet/Fluid Consistency Regular Communication Pt reports she is very I and uses cane at baseline Mobility and Gait Mod I with SPC Activities of Daily Living and IADL's Drives, I Social History Household Members spouse Living Arrangements House Number of Floors (Floors) 3 or More Floors Number of Stairs To Enter/Railing? 2 steps and no rail to enter home Home Environment High Toilet,Walk in Shower Home Equipment Front Wheel Walker,Straight Cane,Shower Seat with Backrest Employment Status Retired M2 PT-IP Current Condition Start: 06/13/24 12:09 Freq: NEEDED Status: Active Protocol: Document 06/13/24 12:56 MB (Rec: 06/13/24 13:26 MB [id number]) Physical Therapy Current Condition Current Condition Evaluation Date 06/13/24 Treatment Diagnosis Left anterior hip replacement M3 PT-IP Subjective Start: 06/13/24 12:09 Freq: NEEDED Status: Active Protocol: Document 06/13/24 12:56 MB (Rec: 06/13/24 13:26 MB [id number]) Subjective Physical Therapy Visit Type Type Initial Evaluation Visit Start Time 12:56 Visit Stop Time 13:14 Number of CONTROL CLERK HEAD Visits 0 Physical Therapy Visit Comments Patient Comments Pt is agreeable to PT, states she can feel legs. Therapy Pain Assessment Pain When Pain Assessed During Mobility Pain Present Pain Present Pain Reported Location Left hip Intensity 6 Scale Used Numeric (0 - 10) M4 PT-IP Mobility and Gait Start: 06/13/24 12:09 Freq: NEEDED Status: Active Protocol: Document 06/13/24 12:56 MB (Rec: 06/13/24 13:26 MB [id number]) PT-Bed Mobility Assessment Supine to Sit Supine to Sit Contact Guard Assistance,1 Person Assistance,Head of Bed Elevated,Bedrails Sit to Supine Sit to Supine Minimal Assistance,1 Person Assistance,Head of Bed Elevated,Bedrails Scooting Scooting to Edge of Bed Contact Guard Assistance Scooting Up and Down in Bed Contact Guard Assistance PT-Transfer Assessment Sit to and From Stand Sit to and from Stand Minimal Assistance,1 Person Assistance,Use of Upper Extremities Equipment Transfer Assistive Device Gait Belt,Front Wheeled Walker Orthotic/Prosthetic Devices or Brace: No Comments Mobility Comments Once standing and after checking BP, attempted left side stepping and pt with B hip buckle and returned to sitting EOB with mod A and gait belt for safety. BP and HR LUE: hook lying with HOB increased 146/70, 79; standing 153/80, 87; standing 1' 135/ 88; after sitting EOB 145/69, 85 and pt does report light- headedness. Gait Assessment Comments Gait Comments Unable to gait train d/t buckling PT-Balance Assessment Sitting Balance and Reactions Static Sitting Balance Ability Good Dynamic Sitting Balance Ability Fair Standing Balance and Reactions Static Standing Balance Ability Fair Dynamic Standing Balance Ability Poor Device Used RW M5 PT-IP Objective Assessments Start: 06/13/24 12:09 Freq: NEEDED Status: Active Protocol: Document 06/13/24 12:56 MB (Rec: 06/13/24 13:26 MB [id number]) Orientation Orientation/Cognition Level of Alertness Alert Orientation Name Language Function Ability No Deficits Noted Safety Awareness Decreased Safety Awareness Memory Description No Deficits Noted Gross Range of Motion Upper Extremity ROM Impairments Defer to OT Lower Extremity ROM Assessment Left Impaired Strength Lower Extremity Strength Assessment Left Impaired Knee Right 5/5 Ankle B great toe extension and DF 5 /5 Coordination Assessment Gross Coordination Gross Coordination Impaired Sensation Assessment Comments Sensation Comments Pt reports no paresthesias with light touch testing Muscle Tone Muscle Tone WNL Yes M6 PT-IP Treatment Start: 06/13/24 12:09 Freq: NEEDED Status: Active Protocol: Document 06/13/24 12:56 MB (Rec: 06/13/24 13:26 MB [id number]) Physical Therapy Treatment Exercises Exercises Ankle Pumps,Gluteal Sets,Quad Sets,Heel Slides Education Education Provided Precautions,Weight Bearing Status,Post-Op Packet,Safety M7 PT-IP Assessment and Plan Start: 06/13/24 12:09 Freq: NEEDED Status: Active Protocol: Document 06/13/24 12:56 MB (Rec: 06/13/24 13:26 MB [id number]) PT Summary Assessment and Plan Potential Rehabilitation Potential Good Status of Condition at Evaluation Evolving Summary Impairments Pain,ROM,Strength,Balance, Coordination,Bed Mobility, Transfers,Gait,Activity Tolerance Progress Towards Goals Progressing Toward Goals Assessment Summary Pt is a 79 y/o female presenting with B hip buckling with attempted standing and dropping systolic BP. Pt is unable to take steps with PT on assessment. She has two steps to enter home without rail and she has spouse to help her at d/c. When asked pt , she states she anticipates d /c tomorrow given known history of trouble with anesthesia. Will benefit from OOB to chair with RW and assistance with staff as able and progressive gait and stair training with PT as able. Goals Bed Mobility Goal Independent Transfer Goal Standby Assistance,Front Wheeled Walker Gait Goal Standby Assistance,Front Wheel Walker Gait Distance 100 Other Goals Pt will ascend and descend 2 steps with RW and min A to allow safe home entrance. Days to Meet Goals 3 Frequency of Treatment Other frequency 1-2x/day Treatment Plan Physical Therapy Treatment Plan Bed Mobility Training,Transfer Training,Gait Training, Therapeutic Exercise,Balance Retraining,Post Op Education, Discharge Planning,Hot or Cold Pack,Neuromuscular Re-ed, Coordination Retraining,Manual Therapy Precautions Other Precautions No hyperextension L hip/leg Weight Bearing Status Weight Bearing Status Weight Bear as Tolerated Recommendations To Nursing Amount of Assist Needed Mechanical Lift Discharge Recommendations PT Discharge Recommendations Home with 24/ Assist Available,Outpatient PT Transportation Needs at Discharge Private Vehicle
--- NOTE | 2024-06-13 13:34 | OT.IPNOTE ---
Spoke to pt and get prior level of care and initiated OT needs. Pt agreed best to do OT eval tomorrow as her LLE is still buckling.
--- NOTE | 2024-06-13 18:48 | PC.NURSE ---
patient doing very well up in chair,no more orthostatic bp then getting up.wants to stay in chair for now, iv fluids completed now HL per order.
[2024-06-13] MEDS: ACETAMINOPHEN 325 MG TABLET 650 MG PO (19:56)
[2024-06-13] MEDS: DOCUSATE 100 MG CAPSULE PO (21:46)
[2024-06-13] MEDS: IBUPROFEN 400 MG TABLET PO (21:46)
[2024-06-13] MEDS: DULOXETINE 30 MG CAPSULE PO (21:46)
[2024-06-13] MEDS: ASPIRIN EC 81 MG TABLET PO (21:46)
[2024-06-13] MEDS: PRAVASTATIN 20 MG TABLET 40 MG PO (21:46)
[2024-06-13] MEDS: PANTOPRAZOLE DR 20 MG TABLET PO (22:02)
[2024-06-14] MEDS: ACETAMINOPHEN 325 MG TABLET 650 MG PO (05:12)
[2024-06-14] MEDS: OXYCODONE IR 5 MG TABLET PO ×2 (05:12→08:08)
[2024-06-14] MEDS: LEVOTHYROXINE 50 MCG TABLET PO (05:13)
[2024-06-14 06:39] LABS: Hematocrit 28.9 % (36-46); Hemoglobin 9.7 g/dL (12.0-16.0)
[2024-06-14 08:00] VITALS: BP 140/67; PULSE 75; RESP 18; TEMP 36.3; O2SAT 97
[2024-06-14] MEDS: DOCUSATE 100 MG CAPSULE PO (08:08)
[2024-06-14] MEDS: ASPIRIN EC 81 MG TABLET PO (08:08)
[2024-06-14] MEDS: DULOXETINE 30 MG CAPSULE PO (08:09)
--- NOTE | 2024-06-14 08:18 | PM.DS.1 ---
History of Present Illness History of Present Illness Date Patient Seen: 06/14/24 Time Patient Seen: 08:18 Chief complaint: Left KVNG anterior *OPB* Narrative: Operative Date/Time/Diagnoses Date of procedure: 06/13/24 Time of procedure: 08:00 Pre-op diagnosis: Severe left hip OA Post-op diagnosis: same Procedure & Clinicians Procedure: Left total hip arthroplasty anterior approach Same procedure as scheduled: Yes Indications: The patient has had progressively worsening left hip pain with radiographic changes consistent with arthritis. Non-operative management has failed and the patient has requested total hip replacement. The risks, benefits and alternatives to surgery were discussed with the patient prior to proceeding. Risks discussed included, but were not limited to, failure to relieve pain, leg length discrepancy, dislocation, stiffness, infection, nerve damage, deep venous thrombosis, pulmonary embolism, stroke, coma, heart attack, permanent paralysis and , as well as the potential need for eventual revision of the prosthetic. Surgeon: Ashley Baxter [employer] Operator: Amanda Lanza Anesthesia Type: General and Spinal Operative Notes Findings: Severe left hip OA, soft bone, adequate stability Closure Type: primary Specimen(s): none sent Prosthetic devices, grafts, tissues, transplants, or devices: Baxter and nephew R3 size 50 mm cup, neutral poly liner,one 6.5 mm screw, polar stem standard offset size 0, 36 x +0 femoral head cobalt chrome Estimated Blood Loss (mL): 250 Blood products transfused: none Discharge Providers Provider Discharge Date: 06/14/24 Primary care physician: Melissa Ross PA-C Consults: 06/13/24 06:00 Consult to Anesthesiology Routine Comment: Consulting Provider: Anesthesiologist Reason for consultation: Regional block for post operative pain control 06/13/24 11:29 Consult to Discharge Planning Routine Comment: Consult to Occupational Therapy Evaluate & Treat Comment: Physician Instructions: Evaluate and treat Consult to Physical Therapy Evaluate & Treat Comment: Physician Instructions: post op KVNG protocol Discharge provider: Vandana Anderson PA-C Summary Hospital Course Discharge Diagnosis: Left hip osteoarthritis, s/p left total hip arthroplasty Hospital Course: Ms Richard's hospital course was unremarkable. On the morning of POD# 1, she was feeling well and wanted to go home. She was eating and voiding without difficulty and had been ambulatory multiple times during the night. She had worked with PT and they felt she was appropriate for discharge home with family. Pain was well-controlled with oral medication, and she had picked up all her medications for discharge prior to her surgery. Exam Vital Signs (past 8 hours): Oxygen Delivery Method Room Air Oxygen Flow Rate 0 Narrative Exam Narrative: 4/5 strength in hip flexors, quadriceps, hamstrings; 5/5 PF, DF, EHL on left. Sensation to light touch intact throughout LLE, calf soft and compressible. Aquacel dressing CDI. Objective Labs 06/14/24 06:30 Labs: Laboratory Results - last 24 hr 06/14/24 06:30 Hgb 9.7 L Hct 28.9 L PFSH Medical History Hypothyroid Small bowel obstruction Infected hernioplasty mesh Abdominal wall cellulitis Diverticulosis GERD (gastroesophageal reflux disease) Hyperlipidemia Glaucoma Surgical History S/P small bowel resection (10/17/22) H/O cataract extraction H/O section History of hysterectomy Hx of appendectomy Hx of tonsillectomy S/P left unicompartmental knee replacement History of total right knee replacement History of total right hip replacement (2003) H/O umbilical hernia repair H/O inguinal hernia repair H/O colectomy Social History household members: spouse Smoking Status: Former smoker alcohol intake: current Discharge Assessment & Plan Assessment and Plan Assessment: Left hip osteoarthritis, s/p left total hip arthroplasty Plan of Treatment: Discharge home, ASA 81mg BID for VTE prophylaxis, outpt PT, multimodal pain control, f/u in office as scheduled. Discharge Plan Discharge Plan Patient Disposition: Home Discharge orders & Medications Discharge Orders: Discharge (Order); Ordered 06/14/24 Ordered By: Vandana Anderson Prescriptions: Continued levothyroxine 25 mcg tablet 50 mcg PO DAILY olopatadine 0.1 % drops 1 drp EYE-BOTH BID pravastatin 20 mg tablet 40 mg PO BEDTIME duloxetine 30 mg capsule,delayed release(DR/EC) 30 mg PO BID Lumigan 0.01 % drops 1 drp EYE-BOTH BEDTIME Xiidra 5 % dropperette 1 drp BID Patient Comments: [NO ORIGINAL SIG] hydrocodone-acetaminophen 5-325 mg tablet 1 tab PO 3XD PRN (Reason: Pain (Scale Score 4-6)) aspirin 81 mg Tablet,Delayed Release (Dr/Ec) 81 mg PO DAILY omeprazole 20 mg Capsule,Delayed Release(Dr/Ec) 20 mg PO DAILY PRN (Reason: Gastric Reflux) polyethylene glycol 3350 [Miralax] 17 gram/dose Powder 17 g PO DAILY PRN (Reason: Constipation) turmeric 400 mg Capsule 1,500 mg PO DAILY Follow up/Referrals: Ashley Baxter MD [Physician] - 06/28/24 2:30 pm (Follow up w/ Herman Bah PA-C, at [facility] in [place] Melissa Ross PA-C [Primary Care Provider] - Diet/Activity/Treatments Diet: Diet as Tolerated Activity: Ambulate multiple times a day. Use a cane or walker as needed. Full weight on leg, anterior hip precautions. Cold/Heat Therapy: Use ice multiple times a day. Other treatments: Increase aspirin to twice a day for 6 weeks following surgery. Skin/Wound/Dressing Care Report to your healthcare provider any signs of infection, such as:: chills, fever, night sweats, unusual drainage and unusual redness Dressing: Leave dressing in place until follow up in office. No bathing or otherwise soaking incision. Call the office if the dressing becomes saturated inside. Visit Report/Discharge Packet Instructions: DI for Hip Replacement, DI for Prescription Opioid Use Stand Alone Forms: Patient Portal/API, Surgery Discharge Discharge Data Primary Care Provider: Melissa Ross Attending Provider: Ashley Baxter Quality VTE Deep Vein Thrombosis/Pulmonary Embolism Present on Admission: No
--- NOTE | 2024-06-14 08:35 | PT.IPTN ---
Current Diagnoses Unilateral primary osteoarthritis, left hip (06/13/24) Surgery Performed Operation Date: 06/13/24 07:45 Actual Procedures p Total Hip Arthroplasty/Anterior Approach(Left) - Ashley Baxter MD Physical Therapy Treatment Note M2 PT-IP Current Condition Start: 06/13/24 12:09 Freq: NEEDED Status: Active Protocol: Document 06/14/24 08:19 SP (Rec: 06/14/24 09:04 SP [id number]) Physical Therapy Current Condition Current Condition Evaluation Date 06/13/24 Treatment Diagnosis Left anterior hip replacement M3 PT-IP Subjective Start: 06/13/24 12:09 Freq: NEEDED Status: Active Protocol: Document 06/14/24 08:19 SP (Rec: 06/14/24 09:04 SP [id number]) Subjective Physical Therapy Visit Type Type Treatment Note Visit Start Time 08:19 Visit Stop Time 08:35 Notes Vitals: 140/67 HR 75 97% RA Number of BILL POSTER INSTALLER Visits 1 Physical Therapy Visit Comments Patient Comments Pt is agreeable to PT, states feeling stronger and ready do stairs and walk.. Therapy Pain Assessment Location Left hip Intensity 5 M4 PT-IP Mobility and Gait Start: 06/13/24 12:09 Freq: NEEDED Status: Active Protocol: Document 06/14/24 08:19 SP (Rec: 06/14/24 09:04 SP [id number]) PT-Transfer Assessment Sit to and From Stand Sit to and from Stand Standby Assistance,Use of Upper Extremities Equipment Transfer Assistive Device Gait Belt,Front Wheeled Walker Orthotic/Prosthetic Devices or Brace: No Transfers Transfer Destination Chair Transfer Technique ambulated Transfer Ability Level of Assist Standby Assistance,Use of Upper Extremities Comments Mobility Comments Pt up in chair arrival, completed STS and gait around room to w/c in hallway. Wheeled downt to stairs. Completed 3 stairs Step to patterning asc/desc L HR (wall at home) and SPC in RUE, good patterning self cued CGA which stated can provide. Ed jameson behind her going up and front going down as BILL POSTER INSTALLER provided fro safety. Pt ambulted back to room SBA / c FWW approx 150 ft and returned to chair. slight step over step, no excessiver hyperextension per percautions . PT had call light and all needs in reach, OT took over care. Gait Assessment Gait Gait Assistance Required: Standby Assistance Distance (Feet) 180 Able to Maintain Weight Bearing Status Yes During Gait Assistive Devices Assistive Device Gait Belt,Front Wheeled Walker Orthotic/Prosthetic Devices or Brace: No Gait Deviations General Gait Pattern Decreased Stride Length Factors Limiting Gait Function Factors Limiting Gait Function Decreased Strength,Pain Comments Gait Comments see mobility comments Stair Climbing Assessment Evaluation Level of Assist On Stairs Contact Guard Assistance,1 Person Assistance Devices Stair Climbing Assistive Devices Straight Cane,Left Railing Technique/Endurance Stair Climbing Direction Ascend and Descend Stair Climbing Technique Step to Step Number of Steps Climbed 3 Stair Climbing Set # Repetitions (reps) 1 Comments Stair Climbing Comments see mobililty comments PT-Balance Assessment Sitting Balance and Reactions Static Sitting Balance Ability Normal Dynamic Sitting Balance Ability Good Standing Balance and Reactions Static Standing Balance Ability Good Dynamic Standing Balance Ability Good Device Used RW M5 PT-IP Objective Assessments Start: 06/13/24 12:09 Freq: NEEDED Status: Active Protocol: Document 06/13/24 12:56 MB (Rec: 06/13/24 13:26 MB [id number]) Orientation Orientation/Cognition Level of Alertness Alert Orientation Name Language Function Ability No Deficits Noted Safety Awareness Decreased Safety Awareness Memory Description No Deficits Noted Gross Range of Motion Upper Extremity ROM Impairments Defer to OT Lower Extremity ROM Assessment Left Impaired Strength Lower Extremity Strength Assessment Left Impaired Knee Right 5/5 Ankle B great toe extension and DF 5 /5 Coordination Assessment Gross Coordination Gross Coordination Impaired Sensation Assessment Comments Sensation Comments Pt reports no paresthesias with light touch testing Muscle Tone Muscle Tone WNL Yes M6 PT-IP Treatment Start: 06/13/24 12:09 Freq: NEEDED Status: Active Protocol: Document 06/14/24 08:19 SP (Rec: 06/14/24 09:04 SP [id number]) Physical Therapy Treatment Education Education Provided Precautions,Safety M7 PT-IP Assessment and Plan Start: 06/13/24 12:09 Freq: NEEDED Status: Active Protocol: Document 06/14/24 08:19 SP (Rec: 06/14/24 09:04 SP [id number]) PT Summary Assessment and Plan Potential Rehabilitation Potential Good Status of Condition at Evaluation Evolving Summary Impairments Pain,ROM,Strength,Balance, Coordination,Bed Mobility, Transfers,Gait,Activity Tolerance Progress Towards Goals Progressing Toward Goals Assessment Summary Pt improved gait slight step over step /c FWW within precautions no excessiver hyperextension SBA 180 ft total, stable WB BLE, stair mgt 3 CGA L HR, SPC in R proper patterning. REcommending out pt PT when medically stable to return home help. Goals Bed Mobility Goal Independent Transfer Goal Standby Assistance,Front Wheeled Walker Gait Goal Standby Assistance,Front Wheel Walker Gait Distance 100 Other Goals Pt will ascend and descend 2 steps with RW and min A to allow safe home entrance. Days to Meet Goals 3 Frequency of Treatment Other frequency 1-2x/day Treatment Plan Physical Therapy Treatment Plan Bed Mobility Training,Transfer Training,Gait Training, Therapeutic Exercise,Balance Retraining,Post Op Education, Discharge Planning,Hot or Cold Pack,Neuromuscular Re-ed, Coordination Retraining,Manual Therapy Other Recommendations and Next Treatment Post op ex, gait. Focus Precautions Other Precautions No hyperextension L hip/leg Weight Bearing Status Weight Bearing Status Weight Bear as Tolerated Recommendations To Nursing Amount of Assist Needed Standby Assistance Discharge Recommendations PT Discharge Recommendations Home with Assistance, Outpatient PT Transportation Needs at Discharge Private Vehicle
--- NOTE | 2024-06-14 08:59 | OT.IP.EVAL ---
Current Diagnoses Unilateral primary osteoarthritis, left hip (06/13/24) Surgery Performed Operation Date: 06/13/24 07:45 Actual Procedures p Total Hip Arthroplasty/Anterior Approach(Left) - Ashley Baxter MD Past Medical History (Last Reviewed 06/13/24 @ 06:40 by Vika Braga, RN) Abdominal wall cellulitis Diverticulosis GERD (gastroesophageal reflux disease) Glaucoma Hyperlipidemia Hypothyroid Infected hernioplasty mesh Small bowel obstruction Surgical History (Last Reviewed 06/13/24 @ 06:40 by Vika Braga, RN) H/O cataract extraction H/O section H/O colectomy H/O inguinal hernia repair H/O umbilical hernia repair History of hysterectomy History of total right hip replacement (2003) History of total right knee replacement Hx of appendectomy Hx of tonsillectomy S/P left unicompartmental knee replacement S/P small bowel resection (10/17/22) Occupational Therapy Inpatient Evaluation/Re-Eval M1 PT/OT-IP Prior Functional Status Start: 06/13/24 12:09 Freq: NEEDED Status: Active Protocol: Document 06/14/24 08:59 [facility] (Rec: 06/14/24 09:07 [facility] [id number]) Medical Review Prior Functional Status Medical History Reviewed Yes Diet/Fluid Consistency Regular Communication Pt reports she is very I and uses cane at baseline Mobility and Gait Mod I with SPC Activities of Daily Living and IADL's Drives, I Social History Household Members spouse Living Arrangements House Number of Floors (Floors) 3 or More Floors Number of Stairs To Enter/Railing? 2 steps and no rail to enter home Home Environment High Toilet,Walk in Shower Home Equipment Front Wheel Walker,Straight Cane,Shower Seat with Backrest Employment Status Retired M2 OT-IP Current Condition Start: 06/14/24 08:58 Freq: Status: Active Protocol: Document 06/14/24 08:59 [facility] (Rec: 06/14/24 09:07 [facility] [id number]) Occupational Therapy Current Condition Current Condition Evaluation Date 06/14/24 Treatment Diagnosis S/P L KVNG Diagnosis Onset Date 06/13/24 Post Operative Precautions Anterior Hip Precautions No Hip Extension,No Hip External Rotation M3 OT- IP Subjective and Pain Start: 06/14/24 08:58 Freq: Status: Active Protocol: Document 06/14/24 08:59 [facility] (Rec: 06/14/24 09:07 [facility] [id number]) OT- Subjective Occupational Therapy Visit Type Type Initial Evaluation Visit Start Time 08:23 Visit Stop Time 08:59 Occupational Therapy Visit Comments Patient Comments Pt agreed to get up and get dressed. Patient/Caregiver Goals TO go home. OT Pain Assessment Pain When Pain Assessed During Mobility Pain Present Pain Present Pain Reported Location Left hip Intensity 6 Scale Used Numeric (0 - 10) M4 OT- IP ADL's Start: 06/14/24 08:58 Freq: Status: Active Protocol: Document 06/14/24 08:59 [facility] (Rec: 06/14/24 09:07 [facility] [id number]) OT JON-Fuzi-Pesigno General Evaluation Self-Feeding Ability Independent OT ADL-Grooming General Evaluation Grooming Ability Independent OT ADL-Dressing General Eval Upper Body Dressing Ability Independent Lower Body Dressing Ability Moderate Assistance Areas Needing Assistance Socks,Shoes Comments OT Dressing Comments Able to practice use of LB dressing equipment and suggested for pt to mixing picker tender. Also to dress the LLE first and take out last. OT ADL-Toileting Comments OT Toileting Comments Suggested pt get a BSC as having to use the toilet several times at night and to wear pads/brief so not having to rosado to the toilet. Also to be mindful of her LLE positioning for all ADL needs. M5 OT- IP IADL's Start: 06/14/24 08:58 Freq: Status: Active Protocol: Document 06/14/24 08:59 [facility] (Rec: 06/14/24 09:07 [facility] [id number]) OT-Instrumental Activities of Daily Living Deficits IADL Deficits Identified Deficits Home Safety Awareness Awareness of Need for Assistance at Home Good Awareness Ability to Problem Solve Emergency Able to Problem Solve Situations Medication Management Medication Management No Deficits Identified Money Management Money Management No Deficits Identified Meal Preparation Meal Preparation Caregiver Provides Assist Depot Manager Depot Manager Caregiver Provides Assist M6 OT- IP Functional Cognition Start: 06/14/24 08:58 Freq: Status: Active Protocol: Document 06/14/24 08:59 [facility] (Rec: 06/14/24 09:07 [facility] [id number]) Cognitive Factors Limiting Selfcare Function Cognitive Ability Level of Alertness Alert Patient Orientation Name,Age,Birthday,Month,Date, Year,Day of Week,Place, Situation Attention Span Ability Capable of Focused Attention Ability to Follow Commands Able to Follow Multi-Step Commands Cognitive Comments Cognitive Assessment Comments INtact and able to incorporate her hip precautions for mobility and ADL needs. Pt needing initial reminders to push up from the armrest of the recliner to come to stand initially. OT- Vision and Hearing OT- Hearing Assessment OT- Hearing Assessment WFL OT- Vision Assessment Visual Acuity Glasses For Reading Visual Attentiveness WFL Occular Pursuits WFL M7 OT- IP Mobility and Balance Start: 06/14/24 08:58 Freq: Status: Active Protocol: Document 06/14/24 08:59 [facility] (Rec: 06/14/24 09:07 [facility] [id number]) OT-Transfer Assessment Sit to and From Stand Sit to and from Stand Standby Assistance,Contact Guard Assistance Transfers Transfer Ability Standby Assistance Comments Mobility Comments VC to scoot forwards prior to standing up and push up from the armrests of the recliner. OT- Balance Assessment Sitting Balance and Reactions Static Sitting Balance Ability Normal Dynamic Sitting Balance Ability Normal Standing Balance and Reactions Static Standing Balance Ability Good Dynamic Standing Balance Ability Fair M8 OT- IP Objective Assessments Start: 06/14/24 08:58 Freq: Status: Active Protocol: Document 06/14/24 08:59 [facility] (Rec: 06/14/24 09:07 [facility] [id number]) OT Gross Range of Motion Upper Extremity Range of Motion ROM Impairments WFL for needs. OT Strength Comments Strength Comments WFL for needs. M9 OT- IP Assessment and Plan Start: 06/14/24 08:58 Freq: Status: Active Protocol: Document 06/14/24 08:59 [facility] (Rec: 06/14/24 09:07 [facility] [id number]) OT Summary Assessment and Plan Potential Rehabilitation Potential Excellent Analytic Complexity at Evaluation Low Summary OT Impairments Pain,Balance,Functional Mobility,Dressing,Toileting, Bathing,Toilet Transfers, Shower Transfers Progress Towards Goals Progressing Toward Goals Assessment Summary Pt low complexity and doing well and able to recall her hip precautions. Pt will benefit from getting a BSC and sock aid for home use. Pt to go home with her and have outpt PT. Goals Dressing Goal Independent,Long Handled Shoe Horn,Traveling Sales Executive,Sock Aid Toileting Goal Independent Bathing Goal Standby Assistance Toilet Transfer Goal Independent Shower Transfer Goal Independent Days to Meet Goals 3 Treatment Plan OT Treatment Plan ADL Training,Functional Mobility,Patient/Family Education,Discharge Planning Discharge Recommendations OT Discharge Recommendations Home with Assistance, Outpatient PT Home Equipment Needs BSC, sock aid Transportation Needs at Discharge Private Vehicle
--- NOTE | 2024-06-14 09:34 | PC.NURSE ---
0750 pt awake , sba to [place] [facility], medicated for right hip pain, up to chair for BF then amb with PT. Vandana here order's rc'd
--- NOTE | 2024-06-14 10:39 | CM.DANOTE ---
DCP Assessment Note: Pt is a 79yo female, resident of [place], is admitted for a ventral hernia. Pt lives in a house with her , Ricardo. Pt's Primary Care Provider is Melissa Ross PA-C and insurance is Medicare and [email or web address]. Reviewed chart and discussed with multidisciplinary team pt's medical status and initial discharge needs. DCP met w/patient at bedside; introduced self and role. Patient was found in bed, alert and oriented, cooperative with assessment. Pt confirmed living situation and good support in . Pt expressed preference in discharging home with outpatient PT ([facility]). Pt has a hx of [facility], denies need for referral after this admission. PT recommending home with outpatient PT, POV for transport. Plan: Discharge order in, anticipating dc home with spouse when available. CM team will follow closely for coordination of discharge plans. RYLEE Solorzano Discharge Planning/Care Management CM Discharge Assessment Start: 06/14/24 10:38 Freq: Status: Active Protocol: Document 06/14/24 10:38 MW (Rec: 06/14/24 10:39 MW [id number]) Discharge Planning Assessment Assigned Bottle Packing Machine Cleaner SHEILA Bond DPOA/Assigned Designee Name Ricardo, Spouse Contact Information [phone] Advance Directives? Yes Advance Directives on File No History Provided By Patient,Medical Record Has Patient been admitted in last 30 No days? Prior Living Arrangements House Household Members spouse Type of transporation used prior to Drives own vehicle admit Independent with ADL's Yes Is patient alert and oriented? Yes Caregiver for Another No DME Already Rented / Owned FWW / Walker,Cane Barriers to Discharge No Discharge Plan Home Community Services Physical Therapy Transportation Arrangement Spouse POV Referrals Initiated None needed Review Status In Process Please Provide Date Initial DC 06/14/24 Assessment Was Performed Next Review Type Continued Stay Review
== END 2024-06-14 11:20 | disposition home or self-care (01) ==
LOC: OR 06:19 → AC 06:23
PROVIDERS: PCP Physician Assistant; Referring Provider Orthopaedic Surgery; Visit Provider Orthopaedic Surgery
PROC: (CPT 27130; principal; 2024-06-13 07:45)
DX: M16.12 Unilateral primary osteoarthritis, left hip (principal); E03.9 Hypothyroidism, unspecified; E78.5 Hyperlipidemia, unspecified; K21.9 Gastro-esophageal reflux disease without esophagitis; Z96.641 Presence of right artificial hip joint; Z96.651 Presence of right artificial knee joint; Z85.828 Personal history of other malignant neoplasm of skin; Z90.710 Acquired absence of both cervix and uterus; Z87.891 Personal history of nicotine dependence
CPT/HCPCS: 27130; 73502; 73503; 76000; 85014; 85018; 97110; 97162; 97165; 97530; 97535; C1776; J0666; J0690; J1100; J1171; J2405; J2704; J3010

== ENCOUNTER → 2024-08-22 11:29 | Outpatient (CLI) | payer MEDICARE, OTHER, SELFPAY ==
[2024-06-13 15:36] VITALS: BMI 28.3
[2024-08-22 12:24] LABS: Add Manual Diff / Slide Review NO; Basophils Absolute Auto 0 /uL (0-100); Basophils Percent Auto 0.7 % (0-2); Eosinophils Absolute Auto 100 /uL (0-450); Eosinophils Percent Auto 2.3 % (2-4); Hematocrit 35.1 % (36-46); Hemoglobin 11.4 g/dL (12.0-16.0); Lymphocytes Absolute Auto 1300 /uL (1100-4500); Lymphocytes Percent Auto 21.9 % (25-40); Mean Corpuscular HGB Conc 32.4 % (30-36); Mean Corpuscular Volume 86.6 fL (80-100); Monocytes Absolute Auto 600 /uL (0-900); Neutrophils Absolute Auto 3900 /uL (1500-7000); Neutrophils Percent Auto 65.1 % (50-75); Platelet Count 238 X10^3/uL (150-400); Red Blood Cell Count 4.05 X10^6/uL (4.0-5.2); Red Cell Distribution Width 13.6 % (11.6-14.8)
[2024-08-22 12:46] LABS: Erythrocyte Sedimentation Rate 10 MM/HR (0-20)
[2024-08-22 12:52] LABS: C-Reactive Protein Quant < 0.5 mg/dL (<1.0)
== END ==
PROVIDERS: PCP Physician Assistant; Referring Provider Orthopaedic Surgery; Visit Provider Orthopaedic Surgery
DX: Z96.642 Presence of left artificial hip joint (principal)
CPT/HCPCS: 36415; 85025; 85651; 86140

== ENCOUNTER → 2024-10-14 10:42 | Outpatient (CLI) | payer MEDICARE, OTHER, SELFPAY ==
[2024-06-13 15:36] VITALS: BMI 28.3
--- NOTE | 2024-10-14 10:47 | DI.RAD.S_ITS ---
PROCEDURE: XR HIP W PEL IF DONE LT 2V INDICATIONS: LT HIP PAIN TECHNIQUE: AP pelvis with lateral view(s) of the left hip(s). COMPARISON: [facility], CR, XR HIP W PEL IF DONE LT 2V, 06/13/2024, 10:44. [facility], CR, [id number] W PEL IF PERFORMED, 06/13/2024, 9:04. [facility], CR, XR HIP W PEL IF DONE LT 2V, 01/02/2024, 7:40. [facility], CR, XR HIP W PEL IF DONE RT 2V, 02/22/2018, 10:28. FINDINGS: Mild osseous demineralization. Status post bilateral total hip arthroplasty without hardware complication. No acute fracture or dislocation. Mild bilateral sacroiliac osteoarthritis. The pubic symphysis is preserved. No pelvic ring disruption. IMPRESSION: 1. Status post bilateral total hip arthroplasty without hardware complication. 2. Mild bilateral sacroiliac joint osteoarthritis. Dictated by: Brian Alonso M.D. on 10/14/2024 at 12:57 Approved by: Brian Alonso M.D. on 10/14/2024 at 12:58
== END ==
PROVIDERS: PCP Physician Assistant; Referring Provider Physician Assistant; Visit Provider Physician Assistant
DX: M16.0 Bilateral primary osteoarthritis of hip (principal); M25.552 Pain in left hip; Z96.643 Presence of artificial hip joint, bilateral
CPT/HCPCS: 73502

== ENCOUNTER → 2024-10-30 16:15 | Outpatient (CLI) | payer MEDICARE, OTHER, SELFPAY ==
[2024-06-13 15:36] VITALS: BMI 28.3
--- NOTE | 2024-10-30 16:17 | DI.MRI.S_ITS ---
PROCEDURE: MR HIP LT WO CON INDICATIONS: LT HIP PAIN TECHNIQUE: Noncontrast coronal T1 spin echo and STIR through the bony pelvis. Coronal and axial T2 fast spin echo with fat saturation, sagittal T1 spin echo, and oblique axial T2 fast spin echo with fat saturation through the hip. COMPARISON: [facility], CR, XR HIP W PEL LT 2V, 10/14/2024, 10:52. [facility], MR, MR HIP LT WO CON, 01/06/2024, 14:28. FINDINGS: Image quality: Degraded by metallic artifact. Bones and joints: Bilateral hip arthroplasty artifact is present. Bone marrow of the pelvic ring and proximal femurs demonstrates otherwise normal signal throughout. No intraosseous lesions or fractures. No avascular necrosis of the femoral heads. The visualized lower lumbar spine appears normally aligned. Tendons and ligaments: The gluteus medius and minimus tendons appear intact, without associated muscle atrophy. Mild T2 signal elevation adjacent to the femoral insertion sites of the left gluteus medius and minimus tendons. The nearby proximal iliotibial band also appears intact. The iliopsoas tendon appears intact, without adjacent bursal fluid collections or evidence for impingement syndrome. The origin of the hamstring tendon is intact at the ischial tuberosity, as well as the associated sacrotuberous ligament. Mild T2 signal elevation adjacent to the proximal hamstring tendon. The straight and reflected heads of the rectus femoris muscle origin appear intact, as well as the conjoint tendon. The ligamentum teres appears intact where visualized. Soft tissues: Visualized muscles demonstrate normal bulk and internal signal. Quadratus femoris muscle demonstrates no internal edema to suggest ischiofemoral impingement. The proximal sciatic neurovascular bundle appears normal adjacent to the hamstring tendons. No free pelvic fluid. Bladder wall thickness is normal. Genitourinary structures and bowel loops appear normal where visualized. IMPRESSION: 1. Postsurgical sequelae. 2. Insertional tendinitis of the left gluteus medius and minimus tendons. 3. Mild left hamstring tendinopathy. Dictated by: Caty Parmar M.D. on 10/31/2024 at 10:43 Approved by: Caty Parmar M.D. on 10/31/2024 at 10:45
== END ==
PROVIDERS: PCP Physician Assistant; Referring Provider Orthopaedic Surgery; Visit Provider Orthopaedic Surgery
DX: M76.02 Gluteal tendinitis, left hip (principal); M25.552 Pain in left hip; Z96.642 Presence of left artificial hip joint
CPT/HCPCS: 73721

== ENCOUNTER → 2025-02-27 | Outpatient (CLI) | payer MEDICARE, OTHER, SELFPAY ==
[2024-06-13 15:36] VITALS: BMI 28.3
--- NOTE | 2025-02-27 15:51 | DI.MG.S_ITS ---
MM screening mammo BI: 02/27/2025. BI-RADS: 1 CLINICAL: 80-year old female for bilateral screening mammogram. Tyrer-Cuzick lifetime risk of 4.4%. Current reported family history of breast cancer: mother. PRIOR EXAMS 02/26/2024, 02/23/2023, 02/02/2022, 01/07/2021. MAMMOGRAPHY TECHNIQUE: 2D and 3D (tomosynthesis) digital mammographic views obtained, with additional images as needed for full coverage. Current study was also evaluated with a Computer Aided Detection (CAD) system. DENSITY C. The breasts are heterogeneously dense, which may obscure small masses. MAMMOGRAPHY FINDINGS Bilateral: No suspicious mass, asymmetry, microcalcification, or other abnormality seen. No significant change from comparison. IMPRESSION: * No evidence of malignancy. RECOMMENDATIONS Bilateral * Annual screening mammography. OVERALL ASSESSMENT CATEGORY BI-RADS-1: Negative. [employer] recommends annual screening mammography beginning at age 40 for women with average risk of breast cancer. ELECTRONICALLY SIGNED: Chaparro Gotti M.D. on 03/04/2025 at 10:46:41 AM PT Interpreting Station ID: [id number]
== END ==
LOC: MAMMO 15:51
PROVIDERS: PCP Physician Assistant; Referring Provider Physician Assistant; Visit Provider Physician Assistant
DX: Z12.31 Encounter for screening mammogram for malignant neoplasm of breast (principal); R92.333 Mammographic heterogeneous density, bilateral breasts; Z80.3 Family history of malignant neoplasm of breast
CPT/HCPCS: 77063; 77067